=== PATIENT | female | born 1965 | race Caucasian/White ===

== ENCOUNTER 2017-10-10 05:09 | Observation (INO) | payer BC, SELFPAY ==
[2017-10-10] VITALS (7 sets, daily range): BP systolic 90–146; BP diastolic 56–89; PULSE 54–83; RESP 14–22; TEMP 36.4–36.7; O2SAT 94–100; BMI 28.8; BMI 28.9; BMI 29.0
--- NOTE | 2017-10-10 05:18 | CT_ITS ---
STUDY: CT ABDOMEN AND PELVIS WITHOUT CONTRAST REASON FOR EXAM: Female, 51 years old. Right-sided abdominal pain. RADIATION DOSAGE (If Supplied By Facility): CTDIvol = ( 9.35 ) mGy, DLP = ( 478.81 ) mGycm TECHNIQUE: Transaxial images were obtained from the dome of the diaphragm to the symphysis pubis without oral contrast, and without intravenous contrast. Sagittal and coronal images were reconstructed. Individualized dose optimization techniques were used for this CT. COMPARISON: Prior comparison studies are not available for review at this time. FINDINGS: The visualized lung bases are unremarkable. The visualized portions of the heart are within normal limits. Normal liver. Normal gallbladder and extrahepatic biliary system. Normal spleen. There is diffuse atrophy of the pancreas. Normal bilateral adrenal glands. There is a moderate right-sided hydronephrosis and hydroureter secondary to distal ureteral calculus at the ureterovesical junction measuring approximately 3 mm. Normal left kidney. Normal visualized stomach. There is no evidence for dilated bowel, ascites or pneumoperitoneum. Small bowel has a grossly normal appearance. Stool is visible throughout the colon with scattered diverticula. There are surgical clips in the region of the appendix consistent with a prior appendectomy. Normal abdominal aorta. Normal inferior vena cava. Normal retroperitoneum. Normal urinary bladder. There is absence of the uterus consistent with a prior hysterectomy. There is a small umbilical hernia containing fat. Normal osseous structures. CT/Abdomen/Pelvis without Cont IMPRESSION: Right-sided hydronephrosis and hydroureter secondary to distal ureteral calculus. Electronically Signed: Renata Sanderson MD at 5:58 EDT , Service support ,
--- NOTE | 2017-10-10 05:21 | ED.VISSUMM ---
- ER Visit Summary Date of Service: 10/10/17 Chief Complaint: Abdominal pain History of Present Illness: The patient is a 51 F who is otherwise healthy presents to the emergency department with rather sudden onset abdominal pain. Patient was in her normal state of health. She woke suddenly just before 5 AM today with a sharp stabbing pain in her right back that radiates into her right groin. She has had multiple episodes of nausea and vomiting. The pain cannot recruit be re-created with any movement or palpation. She states she has never had pain like this before. She has had prior hysterectomy, but denies any history of kidney stone. She denies any fevers or chills. She denies any recent illness. She has had no urinary symptoms. She states she has never felt like this before. Physical Examination: Vital signs reviewed General: Well-nourished, well-developed Head: Normocephalic, atraumatic Eyes: Pupils equal and reactive, extraocular muscles intact Neck, supple, no lymphadenopathy Heart: Regular rate and rhythm Respiratory: No distress, clear bilaterally Abdomen: Soft, nontender, nondistended, no peritoneal signs Back: Mild right CVA tenderness Extremities: Nontender, no edema, no cords Skin: Normal color no rash Neuro: Alert and oriented, no focal or lateralizing deficits Test Results: [] Emergency Department Course and Treatment: The patient has signs and symptoms of her consistent with urolithiasis. She was nauseated with vomiting. She is a benign abdomen. IV was established. The patient was given analgesics and antiemetics with almost complete resolution of pain. Screening labs are obtained and are unremarkable. The patient underwent CT of abdomen and pelvis. She does have a 3 mm stone is seen at the [facility]. Patient did have return of pain. Her analgesics were redosed. She is much more comfortable. Urine is able to be obtained. It is currently pending. As long as the patient's pain can be controlled, I do feel that she would be safe for outpatient therapy. She currently is getting another dose of analgesics and will be observed. Patient will be signed out to oncoming physician for reevaluation. Treatment Plan: [] Disposition: [] Impression: 1. 3 mm right [facility] stone This note was generated with [employer] dictation software. It may contain incorrect words, spelling, and punctuation that were not noted in review of the chart prior to signing <Devaughn Polanco - Last Filed: 10/10/17 06:49> - ER Visit Summary Date of Service: 10/10/17 Patient continued to have significant pain. She was given additional doses of morphine and Phenergan. She continues to be unable to tolerate the pain. Discussed with Dr. Corrigan for admission. Disposition: Admission Impression: Urolithiasis, intractable pain This note was generated with [employer] dictation software. It may contain incorrect words, spelling, and punctuation that were not noted in review of the chart prior to signing <Jenna Young - Last Filed: 10/10/17 09:25> ED Disposition <SherriDevaughn - Last Filed: 10/10/17 06:49> <Jenna Young - Last Filed: 10/10/17 09:25> - Plan for ED Patient: Chief Complaint: Abd Pain Instructions: ED Stone Renal W Colic Prescriptions: Hydrocodone Bitart/[place] 5-325 [[place] 5/325] 1 tab PO Q4H PRN PRN 3 Days #12 tab PRN Reason: Pain Ondansetron [Zofran Odt] 4 mg PO Q8H PRN PRN #10 tab PRN Reason: Nausea Referrals: Samuel Orourke MD [Primary Care Provider] -
[2017-10-10 05:26] LABS: Absolute Lymphocyte Count 2.53 X10^3/ul (0.83-4.51); Absolute Neutrophil Count 3.8 X10^3/uL (2.0-7.7); Basophil# 0.04 X10^3/uL; Basophil% 0.5 % (0-1); Eosinophil# 0.29 X10^3/uL; Eosinophils% 3.9 % (0-5); Hematocrit 43.7 % (37-47); Hemoglobin 15.1 g/dl (12.0-15.0); Lymphocyte # 2.53 X10^3/ul (4.0); Lymphocyte % 34.1 % (19-41); Mean Corp Hgb Conc 34.6 g/gl (32-36); Mean Corpuscular Hgb 30.4 pg (27.0-32.0); Mean Corpuscular Volume 88.1 fL (81-99); Mean Platelet Vol. 10.7 fl (6.2-12.0); Monocyte# 0.77 X10^3/uL; Monocyte% 10.4 % (0-10); Neutrophil # 3.78 X10^3/uL (2.7-7.7); Platelet Count 259 K/mm3 (150-450); RBC Distribution Width SD 41.8 fl (35.1-43.9); Red Blood Count 4.96 M/mm3 (4.2-5.4); White Blood Count 7.4 K/mm3 (4.4-11.0)
[2017-10-10] MEDS: 0.9% Normal Saline 1,000 ML 250 ML IV (05:26)
[2017-10-10] MEDS: Ketorolac 30 MG/ML Syringe IV (05:26)
[2017-10-10] MEDS: morphine 8 MG/ML Syringe IV (05:27)
[2017-10-10] MEDS: Ondansetron 4 MG/2 ML Vial IV (05:27)
[2017-10-10 05:31] LABS: POSITIVE COUNT NO; POSITIVE DIFFERENTIAL NO; POSITIVE MORPHOLOGY NO
[2017-10-10 05:50] LABS: Anion Gap 12 (5-15); BUN 24 mg/dL (7-18); BUN/Creat Ratio 20.9 RATIO (10-20); Calcium,Total 8.7 mg/dL (8.5-10.1); Chloride 106 mmol/L (98-107); Creatinine, Serum 1.15 mg/dL (0.55-1.02); EST Glomerular Filtration Rate 53 mL/min (>60); Est Glom Filt Rate - Afr Amer 64 mL/min (>60); Estimated Creatinine Clearance 47.88 ml/min; Glucose 116 mg/dL (74-106); Potassium 4.4 mmol/L (3.5-5.1); Sodium Level 143 mmol/L (136-145)
[2017-10-10] MEDS: HYDROmorphone 1 MG/ML Syringe IV (06:19)
[2017-10-10 06:40] LABS: Bacteria 0 SEEN /hpf (None Seen); Mucous, Urine 0 SEEN /hpf (<or=2+)
[2017-10-10 06:43] LABS: Color, Urine Yellow (Yellow); Glucose, Dipstick Normal (Normal); Ketone-Dipstick 15 mg/dl (Negative); Leukocyte Esterase-Dipstick Negative /ul (Negative); Nitrite-Dipstick Negative (Negative); Occult Blood-Urine 150 /ul (Negative); Protein-Dipstick 15 mg/dl (Negative); Urine Bilirubin Dipstick Negative (Negative); Urine Clarity Clear (Clear); Urine Urobilinogen Normal (Normal)
[2017-10-10 06:49] LABS: Red Blood Cells-Urine 5-10 SEEN /hpf (0-5); Squamous Epithelial Cells - UA 5-10 SEEN /hpf (5-10); White Blood Cells 0 SEEN /hpf (0-5)
[2017-10-10] MEDS: Morphine 4 MG/ML Syringe IV ×2 (07:16→08:30)
[2017-10-10] MEDS: proMETHazine 25 MG/ML Syringe 6.25 MG IV (08:30)
--- NOTE | 2017-10-10 09:44 | NURSING ---
318 KIDNEY STONE OBS JOANA
--- NOTE | 2017-10-10 09:46 | ED.RN ---
PRESCRIPTIONS VOIDED AND PLACED IN SHRED BIN
[2017-10-10] MEDS: Morphine 2 MG/ML Syringe IV ×6 (11:05→20:46)
[2017-10-10] MEDS: 0.9% Normal Saline 1,000 ML 150 ML IV ×2 (11:06→17:27)
[2017-10-10] MEDS: Ketorolac 15 MG/ML Vial IV ×2 (11:41→17:41)
[2017-10-10] MEDS: Tamsulosin HCl 0.4 MG Capsule PO ×2 (12:25→22:05)
[2017-10-10] MEDS: Docusate Sodium 100 MG Capsule PO ×2 (12:25→22:05)
--- NOTE | 2017-10-10 20:45 | PCM.HP.STD ---
Problem List (1) Right ureteral calculus Status: Acute (2) Hydronephrosis, right Status: Acute History of Present Illness Date of Admission: 10/10/17 Chief Complaint: Right severe flank pain The patient is a 51 year old female who presented to the emergency room with severe flank pain nausea vomiting the pain started suddenly she had a CT scan done that demonstrated a very small stone in the distal ureterovesical junction. Pain is been very difficult to control she required morphine and increase of doses of morphine was admitted to the hospital but is severe pain. In reviewing the CAT scan I think she may have a stone in the distal right ureter about 3 mm in size. Given her severe pain probably will proceed with intervention tomorrow unless the pain resolves. Past Medical History Allergies latex Allergy (Verified 02/13/17 08:35) Rash Sulfa (Sulfonamide Antibiotics) Allergy (Verified 02/13/17 08:35) Hives Home Medications: Ambulatory Orders Medication Instructions Recorded Levothyroxine [Synthroid] 100 mcg PO DAILY 02/13/17 Estradiol [Estradiol] 1 mg PO DAILY 10/10/17 Isosorbide Mononitrate [Imdur] 60 mg PO DAILY 10/10/17 Omeprazole [Prilosec] 20 mg PO BID 10/10/17 Ondansetron [Zofran Odt] 4 mg PO Q8H PRN PRN #10 tab 10/10/17 Rizatriptan Benzoate [Rizatriptan] 10 mg PO PRN 10/10/17 Sertraline HCl [Zoloft] 25 mg PO DAILY 10/10/17 Surgical History: appendectomy, hysterectomy Psychiatric History: Anxiety 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 Denies: Nausea, Vomiting Genitourinary: Denies: Dysuria Musculoskeletal: Denies: Joint Pain, Joint Tenderness Skin: Denies: Rash, Wounds Neurological: Denies: Numbness, Tingling, Focal weakness Psychiatric: Reports: Anxiety. Denies: Depression, Homicidal Ideations, Suicidal Ideations Hematologic/ Lymphatic: Denies: Easy Bruising, Easy Bleeding VTE Information - Inpt Only VTE Present on Admission: No VTE Mechan Device Prophylaxis: SCD's Patient Problems: Active and Suspected Problems Right ureteral calculus (Acute) Hydronephrosis, right (Acute) - Physical Exam General: Alert, Oriented x3, Cooperative HEENT: Atraumatic, PERRLA, EOMI, Normocephalic Neck: Supple, No JVD, Negative Carotid Bruits Lungs: Clear to auscultation, Normal air movement Cardiovascular: Regular rate, No murmurs Abdomen: Bowel Sounds Present, Soft, Non Tender Extremities: No edema, Capillary Refill Less than 3 Seconds Skin: No rashes, No breakdown Musculoskeletal: No Tenderness to Palpation of Joints or Extremities Neurological: Cranial nerves II-XII grossly intact Psych/Mental Status: Normal Affect, Appropriate Vital Signs Temp Pulse Resp BP Pulse Ox 98.0 F 73 16 103/56 L 95 10/10/17 16:27 10/10/17 16:27 10/10/17 16:27 10/10/17 16:27 10/10/17 16:27 Oxygen Delivery Method Room Air Weight: 74.4 kg Body Mass Index (BMI) 29.0 Intake and Output for Last 24 Hours 10/08/17 10/09/17 10/10/17 23:59 23:59 23:59 Output Total 100 / 100 Balance -100 / -100 Assessment/Plan Active and Suspected Problems Right ureteral calculus (Acute) Hydronephrosis, right (Acute) Admitted for pain control for a very small stone in the distal right ureter at onto the surgery for tomorrow for right ureteroscopy extraction stone retrograde and stent
[2017-10-10] MEDS: 0.9% NaCl Peripheral Flush Adult/Peds IV (20:47)
[2017-10-10] MEDS: Estradiol 1 MG Tablet PO (22:05)
[2017-10-10] MEDS: Pantoprazole Sodium 20 MG Tablet PO (22:05)
[2017-10-10] MEDS: Sertraline 50 MG Tablet 25 MG PO (22:05)
[2017-10-11] VITALS (18 sets, daily range): BP systolic 78–120; BP diastolic 40–80; PULSE 63–88; RESP 14–18; TEMP 36.3–36.8; O2SAT 89–100; BMI 29.0
[2017-10-11] MEDS: 0.9% NaCl Peripheral Flush Adult/Peds IV ×4 (00:01→23:46)
[2017-10-11] MEDS: 0.9% Normal Saline 1,000 ML 150 ML IV ×3 (00:01→18:29)
[2017-10-11] MEDS: 0.9% Normal Saline 1,000 ML 999 ML IV (05:01)
[2017-10-11] MEDS: Levothyroxine 100 MCG Tablet PO (05:03)
[2017-10-11] MEDS: Morphine 2 MG/ML Syringe IV ×5 (05:41→23:46)
--- NOTE | 2017-10-11 07:30 | PCM.PROGNOTE ---
Patient Problems: Active and Suspected Problems Right ureteral calculus (Acute) Hydronephrosis, right (Acute) Subjective: Last night had to give a fluid bolus for a slightly low blood pressure. Today plan to take her surgery to extract the stone if she does not pass it. Pain is controlled with morphine. - Physical Exam General: Alert, Oriented x3, Cooperative HEENT: Atraumatic, PERRLA, EOMI, Normocephalic Neck: Supple, No JVD, Negative Carotid Bruits Lungs: Clear to auscultation, Normal air movement Cardiovascular: Regular rate, No murmurs Abdomen: Bowel Sounds Present, Soft, Non Tender Extremities: No edema, Capillary Refill Less than 3 Seconds Skin: No rashes, No breakdown Musculoskeletal: No Tenderness to Palpation of Joints or Extremities Neurological: Cranial nerves II-XII grossly intact Psych/Mental Status: Normal Affect, Appropriate Vital Signs Temp Pulse Resp BP Pulse Ox 97.9 F 71 16 98/67 97 10/11/17 05:35 10/11/17 05:35 10/11/17 05:35 10/11/17 05:35 10/11/17 05:35 Oxygen Delivery Method Room Air Weight: 74.4 kg Body Mass Index (BMI) 29.0 Intake and Output for Last 24 Hours 10/09/17 10/10/17 10/11/17 23:59 23:59 23:59 Intake Total 4147 / 4147 Output Total 100 / 100 900 / 900 Balance -100 / -100 3247 / 3247 Medical Necessity - Tobacco Use Smoking Status: Never smoker Tobacco Use: Non-smoker Assessment/Plan Active and Suspected Problems Right ureteral calculus (Acute) Hydronephrosis, right (Acute) TO SURGERY TODAY
[2017-10-11 07:40] LABS: Thyroid Stim Hormone (TSH) 4.77 uIU/mL (0.358-3.74)
[2017-10-11] MEDS: Pantoprazole Sodium 20 MG Tablet PO (08:05)
[2017-10-11] MEDS: Tamsulosin HCl 0.4 MG Capsule PO (11:30)
[2017-10-11] MEDS: Ondansetron 4 MG/2 ML Vial IV ×3 (11:30→23:46)
--- NOTE | 2017-10-11 13:26 | NURSING ---
report called to AC. pt transported down by
--- NOTE | 2017-10-11 14:45 | DCINST_ITS ---
Discharge Diet: Light diet - advance as tolerated Discharge Activity: May not drive while taking narcotic pain medications. Call your doctor if you observe: Fever of 101 or Higher, Uncontrolled pain Suture Line Care: Avoid Pulling/Pushing, Avoid Pinching/Bending Instructions: ED Stone Renal W Colic Allergies/Adverse Reactions: Allergies latex Allergy (Verified 02/13/17 08:35) Rash Sulfa (Sulfonamide Antibiotics) Allergy (Verified 02/13/17 08:35) Hives scopolamine Adverse Reaction (Verified 10/10/17 22:03) blurred vision, nausea Medications to take at Discharge Levothyroxine [Synthroid] 100 mcg PO DAILY 02/13/17 Estradiol [Estradiol] 1 mg PO DAILY 10/10/17 Isosorbide Mononitrate [Imdur] 60 mg PO DAILY 10/10/17 Omeprazole [Prilosec] 20 mg PO BID 10/10/17 Ondansetron [Zofran Odt] 4 mg PO Q8H PRN PRN #10 tab 10/10/17 Rizatriptan Benzoate [Rizatriptan] 10 mg PO PRN 10/10/17 Sertraline HCl [Zoloft] 25 mg PO DAILY 10/10/17 Ciprofloxacin [Cipro] 500 mg PO BID #10 tab 10/11/17 Hydrocodone/Acetaminophen [[place] 5-325 Tablet] 1 ea PO Q4H PRN PRN 7 Days #14 tab 10/11/17 The following prescriptions were given: Hydrocodone/Acetaminophen [[place] 5-325 Tablet] 1 ea PO Q4H PRN PRN 7 Days #14 tab PRN Reason: Pain Ondansetron [Zofran Odt] 4 mg PO Q8H PRN PRN #10 tab PRN Reason: Nausea Ciprofloxacin [Cipro] 500 mg PO BID #10 tab Primary Care Physician: Samuel Orourke MD [Primary Care Provider] - Please Follow Up With: Rajinder Corrigan MD When: please call to make an appointment.
--- NOTE | 2017-10-11 15:21 | OP.PCM_ITS ---
Problem List (1) Right ureteral calculus Status: Acute (2) Hydronephrosis, right Status: Acute Report of Operation Date of Procedure: 10/11/17 Pre-Operative Diagnosis: right ureteral calculi causing severe pain and obstruction Post-Operative Diagnosis: same Surgery/Procedure Performed:: cystscopy, right retrograde pyelogram. right ureteroscopy, no stent Description of Surgical Findings:: 51-year-old female who presented to the hospital in severe pain from a very small stone in the distal ureter required multiple doses of morphine had to be admitted to the hospital she was kept overnight by the following morning was still having some pain and strain in the urine we never saw the stone so today we are going to take her to surgery for ureteroscopy and possible extraction of stone possible stent explained to the patient's possible she may pass a small stone hopefully we will have a put a stent in. 51-year-old female with a stone in the distal ureter she underwent general anesthesia and then went into the bladder with a 21 [employer] rigid cystourethroscope in the bladder I saw that the right ureteral orifice was fairly inflamed and irritated rest of the bladder was normal no cyst tumors or stones seen within the bladder I think cannulated the distal ureteral orifice with a wire advanced a wire of the kidney did a retrograde pyelogram could not see the stone on retrograde pyelogram I then over the wire with a SlimLine ureteroscope was able to get in the distal ureter atraumatically and there is no stone in the distal ureter the ureter to get the wire and watch the ureter ureter was effluxing urine and contrast fairly easily. Appear that past the stone probably just having residual pain. The bladder was drained no stent was placed patient's anesthetic was reversed plan to see her in the office in a week or 2 for follow-up. Type of Anesthesia:: General Drains: none - Admit VTE Documentation VTE Present on Admission: No VTE Mechan Device Prophylaxis: SCD's VTE Pharm Prophylaxis ordered?: No Reason prophylaxis not ordered:: Treatment Not Indicated
[2017-10-11] MEDS: Morphine 4 MG/ML Syringe IV (15:45)
[2017-10-11] MEDS: Ketorolac 15 MG/ML Vial IV ×3 (17:00→21:51)
[2017-10-12] MEDS: 0.9% Normal Saline 1,000 ML 150 ML IV (01:14)
[2017-10-12] MEDS: 0.9% NaCl Peripheral Flush Adult/Peds IV (03:53)
[2017-10-12] MEDS: Ketorolac 15 MG/ML Vial IV (03:53)
[2017-10-12 03:58] VITALS: BP 90/55; PULSE 64; RESP 16; TEMP 36.7; O2SAT 96
--- NOTE | 2017-10-12 07:22 | PCM.DC.SUM ---
Discharge Date and Diagnosis - Problem List Patient Problems: Active and Suspected Problems Right ureteral calculus (Acute) Hydronephrosis, right (Acute) Date of Admission: 10/10/17 Date of Discharge: 10/12/17 - Primary Discharge Diagnosis Active and Suspected Problems Right ureteral calculus (Acute) Hydronephrosis, right (Acute) Hospital Course and Treatment Operations: - - Cystoscopy ureteroscopy on the right side. Procedures: None Summary of Care Provided: The patient is a 51 year old she required multiple doses of medication and morphine female with a stone in the distal right ureter causing severe pain and was admitted from the emergency room. Took the patient to surgery yesterday and the stone had passed completed ureteroscopy. Patient has fairly low pain tolerance after the procedure was fairly painful also stayed another night but fortunately this morning she is feeling better pain is much less and she is really ready to go home. She will go home today with pain medicine and antibiotics and was instructed to give my office a call for follow-up appointment. Discharge Diet: Light diet - advance as tolerated Discharge Activity: May not drive while taking narcotic pain medications. Call your doctor if you observe: Fever of 101 or Higher, Uncontrolled pain Suture Line Care: Avoid Pulling/Pushing, Avoid Pinching/Bending Home Medications: Medications to take at Discharge Levothyroxine [Synthroid] 100 mcg PO DAILY 02/13/17 Estradiol [Estradiol] 1 mg PO DAILY 10/10/17 Isosorbide Mononitrate [Imdur] 60 mg PO DAILY 10/10/17 Omeprazole [Prilosec] 20 mg PO BID 10/10/17 Ondansetron [Zofran Odt] 4 mg PO Q8H PRN PRN #10 tab 10/10/17 Rizatriptan Benzoate [Rizatriptan] 10 mg PO PRN 10/10/17 Sertraline HCl [Zoloft] 25 mg PO DAILY 10/10/17 Ciprofloxacin [Cipro] 500 mg PO BID #10 tab 10/11/17 Hydrocodone/Acetaminophen [[place] 5-325 Tablet] 1 ea PO Q4H PRN PRN 7 Days #14 tab 10/11/17 Following Prescrptions Were Given to Patient: Hydrocodone/Acetaminophen [[place] 5-325 Tablet] 1 ea PO Q4H PRN PRN 7 Days #14 tab PRN Reason: Pain Ondansetron [Zofran Odt] 4 mg PO Q8H PRN PRN #10 tab PRN Reason: Nausea Ciprofloxacin [Cipro] 500 mg PO BID #10 tab Primary Care Physician: Samuel Orourke MD [Primary Care Provider] - Please Follow Up With: Rajinder Corrigan MD When: please call to make an appointment. Patient Instructions: ED Stone Renal W Colic Medical Necessity - Tobacco Use Smoking Status: Never smoker Tobacco Use: Non-smoker Meaningful Use Info Meaningful Use Diagnoses (Choose all that apply): None applicable
[2017-10-12 08:00] VITALS: BP 118/75; PULSE 53; RESP 18; TEMP 36.4; O2SAT 98
== END 2017-10-12 09:33 | disposition home or self-care (01) ==
LOC: ED 09:21 → MS3 09:54
PROVIDERS: Anesthesiology; Emergency Medicine; Admitting Provider Urology; Emergency Provider Emergency Medicine; Family Provider Family Medicine; PCP Family Medicine; Visit Provider Urology
PROC: 0TJ98ZZ Inspection of Ureter, Via Natural or Artificial Opening Endoscopic (ICD-10-PCS; CPT 52352; principal; 2017-10-11 07:20)
DX: N13.2 Hydronephrosis with renal and ureteral calculous obstruction (principal); Z79.899 Other long term (current) drug therapy; F41.9 Anxiety disorder, unspecified; E03.9 Hypothyroidism, unspecified
CPT/HCPCS: 00910; 52351; 74176; 76000; 80048; 81001; 84443; 85025; 96361; 96374; 96375; 96376; 97802; 99218; 99284; J7030; A4216; C1769; G0378; J2405

== ENCOUNTER 2017-10-12 15:10 | Emergency (ER) | payer BC, SELFPAY ==
[2017-10-12 15:12] VITALS: BP 123/93; PULSE 71; RESP 15; TEMP 37.1; O2SAT 95; BMI 31.3
--- NOTE | 2017-10-12 15:29 | ED.VISSUMM ---
- ER Visit Summary Date of Service: 10/12/17 Chief Complaint: Rash with itching suspect secondary allergic reaction History of Present Illness: The patient is a 51 F history of anxiety, hypothyroidism, esophageal spasms and recent kidney stone. Patient was hospitalized with [facility] had a cystoscopy done by Dr. Enoc anand of urology they did not see the stone. They did not need to place a stent. She was started on hydrocodone and Cipro and after taking a dose several hours later today he got itching to both hands and rash and hives on her right flank. She has had a similar reaction before to sulfa but she is not on that medication currently. She denies any other symptoms. No wheezing. No tongue or lip swelling. Physical Examination: Well-appearing middle-age female. Vital signs are stable afebrile. H EENT exam unremarkable. No trouble breathing or swallowing. Neck nontender. No lymphadenopathy. Lungs clear to auscultation bilaterally. Heart regular rate and rhythm no murmur. Abdomen soft nontender. Moving all 4 extremities. Her hands are minimally swollen. With a slight nondescript rash also hives along her right lateral chest wall. Consistent with allergic reaction. There is no sloughing of skin. There is no petechiae or purpura. There is no involvement of the oral mucosal surfaces. Neurologic exam unremarkable. Test Results: None Emergency Department Course and Treatment: This does appear to be hives and secondary allergic reaction. I explained to both her and her that I did not know the source it was most likely either the Cipro and hydrocodone could be some no since she was exposed to her 1 of her other medications. We will stop both his medications. Treatment Plan: Treated with 1 dose of prednisone here. Started on Toradol for pain. And Keflex for 5 days the same length of time she was supposed to be on the Cipro. Disposition: Discharge Impression: Acute high secondary to suspected allergic reaction to medication This note was generated with [employer] dictation software. It may contain incorrect words, spelling, and punctuation that were not noted in review of the chart prior to signing ED Disposition - Plan for ED Patient: Chief Complaint: Allergic Reaction Referrals: Samuel Orourke MD [Primary Care Provider] -
--- NOTE | 2017-10-12 15:32 | ED.DCSUM_ITS ---
- ER Visit Summary Date of Service: 10/12/17 Chief Complaint: Rash with itching suspect secondary allergic reaction History of Present Illness: The patient is a 51 F history of anxiety, hypothyroidism, esophageal spasms and recent kidney stone. Patient was hospitalized with [facility] had a cystoscopy done by Dr. Enoc anand of urology they did not see the stone. They did not need to place a stent. She was started on hydrocodone and Cipro and after taking a dose several hours later today he got itching to both hands and rash and hives on her right flank. She has had a similar reaction before to sulfa but she is not on that medication currently. She denies any other symptoms. No wheezing. No tongue or lip swelling. Physical Examination: Well-appearing middle-age female. Vital signs are stable afebrile. H EENT exam unremarkable. No trouble breathing or swallowing. Neck nontender. No lymphadenopathy. Lungs clear to auscultation bilaterally. Heart regular rate and rhythm no murmur. Abdomen soft nontender. Moving all 4 extremities. Her hands are minimally swollen. With a slight nondescript rash also hives along her right lateral chest wall. Consistent with allergic reaction. There is no sloughing of skin. There is no petechiae or purpura. There is no involvement of the oral mucosal surfaces. Neurologic exam unremarkable. Test Results: None Emergency Department Course and Treatment: This does appear to be hives and secondary allergic reaction. I explained to both her and her that I did not know the source it was most likely either the Cipro and hydrocodone could be some no since she was exposed to her 1 of her other medications. We will stop both his medications. Treatment Plan: Treated with 1 dose of prednisone here. Started on Toradol for pain. And Keflex for 5 days the same length of time she was supposed to be on the Cipro. Disposition: Discharge Impression: Acute high secondary to suspected allergic reaction to medication This note was generated with [employer] dictation software. It may contain incorrect words, spelling, and punctuation that were not noted in review of the chart prior to signing ED Disposition - Plan for ED Patient: Chief Complaint: Allergic Reaction Referrals: Samuel Orourke MD [Primary Care Provider] -
--- NOTE | 2017-10-12 15:32 | ED.DEP ---
ED Disposition - Plan for ED Patient: Disposition: Home or Assisted Living Chief Complaint: Allergic Reaction Instructions: ED Drug React Allergic Prescriptions: Cephalexin [Keflex] 250 mg PO Q6 #20 cap Ketorolac [Toradol] 10 mg PO Q4H #14 tab Referrals: Samuel Orourke MD [Primary Care Provider] - As Needed Rajinder Corrigan MD [STAFF PHYSICIAN] - As Needed Additional Instructions: Benadryl for rash and itching. Stop both the Cipro (antibiotic) and the hydrocodone. Start the Toradol for pain as needed. And the Keflex as an antibiotic.
[2017-10-12] MEDS: predniSONE 20 MG Tablet 60 MG PO (15:33)
[2017-10-12 15:54] VITALS: BP 107/88; PULSE 72; RESP 12; O2SAT 96
--- NOTE | 2017-10-12 15:54 | ED.RN ---
REVIEWED D/C INSTRUCTIONS, FOLLOW UP CARE, PRESCRIPTION, AND S/S THAT WOULD WARRANT A RETURN TO THE ED WITH PT. PT VERBALIZED AN UNDERSTANDING AND DENIES FURTHER QUESTIONS FOR THIS RN. PT SKIN P/W/D, RESP EVEN AND UNLABORED, PT A&O X 3, NO DISTRESS NOTED. PT AMBULATED OUT OF ED, GAIT STEADY.
== END 2017-10-12 15:55 | disposition home or self-care (01) ==
PROVIDERS: Emergency Provider Emergency Medicine; Family Provider Family Medicine; PCP Family Medicine
DX: L50.0 Allergic urticaria (principal); F41.9 Anxiety disorder, unspecified; E03.9 Hypothyroidism, unspecified; Z87.442 Personal history of urinary calculi; Z79.2 Long term (current) use of antibiotics; Z79.891 Long term (current) use of opiate analgesic; Z79.899 Other long term (current) drug therapy
CPT/HCPCS: 99283

== ENCOUNTER 2017-10-14 09:30 | Observation (INO) | payer BC, SELFPAY ==
[2017-10-14] VITALS (9 sets, daily range): BP systolic 119–137; BP diastolic 53–80; PULSE 44–69; RESP 16–20; TEMP 36.6–36.9; O2SAT 93–99; BMI 28.3; BMI 30.4; BMI 30.5
--- NOTE | 2017-10-14 09:44 | EKG12_ITS ---
Test Reason : CP Blood Pressure : / mmHG Vent. Rate : 051 BPM Atrial Rate : 051 BPM P-R Int : 124 ms QRS Dur : 080 ms QT Int : 448 ms P-R-T Axes : 066 040 061 degrees QTc Int : 412 ms Sinus bradycardia Otherwise normal ECG Confirmed by LIO VEGA, DEONNA ([id number]), fan mail editor LOBO PEPE ([id number]) on 10/17/2017 1:59:36 PM Referred By: ZACARIAS Confirmed By:DEONNA VACA MD
--- NOTE | 2017-10-14 09:45 | RAD_ITS ---
STUDY: X-RAY CHEST REASON FOR EXAM: Female, 51 years old. Chest pain. TECHNIQUE: AP upright portable view. COMPARISON: None. FINDINGS: Mild elevation of the right hemidiaphragm. Suspicious discoid atelectasis in right lung base. No suspicious confluent infiltrates. No suspicious pulmonary nodules. There is no demonstrated pleural abnormality. Normal size heart. Normal mediastinum and pamela. Normal visualized pulmonary arteries. Normal visualized aortic arch and descending thoracic aorta. Normal visualized thoracic spine. Normal visualized ribs, clavicles, and shoulders. There is no demonstrated abnormality of the visualized soft tissue structures of the upper abdomen. RAD/Chest 1 View (Portable) IMPRESSION: Suspicious discoid atelectasis in right lung base otherwise negative study. Electronically Signed: David Moffett MD at 10:20 EDT , Service support ,
--- NOTE | 2017-10-14 09:47 | ED.VISSUMM ---
- ER Visit Summary Date of Service: 10/14/17 Chief Complaint: Shortness of breath, chest pressure History of Present Illness: The patient is a 51 F presents with shortness of breath and intermittent chest pressure. She states that she was admitted to the hospital on Monday for a kidney stone. She states the stone passed on its own after surgical intervention. She was sent home on Cipro and hydrocodone. She states she returned a few hours later with hives. She was switched from hydrocodone to Toradol and cipro was stopped. She was given 1 dose of prednisone in the ED. She was not sent home with steroids or antibiotics. She states when she returned home her hives returned. She had sensation of tongue swelling. This improved with Benadryl. Today she noted shortness of breath and facial swelling. The facial swelling has since improved. Denies any tongue swelling today. Her flank pain has resolved. Physical Examination: Vitals are stable. Patient is afebrile. Alert no acute distress. HEENT exam is unremarkable. No tongue swelling. No pharyngeal edema. Neck is supple. Lungs are clear and equal bilaterally. Heart is regular rate and rhythm. Abdomen is soft nontender nondistended. Extremities are unremarkable. Skin is warm and dry. No rash. No focal neurologic deficit. Remainder of exam is unremarkable. Emergency Department Course and Treatment: Patient given aspirin, Solu-Medrol IV, zofran IV. EKG is sinus bradycardia rate of 51. Chest x-ray shows discoid atelectasis. CBC, chemistries unremarkable other than BUN 19. Troponin is negative. D-dimer is elevated. CTA chest shows no CTA evidence of pulmonary thromboemboli, thoracic aortic aneurysm or thoracic aortic dissection. Subpleural and subsegmental atelectases in the right peripheral lung base. Moderate right posterior pleural fluid and minimal left posterior pleural fluid. When patient returned from CTA she again developed hives. She was given Benadryl due to possible contrast reaction. She did have contrast during her cystscopy, right retrograde pyelogram on Monday. She continued to have worsening redness and swelling of her face. She was given Epi IM with improvement. Will discuss with hospitalist for observation for her intermittent chest pressure. Disposition: Observation Impression: Chest pain, allergic reaction This note was generated with [employer] dictation software. It may contain incorrect words, spelling, and punctuation that were not noted in review of the chart prior to signing ED Disposition - Plan for ED Patient: Disposition: Acute Care [facility] Chief Complaint: Shortness of Breath
--- NOTE | 2017-10-14 09:50 | ED.DCSUM_ITS ---
- ER Visit Summary Date of Service: 10/14/17 Chief Complaint: Shortness of breath, chest pressure History of Present Illness: The patient is a 51 F presents with shortness of breath and intermittent chest pressure. She states that she was admitted to the hospital on Monday for a kidney stone. She states the stone passed on its own after surgical intervention. She was sent home on Cipro and hydrocodone. She states she returned a few hours later with hives. She was switched from hydrocodone to Toradol and cipro was stopped. She was given 1 dose of prednisone in the ED. She was not sent home with steroids or antibiotics. She states when she returned home her hives returned. She had sensation of tongue swelling. This improved with Benadryl. Today she noted shortness of breath and facial swelling. The facial swelling has since improved. Denies any tongue swelling today. Her flank pain has resolved. Physical Examination: Vitals are stable. Patient is afebrile. Alert no acute distress. HEENT exam is unremarkable. No tongue swelling. No pharyngeal edema. Neck is supple. Lungs are clear and equal bilaterally. Heart is regular rate and rhythm. Abdomen is soft nontender nondistended. Extremities are unremarkable. Skin is warm and dry. No rash. No focal neurologic deficit. Remainder of exam is unremarkable. Emergency Department Course and Treatment: Patient given aspirin, Solu-Medrol IV , zofran IV. EKG is sinus bradycardia rate of 51. Chest x-ray shows discoid atelectasis. CBC, chemistries unremarkable other than BUN 19. Troponin is negative. D-dimer is elevated. CTA chest shows no CTA evidence of pulmonary thromboemboli, thoracic aortic aneurysm or thoracic aortic dissection. Subpleural and subsegmental atelectases in the right peripheral lung base. Moderate right posterior pleural fluid and minimal left posterior pleural fluid. When patient returned from CTA she again developed hives. She was given Benadryl due to possible contrast reaction. She did have contrast during her cystscopy, right retrograde pyelogram on Monday. She continued to have worsening redness and swelling of her face. She was given Epi IM with improvement. Will discuss with hospitalist for observation for her intermittent chest pressure. Disposition: Observation Impression: Chest pain, allergic reaction This note was generated with [employer] dictation software. It may contain incorrect words, spelling, and punctuation that were not noted in review of the chart prior to signing ED Disposition - Plan for ED Patient: Disposition: Acute Care [facility] Chief Complaint: Shortness of Breath
[2017-10-14] MEDS: 0.9% Normal Saline 1,000 ML 1000 ML IV (09:59)
[2017-10-14] MEDS: MethylPREDNISolone 125 MG/2 ML Vial IV (09:59)
[2017-10-14] MEDS: Aspirin 81 MG TAB.CHEW 324 MG PO (10:00)
[2017-10-14 10:10] LABS: Absolute Neutrophil Count 2.9 X10^3/uL (2.0-7.7); Basophil# 0.03 X10^3/uL; Basophil% 0.7 % (0-1); Eosinophil# 0.17 X10^3/uL; Eosinophils% 3.8 % (0-5); Hematocrit 37.2 % (37-47); Hemoglobin 12.6 g/dl (12.0-15.0); Lymphocyte % 22.2 % (19-41); Mean Corp Hgb Conc 33.9 g/gl (32-36); Mean Corpuscular Hgb 30.2 pg (27.0-32.0); Mean Corpuscular Volume 89.2 fL (81-99); Mean Platelet Vol. 11.3 fl (6.2-12.0); Monocyte# 0.44 X10^3/uL; Monocyte% 9.8 % (0-10); Neutrophil # 2.87 X10^3/uL (2.7-7.7); Neutrophil % 63.5 % (47-70); Platelet Count 192 K/mm3 (150-450); RBC Distribution Width SD 42.1 fl (35.1-43.9); Red Blood Count 4.17 M/mm3 (4.2-5.4); White Blood Count 4.5 K/mm3 (4.4-11.0)
[2017-10-14 10:11] LABS: POSITIVE COUNT NO; POSITIVE DIFFERENTIAL NO; POSITIVE MORPHOLOGY NO
[2017-10-14] MEDS: Ondansetron 4 MG/2 ML Vial IV (10:19)
[2017-10-14 10:21] LABS: Anion Gap 7 (5-15); BUN 19 mg/dL (7-18); BUN/Creat Ratio 19.1 RATIO (10-20); Calcium,Total 8.5 mg/dL (8.5-10.1); Chloride 112 mmol/L (98-107); EST Glomerular Filtration Rate 62 mL/min (>60); Est Glom Filt Rate - Afr Amer 75 mL/min (>60); Estimated Creatinine Clearance 55.06 ml/min; Glucose 85 mg/dL (74-106); Potassium 3.7 mmol/L (3.5-5.1); Sodium Level 145 mmol/L (136-145)
[2017-10-14 10:54] LABS: White Blood Cells 0 SEEN /hpf (0-5)
[2017-10-14 10:55] LABS: Bacteria 0 SEEN /hpf (None Seen); Mucous, Urine 0 SEEN /hpf (<or=2+)
[2017-10-14 10:57] LABS: Color, Urine Yellow (Yellow); Glucose, Dipstick Normal (Normal); Ketone-Dipstick 5 mg/dl (Negative); Leukocyte Esterase-Dipstick Negative /ul (Negative); Nitrite-Dipstick Negative (Negative); Occult Blood-Urine 150 /ul (Negative); Protein-Dipstick 15 mg/dl (Negative); Urine Bilirubin Dipstick Negative (Negative); Urine Clarity Clear (Clear); Urine Urobilinogen Normal (Normal)
[2017-10-14 11:12] LABS: Red Blood Cells-Urine 0-5 SEEN /hpf (0-5); Squamous Epithelial Cells - UA 0-5 SEEN /hpf (5-10)
[2017-10-14 11:13] LABS: D-Dimer Quantitative (DVT/PE) 5.65 FEU/ug/m (0.27-0.49)
--- NOTE | 2017-10-14 11:14 | CT_ITS ---
STUDY: CTA CHEST REASON FOR EXAM: Female, 51 years old. Elevated d-dimer. Shortness of breath x2 days. Hives and facial swelling (? Medication reaction). Recent cystoscopy and kidney stone removal. RADIATION DOSAGE (If Supplied By Facility): CTDIvol = ( 17.85 ) mGy, DLP = ( 305.23 ) mGycm TECHNIQUE: The examination was performed with the intravenous administration of 75mL ml of Isovue 370 contrast material. Post-processing of the angiographic images was performed, with multiplanar reformation and MIP reconstruction. Individualized dose optimization techniques were used for this CT. COMPARISON: None. FINDINGS: Normal enhancement of the main pulmonary artery and right and left pulmonary arteries. Normal enhancement of the bilateral peripheral pulmonary arteries. There is no demonstrated pulmonary embolism. Normal thoracic aorta and visualized great vessels. There is no demonstrated aortic dissection. Normal heart and pericardium. Normal mediastinum. Normal hilar regions. Normal visualized trachea and bronchi. The lungs are well expanded. Subpleural and subsegmental atelectasis in the right peripheral lung base. No suspicious pulmonary nodules. Moderate right posterior pleural fluid. Minimal left posterior pleural fluid. Normal chest wall structures. Normal osseous structures. Normal visualized upper abdomen. CT/CTA Chest W/WO Contrast IMPRESSION: 1. No CTA evidence of pulmonary thromboemboli, thoracic aortic aneurysm or thoracic aortic dissection. 2. Subpleural and subsegmental atelectases in the right peripheral lung base. 3. Moderate right posterior pleural fluid and minimal left posterior pleural fluid. Electronically Signed: David Moffett MD at 12:04 EDT , Service support ,
--- NOTE | 2017-10-14 11:14 | ED.RN ---
DDIMER 5.[address] CALLED FROM THE LAB. DR KENNEY AWARE
[2017-10-14] MEDS: DiphenhydrAMINE 50 MG/ML Syringe 25 MG IV (12:52)
--- NOTE | 2017-10-14 12:55 | PCM.HP.STD ---
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 right ureteroscopy, no stent was discharged home on Cipro was seen 3 hours after the procedure with shortness of breath as well as rash. It was felt patient was having an allergic reaction to the ciprofloxacin and this was discontinued discharge on Keflex. Patient apparently did receive some IV dye during the procedure return to the emergency department 3 days later with chest tightness and shortness of breath. D-dimer obtained as part of her evaluation came back positive patient underwent CTA of the chest again with contrast following which patient developed more hives as well as facial swelling and some breathing. She did receive epinephrine injection, Benadryl and Solu-Medrol and subsequently admitted to a monitored bed for further management Past Medical History Past Medical History (Chronic Problems): Chronic Problems Right ureteral calculus (Chronic) Hydronephrosis, right (Chronic) Allergies latex Allergy (Verified 02/13/17 08:35) Rash Sulfa (Sulfonamide Antibiotics) Allergy (Verified 02/13/17 08:35) Hives scopolamine Adverse Reaction (Verified 10/10/17 22:03) blurred vision, nausea Home Medications: Ambulatory Orders Medication Instructions Recorded Levothyroxine [Synthroid] 100 mcg PO DAILY 02/13/17 Estradiol [Estradiol] 1 mg PO DAILY 10/10/17 Isosorbide Mononitrate [Imdur] 60 mg PO DAILY 10/10/17 Omeprazole [Prilosec] 20 mg PO BID 10/10/17 Ondansetron [Zofran Odt] 4 mg PO Q8H PRN PRN #10 tab 10/10/17 Rizatriptan Benzoate [Rizatriptan] 10 mg PO PRN PRN 10/10/17 Sertraline HCl [Zoloft] 25 mg PO DAILY 10/10/17 Ketorolac [Toradol] 10 mg PO Q4H #14 tab 10/12/17 Surgical History: appendectomy, hysterectomy Psychiatric History: Anxiety 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 Denies: Cough Gastrointestinal: Denies: Abdominal Pain, Hematemesis, Hematochezia, Nausea, Melena, Vomiting Genitourinary: Denies: Dysuria, Frequency, Hematuria, Urgency Musculoskeletal: Denies: Joint Pain, Joint Tenderness Skin: Reports: Rash Neurological: Denies: Focal weakness, Numbness, Tingling Psychiatric: Denies: Homicidal Ideations, Suicidal Ideations Hematologic/ Lymphatic: Denies: Easy Bruising, Easy Bleeding VTE Information - Inpt Only VTE Present on Admission: No VTE Mechan Device Prophylaxis: Knee High FLORENCE Hose VTE Pharm Prophylaxis ordered?: Yes Patient Problems: Active and Suspected Problems Allergic reaction to contrast dye (Acute) Objective: GENERAL: cooperative HEENT: Edema and erythema involving almost the entire face NECK; supple, normal thyroid, CHEST: Clear to auscultation bilaterally, HEART: Regular S1 S2, no audible murmurs ABDOMEN: soft, non-tender, normoactive bowel sounds, RECTAL: deferred EXTREMITIES: No edema, no clubbing, no cyanosis. AUTOMOTIVE PROFESSIONAL: Awake, no lateralizing signs. SKIN: As described above - Physical Exam Vital Signs Temp Pulse Resp BP Pulse Ox 98.4 F 58 L 16 137/80 H 99 10/14/17 09:31 10/14/17 09:31 10/14/17 09:31 10/14/17 09:31 10/14/17 10:22 Oxygen Delivery Method Room Air Weight: 72.575 kg Body Mass Index (BMI) 28.3 Laboratory Tests Past 24 Hrs 10/14/17 10/14/17 10/14/17 09:55 09:55 09:55 WBC 4.5 RBC 4.17 L Hgb 12.6 Hct 37.2 MCV 89.2 MCH 30.2 MCHC 33.9 RDW 13.0 RDW Differential 42.1 Plt Count 192 MPV 11.3 Immature Gran % (Auto) 0.000 Neut % (Auto) 63.5 Lymph % (Auto) 22.2 [place] % (Auto) 9.8 Eos % (Auto) 3.8 Baso % (Auto) 0.7 Absolute Neuts (auto) 2.9 Absolute Lymphs (auto) 1.00 Total Counted Not Reportable D-Dimer Quant (PE/DVT) Cancelled Sodium 145 Potassium 3.7 Chloride 112 H Carbon Dioxide 26.0 Anion Gap 7 BUN 19 H Creatinine 1.00 Estim Creat Clear Calc 55.06 Est GFR (MDRD) Af Amer 75 Est GFR (MDRD) Non-Af 62 BUN/Creatinine Ratio 19.1 Glucose 85 Calcium 8.5 Troponin I < 0.02 Urine Color Urine Clarity Urine pH Ur Specific [place] Urine Protein Urine Glucose (UA) Urine Ketones Urine Occult Blood Urine Nitrite Urine Bilirubin Urine Urobilinogen Ur Leukocyte Esterase Urine RBC Urine WBC Ur Squamous Epith Cells Urine Bacteria Urine Mucus 10/14/17 10/14/17 10:20 10:50 WBC RBC Hgb Hct MCV MCH MCHC RDW RDW Differential Plt Count MPV Immature Gran % (Auto) Neut % (Auto) Lymph % (Auto) [place] % (Auto) Eos % (Auto) Baso % (Auto) Absolute Neuts (auto) Absolute Lymphs (auto) Total Counted D-Dimer Quant (PE/DVT) 5.65 H* Sodium Potassium Chloride Carbon Dioxide Anion Gap BUN Creatinine Estim Creat Clear Calc Est GFR (MDRD) Af Amer Est GFR (MDRD) Non-Af BUN/Creatinine Ratio Glucose Calcium Troponin I Urine Color Yellow Urine Clarity Clear Urine pH 7.0 Ur Specific [place] 1.010 Urine Protein 15 H Urine Glucose (UA) Normal Urine Ketones 5 H Urine Occult Blood 150 H Urine Nitrite Negative Urine Bilirubin Negative Urine Urobilinogen Normal Ur Leukocyte Esterase Negative Urine RBC 0-5 SEEN Urine WBC 0 SEEN Ur Squamous Epith Cells 0-5 SEEN Urine Bacteria 0 SEEN Urine Mucus 0 SEEN Assessment/Plan Active and Suspected Problems Allergic reaction to contrast dye (Acute) Patient is a 51-year-old lady presented with chest tightness did develop allergic reaction after receiving IV dye for CT of the chest 1. Allergic reaction to IV dye: Patient did receive epinephrine Benadryl as well as Solu-Medrol in the emergency department admitted to monitored bed for subsequent observation 2. Chest pain. Did order serial cardiac enzymes if PA is ruled out plan is for patient undergo a nuclear stress test as outpatient 3. Nephrolithiasis with recent right ureteral stone with subsequent right-sided hydronephrosis for which patient underwent cystscopy, right retrograde pyelogram. right ureteroscopy, no stent on 10/11/2017 4. Hypothyroidism-patient is on levothyroxine home dose continued 5. GERD on PPI 6. DVT prophylaxis SC Lovenox Code Visit OBSV E&M: 73960 Initial observation care L3
--- NOTE | 2017-10-14 13:00 | NURSING ---
109 OBS ALLERGIC REACTION, CP KITTOE
[2017-10-14] MEDS: 0.9% NaCl Peripheral Flush Adult/Peds IV ×2 (15:53→19:28)
[2017-10-14] MEDS: DiphenhydrAMINE 50 MG/ML Syringe IV (19:27)
[2017-10-14] MEDS: Acetaminophen 325 MG Tablet 650 MG PO (20:40)
[2017-10-15] MEDS: DiphenhydrAMINE 50 MG/ML Syringe IV (02:37)
[2017-10-15 02:57] VITALS: PULSE 46
[2017-10-15 03:00] VITALS: BP 141/76; PULSE 45; RESP 16; TEMP 36.9; O2SAT 97
[2017-10-15] MEDS: Famotidine 20 MG Tablet PO (04:12)
[2017-10-15] MEDS: Levothyroxine 100 MCG Tablet PO (05:34)
[2017-10-15 05:56] LABS: Hematocrit 34.4 % (37-47); Hemoglobin 11.7 g/dl (12.0-15.0); Mean Corpuscular Hgb 30.6 pg (27.0-32.0); Mean Corpuscular Volume 90.1 fL (81-99); Mean Platelet Vol. 12.1 fl (6.2-12.0); Platelet Count 186 K/mm3 (150-450); RBC Distribution Width CV 13.1 % (11.6-14.6); RBC Distribution Width SD 42.2 fl (35.1-43.9); Red Blood Count 3.82 M/mm3 (4.2-5.4); Scan Indicated on CBC? Y/N NO; White Blood Count 8.2 K/mm3 (4.4-11.0)
[2017-10-15 05:58] LABS: Anion Gap 9 (5-15); BUN 12 mg/dL (7-18); BUN/Creat Ratio 14.1 RATIO (10-20); Calcium,Total 8.4 mg/dL (8.5-10.1); Chloride 113 mmol/L (98-107); Creatinine, Serum 0.85 mg/dL (0.55-1.02); EST Glomerular Filtration Rate 75 mL/min (>60); Est Glom Filt Rate - Afr Amer 90 mL/min (>60); Estimated Creatinine Clearance 64.77 ml/min; Glucose 161 mg/dL (74-106); Magnesium 1.9 mg/dL (1.6-2.6); Potassium 3.6 mmol/L (3.5-5.1); Sodium Level 147 mmol/L (136-145)
[2017-10-15 07:08] VITALS: PULSE 49
--- NOTE | 2017-10-15 08:39 | PCM.PN.HOSP ---
Patient Problems: Active and Suspected Problems Allergic reaction to contrast dye (Acute) Subjective: Patient apparently broke out into hives during the evening however she thinks she is much improved this morning. Plan was for patient to have been observed for 1 additional night for EpiPen, Benadryl prednisone and Pepcid and instructed her to follow-up with PCP within 2-3 days for referral to see an oracle solutions architect. Objective: GENERAL: cooperative HEENT: Edema and erythema involving almost the entire face NECK; supple, normal thyroid, CHEST: Clear to auscultation bilaterally, HEART: Regular S1 S2, no audible murmurs ABDOMEN: soft, non-tender, normoactive bowel sounds, RECTAL: deferred EXTREMITIES: No edema, no clubbing, no cyanosis. 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 SKIN: As described above Vitals/I&O's: Vital Signs Temp Pulse Resp BP Pulse Ox 98.4 F 49 L 16 141/76 H 97 10/15/17 03:00 10/15/17 07:08 10/15/17 03:00 10/15/17 03:00 10/15/17 03:00 Oxygen Delivery Method Room Air Weight: 78 kg Body Mass Index (BMI) 30.4 Intake and Output for Last 24 Hours 10/13/17 10/14/17 10/15/17 23:59 23:59 23:59 Intake Total 240 / 240 460 / 460 Balance 240 / 240 460 / 460 Laboratory Results 10/14/17 15:10: Troponin I < 0.02 10/14/17 18:30: Troponin I < 0.02 10/15/17 00:15: Troponin I < 0.02 10/15/17 05:16: WBC 8.2, RBC 3.82 L, Hgb 11.7 L, Hct 34.4 L, MCV 90.1, MCH 30.6, MCHC 34.0, RDW 13.1, RDW Differential 42.2, Plt Count 186, MPV 12.1 H 10/15/17 05:16: Sodium 147 H, Potassium 3.6, Chloride 113 H, Carbon Dioxide 25.0, Anion Gap 9, BUN 12, Creatinine 0.85, Estim Creat Clear Calc 64.77, Est GFR (MDRD) Af Amer 90, Est GFR (MDRD) Non-Af 75, BUN/Creatinine Ratio 14.1, Glucose 161 H, Calcium 8.4 L, Magnesium 1.9 Current Medications Acetaminophen (Tylenol) 650 mg PO Q4H PRN PRN PRN Reason: PAIN/FEVER, t>100.4 F Last Admin: 10/14/17 20:40 Dose: 650 mg Al Hydroxide/Mg Hydroxide (Mylanta Ii) 30 ml PO Q6H PRN PRN PRN Reason: Gastric burning Diphenhydramine HCl (Benadryl) 50 mg IV Q6H PRN PRN PRN Reason: ALLERGIES Last Admin: 10/15/17 02:37 Dose: 50 mg Enoxaparin Sodium (Lovenox) 40 mg SC DAILY@1000 [facility] Epinephrine HCl (Epi Pen) 0.3 mg IM X1 PRN PRN Reason: Anaphylaxis Estradiol (Estrace (G)) 1 mg PO DAILY@0800 [facility] Famotidine (Pepcid) 20 mg PO DAILY [facility] Last Admin: 10/15/17 04:12 Dose: 20 mg Isosorbide Mononitrate (Imdur) 60 mg PO DAILY [facility] Levothyroxine Sodium (Synthroid) 100 mcg PO DAILY@0600 [facility] Last Admin: 10/15/17 05:34 Dose: 100 mcg Magnesium Hydroxide (Milk Of Magnesia) 30 ml PO DAILY PRN PRN Reason: Constipation Methylprednisolone (Solu-Medrol) 40 mg IV Q8 [facility] Last Admin: 10/15/17 05:34 Dose: 40 mg Nitroglycerin (Nitrostat) 0.4 mg SUBLINGUAL Q5M PRN PRN Reason: CHEST PAIN Ondansetron HCl (Zofran Odt) 4 mg PO Q8H PRN PRN PRN Reason: NAUSEA Sertraline HCl (Zoloft) 25 mg PO DAILY [facility] Sodium Chloride () 5 - 30 ml IV UD PRN PRN Reason: SALINE FLUSH Last Admin: 10/14/17 19:28 Dose: 10 ml Zolpidem Tartrate (Ambien (Generic)) 5 mg PO QHS PRN PRN PRN Reason: INSOMNIA Medical Necessity - Tobacco Use Smoking Status: Never smoker Assessment/Plan Active and Suspected Problems Allergic reaction to contrast dye (Acute) Patient is a 51-year-old lady presented with chest tightness did develop allergic reaction after receiving IV dye for CT of the chest 1. Allergic reaction to IV dye: Patient did receive epinephrine Benadryl as well as Solu-Medrol in the emergency department admitted to monitored bed for subsequent observation. Patient apparently broke out into hives during the evening however she thinks she is much improved this morning. Plan was for patient to have been observed for 1 additional night for EpiPen, Benadryl prednisone and Pepcid and instructed her to follow-up with PCP within 2-3 days for referral to see an oracle solutions architect. 2. Chest pain. Did order serial cardiac enzymes out [place] patient instructed to follow-up PCP for stress test as an outpatient to be ordered 3. Nephrolithiasis with recent right ureteral stone with subsequent right-sided hydronephrosis for which patient underwent cystscopy, right retrograde pyelogram. right ureteroscopy, no stent on 10/11/2017 4. Hypothyroidism-patient is on levothyroxine home dose continued 5. GERD on PPI 6. DVT prophylaxis SC Lovenox Code Visit Inpatient E&M: 71722 [facility] Hosp L3
--- NOTE | 2017-10-15 08:56 | PCM.WORK.EX ---
Work/School Excuse Work/School Excuse for:: Patient Please excuse this person from:: Work From: 10/14/17 through: 10/22/17
--- NOTE | 2017-10-15 08:58 | PCM.DC ---
- Discharge Diagnoses Current Active Problems: Current Active and Chronic Problems Allergic reaction to contrast dye (Acute) You will use the following diet at home:: No restrictions Discharge Activity: Return to Normal Activity Return to work on:: 10/23/17 Allergies/Adverse Reactions: Allergies Iodinated Contrast- Oral and IV Dye [CONTRASTS] Allergy (Severe, Verified 10/14/17 15:03) Angioedema w/ hives latex Allergy (Verified 02/13/17 08:35) Rash Sulfa (Sulfonamide Antibiotics) Allergy (Verified 02/13/17 08:35) Hives scopolamine Adverse Reaction (Verified 10/10/17 22:03) blurred vision, nausea Medications to take at Discharge Levothyroxine [Synthroid] 100 mcg PO DAILY 02/13/17 Estradiol 1 mg PO DAILY 10/10/17 Isosorbide Mononitrate [Imdur] 90 mg PO DAILY 10/10/17 Omeprazole [Prilosec] 20 mg PO BID 10/10/17 Rizatriptan Benzoate [Rizatriptan] 10 mg PO PRN PRN 10/10/17 Sertraline HCl [Zoloft] 50 mg PO DAILY 10/10/17 DiphenhydrAMINE [Benadryl] 25 mg PO TID PRN PRN #30 cap 10/15/17 Epinephrine [Epi Pen] 0.3 mg IM X1 PRN #3 syringe 10/15/17 Famotidine [Pepcid] 20 mg PO BID #14 tab 10/15/17 Prednisone 20 mg PO BID #10 tab 10/15/17 The following prescriptions were given: DiphenhydrAMINE [Benadryl] 25 mg PO TID PRN PRN #30 cap PRN Reason: Allergies Epinephrine [Epi Pen] 0.3 mg IM X1 PRN #3 syringe PRN Reason: Anaphylaxis Famotidine [Pepcid] 20 mg PO BID #14 tab Prednisone 20 mg PO BID #10 tab Primary Care Physician: Samuel Orourke MD [Primary Care Provider] - Please follow up with your Primary Care Physician in: in 2-3 days Proposed Discharge Date: 10/15/17
[2017-10-15] MEDS: Estradiol 1 MG Tablet PO (08:59)
--- NOTE | 2017-10-15 08:59 | PCM.DC.SUM ---
Discharge Date and Diagnosis - Problem List Patient Problems: Active and Suspected Problems Allergic reaction to contrast dye (Acute) Date of Admission: 10/14/17 Date of Discharge: 10/15/17 - Primary Discharge Diagnosis Active and Suspected Problems Allergic reaction to contrast dye (Acute) - Secondary Discharge Diagnosis Chronic Problems Right ureteral calculus (Chronic) Hydronephrosis, right (Chronic) Hospital Course and Treatment Imaging Results: Clinical Impression(s) from Imaging Studies Chest X-Ray 10/14/17 09:45 IMPRESSION: Suspicious discoid atelectasis in right lung base otherwise negative study. Electronically Signed: David Moffett MD at 10:20 EDT , Service support , Operations: - - Cystoscopy ureteroscopy on the right side. Summary of Care Provided: Patient is a 51-year-old lady presented with chest tightness did develop allergic reaction after receiving IV dye for CT of the chest 1. Allergic reaction to IV dye: Patient did receive epinephrine Benadryl as well as Solu-Medrol in the emergency department admitted to monitored bed for subsequent observation. Discharged on EpiPen, Benadryl prednisone and Pepcid and instructed her to follow-up with PCP within 2-3 days for referral to see an aircraft instrument mechanic after a day of hospital stay per her request.. 2. Chest pain. Did order serial cardiac enzymes out [place] patient instructed to follow-up PCP for stress test as an outpatient to be ordered 3. Nephrolithiasis with recent right ureteral stone with subsequent right-sided hydronephrosis for which patient underwent cystscopy, right retrograde pyelogram. right ureteroscopy, no stent on 10/11/2017 4. Hypothyroidism-patient is on levothyroxine home dose continued 5. GERD on PPI 6. DVT prophylaxis [place] Lovenox Discharge Diet: No Restrictions Discharge Activity: Return to Normal Activity Return to work on:: 10/23/17 Home Medications: Medications to take at Discharge Levothyroxine [Synthroid] 100 mcg PO DAILY 02/13/17 Estradiol 1 mg PO DAILY 10/10/17 Isosorbide Mononitrate [Imdur] 90 mg PO DAILY 10/10/17 Omeprazole [Prilosec] 20 mg PO BID 10/10/17 Rizatriptan Benzoate [Rizatriptan] 10 mg PO PRN PRN 10/10/17 Sertraline HCl [Zoloft] 50 mg PO DAILY 10/10/17 DiphenhydrAMINE [Benadryl] 25 mg PO TID PRN PRN #30 cap 10/15/17 Epinephrine [Epi Pen] 0.3 mg IM X1 PRN #3 syringe 10/15/17 Famotidine [Pepcid] 20 mg PO BID #14 tab 10/15/17 Prednisone 20 mg PO BID #10 tab 10/15/17 Following Prescrptions Were Given to Patient: DiphenhydrAMINE [Benadryl] 25 mg PO TID PRN PRN #30 cap PRN Reason: Allergies Epinephrine [Epi Pen] 0.3 mg IM X1 PRN #3 syringe PRN Reason: Anaphylaxis Famotidine [Pepcid] 20 mg PO BID #14 tab Prednisone 20 mg PO BID #10 tab Primary Care Physician: Samuel Orourke MD [Primary Care Provider] - Please follow up with your Primary Care Physician in: in 2-3 days Disposition: Home Minutes spent on discharge:: 45 Patient Condition:: Stable Medical Necessity - Tobacco Use Smoking Status: Never smoker Meaningful Use Info Meaningful Use Diagnoses (Choose all that apply): None applicable Code Visit Inpatient E&M: 99214 Disch Hosp
[2017-10-15 09:00] VITALS: BP 127/60; PULSE 57; RESP 16; TEMP 37.1; O2SAT 94
[2017-10-15] MEDS: Isosorbide Mononitrate 60 MG Tablet PO (09:15)
[2017-10-15] MEDS: Sertraline 50 MG Tablet 25 MG PO (09:16)
== END 2017-10-15 10:13 | disposition home or self-care (01) ==
LOC: ED 09:58 → PCU 13:03
PROVIDERS: Admitting Provider Internal Medicine; Emergency Provider Emergency Medicine; Family Provider Family Medicine; PCP Family Medicine; Visit Provider Internal Medicine
DX: R07.89 Other chest pain (principal); R06.02 Shortness of breath; T50.8X5A Adverse effect of diagnostic agents, initial encounter; N13.2 Hydronephrosis with renal and ureteral calculous obstruction; E03.9 Hypothyroidism, unspecified; K21.9 Gastro-esophageal reflux disease without esophagitis; Z79.899 Other long term (current) drug therapy; L50.9 Urticaria, unspecified; F41.9 Anxiety disorder, unspecified
CPT/HCPCS: 36415; 71045; 71275; 80048; 81001; 83735; 84484; 85025; 85027; 85379; 93005; 96361; 96374; 96375; 96376; 99218; 99285; J7030; Q9967; A4216; G0378; J2405

== ENCOUNTER 2018-05-18 05:50 | Day surgery (SDC) | payer BC, SELFPAY ==
[2018-05-18] VITALS (7 sets, daily range): BP systolic 96–115; BP diastolic 64–78; PULSE 61–74; RESP 16; TEMP 36.4–36.6; O2SAT 96–99; BMI 28.5
[2018-05-18] MEDS: Cefazolin 2 GM in 0.9% Normal Saline 100 ML IV (07:30)
[2018-05-18] MEDS: Bupivacaine Mpf 0.5% 30 ML VIAL (07:46)
--- NOTE | 2018-05-18 09:33 | SUR.OPER ---
Surgeon: Iam Houston DPM preop: HAV bilateral post op: HAV bilateral procedures: Ziggy bunionectomy right Ziggy bunionectomy left anesthesia: LMAC hemostasis: ankle tourniquets at 250mmMG EBL: 3 ml materials: synthes cannulated screw x2 3.0mm vicryl, monocryl injectables: 30ml 1:1 1% lidocain plain and 0.5% marcaine plain OP NOTE LMAC. both feet injected. feet prepped and draped in usual sterile fashion. left elevated. left foot elevated, tourn inflated. linear incision over 1st MPJ deepened with careful dissection. inverted L shaped capsulotomy exposed medial prominence which was resected with a saw. a lateral capsulotomy and adductor tendon release was performed. a V shaped osteotomy was made transposing the fragment laterally to close the IM angle. It was fixated with the screw. good alignment and fixation noted. the right foot was done in the same way. DSD appliled bilateral. No complication.
[2018-05-18] MEDS: HYDROcodone Bitartrate/Apap 5/325 Tablet PO (10:03)
--- OUTSIDE RECORDS SUMMARY | 2018-07-13 00:47 | XMS RPT_ITS ---
:1965 Author Organization OHIP Care Team Providers Name Role Phone Samuel Epps [facility] Unavailable Rajinder Corrigan Admitting Unavailable Rajinder Corrigan Attending Unavailable Samuel Epps Primary [facility] Unavailable Samuel Flores Attending Unavailable Samuel Epps Primary [facility] Unavailable Zackery Osman Admitting Unavailable Zackery Osman Attending Unavailable Zackery Osman Admitting Unavailable Zackery Osman Attending Unavailable Mich, Samuel Primary Care Unavailable Zackery Osman Consulting Unavailable Zackery Osman Admitting Unavailable Zackery Osman Attending Unavailable Mich, Samuel Primary Care Unavailable Zackery Osman Consulting Unavailable Iam Houston Attending Unavailable Mich, Samuel Primary Care Unavailable Iam [place] Referring Unavailable CHRISTOPHER RIOS Attending Unavailable SAMUEL EPPS A Referring Unavailable CHRISTOPHER RIOS Admitting Unavailable CHRISTOPHER RIOS Attending Unavailable CHRISTOPHER RIOS Attending Unavailable SAMUEL EPPS A Referring Unavailable CHRISTOPHER RIOS Admitting Unavailable PAPCHRISTOPHER HOPE Attending Unavailable BERTIN MOTA Attending Unavailable PHYSICIAN, NONE Primary Care Unavailable SILVINO LINDSAY (PT) Attending Unavailable MICHSKIPSAMUEL A Referring Unavailable ALINE ELY Attending Unavailable MICH, SAMUEL A Referring Unavailable MICHSKIPSAMUEL A Attending Unavailable MICHSKIP PHILIPPEREY A Referring Unavailable MICHSAMUEL A Attending Unavailable MICH, SAMUEL A Referring Unavailable MICH, SAMUEL A Attending Unavailable MICH, SAMUEL A Referring Unavailable POLI GRANDA Attending Unavailable MICH, SAMUEL A Referring Unavailable LAVINIA DAHL Attending Unavailable MICH, SAMUEL A Referring Unavailable MICH, SAMUEL A Attending Unavailable MICH, SAMUEL A Referring Unavailable MIHC, SAMUEL A Attending Unavailable MICH, SAMUEL A Attending Unavailable MICH, SAMUEL A Referring Unavailable MICH, SAMUEL A Referring Unavailable MICH, SAMUEL A Attending Unavailable MICH, SAMUEL A Referring Unavailable Lea RIOS Attending Unavailable Samuel Epps A Referring Unavailable Lea RIOS Attending Unavailable Skip Eppsrey A Referring Unavailable Skip Eppsrey A Primary Care Unavailable Lea RIOS Admitting Unavailable Lea RIOS Attending Unavailable Samuel Epps Primary Care Unavailable Lea RIOS Attending Unavailable Samuel Epps A Referring Unavailable Samuel Epps A Primary Care Unavailable Lea RIOS Admitting Unavailable Lea RIOS Attending Unavailable Samuel Epps Primary Care Unavailable PROBLEMS PROBLEMS DATE TYPE CONDITION / CODE ATTENDING STATUS SOURCE 04/06/2018 Active Encounter for STAR, Active [place] screening for [facility] Other malignant neoplasm [place] of colon / Repository Z12.11(ICD-10) 04/06/2018 Admitting Unknown / Lea RIOS Active [place] [facility] diagnosis UNK(Unknown) [facility] Repository 04/26/2018 Active Encounter for other NA Active [facility] pre[facility]cedural [facility] Main examination / [place] Z01.818(ICD-10) Repository 07/06/2016 Active Encounter for NA Active [facility] screening for [facility] Main cardiovascular [place] disorders / Repository Z13.6(ICD-10) 07/06/2016 Active Encounter for NA Active [facility] screening for Clinic Main diabetes mellitus / [place] Z13.1(ICD-10) Repository 01/27/2018 Active Toxic effect of NA Active [facility] latex, accidental Clinic Main (unintentional), [place] initial encounter / Repository T65.811A(ICD-10) 08/05/2015 Active Hypothyroidism, NA Active [facility] unspecified / Clinic Main E03.9(ICD-10) [place] Repository 11/21/2017 Active Allergy, NA Active [facility] unspecified, initial Clinic Main encounter / [place] T78.40XA(ICD-10) Repository 10/12/2017 Unknown N20.0 - Calculus of Flores, Active [place] kidney / [facility] N20.0(ICD-10) Hospital Repository 10/12/2017 Unknown Z87.442 - Personal Meenu, Rajinder Active [place] history of urinary [facility] calculi / Hospital Z87.442(ICD-10) Repository 06/08/2017 Active Dyskinesia of [place], Active [facility] esophagus / [facility] Other K22.4(ICD-10) [place] Repository 08/31/2016 Active Diaphragmatic hernia [place], Active [facility] without obstruction [facility] Other or gangrene / [place] K44.9(ICD-10) Repository 09/27/2017 Active Pollack's esophagus [place], Active [facility] without dysplasia / [facility] Other K22.70(ICD-10) [place] Repository 06/07/2017 Active Gastro-esophageal [place], Active [facility] reflux disease [facility] Other without esophagitis [place] / K21.9(ICD-10) Repository 02/02/2017 Active Unknown / SILVINO LINDSAY Active [facility] UNK(Unknown) (PT) Clinic Main [place] Repository PROCEDURES PROCEDURES No Procedure Records FoundRESULTS RESULTS PT ED Observed: 05/02/2018 Status: COMPLETED Source: [place] 2:59 PM [facility] REPOSITORY HNO ID: [id number] Author: Renaldo (Rn) CAMILA Llamas Service: Gastroenterology Author Type: Registered Nurse Type: Patient Education Filed: 05/02/2018 3:00 PM Note Text: POST OP LEARNING RESPONSE INSTRUCTION PROVIDED TO: Patient and Family member METHOD OF INSTRUCTION: Individual instruction PATIENT / FAMILY RESPONSE: Verbalizes understanding of: POST-PROCEDURE INSTRUCTIONS-Correct actions to take to reduce post procedure complications PATIENT SAFETY PRINCIPLES FOLLOW-UP PLAN: Patient instructed to call with any further issues SUPPLEMENTAL MATERIAL: None REFERRAL (RECOMMENDATION): None Electronically Signed By: Renaldo Llamas RN In Department: [facility] BRIEF OP NOT Observed: 05/02/2018 Status: COMPLETED Source: [place] 2:56 PM [facility] REPOSITORY HNO ID: [id number] Author: Christopher Rios Service: General Surgery Author Type: Physician Type: Brief Op Note Filed: 05/02/2018 2:57 PM Note Text: BRIEF OPERATIVE / PROCEDURE NOTE LOG ID: [id number] SURGERY/PROCEDURE DATE: 05/02/2018 INCISION/PROCEDURE START TIME: 2:33 PM INCISION CLOSE/PROCEDURE END TIME: 2:47 PM SURGEON(S)/PROCEDURALIST(S) AND INCLINOMETER TESTER(S): Surgeon(s) and Role: * Christopher Rios - Primary No Additional Staff PROCEDURE(S): Colonoscopy ANESTHESIA: Monitored Anesthesia Care FINDINGS: normal colon ESTIMATED BLOOD LOSS: None SPECIMENS: * No specimens in log * COMPLICATIONS: None PRE-OP/PRE-PROCEDURE DIAGNOSIS: Screening colonoscopy, family history of colon cancer POST-OP/POST-PROCEDURE DIAGNOSIS: Same SIGNATURE: Christopher Rios MD PATIENT NAME: Annelise Page DATE: May 02, 2018 TIME: 2:56 PM PAGER/CONTACT #: ANES POST Observed: 05/02/2018 Status: COMPLETED Source: [place] 2:26 PM [facility] REPOSITORY HNO ID: [id number] Author: Maik Arguello Service: Anesthesiology Author Type: Physician Type: Anesthesia PostOp Filed: 05/02/2018 3:19 PM Note Text: POST ANESTHESIA EVALUATION NOTE SERVICE DATE: 05/02/2018 SERVICE TIME: 1518 : 1965 Vitals: 05/02/18 1331 Temp: 36.4 ?C (97.6 ?F) 05/02/18 1331 05/02/18 1342 05/02/18 1457 05/02/18 1509 BP: 141/70 135/77 101/57 96/62 05/02/18 1331 05/02/18 1342 05/02/18 1457 05/02/18 1509 Pulse: 64 74 78 67 05/02/18 1331 05/02/18 1342 05/02/18 1457 05/02/18 1509 Resp: 16 18 16 16 05/02/18 1331 05/02/18 1342 05/02/18 1457 05/02/18 1509 SpO2: 100% 100% 100% 100% Validated Vital Signs: Yes POST ANES STATUS: No apparent anesthetic complications. The patient is appropriately hydrated with stable respiratory and cardiovascular status. Patient has safe and adequate airway control. The patient has appropriate pain relief and no significant post operative nausea or vomiting. The patient has achieved baseline mental status. Intra-Operative Events: No Significant Anesthesia Events Further assessment by Anesthesia Service: None Other Remarks: Pt was awake and alert; conversed fluently and appropriately SIGNATURE: Maik Arguello MD PATIENT NAME: Annelise Page DATE: May 02, 2018 TIME: 3:18 PM PAGER/CONTACT #: ANES PREOP Observed: 05/02/2018 Status: COMPLETED Source: [place] 2:21 PM [facility] OTHER CAMPUS REPOSITORY HNO ID: [id number] Author: Maik Arguello Service: Anesthesiology Author Type: Physician Type: Anesthesia PreOp Filed: 05/02/2018 2:22 PM Note Text: ANESTHESIOLOGY DAY OF SURGERY NOTE SERVICE DATE: 05/02/2018 SERVICE TIME: 1400 : 1965 Procedure(s) (LRB): COLONOSCOPY (N/A) Surgeon(s): Christopher Rios Estimated body mass index is 29.16 kg/m? as calculated from the following: Height as of this encounter: 160.7 cm (5' 3.27). Weight as of this encounter: 75.3 kg (166 lb 0.1 oz). Most recent hematocrit and potassium results: Hematocrit 42.9 04/26/2018 Potassium 4.2 04/26/2018 ANES DOS/PREOP NOTE: Vitals: 05/02/18 1331 05/02/18 1342 BP: 141/70 135/77 Pulse: 64 74 Resp: 16 18 Temp: 36.4 ?C (97.6 ?F) SpO2: 100% 100% Weight: 75.3 kg (166 lb 0.1 oz) Height: 160.7 cm (5' 3.27) ACTIVE PROBLEM LIST Hypothyroidism (Acquired) Hallux Valgus (Acquired) Migraine Without Aura and Without Status Migrainosus, Not Intractable Herpes Post Menopausal Syndrome Mitral Valve Prolapse Thyroid Goiter Encounter for Gynecological Examination Without Abnormal Finding Bilateral Fibrocystic Breast Disease (Fcbd) Allergic Rhinitis Family History of Colon Cancer Gastroesophageal Reflux Disease Without Esophagitis Encounter for Screening for Diabetes Mellitus Encounter for Screening for Cardiovascular Disorders Hiatal Hernia Well Adult Exam Acute Left-Sided Low Back Pain With Left-Sided Sciatica Jorge (Generalized Anxiety Disorder) Screening for Colon Cancer Arthritis, Lumbar Spine Abnormal Eeg Esophageal Spasm Pollack's Esophagus Without Dysplasia Dyslipidemia Encounter for Screening Colonoscopy PAST MEDICAL HISTORY Diagnosis Date - Abnormal EEG 05/06/2017 Saw neuro and not felt ot be seizures. - Pollack's esophagus determined by biopsy 08/30/2017 - Pollack's esophagus without dysplasia 10/04/[address] Steele - Hallux valgus (acquired) 04/06/2009 - Herpes 08/05/2015 GETS OUTBREAKS ON NOSE - History of kidney stones - Hypothyroidism 04/02/2009 - Migraine without aura and without status migrainosus, not intractable 08/05/2015 - migraines Headaches - Mitral valve prolapse - Pain in Soft Tissues of Limb 04/06/2009 - Post menopausal syndrome 08/05/2015 PAST SURGICAL HISTORY Procedure Laterality Date - 2D ECHO (EXEP) 03/06/2017 EF=60%, mild TR and Pulm HTN - APPENDECTOMY - CYSTO/URETERO/PYELO W/STONE REMOVAL Right 10/11/2017 and stent placement - EGD W/O BRSH SPECIMEN W/BX 08/30/2017 Pollack's esophagus without dysplasia - FECAL OCCULT BLOOD TEST 01/21/2017 negative - G-ESOPH REFLX TST W/ELECTROD 08/30/2017 - KNEE SCOPE,DIAGNOSTIC 2006 Arthroscopy, knee right - REMOVAL OF TONSILS,<12 Y/O Tonsillectomy - TOTAL ABDOM HYSTERECTOMY 2003 Hysterectomy, [place] FAMILY HISTORY Problem Relation Age of Onset - other (dementia) Mother - Stroke Father - Colon Cancer Maternal Grandfather - Alzheimer's Disease Maternal Grandfather - Stroke Paternal Grandmother Social History: Social History Substance Use Topics - Smoking status: Never Smoker - Smokeless tobacco: Never Used - Alcohol use No No current facility-administered medications on file prior to encounter. Current Outpatient Prescriptions on File Prior to Encounter: Omeprazole 40 mg capsule Take 1 capsule by mouth twice daily. sertraline (ZOLOFT) 50 mg tablet Take 3 tablets by mouth once daily. estradiol (ESTRACE) 1 mg tablet Take 1 tablet by mouth once daily. SYNTHROID 100 mcg tablet TAKE 1 TABLET ONCE DAILY isosorbide mononitrate ER (IMDUR) 60 mg 24 hr tablet Take 1.5 tablets by mouth once daily. rizatriptan (MAXALT) 10 mg tablet Take one tablet at onset of headache and may repeat every 2 hours as needed up to 3 tabs in 24 hours EPINEPHrine (EPIPEN) 0.3 mg/0.3 mL auto-injector ONE TIME PRN For Anaphylaxis acyclovir (ZOVIRAX) 400 mg tablet Take 1 tablet by mouth three times daily. acyclovir (ZOVIRAX) 5 % crea Apply 1 application to affected area five times daily. Current Facility-Administered Medications: lactated ringers infusion 5-30 mL/hr INTRAVENOUS CONTINUOUS Julee (General Neurologist) Katya Allergies: ALLERGIES Allergen Reactions - Ciprofloxacin Hives Patient developed generalized hives, hand swelling, and difficulty breathing within 15 to 30 minutes of taken first dose of hydrocodone and ciprofloxacin in September 2017. - Hydrocodone Hives Patient developed generalized hives, hand swelling, and difficulty breathing within 15 to 30 minutes of taken first dose of hydrocodone and ciprofloxacin in September 2017. - Iv Contrast [Iodine] Swelling - Latex Rash, Itching Latex band-aids - Sulfa [Sulfa (Sulfo* Hives - Topamax [Topiramate] Other: See Comments Made her extremely depressed. DOS EXAM: Adequate NPO status: Yes Anesthetic risks, benefits, alternatives, personnel and consent discussed: Yes Patient agrees to proceed: Yes Previous Anesthesia: No history of adverse event. Airway Assessment: MP 2; Neck ROM: Full ROM without neurologic symptoms; Airway Evaluation: No significant abnormalities Symptoms of Sleep Apnea: None Dentition: Teeth intact Additional Physical Exam: Lungs: Lungs clear to auscultation. Good diaphragmatic excursion. Cardiac: normal S1 and S2; no rubs, no murmurs, and no gallops Additional Pertinent Findings: N/A Blood Products: Not anticipated for this procedure. Anesthetic Plan: MAC with Sedation and Standard ASA Monitors Pain Management Plan: Parenteral or Oral ASA Class: 2 Other Medical Problems: None Chronic Beta Jf medication administered within 24 hours: N/A I have interviewed and examined the patient. I have reviewed the medical record and/or the pre-anesthesia evaluation, pertinent labs, and test results. Significant changes in the patient's condition since the History and Physical, not otherwise documented in primary service progress notes: No This contains updated information obtained within 48 hours of Surgery/Procedure. SIGNATURE: Maik Arguello MD PATIENT NAME: Annelise Page DATE: May 02, 2018 TIME: 2:21 PM CSN: [id number] PT ED Observed: 05/02/2018 Status: COMPLETED Source: [place] 1:41 PM [facility] REPOSITORY HNO ID: [id number] Author: Tina Whaley RN Service: Nursing Author Type: Registered Nurse Type: Patient Education Filed: 05/02/2018 1:41 PM Note Text: PRE OP LEARNING ASSESSMENT PROCEDURE/SURGERY: GI PROCEDURES: Colonoscopy READINESS TO LEARN COGNITIVE ABILITY: Alert and oriented MOTIVATION TO LEARN: Eager Interested FAMILY SUPPORT: High - Very involved in pt care PATIENT LEARNS BEST BY: Individual Instruction Verbal Instruction FACTORS AFFECTING LEARNING: None PHYSICAL LIMITATIONS AFFECTING LEARNING: None Electronically Signed By: Tina Whaley RN In Department: [facility] HISTORY PHYSICAL Observed: 05/02/2018 Status: COMPLETED Source: [place] 1:39 PM [facility] REPOSITORY HNO ID: [id number] Author: Julee Aldana Service: General Surgery Author Type: Nurse Practitioner Type: HANDP Filed: 05/02/2018 1:58 PM Note Text: HISTORY AND PHYSICAL EXAMINATION SERVICE DATE: 05/02/2018 SERVICE TIME: 1430 PRIMARY CARE PHYSICIAN: Samuel Epps MD REASON FOR VISIT: Annelise Page is a 52 year old female who is scheduled for Procedure(s): COLONOSCOPY (N/A) at the request of for routine HANDP. The patient has the following: ACTIVE PROBLEM LIST Hypothyroidism (Acquired) Hallux Valgus (Acquired) Migraine Without Aura and Without Status Migrainosus, Not Intractable Herpes Post Menopausal Syndrome Mitral Valve Prolapse Thyroid Goiter Encounter for Gynecological Examination Without Abnormal Finding Bilateral Fibrocystic Breast Disease (Fcbd) Allergic Rhinitis Family History of Colon Cancer Gastroesophageal Reflux Disease Without Esophagitis Encounter for Screening for Diabetes Mellitus Encounter for Screening for Cardiovascular Disorders Hiatal Hernia Well Adult Exam Acute Left-Sided Low Back Pain With Left-Sided Sciatica Jorge (Generalized Anxiety Disorder) Screening for Colon Cancer Arthritis, Lumbar Spine Abnormal Eeg Esophageal Spasm Pollack's Esophagus Without Dysplasia Dyslipidemia Encounter for Screening Colonoscopy Subjective CHIEF COMPLAINT: Encounter for screening colonoscopy HPI: Ms. Page is a 52 year old female present in endoscopy. She is here for a screening colonoscopy. She denies abdomen pain, nausea, vomiting and diarrhea. She denies blood in the stool. She is scheduled for a colonoscopy on 05/02/[address] Rios. PAST MEDICAL HISTORY Diagnosis Date - Abnormal EEG 05/06/2017 Saw neuro and not felt ot be seizures. - Pollack's esophagus determined by biopsy 08/30/2017 - Pollack's esophagus without dysplasia 10/04/[address] Steele - Hallux valgus (acquired) 04/06/2009 - Herpes 08/05/2015 GETS OUTBREAKS ON NOSE - History of kidney stones - Hypothyroidism 04/02/2009 - Migraine without aura and without status migrainosus, not intractable 08/05/2015 - migraines Headaches - Mitral valve prolapse - Pain in Soft Tissues of Limb 04/06/2009 - Post menopausal syndrome 08/05/2015 PAST SURGICAL HISTORY Procedure Laterality Date - 2D ECHO (EXEP) 03/06/2017 EF=60%, mild TR and Pulm HTN - APPENDECTOMY - CYSTO/URETERO/PYELO W/STONE REMOVAL Right 10/11/2017 and stent placement - EGD W/O BRSH SPECIMEN W/BX 08/30/2017 Pollack's esophagus without dysplasia - FECAL OCCULT BLOOD TEST 01/21/2017 negative - G-ESOPH REFLX TST W/ELECTROD 08/30/2017 - KNEE SCOPE,DIAGNOSTIC 2006 Arthroscopy, knee right - REMOVAL OF TONSILS,<12 Y/O Tonsillectomy - TOTAL ABDOM HYSTERECTOMY 2004 Hysterectomy, [place] FAMILY HISTORY Problem Relation Age of Onset - other (dementia) Mother - Stroke Father - Colon Cancer Maternal Grandfather - Alzheimer's Disease Maternal Grandfather - Stroke Paternal Grandmother SOCIAL HISTORY: Social History Marital status: Spouse name: Christopher Years of education: Number of children: 2 Social History Main Topics Smoking status: Never Smoker Smokeless tobacco: Never Used Alcohol use: No Drug use: No Sexual activity: Yes Partners with: Male control/protection: Surgical Prior to Admission medications as of 05/02/18 1336 Medication Sig Last Dose Taking propranolol (INDERAL) 20 mg tablet Take 1 tablet by mouth once daily. 05/01/2018 at Unknown time Yes Omeprazole 40 mg capsule Take 1 capsule by mouth twice daily. 05/01/2018 at Unknown time Yes sertraline (ZOLOFT) 50 mg tablet Take 3 tablets by mouth once daily. 05/01/2018 at Unknown time Yes estradiol (ESTRACE) 1 mg tablet Take 1 tablet by mouth once daily. 05/01/2018 at Unknown time Yes SYNTHROID 100 mcg tablet TAKE 1 TABLET ONCE DAILY 05/01/2018 at Unknown time Yes isosorbide mononitrate ER (IMDUR) 60 mg 24 hr tablet Take 1.5 tablets by mouth once daily. 05/01/2018 at Unknown time Yes LORazepam (ATIVAN) 0.5 mg tab Take one tab 30-45 [address] prior to plane flight Unknown at Unknown time busPIRone (BUSPAR) 15 mg tablet Take 1/2 a tab by mouth twice a day for 2 weeks than one twice a day. Unknown at Unknown time cefADROxil (DURICEF) 500 mg capsule Take 1 capsule by mouth twice daily. Unknown at Unknown time fluconazole (DIFLUCAN) 150 mg tablet 1 tab by mouth every other day for 3 doses Unknown at Unknown time predniSONE (DELTASONE) 5 mg tablet Take ten tabs by mouth on day one and reduce by one a day till done. Unknown at Unknown time rizatriptan (MAXALT) 10 mg tablet Take one tablet at onset of headache and may repeat every 2 hours as needed up to 3 tabs in 24 hours Unknown at Unknown time EPINEPHrine (EPIPEN) 0.3 mg/0.3 mL auto-injector ONE TIME PRN For Anaphylaxis Unknown at Unknown time acyclovir (ZOVIRAX) 400 mg tablet Take 1 tablet by mouth three times daily. Unknown at Unknown time acyclovir (ZOVIRAX) 5 % crea Apply 1 application to affected area five times daily. No medication comments found. ALLERGIES Allergen Reactions - Ciprofloxacin Hives Patient developed generalized hives, hand swelling, and difficulty breathing within 15 to 30 minutes of taken first dose of hydrocodone and ciprofloxacin in September 2017. - Hydrocodone Hives Patient developed generalized hives, hand swelling, and difficulty breathing within 15 to 30 minutes of taken first dose of hydrocodone and ciprofloxacin in September 2017. - Iv Contrast [Iodine] Swelling - Latex Rash, Itching Latex band-aids - Sulfa [Sulfa (Sulfo* Hives - Topamax [Topiramate] Other: See Comments Made her extremely depressed. REVIEW OF SYSTEMS: PAIN ASSESSMENT: Pain Pain Score: 0/10 Pain Assessment (RN/CURRICULUM SUPERVISOR): Assessment Tool: Verbal (Numeric Rating or Visual Analog Scale) General: Denies fever, chills, and unexpected weight change. Neuro: Denies dizziness. + migraine headaches. Respiratory: Denies SOB. Cardiovascular: Denies CP and palpitations. + mvp. GI: Denies abd pain and N/V/C. + GERD. + Pollack's. + HH : Denies dysuria. Endocrine: No history of diabetes. + thyroid conditions. Hematology: Denies history of bleeding or clotting disorder. No known autoimmune disorders. Psych: + anxiety. Denies depression. Musculoskeletal: Denies joint pain and swelling. Skin: Denies open sores and rashes. Objective PHYSICAL EXAM: VITALS: BP 141/70 Pulse 64 Temp 97.6 Resp 16 Ht 5' 3.268 (1.61m) Wt 166 lb 0.1 oz (75.3kg) SpO2 100% BMI 29.16 kg/(m2). General: NAD. Cooperative. Skin: Skin is warm, no rashes, and no open sores. HEENT: Normocephalic. Cardiovascular: Normal S1 AND S2. No murmur. Lungs: CTA Bilaterally. No respiratory distress. Abdomen: Soft. Pos BS x4quad Extremities: No edema. Neurological: Alert and oriented to person, place, and time. Pulses: radial pulses +2 Diagnostic tests reviewed for today's visit: Lab Value Units Date High Low HB 13.9 g/dL 04/26/2018 15.5 11.5 HCT 42.9 % 04/26/2018 46.0 36.0 WBC 6.89 k/uL 04/26/2018 11.00 3.70 PLT 253 k/uL 04/26/2018 400 150 NA 140 mmol/L 04/26/2018 144 136 K 4.2 mmol/L 04/26/2018 5.1 3.7 GLUC 80 mg/dL 04/26/2018 99 74 BUN 16 mg/dL 04/26/2018 21 7 CREAT 0.92 mg/dL 04/26/2018 0.96 0.58 PTSEC 10.1 sec 04/26/2018 13.0 9.7 INR 1.0 no uni* 04/26/2018 1.3 0.9 APTT 25.1 sec 04/26/2018 32.4 23.0 TSH 0.628 uU/mL 01/27/2018 5.500 0.400 Hemoglobin A1C (%) Date Value 01/27/2018 5.0 PENDING Assessment/Plan Encounter for screening colonoscopy There is no known pertinent medical condition which may affect hira-operative course PLAN Planned Procedure: Procedure(s): COLONOSCOPY (N/A) The Following Tests/Procedures Have Been Initiated: Orders Placed This Encounter lactated ringers infusion INSERT IV ([place]) ANESTHESIA FINDINGS: Significant Anesthesia Considerations: Postop nausea/vomiting Planned Anesthetic: MAC Instructions Given to Patient: Patient given verbal preop instructions and voices comprehension and compliance. SIGNATURE: Julee Aldana APRN.CNP PATIENT NAME: Annelise Page DATE: May 02, 2018 TIME: 1:40 PM PAGER/CONTACT #: OPERATIVE NO Observed: 05/02/2018 Status: COMPLETED Source: [place] 12:00 AM CLINIC OTHER CAMPUS REPOSITORY HNO ID: [id number] Author: Christopher Rios Service: General Surgery Author Type: Physician Type: Operative Report Filed: 05/03/2018 8:21 AM Note Text: [facility] - Operative Report ANNELISE PAGE : 1965 AGE: 52. SEX: F PATIENT TYPE: A HOSP [facility] [place]: [facility] LOCATION: [facility] ATTENDING PHYSICIAN: CHRISTOPHER RIOS CSN NUMBER: [id number] DATE OF SURGERY/PROCEDURE: 05/02/2018 INCISION/PROCEDURE START TIME: 2:33 PM INCISION CLOSE/PROCEDURE END TIME: 2:47 PM PREOPERATIVE DIAGNOSIS: Screening colonoscopy. Family history of colon cancer. POSTOPERATIVE DIAGNOSIS: Screening colonoscopy. Family history of colon cancer. SURGEON: Christopher Rios MD INCLINOMETER TESTER: No Additional Staff SURGERY/PROCEDURE: Colonoscopy. ANESTHESIA: MAC. HISTORY: The patient is a 52-year-old female, who needs a screening colonoscopy. She does have a family history of colon cancer, and with this, we recommended proceeding with a colonoscopy. Procedure was discussed with her in detail including all risks, benefits, and complications, which include, but not limited to, bleeding, infection, missing lesion, and perforation requiring emergency surgery. She understood and was agreeable to proceed. DESCRIPTION OF PROCEDURE: The patient was brought to the endoscopy suite. Routine monitoring was performed. She was placed in left lateral decubitus position after adequate MAC anesthesia was obtained. The scope was inserted. The perianal inspection was normal and digital rectal exam was normal. Scope was inserted and passed up to the cecum. Cecum was identified by the appendiceal opening and the ileocecal valve. Got into the terminal ileum, no abnormalities were noted. The scope was then withdrawn. Mucosa was carefully evaluated. No mucosal abnormalities were noted throughout the colon. Retroflex view was also normal. Scope was withdrawn. The patient tolerated the procedure well and was transferred to the recovery room in stable condition. She will need a repeat colonoscopy in 5 years due to her family history. Christopher Rios MD WCP:[id number] /[id number] PROGRESS Observed: 05/01/2018 Status: COMPLETED Source: [place] 11:59 AM [facility] REPOSITORY HNO ID: [id number] Author: Samuel Epps Service: (none) Author Type: Physician Type: Progress Notes Filed: 05/01/2018 8:14 PM Note Text: Chief Complaint Patient presents with: Pre-Op Exam: Bilateral feet- bunion HPI Annelise Page is a 52 year old female who presents here today for Above Complaints. and right ear pain. - Patient is scheduled to have bunion surgery on 05/18/[address] Houston. Patient was seen in the office a few weeks ago with felling like she was going to fall. Dx with labyrinthitis of the right ear and treated with prednisone. The falling symptoms have resolved but now having pain and feeling of fullness like ear is blocked. Does use Q-tips in her ears. Accidentally took a dose of ativan instead of her prednisone and noticed how relaxed she felt. Past medical history, appointments, medications, allergies reviewed. Previous Medical History PAST MEDICAL HISTORY Diagnosis Date - Abnormal EEG 05/06/2017 Saw neuro and not felt ot be seizures. - Pollack's esophagus determined by biopsy 08/30/2017 - Pollack's esophagus without dysplasia 10/04/[address] Steele - Hallux valgus (acquired) 04/06/2009 - Herpes 08/05/2015 GETS OUTBREAKS ON NOSE - History of kidney stones - Hypothyroidism 04/02/2009 - Migraine without aura and without status migrainosus, not intractable 08/05/2015 - migraines Headaches - Mitral valve prolapse - Pain in Soft Tissues of Limb 04/06/2009 - Post menopausal syndrome 08/05/2015 Previous Surgical History PAST SURGICAL HISTORY Procedure Laterality Date - 2D ECHO (EXEP) 03/06/2017 EF=60%, mild TR and Pulm HTN - APPENDECTOMY - CYSTO/URETERO/PYELO W/STONE REMOVAL Right 10/11/2017 and stent placement - EGD W/O BRSH SPECIMEN W/BX 08/30/2017 Pollack's esophagus without dysplasia - FECAL OCCULT BLOOD TEST 01/21/2017 negative - G-ESOPH REFLX TST W/ELECTROD 08/30/2017 - KNEE SCOPE,DIAGNOSTIC 2005 Arthroscopy, knee right - REMOVAL OF TONSILS,<12 Y/O Tonsillectomy - TOTAL ABDOM HYSTERECTOMY 2003 Hysterectomy, [place] Family History FAMILY HISTORY Problem Relation Age of Onset - other (dementia) Mother - Stroke Father - Colon Cancer Maternal Grandfather - Alzheimer's Disease Maternal Grandfather - Stroke Paternal Grandmother Patient Allergies ALLERGIES Allergen Reactions - Ciprofloxacin Hives Patient developed generalized hives, hand swelling, and difficulty breathing within 15 to 30 minutes of taken first dose of hydrocodone and ciprofloxacin in September 2017. - Hydrocodone Hives Patient developed generalized hives, hand swelling, and difficulty breathing within 15 to 30 minutes of taken first dose of hydrocodone and ciprofloxacin in September 2017. - Iv Contrast [Iodine] Swelling - Latex Rash, Itching Latex band-aids - Sulfa [Sulfa (Sulfo* Hives - Topamax [Topiramate] Other: See Comments Made her extremely depressed. Current Medications Current Outpatient Prescriptions on File Prior to Visit: propranolol (INDERAL) 20 mg tablet Take 1 tablet by mouth once daily. predniSONE (DELTASONE) 5 mg tablet Take ten tabs by mouth on day one and reduce by one a day till done. LORazepam (ATIVAN) 0.5 mg tab Take one tab 30-45 min prior to plane flight Omeprazole 40 mg capsule Take 1 capsule by mouth twice daily. rizatriptan (MAXALT) 10 mg tablet Take one tablet at onset of headache and may repeat every 2 hours as needed up to 3 tabs in 24 hours sertraline (ZOLOFT) 50 mg tablet Take 3 tablets by mouth once daily. estradiol (ESTRACE) 1 mg tablet Take 1 tablet by mouth once daily. SYNTHROID 100 mcg tablet TAKE 1 TABLET ONCE DAILY EPINEPHrine (EPIPEN) 0.3 mg/0.3 mL auto-injector ONE TIME PRN For Anaphylaxis isosorbide mononitrate ER (IMDUR) 60 mg 24 hr tablet Take 1.5 tablets by mouth once daily. acyclovir (ZOVIRAX) 400 mg tablet Take 1 tablet by mouth three times daily. acyclovir (ZOVIRAX) 5 % crea Apply 1 application to affected area five times daily. No current facility-administered medications on file prior to visit. Social History Social History Marital status: Spouse name: Christopher Years of education: Number of children: 2 Social History Main Topics Smoking status: Never Smoker Smokeless tobacco: Never Used Alcohol use: No Drug use: No Sexual activity: Yes Partners with: Male control/protection: Surgical Review of Symptoms REVIEW OF SYSTEMS GENERAL: No weight loss, malaise or fevers HEENT: Negative for frequent or significant headaches, No changes in hearing or vision, no nose bleeds or other nasal problems, SEE HPI NECK: Negative for lumps, goiter, pain and significant neck swelling RESPIRATORY: Negative for cough, hemoptysis, wheezing, COPD, dyspnea or shortness of breath CARDIOVASCULAR: Negative for chest pain, leg swelling, hypertension, CHF or palpitations GI: No nausea, vomiting, or diarrhea and No changes in her typical heartburn or reflux symptoms : No history of dysuria, frequency or incontinence MUSCULOSKELETAL: Negative for joint pain or swelling, back pain or muscle pain SKIN: Negative for lesions, rash, and itching HEMATOLOGY/LYMPHOLOGY: Negative for prolonged bleeding, bruising easily or swollen nodes ENDOCRINE: Negative for cold or heat intolerance, polyuria, polydipsia and goiter NEURO: No history of syncope, paralysis, seizures or tremors. Headaches have been better. EXAM: BP 114/70 Pulse 74 Resp 14 Wt 75.3 kg (166 lb) BMI 29.17 kg/m? General Appearance: Well appearing, alert, in no acute distress, well-hydrated, well nourished.. Skin: Skin color, texture, turgor normal, no suspicious rashes or lesions. Head: Normocephalic, no masses, lesions, tenderness or abnormalities. Eyes: Anicteric sclera. Pupils are equally round and reactive to light. Extraocular movements are intact. . Ears: External ears normal. Both canals with mild wax in them. Not able to see the right TM well. Nose/Sinuses: Nares normal, septum midline, mucosa normal, no drainage or sinus tenderness. Oropharynx: Lips, mucosa, and tongue normal, teeth and gums normal, oropharynx normal. Neck: Supple, no adenopathy; thyroid symmetric, normal size, no bruits. Lungs: lungs clear to auscultation. No wheezing, rhonchi, rales. Heart: RRR without murmur, gallop, or rubs. No ectopy. Abdomen: Normal abdominal exam, Abdomen soft, non-tender. Bowel sounds normal. No masses, organomegaly. Extremities: No deformities, edema, skin discoloration,. Musculoskeletal: Spine range of motion normal. Muscular strength intact, No joint swelling, deformity, or tenderness. Peripheral Pulses: Normal. Neurologic: Gait normal. Reflexes normal and symmetric. Sensation to light touch and crainal nerves 2-12 intact.. Health Maintenance List FECAL OCCULT BLOOD due on 01/20/2018 MAMMOGRAM due on 05/29/2018 ANNUAL PCP TEAM CHRONIC DISEASE VISIT due on 04/10/2019 DIABETES SCREEN due on 04/26/2021 LIPID SCREEN due on 01/27/2023 DTAP,TDAP,TD(2 - Td) due on 01/17/2027 Data reviewed In office EKG: Sinus cosme with no acute ST or T wave changes. Component Latest Ref Rng AND Units 04/26/2018 WBC 3.70 - 11.00 k/uL 6.89 RBC 3.90 - 5.20 m/uL 4.65 Hemoglobin 11.5 - 15.5 g/dL 13.9 Hematocrit 36.0 - 46.0 % 42.9 MCV 80.0 - 100.0 fL 92.3 MCH 26.0 - 34.0 pG 29.9 MCHC 30.5 - 36.0 g/dL 32.4 RDW-CV 11.5 - 15.0 % 12.9 Platelet Count 150 - 400 k/uL 253 MPV 9.0 - 12.7 fL 10.9 Neut% % 48.1 Abs Neut (ANC) 1.45 - 7.50 k/uL 3.31 Lymph% % 37.6 Abs Lymph 1.00 - 4.00 k/uL 2.59 [place]% % 11.0 Abs [place] <0.87 k/uL 0.76 Eosin% % 2.6 Abs Eosin <0.46 k/uL 0.18 Baso% % 0.7 Abs Baso <0.11 k/uL 0.05 Nucleated Reds 0 /100 WBC 0.0 Absolute nRBC <0.01 k/uL <0.01 Diff Type Auto Diff Glucose 74 - 99 mg/dL 80 BUN 7 - 21 mg/dL 16 Creatinine 0.58 - 0.96 mg/dL 0.92 Sodium 136 - 144 mmol/L 140 Potassium 3.7 - 5.1 mmol/L 4.2 Chloride 97 - 105 mmol/L 101 CO2 22 - 30 mmol/L 25 Anion Gap 9 - 18 mmol/L 14 Calcium 8.5 - 10.2 mg/dL 9.5 eGFR- >60 eGFR-All Other Races . >60 PT Sec 9.7 - 13.0 sec 10.1 PT INR 0.9 - 1.3 1.0 APTT 23.0 - 32.4 sec 25.1 A/P ASSESSMENT/PLAN: 1. Pre-op examination - ICD9: V72.84, ICD10: Z01.818 (primary diagnosis) - Per the pre-op Clearance Algorithm her cardiac risk is low, her functional capacity is excellent and with normal EKG no other formal cardiac testing needed. 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 - ECG COMPLETE W INTERPRETATION 2. Bunion - ICD9: 727.1, ICD10: M21.619 - scheduled for surgery 05/18/[address] Houston 3. JORGE (generalized anxiety disorder) - ICD9: 300.02, ICD10: F41.1 - Will add Buspar - LORAZEPAM 0.5 MG TABLET 4. Right ear pain - ICD9: 388.70, ICD10: H92.01 - on re-evaluation the right TM has slightly light reflex, does not insufflate as well as the left and also has some purulence behind it. With the insufflation there is discomfort but none with pulling on the ear. Will treat OM with duricef 500 mg twice a day for 10 days 5. Excessive ear wax, bilateral - ICD9: 380.4, ICD10: H61.23 - After verbal consent both ears were irrigated with warm water for the removable of wax. Patient tolerated well. 6. Acute otitis media, unspecified otitis media type - ICD9: 382.9, ICD10: H66.90 - see #4 above Signed Prescriptions Disp Refills LORazepam (ATIVAN) 0.5 mg tab 4 tablet 0 Sig: Take one tab 30-45 min prior to plane flight [place] Class: C-IV RADHA: No busPIRone (BUSPAR) 15 mg tablet 60 tablet 3 Sig: Take 1/2 a tab by mouth twice a day for 2 weeks than one twice a day. cefADROxil (DURICEF) 500 mg capsule 20 capsule 0 Sig: Take 1 capsule by mouth twice daily. fluconazole (DIFLUCAN) 150 mg tablet 3 tablet 1 Si tab by mouth every other day for 3 doses F/u as needed and routine Samuel Epps MD ECG COMPLETE W Observed: 05/01/2018 Status: F Source: [facility] 11:46 AM [facility] REPOSITORY NAME : ANNELISE PAGE PID : [id number] : 1965 Gender : Female Race : ORD : [id number] Procedure Date : May 01 2018 11:46:21 Edit Date : May 14 2018 09:08:21 Diagnosis:SINUS BRADYCARDIA POSSIBLE LEFT ATRIAL ENLARGEMENT LOW VOLTAGE QRS, CONSIDER PULMONARY DISEASE, PERICARDIAL EFFUSION, OR NORMAL VARIANT BORDERLINE ECG Confirmed by ERIBERTO HIDALGO D.O. ([id number]) on 05/14/2018 9:08:11 AM Ventricular Rate : 55 BPM Atrial Rate : 55 BPM P-R Interval : 126 ms QRS Duration : 70 ms Q-T Interval : 446 ms QTC Calculation(Bezet) : 426 ms P [place] : 48 degrees R [place] : 9 degrees T [place] : 62 degrees Test Reason : Location : 185 : [facility] Overread By : ERIBERTO HIDALGO D.O. Edited By : ERIBERTO HIDALGO D.O. Referred By : SAMUEL EPPS Acquired by : SILVIA TAMEZ Observed: 05/01/2018 Status: COMPLETED Source: [place] 10:40 AM [facility] REPOSITORY Office Visit (FAMPWS) ANNELISE PAGE ([id number]) 1965 F Date Time Provider Department 05/01/18 10:40 AM SAMUEL EPPS FAMPWS During your visit today, we recorded the following information about you: Pulse Respiration Blood pressure Weight 74/minute 14/minute 114/70 75.3 kg Samuel Epps MD 05/01/2018 8:14 PM Signed Chief Complaint Patient presents with: Pre-Op Exam: Bilateral feet- bunion HPI Annelise Page is a 52 year old female who presents here today for Above Complaints. and right ear pain. - Patient is scheduled to have bunion surgery on 05/18/[address] Houston. Patient was seen in the office a few weeks ago with felling like she was going to fall. Dx with labyrinthitis of the right ear and treated with prednisone. The falling symptoms have resolved but now having pain and feeling of fullness like ear is blocked. Does use Q-tips in her ears. Accidentally took a dose of ativan instead of her prednisone and noticed how relaxed she felt. Past medical history, appointments, medications, allergies reviewed. Previous Medical History PAST MEDICAL HISTORY Diagnosis Date - Abnormal EEG 05/06/2017 Saw neuro and not felt ot be seizures. - Pollack's esophagus determined by biopsy 08/30/2017 - Pollack's esophagus without dysplasia 10/04/[address] Steele - Hallux valgus (acquired) 04/06/2009 - Herpes 08/05/2015 GETS OUTBREAKS ON NOSE - History of kidney stones - Hypothyroidism 04/02/2009 - Migraine without aura and without status migrainosus, not intractable 08/05/2015 - migraines Headaches - Mitral valve prolapse - Pain in Soft Tissues of Limb 04/06/2009 - Post menopausal syndrome 08/05/2015 Previous Surgical History PAST SURGICAL HISTORY Procedure Laterality Date - 2D ECHO (EXEP) 03/06/2017 EF=60%, mild TR and Pulm HTN - APPENDECTOMY - CYSTO/URETERO/PYELO W/STONE REMOVAL Right 10/11/2017 and stent placement - EGD W/O BRSH SPECIMEN W/BX 08/30/2017 Pollack's esophagus without dysplasia - FECAL OCCULT BLOOD TEST 01/21/2017 negative - G-ESOPH REFLX TST W/ELECTROD 08/30/2017 - KNEE SCOPE,DIAGNOSTIC 2005 Arthroscopy, knee right - REMOVAL OF TONSILS,<12 Y/O Tonsillectomy - TOTAL ABDOM HYSTERECTOMY 2003 Hysterectomy, [place] Family History FAMILY HISTORY Problem Relation Age of Onset - other (dementia) Mother - Stroke Father - Colon Cancer Maternal Grandfather - Alzheimer's Disease Maternal Grandfather - Stroke Paternal Grandmother Patient Allergies ALLERGIES Allergen Reactions - Ciprofloxacin Hives Patient developed generalized hives, hand swelling, and difficulty breathing within 15 to 30 minutes of taken first dose of hydrocodone and ciprofloxacin in September 2017. - Hydrocodone Hives Patient developed generalized hives, hand swelling, and difficulty breathing within 15 to 30 minutes of taken first dose of hydrocodone and ciprofloxacin in September 2017. - Iv Contrast [Iodine] Swelling - Latex Rash, Itching Latex band-aids - Sulfa [Sulfa (Sulfo* Hives - Topamax [Topiramate] Other: See Comments Made her extremely depressed. Current Medications Current Outpatient Prescriptions on File Prior to Visit: propranolol (INDERAL) 20 mg tablet Take 1 tablet by mouth once daily. predniSONE (DELTASONE) 5 mg tablet Take ten tabs by mouth on day one and reduce by one a day till done. LORazepam (ATIVAN) 0.5 mg tab Take one tab 30-45 min prior to plane flight Omeprazole 40 mg capsule Take 1 capsule by mouth twice daily. rizatriptan (MAXALT) 10 mg tablet Take one tablet at onset of headache and may repeat every 2 hours as needed up to 3 tabs in 24 hours sertraline (ZOLOFT) 50 mg tablet Take 3 tablets by mouth once daily. estradiol (ESTRACE) 1 mg tablet Take 1 tablet by mouth once daily. SYNTHROID 100 mcg tablet TAKE 1 TABLET ONCE DAILY EPINEPHrine (EPIPEN) 0.3 mg/0.3 mL auto-injector ONE TIME PRN For Anaphylaxis isosorbide mononitrate ER (IMDUR) 60 mg 24 hr tablet Take 1.5 tablets by mouth once daily. acyclovir (ZOVIRAX) 400 mg tablet Take 1 tablet by mouth three times daily. acyclovir (ZOVIRAX) 5 % crea Apply 1 application to affected area five times daily. No current facility-administered medications on file prior to visit. Social History Social History Marital status: Spouse name: Christopher Years of education: Number of children: 2 Social History Main Topics Smoking status: Never Smoker Smokeless tobacco: Never Used Alcohol use: No Drug use: No Sexual activity: Yes Partners with: Male control/protection: Surgical Review of Symptoms REVIEW OF SYSTEMS GENERAL: No weight loss, malaise or fevers HEENT: Negative for frequent or significant headaches, No changes in hearing or vision, no nose bleeds or other nasal problems, SEE HPI NECK: Negative for lumps, goiter, pain and significant neck swelling RESPIRATORY: Negative for cough, hemoptysis, wheezing, COPD, dyspnea or shortness of breath CARDIOVASCULAR: Negative for chest pain, leg swelling, hypertension, CHF or palpitations GI: No nausea, vomiting, or diarrhea and No changes in her typical heartburn or reflux symptoms : No history of dysuria, frequency or incontinence MUSCULOSKELETAL: Negative for joint pain or swelling, back pain or muscle pain SKIN: Negative for lesions, rash, and itching HEMATOLOGY/LYMPHOLOGY: Negative for prolonged bleeding, bruising easily or swollen nodes ENDOCRINE: Negative for cold or heat intolerance, polyuria, polydipsia and goiter NEURO: No history of syncope, paralysis, seizures or tremors. Headaches have been better. EXAM: BP 114/70 Pulse 74 Resp 14 Wt 75.3 kg (166 lb) BMI 29.17 kg/m? General Appearance: Well appearing, alert, in no acute distress, well-hydrated, well nourished.. Skin: Skin color, texture, turgor normal, no suspicious rashes or lesions. Head: Normocephalic, no masses, lesions, tenderness or abnormalities. Eyes: Anicteric sclera. Pupils are equally round and reactive to light. Extraocular movements are intact. . Ears: External ears normal. Both canals with mild wax in them. Not able to see the right TM well. Nose/Sinuses: Nares normal, septum midline, mucosa normal, no drainage or sinus tenderness. Oropharynx: Lips, mucosa, and tongue normal, teeth and gums normal, oropharynx normal. Neck: Supple, no adenopathy; thyroid symmetric, normal size, no bruits. Lungs: lungs clear to auscultation. No wheezing, rhonchi, rales. Heart: RRR without murmur, gallop, or rubs. No ectopy. Abdomen: Normal abdominal exam, Abdomen soft, non-tender. Bowel sounds normal. No masses, organomegaly. Extremities: No deformities, edema, skin discoloration,. Musculoskeletal: Spine range of motion normal. Muscular strength intact, No joint swelling, deformity, or tenderness. Peripheral Pulses: Normal. Neurologic: Gait normal. Reflexes normal and symmetric. Sensation to light touch and crainal nerves 2-12 intact.. Health Maintenance List FECAL OCCULT BLOOD due on 01/20/2018 MAMMOGRAM due on 05/29/2018 ANNUAL PCP TEAM CHRONIC DISEASE VISIT due on 04/10/2019 DIABETES SCREEN due on 04/26/2021 LIPID SCREEN due on 01/27/2023 DTAP,TDAP,TD(2 - Td) due on 01/17/2027 Data reviewed In office EKG: Sinus cosme with no acute ST or T wave changes. Component Latest Ref Rng AND Units 04/26/2018 WBC 3.70 - 11.00 k/uL 6.89 RBC 3.90 - 5.20 m/uL 4.65 Hemoglobin 11.5 - 15.5 g/dL 13.9 Hematocrit 36.0 - 46.0 % 42.9 MCV 80.0 - 100.0 fL 92.3 MCH 26.0 - 34.0 pG 29.9 MCHC 30.5 - 36.0 g/dL 32.4 RDW-CV 11.5 - 15.0 % 12.9 Platelet Count 150 - 400 k/uL 253 MPV 9.0 - 12.7 fL 10.9 Neut% % 48.1 Abs Neut (ANC) 1.45 - 7.50 k/uL 3.31 Lymph% % 37.6 Abs Lymph 1.00 - 4.00 k/uL 2.59 [place]% % 11.0 Abs [place] <0.87 k/uL 0.76 Eosin% % 2.6 Abs Eosin <0.46 k/uL 0.18 Baso% % 0.7 Abs Baso <0.11 k/uL 0.05 Nucleated Reds 0 /100 WBC 0.0 Absolute nRBC <0.01 k/uL <0.01 Diff Type Auto Diff Glucose 74 - 99 mg/dL 80 BUN 7 - 21 mg/dL 16 Creatinine 0.58 - 0.96 mg/dL 0.92 Sodium 136 - 144 mmol/L 140 Potassium 3.7 - 5.1 mmol/L 4.2 Chloride 97 - 105 mmol/L 101 CO2 22 - 30 mmol/L 25 Anion Gap 9 - 18 mmol/L 14 Calcium 8.5 - 10.2 mg/dL 9.5 eGFR- >60 eGFR-All Other Races . >60 PT Sec 9.7 - 13.0 sec 10.1 PT INR 0.9 - 1.3 1.0 APTT 23.0 - 32.4 sec 25.1 A/P ASSESSMENT/PLAN: 1. Pre-op examination - ICD9: V72.84, ICD10: Z01.818 (primary diagnosis) - Per the pre-op Clearance Algorithm her cardiac risk is low, her functional capacity is excellent and with normal EKG no other formal cardiac testing needed. 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 - ECG COMPLETE W INTERPRETATION 2. Bunion - ICD9: 727.1, ICD10: M21.619 - scheduled for surgery 05/18/[address] Houston 3. JORGE (generalized anxiety disorder) - ICD9: 300.02, ICD10: F41.1 - Will add Buspar - LORAZEPAM 0.5 MG TABLET 4. Right ear pain - ICD9: 388.70, ICD10: H92.01 - on re-evaluation the right TM has slightly light reflex, does not insufflate as well as the left and also has some purulence behind it. With the insufflation there is discomfort but none with pulling on the ear. Will treat OM with duricef 500 mg twice a day for 10 days 5. Excessive ear wax, bilateral - ICD9: 380.4, ICD10: H61.23 - After verbal consent both ears were irrigated with warm water for the removable of wax. Patient tolerated well. 6. Acute otitis media, unspecified otitis media type - ICD9: 382.9, ICD10: H66.90 - see #4 above Signed Prescriptions Disp Refills LORazepam (ATIVAN) 0.5 mg tab 4 tablet 0 Sig: Take one tab 30-45 min prior to plane flight [place] Class: C-IV RADHA: No busPIRone (BUSPAR) 15 mg tablet 60 tablet 3 Sig: Take 1/2 a tab by mouth twice a day for 2 weeks than one twice a day. cefADROxil (DURICEF) 500 mg capsule 20 capsule 0 Sig: Take 1 capsule by mouth twice daily. fluconazole (DIFLUCAN) 150 mg tablet 3 tablet 1 Si tab by mouth every other day for 3 doses F/u as needed and routine Samuel Epps MD Referring Provider: SAMUEL EPPS [[id number]] Allergies As of Date: 05/01/2018 Noted Allergy Reaction CIPROFLOXACIN 11/30/2017 4 - Hives Comments: Patient developed generalized hives, hand swelling, and difficulty breathing within 15 to 30 minutes of taken first dose of hydrocodone and ciprofloxacin in September 2017. HYDROCODONE 11/30/2017 4 - Hives Comments: Patient developed generalized hives, hand swelling, and difficulty breathing within 15 to 30 minutes of taken first dose of hydrocodone and ciprofloxacin in September 2017. IV CONTRAST (IODINE) 10/31/2017 7 - Swelling LATEX 01/26/2012 2 - Rash 9 - Itching Comments: Latex band-aids SULFA (SULFA (SULFONAMIDE ANTIBIO*01/07/2009 4 - Hives TOPAMAX (TOPIRAMATE) 06/01/2017 14 - Other: See Comments Comments: Made her extremely depressed. Date Reviewed: 05/01/2018 Reviewed by: Samuel Epps - Fully Assessed Reason for Visit: Pre-Op Exam [87] Cmt: Bilateral feet- bunion Primary Visit Diagnosis:Pre-op examination [Z01.818] Other Visit Diagnoses:Bunion [M21.619] JORGE (generalized anxiety disorder) [F41.1] Right ear pain [H92.01] Excessive ear wax, bilateral [H61.23] Acute otitis media, unspecified otitis media type [H66.90] Order(s):ECG COMPLETE W INTERPRETATION [ECG01] Order #: [id number] FUTURE LORazepam (ATIVAN) 0.5 mg tabTake one tab 30-45 min prior to plane flightDisp: 4 tabletRfl: 0 busPIRone (BUSPAR) 15 mg tabletTake 1/2 a tab by mouth twice a day for 2 weeks than one twice a day.Disp: 60 tabletRfl: 3 cefADROxil (DURICEF) 500 mg capsuleTake 1 capsule by mouth twice daily.Disp: 20 capsuleRfl: 0 fluconazole (DIFLUCAN) 150 mg tablet1 tab by mouth every other day for 3 dosesDisp: 3 tabletRfl: 1 Prescriptions as of 05/01/2018 Sig: LORAZEPAM 0.5 MG TABLET Take one tab 30-45 min prior * PROPRANOLOL 20 MG TABLET Take 1 tablet by mouth once d* PREDNISONE 5 MG TABLET Take ten tabs by mouth on day* OMEPRAZOLE 40 MG CAPSULE,URBAN* Take 1 capsule by mouth twice* RIZATRIPTAN 10 MG TABLET Take one tablet at onset of h* SERTRALINE 50 MG TABLET Take 3 tablets by mouth once * ESTRADIOL 1 MG TABLET Take 1 tablet by mouth once d* SYNTHROID 100 MCG TABLET TAKE 1 TABLET ONCE DAILY EPINEPHRINE 0.3 MG/0.3 ML INJ* ONE TIME PRN For Anaphylaxis ISOSORBIDE MONONITRATE ER 60 * Take 1.5 tablets by mouth onc* ACYCLOVIR 400 MG TABLET Take 1 tablet by mouth three * ACYCLOVIR 5 % TOPICAL CREAM Apply 1 application to affect* BUSPIRONE 15 MG TABLET Take 1/2 a tab by mouth twice* CEFADROXIL 500 MG CAPSULE Take 1 capsule by mouth twice* FLUCONAZOLE 150 MG TABLET 1 tab by mouth every other da* Problem List As Of Date 05/01/2018 Noted Resolved Hypothyroidism (acquired) [E03.9] INVALID FOR* Priority: A Hallux valgus (acquired) [M20.10] INVALID FOR* Priority: D Migraine without aura and without status migrai*INVALID FOR* Priority: A Herpes [B00.9] INVALID FOR* Priority: D More... Post menopausal syndrome [N95.1] INVALID FOR* Priority: B Mitral valve prolapse [I34.1] Priority: B Thyroid goiter [E04.9] INVALID FOR* Priority: B More... Encounter for gynecological examination without*INVALID FOR* Priority: E More... Bilateral fibrocystic breast disease (FCBD) [N6*INVALID FOR* Priority: C Allergic rhinitis [J30.9] INVALID FOR* Priority: B More... Family history of colon cancer [Z80.0] INVALID FOR* Priority: F Gastroesophageal reflux disease without esophag*INVALID FOR* Priority: A Encounter for screening for diabetes mellitus [*INVALID FOR* Encounter for screening for cardiovascular diso*INVALID FOR* More... Hiatal hernia [K44.9] INVALID FOR* Priority: B More... Well adult exam [Z00.00] INVALID FOR* Priority: E More... 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 Visual disturbance [H53.9] INVALID FOR*10/04/2017 Abnormal EEG [R94.01] INVALID FOR* Priority: B More... Esophageal spasm [K22.4] INVALID FOR* Priority: A More... Pollack's esophagus without dysplasia [K22.70] INVALID FOR* Priority: A More... Dyslipidemia [E78.5] INVALID FOR* Encounter for screening colonoscopy [Z12.11] INVALID FOR* More... Prescriptions ordered this encounter Disp Refills Start End LORAZEPAM 0.5 MG TABLET 4 ta* 0 05/01/2018 06/01/2018 Class: Print RX Sig: Take one tab 30-45 min prior to plane flight BUSPIRONE 15 MG TABLET 60 t* 3 05/01/2018 Sig: Take 1/2 a tab by mouth twice a day for 2 weeks than one twice a day. CEFADROXIL 500 MG CAPSULE 20 c* 0 05/01/2018 Route: ORAL Sig: Take 1 capsule by mouth twice daily. FLUCONAZOLE 150 MG TABLET 3 ta* 1 05/01/2018 Class: Print RX Si tab by mouth every other day for 3 doses Medications Discontinued During This Encounter LORazepam (ATIVAN) 0.5 mg tab 4 ta* 0 04/10/2018 05/01/2018 Class: Print RX Sig: Take one tab 30-45 min prior to plane flight Disc: Reason for discontinue is not on file. Disposition: Return if symptoms worsen or fail to improve. Follow-up and Disposition History Recorded Encounter Status:Closed by SAMUEL EPPS on 05/01/18 PROTIME Collected: 04/26/2018 Status: F Source: [place] 4:34 PM [facility] REPOSITORY TYPE CODE TESTS RESULT OUT OF RANGE REFERENCE UNITS LAB PSEC 9.7-13.0 sec PT Sec 10.1 LAB INR 0.9-1.3 PT INR 1.0 Result Comment: Vitamin K Antagonist (VKA) Therapeutic Range: INR 2 to 3 (Target INR of 2.5) Note: For patients treated with VKA drugs, such as warfarin, the [place] [employer] 2012 Guideline recommends a therapeutic INR range of 2 to 3 (target INR of 2.5). This recommendation includes high-risk patients with antiphospholipid syndrome with previous arterial or venous thromboembolism, current-generation mechanical or bioprosthetic aortic heart valve replacement. Note: Patients with mechanical aortic valve replacement and additional risk factors for thromboembolic events (atrial fibrillation, previous thromboembolism, LV dysfunction, hypercoagulable conditions) or an older generation mechanical AVR (i.e., ball in-Cage) or any mechanical MVR should have a INR therapeutic range of 2.5 to 3.5 (target INR of 3). Sarabjit GH, et al. Chest 2012, 141:7S-47S Kristin RA, et al. [facility] 2017, 70: 252-289 Performed By: #### PT, PTT, CBCDIF, BMP #### [facility] [address], [place] [address] APTT Collected: 04/26/2018 Status: F Source: [place] 4:34 [facility] REPOSITORY TYPE CODE TESTS RESULT OUT OF RANGE REFERENCE UNITS LAB APTT 23.0-32.4 sec APTT 25.1 Result Comment: Unfractionated Heparin Therapeutic Ranges: Standard Heparin Nomogram: 53 to 78 seconds (anti-Xa level of 0.3 to 0.7 U/ml) Low Dose/ACS Nomogram: 49 to 67 seconds (anti-Xa level of 0.2 to 0.5 U/ml) Stroke Treatment Nomogram: 49 to 67 seconds (anti-Xa level of 0.2 to 0.5 U/ml) Note: The APTT therapeutic range has been determined for the current lot of laboratory APTT reagent in use throughout the [facility]. Performed By: #### PT, PTT, CBCDIF, BMP #### [facility] [address], [place] [address] CBC AND DIFFERENTIAL Collected: 04/26/2018 Status: F Source: [place] 4:34 PM [facility] REPOSITORY TYPE CODE TESTS RESULT OUT OF REFERENCE UNITS RANGE LAB WBC 3.70-11.00 k/uL WBC 6.89 LAB RBC 3.90-5.20 m/uL RBC 4.65 LAB HGB 11.5-15.5 g/dL Hemoglobin 13.9 LAB HCT 36.0-46.0 % Hematocrit 42.9 LAB MCV 80.0-100.0 fL MCV 92.3 LAB MCH 26.0-34.0 pG MCH 29.9 LAB MCHC 30.5-36.0 g/dL MCHC 32.4 LAB RDWCV 11.5-15.0 % RDW-CV 12.9 LAB PLTCT 150-400 k/uL Platelet Count 253 LAB MPV 9.0-12.7 fL MPV 10.9 LAB ANEUT % Neut% 48.1 LAB AANEUT 1.45-7.50 k/uL Abs Neut 3.31 LAB ALYMP % Lymph% 37.6 LAB AALYMP 1.00-4.00 k/uL Abs Lymph 2.59 LAB AMONO % [place]% 11.0 LAB AAMONO <0.87 k/uL Abs [place] 0.76 LAB AEOS % Eosin% 2.6 LAB AAEOS <0.46 k/uL Abs Eosin 0.18 LAB ABASO % Baso% 0.7 LAB AABASO <0.11 k/uL Abs Baso 0.05 LAB AUNRBC 0 /100 WBC NRBCs 0.0 LAB ABNRBC <0.01 k/uL Absolute nRBC <0.01 LAB DTYP DTYPE Auto Diff Performed By: #### PT, PTT, CBCDIF, BMP #### [facility] [address] [place] [id number] BASIC METABOLIC PANL Collected: 04/26/2018 Status: F Source: [place] 4:34 PM [facility] REPOSITORY TYPE CODE TESTS RESULT OUT OF REFERENCE UNITS RANGE LAB GLU 74-99 mg/dL Glucose 80 Result Comment: The [place] [employer] (ADA) provides guidance for cutoff values for fasting glucose and random glucose. The ADA defines fasting as no caloric intake for at least 8 hours. Fas ting plasma glucose results between 100 to 125 mg/dL indicate increased risk for diabetes (prediabetes). Fasting plasma glucose results greater than or equal to 126 mg/dL meet the criteria for diagnosis of diabetes. In the absence of unequivocal hyperglycemia, results should be confirmed by repeat testing. In a patient with classic symptoms of hyperglycemia or hyperglycemic crisis, random plasma glucose results greater than or equal to 200 mg/dL meet the criteria for diagnosis of diabetes. Reference: Standards of Medical Care in Diabetes 2016, [place] [employer] Association. Diabetes Care. 2016.39(Suppl 1). LAB BUN 7-21 mg/dL BUN 16 LAB CRET 0.58-0.96 mg/dL Creatinine 0.92 LAB NA 136-144 mmol/L Sodium 140 LAB K 3.7-5.1 mmol/L Potassium 4.2 LAB CL 97-105 mmol/L Chloride 101 LAB CO2 22-30 mmol/L CO2 25 LAB AGAP 9-18 mmol/L Anion Gap 14 LAB CA 8.5-10.2 mg/dL Calcium, Total 9.5 LAB GFRAA eGFR- Amer. >60 LAB GFRNAA . eGFR-All Other Races >60 Result Comment: eGFR (Estimated GFR) Units of measure: mL/min/1.73 meters squared eGFR is derived from the reexpressed MDRD Study equation using the following parameters: serum creatinine, age, gender and race. The creatinine assay has been calibrated to be traceable to IDMS. An eGFR <60 mL/min/1.73m2 for >3 months is consistent with chronic kidney disease. Refer to KDOQI guidelines for clinical interpretation. In patients with unstable renal function, e.g. those with acute kidney injury, the eGFR may not accurately reflect actual GFR. Performed By: #### PT, PTT, CBCDIF, BMP #### [facility] [address] [place], [place] [address] PROGRESS Observed: 04/10/2018 Status: COMPLETED Source: [place] 11:32 AM [facility] REPOSITORY O ID: [id number] Author: Samuel Epps Service: (none) Author Type: Physician Type: Progress Notes Filed: 04/10/2018 8:45 PM Note Text: Chief Complaint Patient presents with: Recheck: Migraines/stress HPI Annelise Page is a 52 year old female who presents here today for Above Complaints.. Since last visit has been doing better. Had not had a migraine till today and took an imitrex. Also has done better with handling stress with the bump in the zoloft. For most nights will sleep ok but does have nights where she just can't get her mind to shut off. Only issue is in the past week with position changes or turning her head she gets a feeling like she's going to fall. Has ringing in her right ear that has been chronic but seems louder. Some nausea. No vomiting. Ears do not feel full. Has not noticed a sudden change in hearing. No congestion, Sore throat or productive cough. Has had some rhinorrhea. Past medical history, appointments, medications, allergies reviewed. Previous Medical History PAST MEDICAL HISTORY Diagnosis Date - Abnormal EEG 05/06/2017 Saw neuro and not felt ot be seizures. - Pollack's esophagus determined by biopsy 08/30/2017 - Pollack's esophagus without dysplasia 10/04/[address] Steele - Hallux valgus (acquired) 04/06/2009 - Herpes 08/05/2015 GETS OUTBREAKS ON NOSE - History of kidney stones - Hypothyroidism 04/02/2009 - Migraine without aura and without status migrainosus, not intractable 08/05/2015 - migraines Headaches - Mitral valve prolapse - Pain in Soft Tissues of Limb 04/06/2009 - Post menopausal syndrome 08/05/2015 Previous Surgical History PAST SURGICAL HISTORY Procedure Laterality Date - 2D ECHO (EXEP) 03/06/2017 EF=60%, mild TR and Pulm HTN - APPENDECTOMY - CYSTO/URETERO/PYELO W/STONE REMOVAL Right 10/11/2017 and stent placement - EGD W/O [facility] SPECIMEN W/BX 08/30/2017 Pollack's esophagus without dysplasia - FECAL OCCULT BLOOD TEST 01/21/2017 negative - G-ESOPH REFLX TST W/ELECTROD 08/30/2017 - KNEE SCOPE,DIAGNOSTIC 2005 Arthroscopy, knee right - REMOVAL OF TONSILS,<12 Y/O Tonsillectomy - TOTAL ABDOM HYSTERECTOMY 2004 Hysterectomy, MIL[place]RO Family History FAMILY HISTORY Problem Relation Age of Onset - other (dementia) Mother - Stroke Father - Colon Cancer Maternal Grandfather - Alzheimer's Disease Maternal Grandfather - Stroke Paternal Grandmother Patient Allergies ALLERGIES Allergen Reactions - Ciprofloxacin Hives Patient developed generalized hives, hand swelling, and difficulty breathing within 15 to 30 minutes of taken first dose of hydrocodone and ciprofloxacin in September 2017. - Hydrocodone Hives Patient developed generalized hives, hand swelling, and difficulty breathing within 15 to 30 minutes of taken first dose of hydrocodone and ciprofloxacin in September 2017. - Iv Contrast [Iodine] Swelling - Latex Rash, Itching Latex band-aids - Sulfa [Sulfa (Sulfo* Hives - Topamax [Topiramate] Other: See Comments Made her extremely depressed. Current Medications Current Outpatient Prescriptions on File Prior to Visit: propranolol (INDERAL) 20 mg tablet Take 0.5 tablets by mouth once daily. Omeprazole 40 mg capsule Take 1 capsule by mouth twice daily. rizatriptan (MAXALT) 10 mg tablet Take one tablet at onset of headache and may repeat every 2 hours as needed up to 3 tabs in 24 hours sertraline (ZOLOFT) 50 mg tablet Take 3 tablets by mouth once daily. estradiol (ESTRACE) 1 mg tablet Take 1 tablet by mouth once daily. SYNTHROID 100 mcg tablet TAKE 1 TABLET ONCE DAILY EPINEPHrine (EPIPEN) 0.3 mg/0.3 mL auto-injector ONE TIME PRN For Anaphylaxis isosorbide mononitrate ER (IMDUR) 60 mg 24 hr tablet Take 1.5 tablets by mouth once daily. acyclovir (ZOVIRAX) 400 mg tablet Take 1 tablet by mouth three times daily. acyclovir (ZOVIRAX) 5 % crea Apply 1 application to affected area five times daily. No current facility-administered medications on file prior to visit. Social History Social History Marital status: Spouse name: Christopher Years of education: Number of children: 2 Social History Main Topics Smoking status: Never Smoker Smokeless tobacco: Never Used Alcohol use: No Drug use: No Sexual activity: Yes Partners with: Male control/protection: Surgical Review of Symptoms REVIEW OF SYSTEMS See HPI EXAM: BP 116/76 Pulse 78 Resp 16 Wt 74.8 kg (165 lb) BMI 29.00 kg/m? General Appearance: Well appearing, alert, in no acute distress, well-hydrated, well nourished.. Ears: Negative findings: external ears normal to inspection and palpation, canals clear, Left tympanic membrane normal. Mobility is good, Right tympanic membrane normal. Mobility is good, normal light reflex, Nose/Sinuses: Nares normal, septum midline, mucosa normal, no drainage or sinus tenderness. Oropharynx: Lips, mucosa, and tongue normal, teeth and gums normal, oropharynx normal. Neck: Supple, no adenopathy; thyroid symmetric, normal size, no bruits. Lungs: Lungs clear to auscultation. No wheezing, rhonchi, rales. Heart: RRR without murmur, gallop, or rubs. No ectopy. Abdomen: Normal abdominal exam, Abdomen soft, non-tender. Bowel sounds normal. No masses, organomegaly. Hallpike test produced the symptoms on the right only. No nystagmus. Health Maintenance List PAP EVERY 5 YEARS due on 12/02/1995 FECAL OCCULT BLOOD due on 01/20/2018 MAMMOGRAM due on 05/29/2018 ANNUAL PCP TEAM CHRONIC DISEASE VISIT due on 03/02/2019 DIABETES SCREEN due on 01/27/2021 LIPID SCREEN due on 01/27/2023 DTAP,TDAP,TD(2 - Td) due on 01/17/2027 Data reviewed A/P ASSESSMENT/PLAN: 1. Migraine without aura and without status migrainosus, not intractable - ICD9: 346.10, ICD10: G43.009 (primary diagnosis) - Patient did not go up to the 20 mg of propanol after last visit due to a script error. Will have her go up to the intended 20 mg a day. - PROPRANOLOL 20 MG TABLET 2. JORGE (generalized anxiety disorder) - ICD9: 300.02, ICD10: F41.1 - Doing well with zoloft at 50 mg a day. No further changes at this time. 3. Labyrinthitis of right ear - ICD9: 386.30, ICD10: H83.01 - With symptoms and PE findings suspect this as the diagnosis. - if not better at f/u in a few weeks will send to PHYSICAL THERAPY for BPV tx. - PREDNISONE 5 MG TABLET Signed Prescriptions Disp Refills propranolol (INDERAL) 20 mg tablet 90 tablet 1 Sig: Take 1 tablet by mouth once daily. RADHA: No predniSONE (DELTASONE) 5 mg tablet 55 tablet 0 Sig: Take ten tabs by mouth on day one and reduce by one a day till done. LORazepam (ATIVAN) 0.5 mg tab 4 tablet 0 Sig: Take one tab 30-45 min prior to plane flight [place] Class: C-IV RADHA: No Keep appt in 2-3 weeks for bunion pre-op clearance. Time entering room was 11:31 AM and time leaving room was 12:02 PM (total face to face time was 31 min.) Samuel Epps MD CNOV Observed: 04/10/2018 Status: COMPLETED Source: [place] 11:20 AM [facility] REPOSITORY Office Visit (FAMPWS) ANNELISE PAGE ([id number]) 1965 F Date Time Provider Department 04/10/18 11:20 AM SAMUEL EPPS FAMPWS During your visit today, we recorded the following information about you: Pulse Respiration Blood pressure Weight 78/minute 16/minute 116/76 74.8 kg Samuel Epps MD 04/10/2018 8:45 PM Signed Chief Complaint Patient presents with: Recheck: Migraines/stress HPI Annelisemichelle Page is a 52 year old female who presents here today for Above Complaints.. Since last visit has been doing better. Had not had a migraine till today and took an imitrex. Also has done better with handling stress with the bump in the zoloft. For most nights will sleep ok but does have nights where she just can't get her mind to shut off. Only issue is in the past week with position changes or turning her head she gets a feeling like she's going to fall. Has ringing in her right ear that has been chronic but seems louder. Some nausea. No vomiting. Ears do not feel full. Has not noticed a sudden change in hearing. No congestion, Sore throat or productive cough. Has had some rhinorrhea. Past medical history, appointments, medications, allergies reviewed. Previous Medical History PAST MEDICAL HISTORY Diagnosis Date - Abnormal EEG 05/06/2017 Saw neuro and not felt ot be seizures. - Pollack's esophagus determined by biopsy 08/30/2017 - Pollack's esophagus without dysplasia 10/04/[address] Steele - Hallux valgus (acquired) 04/06/2009 - Herpes 08/05/2015 GETS OUTBREAKS ON NOSE - History of kidney stones - Hypothyroidism 04/02/2009 - Migraine without aura and without status migrainosus, not intractable 08/05/2015 - migraines Headaches - Mitral valve prolapse - Pain in Soft Tissues of Limb 04/06/2009 - Post menopausal syndrome 08/05/2015 Previous Surgical History PAST SURGICAL HISTORY Procedure Laterality Date - 2D ECHO (EXEP) 03/06/2017 EF=60%, mild TR and Pulm HTN - APPENDECTOMY - CYSTO/URETERO/PYELO W/STONE REMOVAL Right 10/11/2017 and stent placement - EGD W/O [facility] SPECIMEN W/BX 08/30/2017 Pollack's esophagus without dysplasia - FECAL OCCULT BLOOD TEST 01/21/2017 negative - G-ESOPH REFLX TST W/ELECTROD 08/30/2017 - KNEE SCOPE,DIAGNOSTIC 2005 Arthroscopy, knee right - REMOVAL OF TONSILS,<12 Y/O Tonsillectomy - TOTAL ABDOM HYSTERECTOMY 2003 Hysterectomy, [place] Family History FAMILY HISTORY Problem Relation Age of Onset - other (dementia) Mother - Stroke Father - Colon Cancer Maternal Grandfather - Alzheimer's Disease Maternal Grandfather - Stroke Paternal Grandmother Patient Allergies ALLERGIES Allergen Reactions - Ciprofloxacin Hives Patient developed generalized hives, hand swelling, and difficulty breathing within 15 to 30 minutes of taken first dose of hydrocodone and ciprofloxacin in September 2017. - Hydrocodone Hives Patient developed generalized hives, hand swelling, and difficulty breathing within 15 to 30 minutes of taken first dose of hydrocodone and ciprofloxacin in September 2017. - Iv Contrast [Iodine] Swelling - Latex Rash, Itching Latex band-aids - Sulfa [Sulfa (Sulfo* Hives - Topamax [Topiramate] Other: See Comments Made her extremely depressed. Current Medications Current Outpatient Prescriptions on File Prior to Visit: propranolol (INDERAL) 20 mg tablet Take 0.5 tablets by mouth once daily. Omeprazole 40 mg capsule Take 1 capsule by mouth twice daily. rizatriptan (MAXALT) 10 mg tablet Take one tablet at onset of headache and may repeat every 2 hours as needed up to 3 tabs in 24 hours sertraline (ZOLOFT) 50 mg tablet Take 3 tablets by mouth once daily. estradiol (ESTRACE) 1 mg tablet Take 1 tablet by mouth once daily. SYNTHROID 100 mcg tablet TAKE 1 TABLET ONCE DAILY EPINEPHrine (EPIPEN) 0.3 mg/0.3 mL auto-injector ONE TIME PRN For Anaphylaxis isosorbide mononitrate ER (IMDUR) 60 mg 24 hr tablet Take 1.5 tablets by mouth once daily. acyclovir (ZOVIRAX) 400 mg tablet Take 1 tablet by mouth three times daily. acyclovir (ZOVIRAX) 5 % crea Apply 1 application to affected area five times daily. No current facility-administered medications on file prior to visit. Social History Social History Marital status: Spouse name: Christopher Years of education: Number of children: 2 Social History Main Topics Smoking status: Never Smoker Smokeless tobacco: Never Used Alcohol use: No Drug use: No Sexual activity: Yes Partners with: Male control/protection: Surgical Review of Symptoms REVIEW OF SYSTEMS See HPI EXAM: BP 116/76 Pulse 78 Resp 16 Wt 74.8 kg (165 lb) BMI 29.00 kg/m? General Appearance: Well appearing, alert, in no acute distress, well-hydrated, well nourished.. Ears: Negative findings: external ears normal to inspection and palpation, canals clear, Left tympanic membrane normal. Mobility is good, Right tympanic membrane normal. Mobility is good, normal light reflex, Nose/Sinuses: Nares normal, septum midline, mucosa normal, no drainage or sinus tenderness. Oropharynx: Lips, mucosa, and tongue normal, teeth and gums normal, oropharynx normal. Neck: Supple, no adenopathy; thyroid symmetric, normal size, no bruits. Lungs: Lungs clear to auscultation. No wheezing, rhonchi, rales. Heart: RRR without murmur, gallop, or rubs. No ectopy. Abdomen: Normal abdominal exam, Abdomen soft, non-tender. Bowel sounds normal. No masses, organomegaly. Hallpike test produced the symptoms on the right only. No nystagmus. Health Maintenance List PAP EVERY 5 YEARS due on 12/02/1995 FECAL OCCULT BLOOD due on 01/20/2018 MAMMOGRAM due on 05/29/2018 ANNUAL PCP TEAM CHRONIC DISEASE VISIT due on 03/02/2019 DIABETES SCREEN due on 01/27/2021 LIPID SCREEN due on 01/27/2023 DTAP,TDAP,TD(2 - Td) due on 01/17/2027 Data reviewed A/P ASSESSMENT/PLAN: 1. Migraine without aura and without status migrainosus, not intractable - ICD9: 346.10, ICD10: G43.009 (primary diagnosis) - Patient did not go up to the 20 mg of propanol after last visit due to a script error. Will have her go up to the intended 20 mg a day. - PROPRANOLOL 20 MG TABLET 2. JORGE (generalized anxiety disorder) - ICD9: 300.02, ICD10: F41.1 - Doing well with zoloft at 50 mg a day. No further changes at this time. 3. Labyrinthitis of right ear - ICD9: 386.30, ICD10: H83.01 - With symptoms and PE findings suspect this as the diagnosis. - if not better at f/u in a few weeks will send to PHYSICAL THERAPY for BPV tx. - PREDNISONE 5 MG TABLET Signed Prescriptions Disp Refills propranolol (INDERAL) 20 mg tablet 90 tablet 1 Sig: Take 1 tablet by mouth once daily. RADHA: No predniSONE (DELTASONE) 5 mg tablet 55 tablet 0 Sig: Take ten tabs by mouth on day one and reduce by one a day till done. LORazepam (ATIVAN) 0.5 mg tab 4 tablet 0 Sig: Take one tab 30-45 min prior to plane flight [place] Class: C-IV RADHA: No Keep appt in 2-3 weeks for bunion pre-op clearance. Time entering room was 11:31 AM and time leaving room was 12:02 PM (total face to face time was 31 min.) Samuel Epps MD Referring Provider: SAMUEL EPPS [[id number]] Allergies As of Date: 04/10/2018 Noted Allergy Reaction CIPROFLOXACIN 11/30/2017 4 - Hives Comments: Patient developed generalized hives, hand swelling, and difficulty breathing within 15 to 30 minutes of taken first dose of hydrocodone and ciprofloxacin in September 2017. HYDROCODONE 11/30/2017 4 - Hives Comments: Patient developed generalized hives, hand swelling, and difficulty breathing within 15 to 30 minutes of taken first dose of hydrocodone and ciprofloxacin in September 2017. IV CONTRAST (IODINE) 10/31/2017 7 - Swelling LATEX 01/26/2012 2 - Rash 9 - Itching Comments: Latex band-aids SULFA (SULFA (SULFONAMIDE ANTIBIO*01/07/2009 4 - Hives TOPAMAX (TOPIRAMATE) 06/01/2017 14 - Other: See Comments Comments: Made her extremely depressed. Date Reviewed: 04/10/2018 Reviewed by: Samuel Epps - Fully Assessed Reason for Visit: Recheck [92] Cmt: Migraines/stress Primary Visit Diagnosis:Migraine without aura and without status migrainosus, not intractable [G43.009] Other Visit Diagnoses:JORGE (generalized anxiety disorder) [F41.1] Labyrinthitis of right ear [H83.01] Order(s):propranolol (INDERAL) 20 mg tabletTake 1 tablet by mouth once daily.Disp: 90 tabletRfl: 1 predniSONE (DELTASONE) 5 mg tabletTake ten tabs by mouth on day one and reduce by one a day till done.Disp: 55 tabletRfl: 0 LORazepam (ATIVAN) 0.5 mg tabTake one tab 30-45 min prior to plane flightDisp: 4 tabletRfl: 0 Prescriptions as of 04/10/2018 Sig: PROPRANOLOL 20 MG TABLET Take 1 tablet by mouth once d* OMEPRAZOLE 40 MG CAPSULE,URBAN* Take 1 capsule by mouth twice* RIZATRIPTAN 10 MG TABLET Take one tablet at onset of h* SERTRALINE 50 MG TABLET Take 3 tablets by mouth once * ESTRADIOL 1 MG TABLET Take 1 tablet by mouth once d* SYNTHROID 100 MCG TABLET TAKE 1 TABLET ONCE DAILY EPINEPHRINE 0.3 MG/0.3 ML INJ* ONE TIME PRN For Anaphylaxis ISOSORBIDE MONONITRATE ER 60 * Take 1.5 tablets by mouth onc* ACYCLOVIR 400 MG TABLET Take 1 tablet by mouth three * ACYCLOVIR 5 % TOPICAL CREAM Apply 1 application to affect* PREDNISONE 5 MG TABLET Take ten tabs by mouth on day* LORAZEPAM 0.5 MG TABLET Take one tab 30-45 min prior * Problem List As Of Date 04/10/2018 Noted Resolved Hypothyroidism (acquired) [E03.9] INVALID FOR* Priority: A Hallux valgus (acquired) [M20.10] INVALID FOR* Priority: D Migraine without aura and without status migrai*INVALID FOR* Priority: A Herpes [B00.9] INVALID FOR* Priority: D More... Post menopausal syndrome [N95.1] INVALID FOR* Priority: B Mitral valve prolapse [I34.1] Priority: B Thyroid goiter [E04.9] INVALID FOR* Priority: B More... Encounter for gynecological examination without*INVALID FOR* Priority: E More... Bilateral fibrocystic breast disease (FCBD) [N6*INVALID FOR* Priority: C Allergic rhinitis [J30.9] INVALID FOR* Priority: B More... Family history of colon cancer [Z80.0] INVALID FOR* Priority: F Gastroesophageal reflux disease without esophag*INVALID FOR* Priority: A Encounter for screening for diabetes mellitus [*INVALID FOR* Encounter for screening for cardiovascular diso*INVALID FOR* More... Hiatal hernia [K44.9] INVALID FOR* Priority: B More... Well adult exam [Z00.00] INVALID FOR* Priority: E More... 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 Visual disturbance [H53.9] INVALID FOR*10/04/2017 Abnormal EEG [R94.01] INVALID FOR* Priority: B More... Esophageal spasm [K22.4] INVALID FOR* Priority: A More... Pollack's esophagus without dysplasia [K22.70] INVALID FOR* Priority: A More... Dyslipidemia [E78.5] INVALID FOR* Encounter for screening colonoscopy [Z12.11] INVALID FOR* More... Prescriptions ordered this encounter Disp Refills Start End PROPRANOLOL 20 MG TABLET 90 t* 1 04/10/2018 Route: ORAL Sig: Take 1 tablet by mouth once daily. PREDNISONE 5 MG TABLET 55 t* 0 04/10/2018 Sig: Take ten tabs by mouth on day one and reduce by one a day till done. LORAZEPAM 0.5 MG TABLET 4 ta* 0 04/10/2018 05/11/2018 Class: Print RX Sig: Take one tab 30-45 min prior to plane flight Medications Discontinued During This Encounter propranolol (INDERAL) 20 mg tablet 30 t* 5 03/02/2018 04/10/2018 Route: ORAL Sig: Take 0.5 tablets by mouth once daily. Disc: Reason for discontinue is not on file. Encounter Status:Closed by SAMUEL EPPS on 04/10/18 HOSP Observed: 04/06/2018 Status: COMPLETED Source: [place] 12:00 AM CLINIC OTHER CAMPUS REPOSITORY Patient:Annelise Page MRN: <[id number]> Height:5' 3.268(1.607 m) Weight:166 lb (75.297 kg) Outpatient Medications as of 05/02/18: LORazepam (ATIVAN) 0.5 mg tab busPIRone (BUSPAR) 15 mg tablet cefADROxil (DURICEF) 500 mg capsule fluconazole (DIFLUCAN) 150 mg tablet propranolol (INDERAL) 20 mg tablet predniSONE (DELTASONE) 5 mg tablet Omeprazole 40 mg capsule rizatriptan (MAXALT) 10 mg tablet sertraline (ZOLOFT) 50 mg tablet estradiol (ESTRACE) 1 mg tablet SYNTHROID 100 mcg tablet EPINEPHrine (EPIPEN) 0.3 mg/0.3 mL auto-injector isosorbide mononitrate ER (IMDUR) 60 mg 24 hr tablet acyclovir (ZOVIRAX) 400 mg tablet acyclovir (ZOVIRAX) 5 % crea Admission/Clinic Administered Medications as of 05/02/18: lactated ringers infusion lactated ringers infusion ondansetron (PF) 4 mg injection (ZOFRAN) metoclopramide HCl 10 mg injection (REGLAN) Problem List: Hypothyroidism (acquired) [E03.9] Hallux valgus (acquired) [M20.10] Migraine without aura and without status migrainosus, not intractable [G43.009] Herpes [B00.9] Post menopausal syndrome [N95.1] Mitral valve prolapse [I34.1] Thyroid goiter [E04.9] Encounter for gynecological examination without abnormal finding [Z01.419] Bilateral fibrocystic breast disease (FCBD) [N60.12, N60.11] Allergic rhinitis [J30.9] Family history of colon cancer [Z80.0] Gastroesophageal reflux disease without esophagitis [K21.9] Encounter for screening for diabetes mellitus [Z13.1] Encounter for screening for cardiovascular disorders [Z13.6] Hiatal hernia [K44.9] Well adult exam [Z00.00] Acute left-sided low back pain with left-sided sciatica [M54.42] JORGE (generalized anxiety disorder) [F41.1] Screening for colon cancer [Z12.11] Arthritis, lumbar spine [M47.816] Abnormal EEG [R94.01] Esophageal spasm [K22.4] Pollack's esophagus without dysplasia [K22.70] Dyslipidemia [E78.5] Encounter for screening colonoscopy [Z12.11] Allergies: Ciprofloxacin Hydrocodone IV Contrast [Iodine] Latex Sulfa [Sulfa (Sulfonamide Antibiotics)] Topamax [Topiramate] Date Verified: 05/02/18 Lab Values Lab Value Units Date High Low POTA* 4.2 mmol/L 04/26/2018 5.1 3.7 FRANCES* 42.9 % 04/26/2018 46.0 36.0 Progress Notes ([facility]): Samuel Epps MD 05/01/2018 8:14 PM Signed Chief Complaint Patient presents with: Pre-Op Exam: Bilateral feet- bunion HPI Annelise Page is a 52 year old female who presents here today for Above Complaints. and right ear pain. - Patient is scheduled to have bunion surgery on 05/18/[address] Houston. Patient was seen in the office a few weeks ago with felling like she was going to fall. Dx with labyrinthitis of the right ear and treated with prednisone. The falling symptoms have resolved but now having pain and feeling of fullness like ear is blocked. Does use Q-tips in her ears. Accidentally took a dose of ativan instead of her prednisone and noticed how relaxed she felt. Past medical history, appointments, medications, allergies reviewed. Previous Medical History PAST MEDICAL HISTORY Diagnosis Date - Abnormal EEG 05/06/2017 Saw neuro and not felt ot be seizures. - Pollack's esophagus determined by biopsy 08/30/2017 - Pollack's esophagus without dysplasia 10/04/[address] Steele - Hallux valgus (acquired) 04/06/2009 - Herpes 08/05/2015 GETS OUTBREAKS ON NOSE - History of kidney stones - Hypothyroidism 04/02/2009 - Migraine without aura and without status migrainosus, not intractable 08/05/2015 - migraines Headaches - Mitral valve prolapse - Pain in Soft Tissues of Limb 04/06/2009 - Post menopausal syndrome 08/05/2015 Previous Surgical History PAST SURGICAL HISTORY Procedure Laterality Date - 2D ECHO (EXEP) 03/06/2017 EF=60%, mild TR and Pulm HTN - APPENDECTOMY - CYSTO/URETERO/PYELO W/STONE REMOVAL Right 10/11/2017 and stent placement - EGD W/O BRSH SPECIMEN W/BX 08/30/2017 Pollack's esophagus without dysplasia - FECAL OCCULT BLOOD TEST 01/21/2017 negative - G-ESOPH REFLX TST W/ELECTROD 08/30/2017 - KNEE SCOPE,DIAGNOSTIC 2005 Arthroscopy, knee right - REMOVAL OF TONSILS,<12 Y/O Tonsillectomy - TOTAL ABDOM HYSTERECTOMY 2003 Hysterectomy, [place]RO Family History FAMILY HISTORY Problem Relation Age of Onset - other (dementia) Mother - Stroke Father - Colon Cancer Maternal Grandfather - Alzheimer's Disease Maternal Grandfather - Stroke Paternal Grandmother Patient Allergies ALLERGIES Allergen Reactions - Ciprofloxacin Hives Patient developed generalized hives, hand swelling, and difficulty breathing within 15 to 30 minutes of taken first dose of hydrocodone and ciprofloxacin in September 2017. - Hydrocodone Hives Patient developed generalized hives, hand swelling, and difficulty breathing within 15 to 30 minutes of taken first dose of hydrocodone and ciprofloxacin in September 2017. - Iv Contrast [Iodine] Swelling - Latex Rash, Itching Latex band-aids - Sulfa [Sulfa (Sulfo* Hives - Topamax [Topiramate] Other: See Comments Made her extremely depressed. Current Medications Current Outpatient Prescriptions on File Prior to Visit: propranolol (INDERAL) 20 mg tablet Take 1 tablet by mouth once daily. predniSONE (DELTASONE) 5 mg tablet Take ten tabs by mouth on day one and reduce by one a day till done. LORazepam (ATIVAN) 0.5 mg tab Take one tab 30-45 min prior to plane flight Omeprazole 40 mg capsule Take 1 capsule by mouth twice daily. rizatriptan (MAXALT) 10 mg tablet Take one tablet at onset of headache and may repeat every 2 hours as needed up to 3 tabs in 24 hours sertraline (ZOLOFT) 50 mg tablet Take 3 tablets by mouth once daily. estradiol (ESTRACE) 1 mg tablet Take 1 tablet by mouth once daily. SYNTHROID 100 mcg tablet TAKE 1 TABLET ONCE DAILY EPINEPHrine (EPIPEN) 0.3 mg/0.3 mL auto-injector ONE TIME PRN For Anaphylaxis isosorbide mononitrate ER (IMDUR) 60 mg 24 hr tablet Take 1.5 tablets by mouth once daily. acyclovir (ZOVIRAX) 400 mg tablet Take 1 tablet by mouth three times daily. acyclovir (ZOVIRAX) 5 % crea Apply 1 application to affected area five times daily. No current facility-administered medications on file prior to visit. Social History Social History Marital status: Spouse name: Christopher Years of education: Number of children: 2 Social History Main Topics Smoking status: Never Smoker Smokeless tobacco: Never Used Alcohol use: No Drug use: No Sexual activity: Yes Partners with: Male control/protection: Surgical Review of Symptoms REVIEW OF SYSTEMS GENERAL: No weight loss, malaise or fevers HEENT: Negative for frequent or significant headaches, No changes in hearing or vision, no nose bleeds or other nasal problems, SEE HPI NECK: Negative for lumps, goiter, pain and significant neck swelling RESPIRATORY: Negative for cough, hemoptysis, wheezing, COPD, dyspnea or shortness of breath CARDIOVASCULAR: Negative for chest pain, leg swelling, hypertension, CHF or palpitations GI: No nausea, vomiting, or diarrhea and No changes in her typical heartburn or reflux symptoms : No history of dysuria, frequency or incontinence MUSCULOSKELETAL: Negative for joint pain or swelling, back pain or muscle pain SKIN: Negative for lesions, rash, and itching HEMATOLOGY/LYMPHOLOGY: Negative for prolonged bleeding, bruising easily or swollen nodes ENDOCRINE: Negative for cold or heat intolerance, polyuria, polydipsia and goiter NEURO: No history of syncope, paralysis, seizures or tremors. Headaches have been better. EXAM: BP 114/70 Pulse 74 Resp 14 Wt 75.3 kg (166 lb) BMI 29.17 kg/m? General Appearance: Well appearing, alert, in no acute distress, well-hydrated, well nourished.. Skin: Skin color, texture, turgor normal, no suspicious rashes or lesions. Head: Normocephalic, no masses, lesions, tenderness or abnormalities. Eyes: Anicteric sclera. Pupils are equally round and reactive to light. Extraocular movements are intact. . Ears: External ears normal. Both canals with mild wax in them. Not able to see the right TM well. Nose/Sinuses: Nares normal, septum midline, mucosa normal, no drainage or sinus tenderness. Oropharynx: Lips, mucosa, and tongue normal, teeth and gums normal, oropharynx normal. Neck: Supple, no adenopathy; thyroid symmetric, normal size, no bruits. Lungs: lungs clear to auscultation. No wheezing, rhonchi, rales. Heart: RRR without murmur, gallop, or rubs. No ectopy. Abdomen: Normal abdominal exam, Abdomen soft, non-tender. Bowel sounds normal. No masses, organomegaly. Extremities: No deformities, edema, skin discoloration,. Musculoskeletal: Spine range of motion normal. Muscular strength intact, No joint swelling, deformity, or tenderness. Peripheral Pulses: Normal. Neurologic: Gait normal. Reflexes normal and symmetric. Sensation to light touch and crainal nerves 2-12 intact.. Health Maintenance List FECAL OCCULT BLOOD due on 01/20/2018 MAMMOGRAM due on 05/29/2018 ANNUAL PCP TEAM CHRONIC DISEASE VISIT due on 04/10/2019 DIABETES SCREEN due on 04/26/2021 LIPID SCREEN due on 01/27/2023 DTAP,TDAP,TD(2 - Td) due on 01/17/2027 Data reviewed In office EKG: Sinus cosme with no acute ST or T wave changes. Component Latest Ref Rng AND Units 04/26/2018 WBC 3.70 - 11.00 k/uL 6.89 RBC 3.90 - 5.20 m/uL 4.65 Hemoglobin 11.5 - 15.5 g/dL 13.9 Hematocrit 36.0 - 46.0 % 42.9 MCV 80.0 - 100.0 fL 92.3 MCH 26.0 - 34.0 pG 29.9 MCHC 30.5 - 36.0 g/dL 32.4 RDW-CV 11.5 - 15.0 % 12.9 Platelet Count 150 - 400 k/uL 253 MPV 9.0 - 12.7 fL 10.9 Neut% % 48.1 Abs Neut (ANC) 1.45 - 7.50 k/uL 3.31 Lymph% % 37.6 Abs Lymph 1.00 - 4.00 k/uL 2.59 [place]% % 11.0 Abs [place] <0.87 k/uL 0.76 Eosin% % 2.6 Abs Eosin <0.46 k/uL 0.18 Baso% % 0.7 Abs Baso <0.11 k/uL 0.05 Nucleated Reds 0 /100 WBC 0.0 Absolute nRBC <0.01 k/uL <0.01 Diff Type Auto Diff Glucose 74 - 99 mg/dL 80 BUN 7 - 21 mg/dL 16 Creatinine 0.58 - 0.96 mg/dL 0.92 Sodium 136 - 144 mmol/L 140 Potassium 3.7 - 5.1 mmol/L 4.2 Chloride 97 - 105 mmol/L 101 CO2 22 - 30 mmol/L 25 Anion Gap 9 - 18 mmol/L 14 Calcium 8.5 - 10.2 mg/dL 9.5 eGFR- >60 eGFR-All Other Races . >60 PT Sec 9.7 - 13.0 sec 10.1 PT INR 0.9 - 1.3 1.0 APTT 23.0 - 32.4 sec 25.1 A/P ASSESSMENT/PLAN: 1. Pre-op examination - ICD9: V72.84, ICD10: Z01.818 (primary diagnosis) - Per the pre-op Clearance Algorithm her cardiac risk is low, her functional capacity is excellent and with normal EKG no other formal cardiac testing needed. 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 - ECG COMPLETE W INTERPRETATION 2. Bunion - ICD9: 727.1, ICD10: M21.619 - scheduled for surgery 05/18/[address] Houston 3. JORGE (generalized anxiety disorder) - ICD9: 300.02, ICD10: F41.1 - Will add Buspar - LORAZEPAM 0.5 MG TABLET 4. Right ear pain - ICD9: 388.70, ICD10: H92.01 - on re-evaluation the right TM has slightly light reflex, does not insufflate as well as the left and also has some purulence behind it. With the insufflation there is discomfort but none with pulling on the ear. Will treat OM with duricef 500 mg twice a day for 10 days 5. Excessive ear wax, bilateral - ICD9: 380.4, ICD10: H61.23 - After verbal consent both ears were irrigated with warm water for the removable of wax. Patient tolerated well. 6. Acute otitis media, unspecified otitis media type - ICD9: 382.9, ICD10: H66.90 - see #4 above Signed Prescriptions Disp Refills LORazepam (ATIVAN) 0.5 mg tab 4 tablet 0 Sig: Take one tab 30-45 min prior to plane flight [place] Class: C-IV RADHA: No busPIRone (BUSPAR) 15 mg tablet 60 tablet 3 Sig: Take 1/2 a tab by mouth twice a day for 2 weeks than one twice a day. cefADROxil (DURICEF) 500 mg capsule 20 capsule 0 Sig: Take 1 capsule by mouth twice daily. fluconazole (DIFLUCAN) 150 mg tablet 3 tablet 1 Si tab by mouth every other day for 3 doses F/u as needed and routine Samuel Epps MD Progress Notes ([facility]): Samuel Epps MD 04/23/2018 5:14 PM Signed Labs placed to do before pre-op exam 05/01/2018 PROGRESS Observed: 03/09/2018 Status: COMPLETED Source: [place] 1:26 PM [facility] REPOSITORY O ID: [id number] Author: Christopher Rios Service: (none) Author Type: Physician Type: Progress Notes Filed: 03/09/2018 1:29 PM Note Text: Annelise Page is a 52 year old female who is here for evaluation for a colonoscopy. She's never had one. She does report intermittent constipation and diarrhea. She denies any blood in her stool. She does have a family history of maternal grandfather having colorectal carcinoma. ALLERGIES Allergen Reactions - Ciprofloxacin Hives Patient developed generalized hives, hand swelling, and difficulty breathing within 15 to 30 minutes of taken first dose of hydrocodone and ciprofloxacin in September 2017. - Hydrocodone Hives Patient developed generalized hives, hand swelling, and difficulty breathing within 15 to 30 minutes of taken first dose of hydrocodone and ciprofloxacin in September 2017. - Iv Contrast [Iodine] Swelling - Latex Rash, Itching Latex band-aids - Sulfa [Sulfa (Sulfo* Hives - Topamax [Topiramate] Other: See Comments Made her extremely depressed. Current Outpatient Prescriptions: propranolol (INDERAL) 20 mg tablet Take 0.5 tablets by mouth once daily. Omeprazole 40 mg capsule Take 1 capsule by mouth twice daily. rizatriptan (MAXALT) 10 mg tablet Take one tablet at onset of headache and may repeat every 2 hours as needed up to 3 tabs in 24 hours sertraline (ZOLOFT) 50 mg tablet Take 3 tablets by mouth once daily. estradiol (ESTRACE) 1 mg tablet Take 1 tablet by mouth once daily. SYNTHROID 100 mcg tablet TAKE 1 TABLET ONCE DAILY EPINEPHrine (EPIPEN) 0.3 mg/0.3 mL auto-injector ONE TIME PRN For Anaphylaxis isosorbide mononitrate ER (IMDUR) 60 mg 24 hr tablet Take 1.5 tablets by mouth once daily. acyclovir (ZOVIRAX) 400 mg tablet Take 1 tablet by mouth three times daily. acyclovir (ZOVIRAX) 5 % crea Apply 1 application to affected area five times daily. No current facility-administered medications for this visit. PHYSICAL EXAM: BP 111/73 Pulse 59 Resp 18 Wt 159 lb (72.1kg) General Appearance: Well appearing, alert, in no acute distress, well-hydrated, well nourished.. Eyes: Anicteric sclera. Pupils are equally round and reactive to light. Extraocular movements are intact. Skin: Skin texture and turgor normal, no suspicious rashes or lesions, Negative for jaundice or pallor. Neck: Supple, trachea midline Abdomen: Normal abdominal exam, Positive findings: tenderness moderate epigastric and LUQ. Assessment: Gastroesophageal reflux disease without esophagitis (primary encounter diagnosis) Esophageal dysmotility Encounter for screening colonoscopy Family history of colon cancer Plan: I did recommend proceeding with a colonoscopy. The risks, and complications of the procedure were reviewed with her in detail including bleeding, missing the lesion and perforation requiring emergency surgery and anesthetic risks. She is agreeable to proceed. Christopher Rios M.D., F.A.C.S. CNOV Observed: 03/09/2018 Status: COMPLETED Source: [place] 1:00 PM [facility] REPOSITORY Office Visit (YAIR) ANNELISE PAGE ([id number]) 1965 F Date Time Provider Department 03/09/18 1:00 PM CHRISTOPHER RIOS During your visit today, we recorded the following information about you: Pulse Respiration Blood pressure Weight 59/minute 18/minute 111/73 72.1 kg Nicolás Hart RN 03/09/2018 1:15 PM Signed Patient here for consult for screening colonoscopy. Nicolás Rios MD 03/09/2018 1:29 PM Signed Annelise Page is a 52 year old female who is here for evaluation for a colonoscopy. She's never had one. She does report intermittent constipation and diarrhea. She denies any blood in her stool. She does have a family history of maternal grandfather having colorectal carcinoma. ALLERGIES Allergen Reactions - Ciprofloxacin Hives Patient developed generalized hives, hand swelling, and difficulty breathing within 15 to 30 minutes of taken first dose of hydrocodone and ciprofloxacin in September 2017. - Hydrocodone Hives Patient developed generalized hives, hand swelling, and difficulty breathing within 15 to 30 minutes of taken first dose of hydrocodone and ciprofloxacin in September 2017. - Iv Contrast [Iodine] Swelling - Latex Rash, Itching Latex band-aids - Sulfa [Sulfa (Sulfo* Hives - Topamax [Topiramate] Other: See Comments Made her extremely depressed. Current Outpatient Prescriptions: propranolol (INDERAL) 20 mg tablet Take 0.5 tablets by mouth once daily. Omeprazole 40 mg capsule Take 1 capsule by mouth twice daily. rizatriptan (MAXALT) 10 mg tablet Take one tablet at onset of headache and may repeat every 2 hours as needed up to 3 tabs in 24 hours sertraline (ZOLOFT) 50 mg tablet Take 3 tablets by mouth once daily. estradiol (ESTRACE) 1 mg tablet Take 1 tablet by mouth once daily. SYNTHROID 100 mcg tablet TAKE 1 TABLET ONCE DAILY EPINEPHrine (EPIPEN) 0.3 mg/0.3 mL auto-injector ONE TIME PRN For Anaphylaxis isosorbide mononitrate ER (IMDUR) 60 mg 24 hr tablet Take 1.5 tablets by mouth once daily. acyclovir (ZOVIRAX) 400 mg tablet Take 1 tablet by mouth three times daily. acyclovir (ZOVIRAX) 5 % crea Apply 1 application to affected area five times daily. No current facility-administered medications for this visit. PHYSICAL EXAM: BP 111/73 Pulse 59 Resp 18 Wt 159 lb (72.1kg) General Appearance: Well appearing, alert, in no acute distress, well-hydrated, well nourished.. Eyes: Anicteric sclera. Pupils are equally round and reactive to light. Extraocular movements are intact. Skin: Skin texture and turgor normal, no suspicious rashes or lesions, Negative for jaundice or pallor. Neck: Supple, trachea midline Abdomen: Normal abdominal exam, Positive findings: tenderness moderate epigastric and LUQ. Assessment: Gastroesophageal reflux disease without esophagitis (primary encounter diagnosis) Esophageal dysmotility Encounter for screening colonoscopy Family history of colon cancer Plan: I did recommend proceeding with a colonoscopy. The risks, and complications of the procedure were reviewed with her in detail including bleeding, missing the lesion and perforation requiring emergency surgery and anesthetic risks. She is agreeable to proceed. Christopher Rios M.D., F.A.C.S. Referring Provider: SAMUEL EPPS [[id number]] Allergies As of Date: 03/09/2018 Noted Allergy Reaction CIPROFLOXACIN 11/30/2017 4 - Hives Comments: Patient developed generalized hives, hand swelling, and difficulty breathing within 15 to 30 minutes of taken first dose of hydrocodone and ciprofloxacin in September 2017. HYDROCODONE 11/30/2017 4 - Hives Comments: Patient developed generalized hives, hand swelling, and difficulty breathing within 15 to 30 minutes of taken first dose of hydrocodone and ciprofloxacin in September 2017. IV CONTRAST (IODINE) 10/31/2017 7 - Swelling LATEX 01/26/2012 2 - Rash 9 - Itching Comments: Latex band-aids SULFA (SULFA (SULFONAMIDE ANTIBIO*01/07/2009 4 - Hives TOPAMAX (TOPIRAMATE) 06/01/2017 14 - Other: See Comments Comments: Made her extremely depressed. Date Reviewed: 03/09/2018 Reviewed by: Christopher Rios - Fully Assessed Reason for Visit: Consult [173] Primary Visit Diagnosis:Gastroesophageal reflux disease without esophagitis [K21.9] Other Visit Diagnoses:Esophageal dysmotility [K22.4] Encounter for screening colonoscopy [Z12.11] Family history of colon cancer [Z80.0] Prescriptions as of 03/09/2018 Sig: PROPRANOLOL 20 MG TABLET Take 0.5 tablets by mouth onc* OMEPRAZOLE 40 MG CAPSULE,URBAN* Take 1 capsule by mouth twice* RIZATRIPTAN 10 MG TABLET Take one tablet at onset of h* SERTRALINE 50 MG TABLET Take 3 tablets by mouth once * ESTRADIOL 1 MG TABLET Take 1 tablet by mouth once d* SYNTHROID 100 MCG TABLET TAKE 1 TABLET ONCE DAILY EPINEPHRINE 0.3 MG/0.3 ML INJ* ONE TIME PRN For Anaphylaxis ISOSORBIDE MONONITRATE ER 60 * Take 1.5 tablets by mouth onc* ACYCLOVIR 400 MG TABLET Take 1 tablet by mouth three * ACYCLOVIR 5 % TOPICAL CREAM Apply 1 application to affect* Problem List As Of Date 03/09/2018 Noted Resolved Hypothyroidism (acquired) [E03.9] INVALID FOR* Priority: A Hallux valgus (acquired) [M20.10] INVALID FOR* Priority: D Migraine without aura and without status migrai*INVALID FOR* Priority: A Herpes [B00.9] INVALID FOR* Priority: D More... Post menopausal syndrome [N95.1] INVALID FOR* Priority: B Mitral valve prolapse [I34.1] Priority: B Thyroid goiter [E04.9] INVALID FOR* Priority: B More... Encounter for gynecological examination without*INVALID FOR* Priority: E More... Bilateral fibrocystic breast disease (FCBD) [N6*INVALID FOR* Priority: C Allergic rhinitis [J30.9] INVALID FOR* Priority: B More... Family history of colon cancer [Z80.0] INVALID FOR* Priority: F Gastroesophageal reflux disease without esophag*INVALID FOR* Priority: A Encounter for screening for diabetes mellitus [*INVALID FOR* Encounter for screening for cardiovascular diso*INVALID FOR* More... Hiatal hernia [K44.9] INVALID FOR* Priority: B More... Well adult exam [Z00.00] INVALID FOR* Priority: E More... 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 Visual disturbance [H53.9] INVALID FOR*10/04/2017 Abnormal EEG [R94.01] INVALID FOR* Priority: B More... Esophageal spasm [K22.4] INVALID FOR* Priority: A More... Pollack's esophagus without dysplasia [K22.70] INVALID FOR* Priority: A More... Dyslipidemia [E78.5] INVALID FOR* Visit Notes: >> Nicolás Hart RN MonMar 09, 2018 1:07 PM Status: Signed Patient here for consult for screening colonoscopy. Nicolás Hart RN Disposition: Return for After colonoscopy. Follow-up and Disposition History Recorded Questionnaire: AG GERD HEALTH RELATED QUALITY OF LIFE Surgery/Baclofen dose -> On PPI'S 1. How bad is the heartburn? -> 2 Notice/bothersome not daily 2. Heartburn when lying down? -> 1 Noticeable/not bothersome 3. Heartburn when standing up? -> 2 Notice/bothersome not daily 4. Heartburn after meals? -> 2 Notice/bothersome not daily 5. Does heartburn change your diet? -> 0 No Symptoms 6. Does heartburn wake you from sleep? -> 0 No Symptoms 7. Do you have difficulty swallowing -> 0 No Symptoms 8. Do you have pain with swallowing? -> 0 No Symptoms 9. If you take medication, does this affect your daily life? -> 0 No Symptoms 10. How bad is the regurgitation? -> 1 Noticeable/not bothersome 11. Regurgitation when lying down? -> 0 No Symptoms 12. Regurgitation when standing up? -> 1 Noticeable/not bothersome 13. Regurgitation after meals? -> 1 Noticeable/not bothersome 14. Does regurgitation change your diet? -> 0 No Symptoms 15. Does regurgitation wake you from sleep? -> 0 No Symptoms TOTAL - HEARTBURN 1-9 -> 7 TOTAL - REGURG 10-15 -> 3 Total -> 10 16. How satisfied are you with your present condition -> Neutral Letter Text Encounter Status:Closed by CHRISTOPHER RIOS MD on 03/09/18 PROGRESS Observed: 03/02/2018 Status: COMPLETED Source: [place] 4:03 PM [facility] REPOSITORY HNO ID: [id number] Author: Samuel Epps Service: (none) Author Type: Physician Type: Progress Notes Filed: 03/02/2018 5:09 PM Note Text: Chief Complaint Patient presents with: Headache: x 1 month intermidate HPI Annelise Page is a 52 year old female who presents here today for Above Complaints.. Patient has continued to have a headache since she was last in the office. The addition of the propranolol has not changed anything. Past medical history, appointments, medications, allergies reviewed. Previous Medical History PAST MEDICAL HISTORY Diagnosis Date - Abnormal EEG 05/06/2017 Saw neuro and not felt ot be seizures. - Pollack's esophagus determined by biopsy 08/30/2017 - Pollack's esophagus without dysplasia 10/04/[address] Steele - Hallux valgus (acquired) 04/06/2009 - Herpes 08/05/2015 GETS OUTBREAKS ON NOSE - Hypothyroidism 04/02/2009 - Migraine without aura and without status migrainosus, not intractable 08/05/2015 - migraines Headaches - Mitral valve prolapse - Pain in Soft Tissues of Limb 04/06/2009 - Post menopausal syndrome 08/05/2015 Previous Surgical History PAST SURGICAL HISTORY Procedure Laterality Date - 2D ECHO (EXEP) 03/06/2017 EF=60%, mild TR and Pulm HTN - APPENDECTOMY - EGD W/O BRSH SPECIMEN W/BX 08/30/2017 Pollack's esophagus without dysplasia - FECAL OCCULT BLOOD TEST 01/21/2017 negative - G-ESOPH REFLX TST W/ELECTROD 08/30/2017 - KIDNEY STONE SURGERY HX 09/2017 - KNEE SCOPE,DIAGNOSTIC 2006 Arthroscopy, knee right - REMOVAL OF KIDNEY STONE 10/2017 - REMOVAL OF TONSILS,<12 Y/O Tonsillectomy - TOTAL ABDOM HYSTERECTOMY 2004 Hysterectomy, [place] Family History FAMILY HISTORY Problem Relation Age of Onset - other (dementia) Mother - Stroke Father - Colon Cancer Maternal Grandfather - Alzheimer's Disease Maternal Grandfather - Stroke Paternal Grandmother Patient Allergies ALLERGIES Allergen Reactions - Ciprofloxacin Hives Patient developed generalized hives, hand swelling, and difficulty breathing within 15 to 30 minutes of taken first dose of hydrocodone and ciprofloxacin in September 2017. - Hydrocodone Hives Patient developed generalized hives, hand swelling, and difficulty breathing within 15 to 30 minutes of taken first dose of hydrocodone and ciprofloxacin in September 2017. - Iv Contrast [Iodine] Swelling - Latex Rash, Itching Latex band-aids - Sulfa [Sulfa (Sulfo* Hives - Topamax [Topiramate] Other: See Comments Made her extremely depressed. Current Medications Current Outpatient Prescriptions on File Prior to Visit: Omeprazole 40 mg capsule Take 1 capsule by mouth twice daily. propranolol (INDERAL) 10 mg tablet Take 1 tablet by mouth once daily. rizatriptan (MAXALT) 10 mg tablet Take one tablet at onset of headache and may repeat every 2 hours as needed up to 3 tabs in 24 hours sertraline (ZOLOFT) 50 mg tablet Take 3 tablets by mouth once daily. estradiol (ESTRACE) 1 mg tablet Take 1 tablet by mouth once daily. SYNTHROID 100 mcg tablet TAKE 1 TABLET ONCE DAILY EPINEPHrine (EPIPEN) 0.3 mg/0.3 mL auto-injector ONE TIME PRN For Anaphylaxis isosorbide mononitrate ER (IMDUR) 60 mg 24 hr tablet Take 1.5 tablets by mouth once daily. acyclovir (ZOVIRAX) 400 mg tablet Take 1 tablet by mouth three times daily. acyclovir (ZOVIRAX) 5 % crea Apply 1 application to affected area five times daily. No current facility-administered medications on file prior to visit. Social History Social History Marital status: Spouse name: Christopher Years of education: Number of children: 2 Social History Main Topics Smoking status: Never Smoker Smokeless tobacco: Never Used Alcohol use: No Drug use: No Sexual activity: Yes Partners with: Male control/protection: Surgical Review of Symptoms REVIEW OF SYSTEMS See HPI EXAM: BP 112/76 Pulse 76 Resp 16 Wt 73 kg (161 lb) BMI 28.29 kg/m? General Appearance: Well appearing, alert, in no acute distress but in discomfort from the migraine, well-hydrated, well nourished.. Lungs: Lungs clear to auscultation. No wheezing, rhonchi, rales. Heart: RRR without murmur, gallop, or rubs. No ectopy. Health Maintenance List FECAL OCCULT BLOOD due on 01/20/2018 MAMMOGRAM due on 05/29/2018 ANNUAL PCP TEAM CHRONIC DISEASE VISIT due on 02/07/2019 DIABETES SCREEN due on 01/27/2021 LIPID SCREEN due on 01/27/2023 DTAP,TDAP,TD(2 - Td) due on 01/17/2027 Data reviewed A/P ASSESSMENT/PLAN: 1. Migraine without aura and without status migrainosus, not intractable - ICD9: 346.10, ICD10: G43.009 - Patient will be given IM toradol 30 mg and IM Zofran 4 mg - Patient to go home and go to sleep. Will increas the propranolol to 20 mg a day. Signed Prescriptions Disp Refills ketorolac 30 mg injection (TORADOL) ondansetron (PF) 4 mg injection (ZOFRAN) propranolol (INDERAL) 20 mg tablet 30 tablet 5 Sig: Take 0.5 tablets by mouth once daily. RADHA: No F/u prn Samuel Epps MD CNOV Observed: 03/02/2018 Status: COMPLETED Source: [place] 3:40 PM [facility] REPOSITORY Office Visit (FAMPWS) ANNELISE PAGE ([id number]) 1965 F Date Time Provider Department 03/02/18 3:40 PM [facility] During your visit today, we recorded the following information about you: Pulse Respiration Blood pressure Weight 76/minute 16/minute 112/76 73 kg Samuel Epps MD 03/02/2018 5:09 PM Signed Chief Complaint Patient presents with: Headache: x 1 month intermidate HPI Annelisemichelle Page is a 52 year old female who presents here today for Above Complaints.. Patient has continued to have a headache since she was last in the office. The addition of the propranolol has not changed anything. Past medical history, appointments, medications, allergies reviewed. Previous Medical History PAST MEDICAL HISTORY Diagnosis Date - Abnormal EEG 05/06/2017 Saw neuro and not felt ot be seizures. - Pollack's esophagus determined by biopsy 08/30/2017 - Pollack's esophagus without dysplasia 10/04/[address] Steele - Hallux valgus (acquired) 04/06/2009 - Herpes 08/05/2015 GETS OUTBREAKS ON NOSE - Hypothyroidism 04/02/2009 - Migraine without aura and without status migrainosus, not intractable 08/05/2015 - migraines Headaches - Mitral valve prolapse - Pain in Soft Tissues of Limb 04/06/2009 - Post menopausal syndrome 08/05/2015 Previous Surgical History PAST SURGICAL HISTORY Procedure Laterality Date - 2D ECHO (EXEP) 03/06/2017 EF=60%, mild TR and Pulm HTN - APPENDECTOMY - EGD W/O BRSH SPECIMEN W/BX 08/30/2017 Pollack's esophagus without dysplasia - FECAL OCCULT BLOOD TEST 01/21/2017 negative - G-ESOPH REFLX TST W/ELECTROD 08/30/2017 - KIDNEY STONE SURGERY HX 09/2017 - KNEE SCOPE,DIAGNOSTIC 2005 Arthroscopy, knee right - REMOVAL OF KIDNEY STONE 10/2017 - REMOVAL OF TONSILS,<12 Y/O Tonsillectomy - TOTAL ABDOM HYSTERECTOMY 2004 Hysterectomy, [place] Family History FAMILY HISTORY Problem Relation Age of Onset - other (dementia) Mother - Stroke Father - Colon Cancer Maternal Grandfather - Alzheimer's Disease Maternal Grandfather - Stroke Paternal Grandmother Patient Allergies ALLERGIES Allergen Reactions - Ciprofloxacin Hives Patient developed generalized hives, hand swelling, and difficulty breathing within 15 to 30 minutes of taken first dose of hydrocodone and ciprofloxacin in September 2017. - Hydrocodone Hives Patient developed generalized hives, hand swelling, and difficulty breathing within 15 to 30 minutes of taken first dose of hydrocodone and ciprofloxacin in September 2017. - Iv Contrast [Iodine] Swelling - Latex Rash, Itching Latex band-aids - Sulfa [Sulfa (Sulfo* Hives - Topamax [Topiramate] Other: See Comments Made her extremely depressed. Current Medications Current Outpatient Prescriptions on File Prior to Visit: Omeprazole 40 mg capsule Take 1 capsule by mouth twice daily. propranolol (INDERAL) 10 mg tablet Take 1 tablet by mouth once daily. rizatriptan (MAXALT) 10 mg tablet Take one tablet at onset of headache and may repeat every 2 hours as needed up to 3 tabs in 24 hours sertraline (ZOLOFT) 50 mg tablet Take 3 tablets by mouth once daily. estradiol (ESTRACE) 1 mg tablet Take 1 tablet by mouth once daily. SYNTHROID 100 mcg tablet TAKE 1 TABLET ONCE DAILY EPINEPHrine (EPIPEN) 0.3 mg/0.3 mL auto-injector ONE TIME PRN For Anaphylaxis isosorbide mononitrate ER (IMDUR) 60 mg 24 hr tablet Take 1.5 tablets by mouth once daily. acyclovir (ZOVIRAX) 400 mg tablet Take 1 tablet by mouth three times daily. acyclovir (ZOVIRAX) 5 % crea Apply 1 application to affected area five times daily. No current facility-administered medications on file prior to visit. Social History Social History Marital status: Spouse name: Christopher Years of education: Number of children: 2 Social History Main Topics Smoking status: Never Smoker Smokeless tobacco: Never Used Alcohol use: No Drug use: No Sexual activity: Yes Partners with: Male control/protection: Surgical Review of Symptoms REVIEW OF SYSTEMS See HPI EXAM: BP 112/76 Pulse 76 Resp 16 Wt 73 kg (161 lb) BMI 28.29 kg/m? General Appearance: Well appearing, alert, in no acute distress but in discomfort from the migraine, well-hydrated, well nourished.. Lungs: Lungs clear to auscultation. No wheezing, rhonchi, rales. Heart: RRR without murmur, gallop, or rubs. No ectopy. Health Maintenance List FECAL OCCULT BLOOD due on 01/20/2018 MAMMOGRAM due on 05/29/2018 ANNUAL PCP TEAM CHRONIC DISEASE VISIT due on 02/07/2019 DIABETES SCREEN due on 01/27/2021 LIPID SCREEN due on 01/27/2023 DTAP,TDAP,TD(2 - Td) due on 01/17/2027 Data reviewed A/P ASSESSMENT/PLAN: 1. Migraine without aura and without status migrainosus, not intractable - ICD9: 346.10, ICD10: G43.009 - Patient will be given IM toradol 30 mg and IM Zofran 4 mg - Patient to go home and go to sleep. Will increas the propranolol to 20 mg a day. Signed Prescriptions Disp Refills ketorolac 30 mg injection (TORADOL) ondansetron (PF) 4 mg injection (ZOFRAN) propranolol (INDERAL) 20 mg tablet 30 tablet 5 Sig: Take 0.5 tablets by mouth once daily. RADHA: No F/u prn Samuel Epps MD Referring Provider: SELF [[id number]] Allergies As of Date: 03/02/2018 Noted Allergy Reaction CIPROFLOXACIN 11/30/2017 4 - Hives Comments: Patient developed generalized hives, hand swelling, and difficulty breathing within 15 to 30 minutes of taken first dose of hydrocodone and ciprofloxacin in September 2017. HYDROCODONE 11/30/2017 4 - Hives Comments: Patient developed generalized hives, hand swelling, and difficulty breathing within 15 to 30 minutes of taken first dose of hydrocodone and ciprofloxacin in September 2017. IV CONTRAST (IODINE) 10/31/2017 7 - Swelling LATEX 01/26/2012 2 - Rash 9 - Itching Comments: Latex band-aids SULFA (SULFA (SULFONAMIDE ANTIBIO*01/07/2009 4 - Hives TOPAMAX (TOPIRAMATE) 06/01/2017 14 - Other: See Comments Comments: Made her extremely depressed. Date Reviewed: 03/02/2018 Reviewed by: Samuel Epps - Fully Assessed Reason for Visit: Headache [52] Cmt: x 1 month intermidate Primary Visit Diagnosis:Migraine without aura and without status migrainosus, not intractable [G43.009] Order(s):[] ketorolac 30 mg injection (TORADOL)Disp: Rfl: [] ondansetron (PF) 4 mg injection (ZOFRAN)Disp: Rfl: propranolol (INDERAL) 20 mg tabletTake 0.5 tablets by mouth once daily.Disp: 30 tabletRfl: 5 Prescriptions as of 03/02/2018 Sig: PROPRANOLOL 20 MG TABLET Take 0.5 tablets by mouth onc* OMEPRAZOLE 40 MG CAPSULE,URBAN* Take 1 capsule by mouth twice* RIZATRIPTAN 10 MG TABLET Take one tablet at onset of h* SERTRALINE 50 MG TABLET Take 3 tablets by mouth once * ESTRADIOL 1 MG TABLET Take 1 tablet by mouth once d* SYNTHROID 100 MCG TABLET TAKE 1 TABLET ONCE DAILY EPINEPHRINE 0.3 MG/0.3 ML INJ* ONE TIME PRN For Anaphylaxis ISOSORBIDE MONONITRATE ER 60 * Take 1.5 tablets by mouth onc* ACYCLOVIR 400 MG TABLET Take 1 tablet by mouth three * ACYCLOVIR 5 % TOPICAL CREAM Apply 1 application to affect* Problem List As Of Date 03/02/2018 Noted Resolved Hypothyroidism (acquired) [E03.9] INVALID FOR* Priority: A Hallux valgus (acquired) [M20.10] INVALID FOR* Priority: D Migraine without aura and without status migrai*INVALID FOR* Priority: A Herpes [B00.9] INVALID FOR* Priority: D More... Post menopausal syndrome [N95.1] INVALID FOR* Priority: B Mitral valve prolapse [I34.1] Priority: B Thyroid goiter [E04.9] INVALID FOR* Priority: B More... Encounter for gynecological examination without*INVALID FOR* Priority: E More... Bilateral fibrocystic breast disease (FCBD) [N6*INVALID FOR* Priority: C Allergic rhinitis [J30.9] INVALID FOR* Priority: B More... Family history of colon cancer [Z80.0] INVALID FOR* Priority: F Gastroesophageal reflux disease without esophag*INVALID FOR* Priority: A Encounter for screening for diabetes mellitus [*INVALID FOR* Encounter for screening for cardiovascular diso*INVALID FOR* More... Hiatal hernia [K44.9] INVALID FOR* Priority: B More... Well adult exam [Z00.00] INVALID FOR* Priority: E More... 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 Visual disturbance [H53.9] INVALID FOR*10/04/2017 Abnormal EEG [R94.01] INVALID FOR* Priority: B More... Esophageal spasm [K22.4] INVALID FOR* Priority: A More... Pollack's esophagus without dysplasia [K22.70] INVALID FOR* Priority: A More... Dyslipidemia [E78.5] INVALID FOR* Prescriptions ordered this encounter Disp Refills Start End KETOROLAC 30 MG/ML (1 ML) INJECTION * 03/02/2018 03/02/2018 Route: INTRAVENOUS ONDANSETRON HCL (PF) 4 MG/2 ML INJEC* 03/02/2018 03/02/2018 Route: INTRAMUSCULA PROPRANOLOL 20 MG TABLET 30 t* 5 03/02/2018 Route: ORAL Sig: Take 0.5 tablets by mouth once daily. Medications Discontinued During This Encounter propranolol (INDERAL) 10 mg tablet 30 t* 3 02/07/2018 03/02/2018 Route: ORAL Sig: Take 1 tablet by mouth once daily. Disc: Reason for discontinue is not on file. Disposition: Return if symptoms worsen or fail to improve. Follow-up and Disposition History Recorded Encounter Status:Closed by SAMUEL EPPS on 03/02/18 PROGRESS Observed: 02/07/2018 Status: COMPLETED Source: [place] [id number] AM [facility] REPOSITORY HNO ID: [id number] Author: Samuel Epps Service: (none) Author Type: Physician Type: Progress Notes Filed: 02/07/2018 1:47 PM Note Text: Chief Complaint Patient presents with: Physical: 4 months HPI Annelise Page is a 52 year old female who presents here today for WAE and routine. Patient with Hx of hypothyroidism, GERD, anxiety, Migraines as well as those listed below and reviewed. Patient's only issue is her migraines have not been well controlled since about November. Is having one about 2-3 times a week and the maxalt is not helping. Also since November she had to go back on her omeprazole twice a day and the zantac once a day at lunch. The biggest change in her life in regards to increased stress is with her and dealing with heisrecent low back surgery (he is a difficult patient and not always a good listener). Past medical history, appointments, medications, allergies reviewed. Previous Medical History PAST MEDICAL HISTORY Diagnosis Date - Abnormal EEG 05/06/2017 Saw neuro and not felt ot be seizures. - Pollack's esophagus determined by biopsy 08/30/2017 - Pollack's esophagus without dysplasia 10/04/[address] Steele - Hallux valgus (acquired) 04/06/2009 - Herpes 08/05/2015 GETS OUTBREAKS ON NOSE - Hypothyroidism 04/02/2009 - Migraine without aura and without status migrainosus, not intractable 08/05/2015 - migraines Headaches - Mitral valve prolapse - Pain in Soft Tissues of Limb 04/06/2009 - Post menopausal syndrome 08/05/2015 Previous Surgical History PAST SURGICAL HISTORY Procedure Laterality Date - 2D ECHO (EXEP) 03/06/2017 EF=60%, mild TR and Pulm HTN - APPENDECTOMY - EGD W/O BRSH SPECIMEN W/BX 08/30/2017 Pollack's esophagus without dysplasia - FECAL OCCULT BLOOD TEST 01/21/2017 negative - G-ESOPH REFLX TST W/ELECTROD 08/30/2017 - KIDNEY STONE SURGERY HX 09/2017 - KNEE SCOPE,DIAGNOSTIC 2006 Arthroscopy, knee right - REMOVAL OF KIDNEY STONE 10/2017 - REMOVAL OF TONSILS,<12 Y/O Tonsillectomy - TOTAL ABDOM HYSTERECTOMY 2003 Hysterectomy, [place] Family History FAMILY HISTORY Problem Relation Age of Onset - other (dementia) Mother - Stroke Father - Colon Cancer Maternal Grandfather - Alzheimer's Disease Maternal Grandfather - Stroke Paternal Grandmother Patient Allergies ALLERGIES Allergen Reactions - Ciprofloxacin Hives Patient developed generalized hives, hand swelling, and difficulty breathing within 15 to 30 minutes of taken first dose of hydrocodone and ciprofloxacin in September 2017. - Hydrocodone Hives Patient developed generalized hives, hand swelling, and difficulty breathing within 15 to 30 minutes of taken first dose of hydrocodone and ciprofloxacin in September 2017. - Iv Contrast [Iodine] Swelling - Latex Rash, Itching Latex band-aids - Sulfa [Sulfa (Sulfo* Hives - Topamax [Topiramate] Other: See Comments Made her extremely depressed. Current Medications Current Outpatient Prescriptions on File Prior to Visit: rizatriptan (MAXALT) 10 mg tablet Take one tablet at onset of headache and may repeat every 2 hours as needed up to 3 tabs in 24 hours estradiol (ESTRACE) 1 mg tablet Take 1 tablet by mouth once daily. SYNTHROID 100 mcg tablet TAKE 1 TABLET ONCE DAILY EPINEPHrine (EPIPEN) 0.3 mg/0.3 mL auto-injector ONE TIME PRN For Anaphylaxis sertraline (ZOLOFT) 50 mg tablet Take 1 tablet by mouth once daily. isosorbide mononitrate ER (IMDUR) 60 mg 24 hr tablet Take 1.5 tablets by mouth once daily. Omeprazole 40 mg capsule TAKE 1 CAPSULE TWICE DAILY acyclovir (ZOVIRAX) 400 mg tablet Take 1 tablet by mouth three times daily. acyclovir (ZOVIRAX) 5 % crea Apply 1 application to affected area five times daily. No current facility-administered medications on file prior to visit. Social History Social History Marital status: Spouse name: Christopher Years of education: Number of children: 2 Social History Main Topics Smoking status: Never Smoker Smokeless tobacco: Never Used Alcohol use: No Drug use: No Sexual activity: Yes Partners with: Male control/protection: Surgical Review of Symptoms REVIEW OF SYSTEMS GENERAL: No weight loss, malaise or fevers HEENT: Negative for frequent or significant headaches, significant change in vision, significant vision problems, significant ear problems or hearing loss, nasal discharge, or nose bleeds, sore throat, difficulty swallowing, mouth lesions, hoarseness NECK: Negative for lumps, goiter, pain and significant neck swelling RESPIRATORY: Negative for cough, hemoptysis, wheezing, COPD, dyspnea or shortness of breath CARDIOVASCULAR: Negative for chest pain, leg swelling, hypertension, CHF or palpitations. Still get the occasional esophageal spasm but very rare and not as painful with the use of her medication. GI: No nausea, vomiting, or diarrhea, See HPI and no blood : No history of dysuria, frequency or blood MUSCULOSKELETAL: Negative for joint pain or swelling, back pain or muscle pain SKIN: Negative for lesions, rash, and itching PSYCH: anxiety not as well controlled. HEMATOLOGY/LYMPHOLOGY: Negative for prolonged bleeding, bruising easily or swollen nodes ENDOCRINE: Negative for cold or heat intolerance, polyuria, polydipsia and goiter NEURO: No history of syncope, paralysis, seizures or tremors. See HPI EXAM: BP 122/86 Pulse 78 Resp 14 Ht 160.7 cm (5' 3.25) Wt 73.5 kg (162 lb) BMI 28.47 kg/m? General Appearance: Well appearing, alert, in no acute distress, well-hydrated, well nourished.. Skin: Skin color, texture, turgor normal, no suspicious rashes or lesions. Head: Normocephalic, no masses, lesions, tenderness or abnormalities. Eyes: Anicteric sclera. Pupils are equally round and reactive to light. Extraocular movements are intact. . Ears: External ears normal, canals clear. Nose/Sinuses: Nares normal, septum midline, mucosa normal, no drainage or sinus tenderness. Oropharynx: Lips, mucosa, and tongue normal, teeth and gums normal, oropharynx normal. Neck: Supple, no adenopathy; thyroid symmetric, normal size, no bruits. Lungs: Lungs clear to auscultation. No wheezing, rhonchi, rales. Heart: RRR without murmur, gallop, or rubs. No ectopy. Abdomen: Normal abdominal exam, Abdomen soft, non-tender. Bowel sounds normal. No masses, organomegaly. Extremities: No deformities, edema, skin discoloration. Musculoskeletal: Spine range of motion normal. Muscular strength intact, No joint swelling, deformity, or tenderness. Neurologic: Gait normal. Reflexes normal and symmetric. Sensation to light touch and crainal nerves 2-12intact.. Health Maintenance List FECAL OCCULT BLOOD due on 01/20/2018 MAMMOGRAM due on 05/29/2018 DIABETES SCREEN due on 01/27/2021 LIPID SCREEN due on 01/27/2023 DTAP,TDAP,TD(2 - Td) due on 01/17/2027 Data reviewed Component Latest Ref Rng AND Units 01/05/2017 01/27/2018 Triglyceride <150 mg/dL 82 83 Cholesterol, Total <200 mg/dL 236 (H) 235 (H) HDL Cholesterol >39 mg/dL 68 65 VLDL Cholesterol <30 mg/dL 16 17 LDL Cholesterol <100 mg/dL 152 (H) 153 (H) Fasting Time hrs 13 12 TC:HDL Ratio <5.10 3.47 3.62 LDL:HDL Ratio <2.54 2.24 2.35 Non HDL Cholesterol <130 mg/dL 168 (H) 170 (H) Hemoglobin A1C 4.3 - 5.6 % 5.0 Estimated Average Glucose mg/dL 97 TSH 0.400 - 5.500 uU/mL 2.320 0.628 Glucose, Fasting 74 - 99 mg/dL 85 A/P ASSESSMENT/PLAN: 1. Well adult exam - ICD9: V70.0, ICD10: Z00.00 (primary diagnosis) - Encouraged monthly Breast Self Exam - Follow up for annual exam in one year. 2. Migraine without aura and without status migrainosus, not intractable - ICD9: 346.10, ICD10: G43.009 - Patient to cont use of prn maxalt. But if headache frequency improves with the propranolol and the maxalt benefit does not will change to imitrex. - Patient to continue the fish oil, B2, Mg and liter of water daily. - will add on propranolol 10 mg a dy. - Suspect increased social stressors are contributing to increased frequency 3. Hypothyroidism (acquired) - ICD9: 244.9, ICD10: E03.9 - Instructed patient on importance of taking on an empty stomach either first thing in the morning or at bedtime. - continue current dose of Synthroid 0.100 mg 4. Gastroesophageal reflux disease without esophagitis - ICD9: 530.81, ICD10: K21.9 - Continue treatment with PPI twice a day and zantac once a day - Again feel the recent increase in symptom frequency is related to the stress. 5. Esophageal spasm - ICD9: 530.5, ICD10: K22.4 - cont imdur daily. 6. JORGE (generalized anxiety disorder) - ICD9: 300.02, ICD10: F41.1 - Will increase SERTRALINE 50 MG TABLET to 1.5 tabs a day 7. Pollack's esophagus without dysplasia - ICD9: 530.85, ICD10: K22.70 - As above and cont f/u with Dr. Rios. 8. Screening for colon cancer - ICD9: V76.51, ICD10: Z12.11 - CONSULT TO GENERAL SURGERY: Dr. Rios. Signed Prescriptions Disp Refills Omeprazole 40 mg capsule 180 capsule 1 Sig: Take 1 capsule by mouth twice daily. RADHA: No propranolol (INDERAL) 10 mg tablet 30 tablet 3 Sig: Take 1 tablet by mouth once daily. rizatriptan (MAXALT) 10 mg tablet 6 tablet 5 Sig: Take one tablet at onset of headache and may repeat every 2 hours as needed up to 3 tabs in 24 hours RADHA: No sertraline (ZOLOFT) 50 mg tablet 135 tablet 1 Sig: Take 3 tablets by mouth once daily. RADHA: No F/u in 2 months migraines and stress F/u 6 months routine check FLP and TSH prior Samuel Epps MD CNOV Observed: 02/07/2018 Status: COMPLETED Source: [place] 10:40 AM [facility] REPOSITORY Office Visit (FAMPWS) ANNELISE PAGE ([id number]) 1965 F Date Time Provider Department 02/07/18 10:40 AM SAMUEL EPPS [facility]AMP[facility] During your visit today, we recorded the following information about you: Pulse Respiration Blood pressure Weight 78/minute 14/minute 122/86 73.5 kg Height 1.607 m Samuel Epps MD 02/07/2018 1:47 PM Signed Chief Complaint Patient presents with: Physical: 4 months HPI Annelise Griffin Camilo is a 52 year old female who presents here today for WAE and routine. Patient with Hx of hypothyroidism, GERD, anxiety, Migraines as well as those listed below and reviewed. Patient's only issue is her migraines have not been well controlled since about November. Is having one about 2-3 times a week and the maxalt is not helping. Also since November she had to go back on her omeprazole twice a day and the zantac once a day at lunch. The biggest change in her life in regards to increased stress is with her and dealing with heisrecent low back surgery (he is a difficult patient and not always a good listener). Past medical history, appointments, medications, allergies reviewed. Previous Medical History PAST MEDICAL HISTORY Diagnosis Date - Abnormal EEG 05/06/2017 Saw neuro and not felt ot be seizures. - Pollack's esophagus determined by biopsy 08/30/2017 - Pollack's esophagus without dysplasia 10/04/[address] Steele - Hallux valgus (acquired) 04/06/2009 - Herpes 08/05/2015 GETS OUTBREAKS ON NOSE - Hypothyroidism 04/02/2009 - Migraine without aura and without status migrainosus, not intractable 08/05/2015 - migraines Headaches - Mitral valve prolapse - Pain in Soft Tissues of Limb 04/06/2009 - Post menopausal syndrome 08/05/2015 Previous Surgical History PAST SURGICAL HISTORY Procedure Laterality Date - 2D ECHO (EXEP) 03/06/2017 EF=60%, mild TR and Pulm HTN - APPENDECTOMY - EGD W/O BRSH SPECIMEN W/BX 08/30/2017 Pollack's esophagus without dysplasia - FECAL OCCULT BLOOD TEST 01/21/2017 negative - G-ESOPH REFLX TST W/ELECTROD 08/30/2017 - KIDNEY STONE SURGERY HX 09/2017 - KNEE SCOPE,DIAGNOSTIC 2005 Arthroscopy, knee right - REMOVAL OF KIDNEY STONE 10/2017 - REMOVAL OF TONSILS,<12 Y/O Tonsillectomy - TOTAL ABDOM HYSTERECTOMY 2003 Hysterectomy, MILAGRO Family History FAMILY HISTORY Problem Relation Age of Onset - other (dementia) Mother - Stroke Father - Colon Cancer Maternal Grandfather - Alzheimer's Disease Maternal Grandfather - Stroke Paternal Grandmother Patient Allergies ALLERGIES Allergen Reactions - Ciprofloxacin Hives Patient developed generalized hives, hand swelling, and difficulty breathing within 15 to 30 minutes of taken first dose of hydrocodone and ciprofloxacin in September 2017. - Hydrocodone Hives Patient developed generalized hives, hand swelling, and difficulty breathing within 15 to 30 minutes of taken first dose of hydrocodone and ciprofloxacin in September 2017. - Iv Contrast [Iodine] Swelling - Latex Rash, Itching Latex band-aids - Sulfa [Sulfa (Sulfo* Hives - Topamax [Topiramate] Other: See Comments Made her extremely depressed. Current Medications Current Outpatient Prescriptions on File Prior to Visit: rizatriptan (MAXALT) 10 mg tablet Take one tablet at onset of headache and may repeat every 2 hours as needed up to 3 tabs in 24 hours estradiol (ESTRACE) 1 mg tablet Take 1 tablet by mouth once daily. SYNTHROID 100 mcg tablet TAKE 1 TABLET ONCE DAILY EPINEPHrine (EPIPEN) 0.3 mg/0.3 mL auto-injector ONE TIME PRN For Anaphylaxis sertraline (ZOLOFT) 50 mg tablet Take 1 tablet by mouth once daily. isosorbide mononitrate ER (IMDUR) 60 mg 24 hr tablet Take 1.5 tablets by mouth once daily. Omeprazole 40 mg capsule TAKE 1 CAPSULE TWICE DAILY acyclovir (ZOVIRAX) 400 mg tablet Take 1 tablet by mouth three times daily. acyclovir (ZOVIRAX) 5 % crea Apply 1 application to affected area five times daily. No current facility-administered medications on file prior to visit. Social History Social History Marital status: Spouse name: Christopher Years of education: Number of children: 2 Social History Main Topics Smoking status: Never Smoker Smokeless tobacco: Never Used Alcohol use: No Drug use: No Sexual activity: Yes Partners with: Male control/protection: Surgical Review of Symptoms REVIEW OF SYSTEMS GENERAL: No weight loss, malaise or fevers HEENT: Negative for frequent or significant headaches, significant change in vision, significant vision problems, significant ear problems or hearing loss, nasal discharge, or nose bleeds, sore throat, difficulty swallowing, mouth lesions, hoarseness NECK: Negative for lumps, goiter, pain and significant neck swelling RESPIRATORY: Negative for cough, hemoptysis, wheezing, COPD, dyspnea or shortness of breath CARDIOVASCULAR: Negative for chest pain, leg swelling, hypertension, CHF or palpitations. Still get the occasional esophageal spasm but very rare and not as painful with the use of her medication. GI: No nausea, vomiting, or diarrhea, See HPI and no blood : No history of dysuria, frequency or blood MUSCULOSKELETAL: Negative for joint pain or swelling, back pain or muscle pain SKIN: Negative for lesions, rash, and itching PSYCH: anxiety not as well controlled. HEMATOLOGY/LYMPHOLOGY: Negative for prolonged bleeding, bruising easily or swollen nodes ENDOCRINE: Negative for cold or heat intolerance, polyuria, polydipsia and goiter NEURO: No history of syncope, paralysis, seizures or tremors. See HPI EXAM: BP 122/86 Pulse 78 Resp 14 Ht 160.7 cm (5' 3.25) Wt 73.5 kg (162 lb) BMI 28.47 kg/m? General Appearance: Well appearing, alert, in no acute distress, well-hydrated, well nourished.. Skin: Skin color, texture, turgor normal, no suspicious rashes or lesions. Head: Normocephalic, no masses, lesions, tenderness or abnormalities. Eyes: Anicteric sclera. Pupils are equally round and reactive to light. Extraocular movements are intact. . Ears: External ears normal, canals clear. Nose/Sinuses: Nares normal, septum midline, mucosa normal, no drainage or sinus tenderness. Oropharynx: Lips, mucosa, and tongue normal, teeth and gums normal, oropharynx normal. Neck: Supple, no adenopathy; thyroid symmetric, normal size, no bruits. Lungs: Lungs clear to auscultation. No wheezing, rhonchi, rales. Heart: RRR without murmur, gallop, or rubs. No ectopy. Abdomen: Normal abdominal exam, Abdomen soft, non-tender. Bowel sounds normal. No masses, organomegaly. Extremities: No deformities, edema, skin discoloration. Musculoskeletal: Spine range of motion normal. Muscular strength intact, No joint swelling, deformity, or tenderness. Neurologic: Gait normal. Reflexes normal and symmetric. Sensation to light touch and crainal nerves 2-12intact.. Health Maintenance List FECAL OCCULT BLOOD due on 01/20/2018 MAMMOGRAM due on 05/29/2018 DIABETES SCREEN due on 01/27/2021 LIPID SCREEN due on 01/27/2023 DTAP,TDAP,TD(2 - Td) due on 01/17/2027 Data reviewed Component Latest Ref Rng AND Units 01/05/2017 01/27/2018 Triglyceride <150 mg/dL 82 83 Cholesterol, Total <200 mg/dL 236 (H) 235 (H) HDL Cholesterol >39 mg/dL 68 65 VLDL Cholesterol <30 mg/dL 16 17 LDL Cholesterol <100 mg/dL 152 (H) 153 (H) Fasting Time hrs 13 12 TC:HDL Ratio <5.10 3.47 3.62 LDL:HDL Ratio <2.54 2.24 2.35 Non HDL Cholesterol <130 mg/dL 168 (H) 170 (H) Hemoglobin A1C 4.3 - 5.6 % 5.0 Estimated Average Glucose mg/dL 97 TSH 0.400 - 5.500 uU/mL 2.320 0.628 Glucose, Fasting 74 - 99 mg/dL 85 A/P ASSESSMENT/PLAN: 1. Well adult exam - ICD9: V70.0, ICD10: Z00.00 (primary diagnosis) - Encouraged monthly Breast Self Exam - Follow up for annual exam in one year. 2. Migraine without aura and without status migrainosus, not intractable - ICD9: 346.10, ICD10: G43.009 - Patient to cont use of prn maxalt. But if headache frequency improves with the propranolol and the maxalt benefit does not will change to imitrex. - Patient to continue the fish oil, B2, Mg and liter of water daily. - will add on propranolol 10 mg a dy. - Suspect increased social stressors are contributing to increased frequency 3. Hypothyroidism (acquired) - ICD9: 244.9, ICD10: E03.9 - Instructed patient on importance of taking on an empty stomach either first thing in the morning or at bedtime. - continue current dose of Synthroid 0.100 mg 4. Gastroesophageal reflux disease without esophagitis - ICD9: 530.81, ICD10: K21.9 - Continue treatment with PPI twice a day and zantac once a day - Again feel the recent increase in symptom frequency is related to the stress. 5. Esophageal spasm - ICD9: 530.5, ICD10: K22.4 - cont imdur daily. 6. JORGE (generalized anxiety disorder) - ICD9: 300.02, ICD10: F41.1 - Will increase SERTRALINE 50 MG TABLET to 1.5 tabs a day 7. Pollack's esophagus without dysplasia - ICD9: 530.85, ICD10: K22.70 - As above and cont f/u with Dr. Rios. 8. Screening for colon cancer - ICD9: V76.51, ICD10: Z12.11 - CONSULT TO GENERAL SURGERY: Dr. Rios. Signed Prescriptions Disp Refills Omeprazole 40 mg capsule 180 capsule 1 Sig: Take 1 capsule by mouth twice daily. RADHA: No propranolol (INDERAL) 10 mg tablet 30 tablet 3 Sig: Take 1 tablet by mouth once daily. rizatriptan (MAXALT) 10 mg tablet 6 tablet 5 Sig: Take one tablet at onset of headache and may repeat every 2 hours as needed up to 3 tabs in 24 hours RADHA: No sertraline (ZOLOFT) 50 mg tablet 135 tablet 1 Sig: Take 3 tablets by mouth once daily. RADHA: No F/u in 2 months migraines and stress F/u 6 months routine check FLP and TSH prior MD Samuel John MD 02/07/2018 11:25 AM Addendum We increased your zoloft today to 1.5 tabs a day. Added on propranolol 10 mg once a day for headache's. If better but maxalt still not helping when needed let me know. Consider red rice yeast over the counter for decreasing bad cholesterol. Please get fasting labs on or after 07/27/2018 prior to next visit. Referring Provider: SAMUEL EPSP [[id number]] Allergies As of Date: 02/07/2018 Noted Allergy Reaction CIPROFLOXACIN 11/30/2017 4 - Hives Comments: Patient developed generalized hives, hand swelling, and difficulty breathing within 15 to 30 minutes of taken first dose of hydrocodone and ciprofloxacin in September 2017. HYDROCODONE 11/30/2017 4 - Hives Comments: Patient developed generalized hives, hand swelling, and difficulty breathing within 15 to 30 minutes of taken first dose of hydrocodone and ciprofloxacin in September 2017. IV CONTRAST (IODINE) 10/31/2017 7 - Swelling LATEX 01/26/2012 2 - Rash 9 - Itching Comments: Latex band-aids SULFA (SULFA (SULFONAMIDE ANTIBIO*01/07/2009 4 - Hives TOPAMAX (TOPIRAMATE) 06/01/2017 14 - Other: See Comments Comments: Made her extremely depressed. Date Reviewed: 02/07/2018 Reviewed by: Samuel Epps - Fully Assessed Reason for Visit: Physical [83] Cmt: 4 months Primary Visit Diagnosis:Well adult exam [Z00.00] Other Visit Diagnoses:Migraine without aura and without status migrainosus, not intractable [G43.009] Hypothyroidism (acquired) [E03.9] Gastroesophageal reflux disease without esophagitis [K21.9] Esophageal spasm [K22.4] JORGE (generalized anxiety disorder) [F41.1] Pollack's esophagus without dysplasia [K22.70] Screening for colon cancer [Z12.11] Dyslipidemia [E78.5] Order(s):Omeprazole 40 mg capsuleTake 1 capsule by mouth twice daily.Disp: 180 capsuleRfl: 1 CONSULT TO GENERAL SURGERY [9011] Order #: [id number]: 1 propranolol (INDERAL) 10 mg tabletTake 1 tablet by mouth once daily.Disp: 30 tabletRfl: 3 rizatriptan (MAXALT) 10 mg tabletTake one tablet at onset of headache and may repeat every 2 hours as needed up to 3 tabs in 24 hoursDisp: 6 tabletRfl: 5 sertraline (ZOLOFT) 50 mg tabletTake 3 tablets by mouth once daily.Disp: 135 tabletRfl: 1 LIPID PANEL BASIC [SQLIPB] Order #: [id number] FUTURE TSH BLD [SQTSH] Order #: [id number] FUTURE Prescriptions as of 02/07/2018 Sig: OMEPRAZOLE 40 MG CAPSULE,URBAN* Take 1 capsule by mouth twice* RIZATRIPTAN 10 MG TABLET Take one tablet at onset of h* SERTRALINE 50 MG TABLET Take 3 tablets by mouth once * ESTRADIOL 1 MG TABLET Take 1 tablet by mouth once d* SYNTHROID 100 MCG TABLET TAKE 1 TABLET ONCE DAILY EPINEPHRINE 0.3 MG/0.3 ML INJ* ONE TIME PRN For Anaphylaxis ISOSORBIDE MONONITRATE ER 60 * Take 1.5 tablets by mouth onc* ACYCLOVIR 400 MG TABLET Take 1 tablet by mouth three * ACYCLOVIR 5 % TOPICAL CREAM Apply 1 application to affect* PROPRANOLOL 10 MG TABLET Take 1 tablet by mouth once d* Problem List As Of Date 02/07/2018 Noted Resolved Hypothyroidism (acquired) [E03.9] INVALID FOR* Priority: A Hallux valgus (acquired) [M20.10] INVALID FOR* Priority: D Migraine without aura and without status migrai*INVALID FOR* Priority: A Herpes [B00.9] INVALID FOR* Priority: D More... Post menopausal syndrome [N95.1] INVALID FOR* Priority: B Mitral valve prolapse [I34.1] Priority: B Thyroid goiter [E04.9] INVALID FOR* Priority: B More... Encounter for gynecological examination without*INVALID FOR* Priority: E More... Bilateral fibrocystic breast disease (FCBD) [N6*INVALID FOR* Priority: C Allergic rhinitis [J30.9] INVALID FOR* Priority: B More... Family history of colon cancer [Z80.0] INVALID FOR* Priority: F Gastroesophageal reflux disease without esophag*INVALID FOR* Priority: A Encounter for screening for diabetes mellitus [*INVALID FOR* Encounter for screening for cardiovascular diso*INVALID FOR* More... Hiatal hernia [K44.9] INVALID FOR* Priority: B More... Well adult exam [Z00.00] INVALID FOR* Priority: E More... 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 Visual disturbance [H53.9] INVALID FOR*10/04/2017 Abnormal EEG [R94.01] INVALID FOR* Priority: B More... Esophageal spasm [K22.4] INVALID FOR* Priority: A More... Pollack's esophagus without dysplasia [K22.70] INVALID FOR* Priority: A More... Dyslipidemia [E78.5] INVALID FOR* Other instructions from your clinician: We increased your zoloft today to 1.5 tabs a day. Added on propranolol 10 mg once a day for headache's. If better but maxalt still not helping when needed let me know. Consider red rice yeast over the counter for decreasing bad cholesterol. Please get fasting labs on or after 07/27/2018 prior to next visit. Prescriptions ordered this encounter Disp Refills Start End SERTRALINE 50 MG TABLET 90 t* 1 02/07/2018 02/07/2018 Class: [facility] Route: ORAL Sig: Take 1 tablet by mouth once daily. OMEPRAZOLE 40 MG CAPSULE,DELAYED REL* 180 * 1 02/07/2018 Class: [facility] Route: ORAL Sig: Take 1 capsule by mouth twice daily. PROPRANOLOL 10 MG TABLET 30 t* 3 02/07/2018 Route: ORAL Sig: Take 1 tablet by mouth once daily. RIZATRIPTAN 10 MG TABLET 6 ta* 5 02/07/2018 Sig: Take one tablet at onset of headache and may repeat every 2 hours as needed up to 3 tabs in 24 hours SERTRALINE 50 MG TABLET 135 * 1 02/07/2018 Route: ORAL Sig: Take 3 tablets by mouth once daily. Medications Discontinued During This Encounter sertraline (ZOLOFT) 50 mg tablet 14 t* 0 10/09/2017 02/07/2018 Cmt: Patient waiting on [facility] script to come Si tablet by mouth once a day Disc: Duplicate Entry isosorbide mononitrate ER (IMDUR) 60* 21 t* 0 10/09/2017 02/07/2018 Cmt: Patient waiting on [facility] script to come Route: ORAL Sig: Take 1.5 tablets by mouth once daily. Disc: Duplicate Entry sertraline (ZOLOFT) 50 mg tablet 90 t* 1 10/04/2017 02/07/2018 Route: ORAL Sig: Take 1 tablet by mouth once daily. Disc: Reason for discontinue is not on file. Omeprazole 40 mg capsule 180 * 1 07/24/2017 02/07/2018 Sig: TAKE 1 CAPSULE TWICE DAILY Disc: Reason for discontinue is not on file. rizatriptan (MAXALT) 10 mg tablet 6 ta* 5 01/09/2018 02/07/2018 Sig: Take one tablet at onset of headache and may repeat every 2 hours as needed up to 3 tabs in 24 hours Disc: Reason for discontinue is not on file. sertraline (ZOLOFT) 50 mg tablet 90 t* 1 02/07/2018 02/07/2018 Class: [facility] Route: ORAL Sig: Take 1 tablet by mouth once daily. Disc: Reason for discontinue is not on file. Disposition: Return in about 2 months (around 04/09/2018) for f/u migraines and stress. Follow-up and Disposition History Recorded Encounter Status:Closed by SAMUEL EPPS on 02/07/18 HEMOGLOBIN A1C Collected: 01/27/2018 Status: F Source: [place] 9:35 AM [facility] REPOSITORY TYPE CODE TESTS RESULT OUT OF REFERENCE UNITS RANGE LAB HGBA1C 4.3-5.6 % Hemoglobin A1c 5.0 LAB HBA0 mg/dL Est. Average Glucose 97 Result Comment: eAG: (Estimated average glucose) is a calculated value from HgbA1c and is associate sales representative of the average blood glucose level in the last 2-3 month period. Performed By: #### HBA1C, LIPB, TSH #### [facility] [address] [place], [place] [address] LIPID PANEL, BASIC Collected: 01/27/2018 Status: F Source: [place] 9:35 AM [facility] REPOSITORY TYPE CODE TESTS RESULT OUT OF REFERENCE UNITS RANGE LAB CHOL <200 mg/dL Cholesterol High 235 Result Comment: <200 mg/dL, Desirable 200-239 mg/dL, Borderline high >239 mg/dL, High LAB TRIGLY <150 mg/dL Triglyceride 83 Result Comment: <150 mg/dL, Normal 150-199 mg/dL, Borderline high 200-499 mg/dL, High >499 mg/dL, Very high LAB HDL >39 mg/dL HDL-Cholesterol 65 Result Comment: 40-59 mg/dL, Acceptable >59 mg/dL, High: Negative risk factor for coronary heart disease <40 mg/dL, Low: Positive risk factor for coronary heart disease LAB LDL <100 mg/dL LDL-Cholesterol High 153 Result Comment: <100 mg/dL, Optimal 100-129 mg/dL, Near optimal/above optimal 130-159 mg/dL, Borderline high 160-189 mg/dL, High >189 mg/dL, Very high Secondary prevention optimal LDL Cholesterol levels are recommended to be < 70 mg/dL LAB NONHDL <130 mg/dL Non HDL High Cholesterol 170 Result Comment: <130 mg/dL, Optimal 130-159 mg/dL, Near optimal/above optimal 160-189 mg/dL, Borderline high 190-219 mg/dL, High >219 mg/dL, Very high Secondary prevention optimal non HDL Cholesterol levels are recommended to be < 100 mg/dL LAB FT hrs Fasting Time 12 LAB VLDL <30 mg/dL VLDL Cholesterol 17 LAB TCHDL <5.10 TC:HDL Ratio 3.62 LAB LDLHDL <2.54 LDL:HDL Ratio 2.35 Result Comment: Reference: 1. National Cholesterol Education Program ATP III Guideline At-A-Glance Quick Desk Reference: National Heart, Lung, and Blood [place]. National Institutes of Health. 2001: NIH Publication No. 01-3305. 2. An International Atherosclerosis Society position paper: global recommendations for the management of dyslipidemia: executive summary, Atherosclerosis. 2014: 232(2):410-413. Performed By: #### HBA1C, LIPB, TSH #### [facility] [address] [place], [place] [address] TSH Collected: 01/27/2018 Status: F Source: [place] 9:35 AM [facility] REPOSITORY TYPE CODE TESTS RESULT OUT OF RANGE REFERENCE UNITS LAB TSH 0.400-5.500 uU/mL TSH 0.628 Performed By: #### HBA1C, LIPB, TSH #### [facility] [address] [place], [place] [address] GLUCOSE, FASTING Collected: 01/27/2018 Status: F Source: [place] 9:35 AM [facility] REPOSITORY TYPE CODE TESTS RESULT OUT OF REFERENCE UNITS RANGE LAB GLF 74-99 mg/dL Glucose, 85 Fasting Result Comment: [place] Diabetes Association guidelines state that a diabetes mellitus diagnosis is preliminarily made when the fasting plasma glucose meets or exceeds 126 mg/dL. In the absence of unequivocal hyperglycemia, results should be confirmed with repeat testing. Patients are at increased risk for diabetes mellitus (prediabetes) when the fasting glucose is 100 to 125 mg/dL. Performed By: #### GLF #### [facility] [address] [place], [place] [address] ALGN LATEX IGE Collected: 01/27/2018 Status: F Source: [place] 9:35 AM [facility] REPOSITORY TYPE CODE TESTS RESULT OUT OF REFERENCE UNITS RANGE LAB LATX <0.35 KU/L Latex IgE <0.35 LAB LATXCL 0 Latex 0 Class Performed By: #### LATEXA #### [facility] [address] [place], [place] [address] PROGRESS Observed: 01/09/2018 Status: COMPLETED Source: [place] 10:01 AM [facility] REPOSITORY HNO ID: [id number] Author: Lavinia Booker Service: (none) Author Type: Physician Type: Progress Notes Filed: 01/09/2018 10:16 AM Note Text: Annelise Page is a 52 year old who presents for her annual gynecologic exam without complaints. Doing well with HRT. Working at [email or web address]. Has grandchildren in [place]. Postmenopausal: Yes - MILAGRO/BSO HRT use: Yes, estradiol History of abnormal pap: No Last mammogram: 2016 normal History of abnormal mammogram: No Sexually active: Yes History of STDS: None Patient concerns for STD exposure: No. Pain with intercourse: No Postcoital bleeding: No Hot flashes: No Night sweats: No Vaginal dryness: No Exercise: yoga Diet: balanced Obstetric History T2 L2 SAB0 TAB0 Ectopic0 Multiple0 Live Births0 PAST MEDICAL HISTORY Diagnosis Date - Abnormal EEG 05/06/2017 Saw neuro and not felt ot be seizures. - Pollack's esophagus determined by biopsy 08/30/2017 - Pollack's esophagus without dysplasia 10/04/[address] Steele - Hallux valgus (acquired) 04/06/2009 - Herpes 08/05/2015 GETS OUTBREAKS ON NOSE - Hypothyroidism 04/02/2009 - Migraine without aura and without status migrainosus, not intractable 08/05/2015 - migraines Headaches - Mitral valve prolapse - Pain in Soft Tissues of Limb 04/06/2009 - Post menopausal syndrome 08/05/2015 PAST SURGICAL HISTORY Procedure Laterality Date - 2D ECHO (EXEP) 03/06/2017 EF=60%, mild TR and Pulm HTN - APPENDECTOMY - EGD W/O BRSH SPECIMEN W/BX 08/30/2017 Pollack's esophagus without dysplasia - FECAL OCCULT BLOOD TEST 01/21/2017 negative - G-ESOPH REFLX TST W/ELECTROD 08/30/2017 - KIDNEY STONE SURGERY HX 09/2017 - KNEE SCOPE,DIAGNOSTIC 2005 Arthroscopy, knee right - REMOVAL OF KIDNEY STONE 10/2017 - REMOVAL OF TONSILS,<12 Y/O Tonsillectomy - TOTAL ABDOM HYSTERECTOMY 2004 Hysterectomy, MILAGRO FAMILY HISTORY Problem Relation Age of Onset - dementia [OTHER] Mother - Stroke Father - Colon Cancer Maternal Grandfather - Alzheimer's Disease Maternal Grandfather - Stroke Paternal Grandmother SOCIAL HISTORY Social History Substance Use Topics - Smoking status: Never Smoker - Smokeless tobacco: Never Used - Alcohol use No REVIEW OF SYSTEMS Abdomen: No abdominal pain, nausea, vomiting, diarrhea, or constipation. No bloating, early satiety, indigestion, or increased flatulence. Bladder: No dysuria, gross hematuria, urinary frequency, urinary urgency, or incontinence Breast: No breast lumps, nipple d/c, overlying skin changes, redness or skin retraction Allergies and current medication updated:Yes EXAM: BP 100/62 Ht 5' 4 (1.63m) Wt 163 lb (73.9kg) BMI 27.97 kg/(m2). GENERAL: pleasant, female in no apparent distress HEENT: Normocephalic, atraumatic, mucus membranes moist and no lesions NECK: Supple, full range of motion, no adenopathy and thyroid normal DERMATOLOGY: Normal, without lesions, non-icteric and non-hirsute BREAST: soft, non-tender, symmetric, no dominant mass, normal nipple-areolar complex, no lymphadenopathy and no nipple discharge ABDOMEN: soft, non-tender and no masses PELVIC: external genitalia normal, normal Bartholin's glands, urethra, [place]'s glands, no vulvar lesions, good vaginal support, physiologic discharge present, normal appearing perineal body and perianal region, cervix surgically absent BIMANUAL: no adnexal masses, non-tender and uterus surgically absent RECTOVAGINAL: deferred. NEURO: alert and oriented x3,exam grossly non-focal EXTREMITIES: normal ASSESSMENT/PLAN: 1) Health maintenance: Pap/HPV screening no longer needed Mammogram ordered Mammogram up to date Nutrition, exercise and routine health maintenance exams reviewed. Calcium/Vitamin D supplementation information provided. Colon cancer screening: up to date with screening- getting set up for colonoscopy in [place] 2) Follow up one year or sooner as needed Lavinia Justice MD PROGRESS Observed: 01/09/2018 Status: COMPLETED Source: [place] 9:52 AM [facility] REPOSITORY HNO ID: [id number] Author: Gwen Robert Ma Service: (none) Author Type: (none) Type: Progress Notes Filed: 01/09/2018 10:16 AM Note Text: Rfid Technician offered: Patient declines. CNOV Observed: 01/09/2018 Status: COMPLETED Source: [place] 9:50 AM [facility] REPOSITORY Office Visit (WOOB) ANNELISE PAGE ([id number]) 1965 F Date Time Provider Department 01/09/18 9:50 AM LAVINIA DAHL During your visit today, we recorded the following information about you: Blood pressure Weight Height 100/62 73.9 kg 1.626 m Gwen Robert Ma 01/09/2018 10:16 AM Signed Rfid Technician offered: Patient declines. Lavinia Justice MD 01/09/2018 10:16 AM Signed Annelise Page is a 52 year old who presents for her annual gynecologic exam without complaints. Doing well with HRT. Working at [email or web address]. Has grandchildren in [place]. Postmenopausal: Yes - MILAGRO/BSO HRT use: Yes, estradiol History of abnormal pap: No Last mammogram: 2016 normal History of abnormal mammogram: No Sexually active: Yes History of STDS: None Patient concerns for STD exposure: No. Pain with intercourse: No Postcoital bleeding: No Hot flashes: No Night sweats: No Vaginal dryness: No Exercise: yoga Diet: balanced Obstetric History T2 L2 SAB0 TAB0 Ectopic0 Multiple0 Live Births0 PAST MEDICAL HISTORY Diagnosis Date - Abnormal EEG 05/06/2017 Saw neuro and not felt ot be seizures. - Pollack's esophagus determined by biopsy 08/30/2017 - Pollack's esophagus without dysplasia 10/04/[address] Steele - Hallux valgus (acquired) 04/06/2009 - Herpes 08/05/2015 GETS OUTBREAKS ON NOSE - Hypothyroidism 04/02/2009 - Migraine without aura and without status migrainosus, not intractable 08/05/2015 - migraines Headaches - Mitral valve prolapse - Pain in Soft Tissues of Limb 04/06/2009 - Post menopausal syndrome 08/05/2015 PAST SURGICAL HISTORY Procedure Laterality Date - 2D ECHO (EXEP) 03/06/2017 EF=60%, mild TR and Pulm HTN - APPENDECTOMY - EGD W/O BRSH SPECIMEN W/BX 08/30/2017 Pollack's esophagus without dysplasia - FECAL OCCULT BLOOD TEST 01/21/2017 negative - G-ESOPH REFLX TST W/ELECTROD 08/30/2017 - KIDNEY STONE SURGERY HX 09/2017 - KNEE SCOPE,DIAGNOSTIC 2006 Arthroscopy, knee right - REMOVAL OF KIDNEY STONE 10/2017 - REMOVAL OF TONSILS,<12 Y/O Tonsillectomy - TOTAL ABDOM HYSTERECTOMY 2004 Hysterectomy, MILAGRO FAMILY HISTORY Problem Relation Age of Onset - dementia [OTHER] Mother - Stroke Father - Colon Cancer Maternal Grandfather - Alzheimer's Disease Maternal Grandfather - Stroke Paternal Grandmother SOCIAL HISTORY Social History Substance Use Topics - Smoking status: Never Smoker - Smokeless tobacco: Never Used - Alcohol use No REVIEW OF SYSTEMS Abdomen: No abdominal pain, nausea, vomiting, diarrhea, or constipation. No bloating, early satiety, indigestion, or increased flatulence. Bladder: No dysuria, gross hematuria, urinary frequency, urinary urgency, or incontinence Breast: No breast lumps, nipple d/c, overlying skin changes, redness or skin retraction Allergies and current medication updated:Yes EXAM: BP 100/62 Ht 5' 4 (1.63m) Wt 163 lb (73.9kg) BMI 27.97 kg/(m2). GENERAL: pleasant, female in no apparent distress HEENT: Normocephalic, atraumatic, mucus membranes moist and no lesions NECK: Supple, full range of motion, no adenopathy and thyroid normal DERMATOLOGY: Normal, without lesions, non-icteric and non-hirsute BREAST: soft, non-tender, symmetric, no dominant mass, normal nipple-areolar complex, no lymphadenopathy and no nipple discharge ABDOMEN: soft, non-tender and no masses PELVIC: external genitalia normal, normal Bartholin's glands, urethra, [place]'s glands, no vulvar lesions, good vaginal support, physiologic discharge present, normal appearing perineal body and perianal region, cervix surgically absent BIMANUAL: no adnexal masses, non-tender and uterus surgically absent RECTOVAGINAL: deferred. NEURO: alert and oriented x3,exam grossly non-focal EXTREMITIES: normal ASSESSMENT/PLAN: 1) Health maintenance: Pap/HPV screening no longer needed Mammogram ordered Mammogram up to date Nutrition, exercise and routine health maintenance exams reviewed. Calcium/Vitamin D supplementation information provided. Colon cancer screening: up to date with screening- getting set up for colonoscopy in [place] 2) Follow up one year or sooner as needed LaviniaMD Lavinia Lantigua MD 01/09/2018 10:01 AM Signed Calcium and Vitamin D Supplementation (from the National Institutes of Health Office of Dietary Supplements 2010) Calcium is required by the body for blood vessel, muscle, hormone and nerve functioning. Most of the body's calcium is stored in the bones and teeth where it supports structure and function. Bone is continuously broken down and reformed. When bone breakdown exceeds formation, especially in postmenopausal women, bone loss can increase the risk of osteoporosis and fractures. In addition to low calcium intake, women who smoke, have a family history of osteoporosis, are thin, or , or who take certain medications such as cancer chemotherapy, seizure mediations and steroids are at increased risk of osteoporosis. The calcium requirements in women change with age. The National Institutes of Health (NIH) recommends: 1000mg elemental calcium for premenopausal women age 19-50 1200mg elemental calcium for postmenopausal women and all women over 50 Milk, yogurt, and cheese are rich natural sources of calcium and are the major food contributors in the [place]. For example, 8oz of milk (whole, lowfat or skim) contains about 300mg calcium, 8oz of yogurt contains 415mg. Nondairy sources include salmon and sardines and vegetables, such as [place] cabbage, kale, and broccoli. Foods fortified with calcium include many fruit juices, tofu and cereals. For more food calcium content information, visit http://ods.od.nih.gov/factsheets/calcium. Calcium supplements come in several different forms. Remember that the recommendations are for millgrams (mg) of elemental calcium which may be less than the total weight of the supplement. The amount of elemental calcium is required to be printed on the label. Calcium carbonate is the least expensive form. It must be taken on a full stomach to be properly absorbed. Some patients may experience gas or constipation. Calcium phosphate and calcium citrate may be taken either with or without food and tend to have less side effects but are generally more expensive. Because of its ability to neutralize stomach acid, calcium carbonate is found in some [id number] antacid products, such as Tums? and Rolaids?. Depending on its strength, each chewable pill or softchew provides 200 to 400 mg of elemental calcium. The percentage of calcium absorbed depends on the total amount of elemental calcium consumed at one time. Absorption is highest in doses <500mg. So a woman who takes 1,000mg/day of calcium from supplements should split the dose and take 500mg at two separate times during the day. Too much calcium can cause kidney stones, constipation, difficulty absorbing other nutrients and calcium buildup in blood vessels. Women under 50 should not exceed 2500mg/day (2000mg/day for women over 50) of calcium from food and supplements. Excessive alcohol and caffeine intake can inhibit absorption of calcium. Calcium can reduce the absorption of some medications if taken at the same time of day (bisphosphonates, thyroid medication, Phenytoin and other seizure medications, some antibiotics and iron supplements). Vitamin D promotes calcium absorption in the gut and maintains adequate blood levels of calcium and phosphate for normal bone growth and bone remodeling. Vitamin D also helps regulate cell growth as well as nerve, muscle and immune system function. Vitamin D is produced in the skin as a result of ultraviolet sunlight rays and must be altered in the liver and kidney to become its active form. Recommended intake according to the National Institutes of Health is 600 International Units (IU) for girls and women ages 1-70 and 800 IU for women over 70. Very few foods in nature contain vitamin D. The flesh of fatty fish (such as salmon, tuna, and mackerel) and fish liver oils are among the best sources. Small amounts of vitamin D are found in beef liver, cheese, mushrooms and egg yolks. Most people meet at least some of their vitamin D needs through exposure to sunlight. Season, time of day, length of day, cloud cover, smog, skin melanin content, and sunscreen are among the factors that affect UV radiation exposure and vitamin D synthesis. Despite the importance of the sun for vitamin D synthesis, it is prudent to limit exposure of skin to sunlight and avoid tanning beds. UV radiation is a carcinogen responsible for most of the estimated 1.5 million skin cancers that occur annually in the [place]. Lifetime cumulative UV damage to skin is also responsible for some age-associated dryness and other cosmetic changes. In supplements and fortified foods, vitamin D is available in two forms, D2 (ergocalciferol) and D3 (cholecalciferol). The two are equivalent at normal supplement doses. For women who require high supplement doses because of vitamin D deficiency, D3 may work better to raise blood levels. Some medications can prevent proper absorption of Vitamin D. These include laxatives, corticosteroids like prednisone, the seizure drugs phenobarbital and phenytoin, the weight-loss drug orlistat ( Xenical? and AlliTM) and the cholesterol-lowering drug cholestyramine (Questran?, LoCholest?, and Prevalite?). Talk to your doctor about adjusting your recommended daily vitamin D dosage if you take these medications. You should not exceed 4000 mg of vitamin D supplementation daily unless specifically prescribed by your doctor. ACOG Screening Guidelines (2015) The following health screening schedule is recommended by the [place] [employer] (ACOG). Some of these tests may be ordered or performed by your primary care doctor. Pap test screening The pap test looks at cells on the cervix (the opening from the vagina to the uterus) to look for cancer or pre-cancerous changes. These changes are caused by the human papillomavirus (HPV). Studies estimate that half of all women will test positive for this virus within 3 years of starting sexual activity. For young women with a normal immune system, 90% of HPV infections will resolve within 2 years. There is a vaccine available against some forms of HPV. This is recommended for girls and women age 9-26 and is a series of 3 injections over 6 months. Because this vaccine does not protect against all HPV types which can cause cervical cancer, women who received the vaccine still need pap tests. Pap smear screening should be started at age 21. The pap test should be done every 3 years from age 21-29. From age 30-65, pap smears can be done every 5 years if HPV test is negative or every 3 years if HPV testing is not done. For women over the age of 65, ACOG recommends against screening women who have had adequate prior screening and are not otherwise at high risk for cervical cancer. Women who have had a hysterectomy also do not need routine pap smear screening unless the pap smear was done for a cervical cancer or moderate to severe dysplasia. Breast cancer screening Mammogram should be performed every 1-2 years starting at age 40 and every year starting at age 50. Screening may be started earlier depending on family history. Cholesterol screening Lipid panel (cholesterol test) should be checked every 5 years starting at age 45. Diabetes screening Fasting glucose (blood sugar) test should be performed every 3 years starting at age 45. Colorectal cancer screening Starting at age 50, women should have a screening colonoscopy at least every 10 years. Screening may be started earlier depending on family history. Thyroid screening Thyroid function test (TSH) should be checked every 5 years starting at age 50. Bone mineral density screening All postmenopausal women age 65 and over and postmenopausal women with risk factors for osteoporosis should have a bone mineral density test performed. Risk factors include race, family history of osteoporosis, personal history of fractures, poor nutrition, smoking, heavy alcohol use, early menopause, low calcium intake and low body weight. Certain medical conditions and long-term use of some medications may also increase risk. Referring Provider: SELF [[id number]] Allergies As of Date: 01/09/2018 Noted Allergy Reaction CIPROFLOXACIN 11/30/2017 4 - Hives Comments: Patient developed generalized hives, hand swelling, and difficulty breathing within 15 to 30 minutes of taken first dose of hydrocodone and ciprofloxacin in September 2017. HYDROCODONE 11/30/2017 4 - Hives Comments: Patient developed generalized hives, hand swelling, and difficulty breathing within 15 to 30 minutes of taken first dose of hydrocodone and ciprofloxacin in September 2017. IV CONTRAST (IODINE) 10/31/2017 7 - Swelling LATEX 01/26/2012 2 - Rash 9 - Itching Comments: Latex band-aids SULFA (SULFA (SULFONAMIDE ANTIBIO*01/07/2009 4 - Hives TOPAMAX (TOPIRAMATE) 06/01/2017 14 - Other: See Comments Comments: Made her extremely depressed. Date Reviewed: 01/09/2018 Reviewed by: Lavinia Booker - Fully Assessed Reason for Visit: Yearly Exam [187] Primary Visit Diagnosis:Encounter for gynecological examination without abnormal finding [Z01.419] Other Visit Diagnosis:Hormone replacement therapy (HRT) [Z79.890] Order(s):estradiol (ESTRACE) 1 mg tabletTake 1 tablet by mouth once daily.Disp: 90 tabletRfl: 3 Prescriptions as of 01/09/2018 Sig: ESTRADIOL 1 MG TABLET Take 1 tablet by mouth once d* SYNTHROID 100 MCG TABLET TAKE 1 TABLET ONCE DAILY EPINEPHRINE 0.3 MG/0.3 ML INJ* ONE TIME PRN For Anaphylaxis SERTRALINE 50 MG TABLET 1 tablet by mouth once a day ISOSORBIDE MONONITRATE ER 60 * Take 1.5 tablets by mouth onc* SERTRALINE 50 MG TABLET Take 1 tablet by mouth once d* ISOSORBIDE MONONITRATE ER 60 * Take 1.5 tablets by mouth onc* OMEPRAZOLE 40 MG CAPSULE,URBAN* TAKE 1 CAPSULE TWICE DAILY ACYCLOVIR 400 MG TABLET Take 1 tablet by mouth three * RIZATRIPTAN 10 MG TABLET Take one tablet at onset of h* ACYCLOVIR 5 % TOPICAL CREAM Apply 1 application to affect* Problem List As Of Date 01/09/2018 Noted Resolved Hypothyroidism (acquired) [E03.9] INVALID FOR* Priority: A Hallux valgus (acquired) [M20.10] INVALID FOR* Priority: D Migraine without aura and without status migrai*INVALID FOR* Priority: A Herpes [B00.9] INVALID FOR* Priority: E More... Post menopausal syndrome [N95.1] INVALID FOR* Priority: B Mitral valve prolapse [I34.1] Priority: B Thyroid goiter [E04.9] INVALID FOR* Priority: B More... Encounter for gynecological examination without*INVALID FOR* Priority: E More... Bilateral fibrocystic breast disease (FCBD) [N6*INVALID FOR* Priority: C Allergic rhinitis [J30.9] INVALID FOR* Priority: B More... Family history of colon cancer [Z80.0] INVALID FOR* Priority: F Gastroesophageal reflux disease without esophag*INVALID FOR* Priority: A Encounter for screening for diabetes mellitus [*INVALID FOR* Encounter for screening for cardiovascular diso*INVALID FOR* More... Hiatal hernia [K44.9] INVALID FOR* Priority: B More... Well adult exam [Z00.00] INVALID FOR* Priority: E More... 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 Visual disturbance [H53.9] INVALID FOR*10/04/2017 Abnormal EEG [R94.01] INVALID FOR* Priority: B More... Esophageal spasm [K22.4] INVALID FOR* Priority: A More... Pollack's esophagus without dysplasia [K22.70] INVALID FOR* Priority: A More... Other instructions from your clinician: Calcium and Vitamin D Supplementation (from the National Institutes of Health Office of Dietary Supplements 2010) Calcium is required by the body for blood vessel, muscle, hormone and nerve functioning. Most of the body's calcium is stored in the bones and teeth where it supports structure and function. Bone is continuously broken down and reformed. When bone breakdown exceeds formation, especially in postmenopausal women, bone loss can increase the risk of osteoporosis and fractures. In addition to low calcium intake, women who smoke, have a family history of osteoporosis, are thin, or , or who take certain medications such as cancer chemotherapy, seizure mediations and steroids are at increased risk of osteoporosis. The calcium requirements in women change with age. The National Institutes of Health (NIH) recommends: 1000mg elemental calcium for premenopausal women age 19-50 1200mg elemental calcium for postmenopausal women and all women over 50 Milk, yogurt, and cheese are rich natural sources of calcium and are the major food contributors in the [place]. For example, 8oz of milk (whole, lowfat or skim) contains about 300mg calcium, 8oz of yogurt contains 415mg. Nondairy sources include salmon and sardines and vegetables, such as [place] cabbage, kale, and broccoli. Foods fortified with calcium include many fruit juices, tofu and cereals. For more food calcium content information, visit http://ods.od.nih.gov/factsheets/calcium. Calcium supplements come in several different forms. Remember that the recommendations are for millgrams (mg) of elemental calcium which may be less than the total weight of the supplement. The amount of elemental calcium is required to be printed on the label. Calcium carbonate is the least expensive form. It must be taken on a full stomach to be properly absorbed. Some patients may experience gas or constipation. Calcium phosphate and calcium citrate may be taken either with or without food and tend to have less side effects but are generally more expensive. Because of its ability to neutralize stomach acid, calcium carbonate is found in some xrky-ufh-awexgip antacid products, such as Tums? and Rolaids?. Depending on its strength, each chewable pill or softchew provides 200 to 400 mg of elemental calcium. The percentage of calcium absorbed depends on the total amount of elemental calcium consumed at one time. Absorption is highest in doses <500mg. So a woman who takes 1,000mg/day of calcium from supplements should split the dose and take 500mg at two separate times during the day. Too much calcium can cause kidney stones, constipation, difficulty absorbing other nutrients and calcium buildup in blood vessels. Women under 50 should not exceed 2500mg/day (2000mg/day for women over 50) of calcium from food and supplements. Excessive alcohol and caffeine intake can inhibit absorption of calcium. Calcium can reduce the absorption of some medications if taken at the same time of day (bisphosphonates, thyroid medication, Phenytoin and other seizure medications, some antibiotics and iron supplements). Vitamin D promotes calcium absorption in the gut and maintains adequate blood levels of calcium and phosphate for normal bone growth and bone remodeling. Vitamin D also helps regulate cell growth as well as nerve, muscle and immune system function. Vitamin D is produced in the skin as a result of ultraviolet sunlight rays and must be altered in the liver and kidney to become its active form. Recommended intake according to the National Institutes of Health is 600 International Units (IU) for girls and women ages 1-70 and 800 IU for women over 70. Very few foods in nature contain vitamin D. The flesh of fatty fish (such as salmon, tuna, and mackerel) and fish liver oils are among the best sources. Small amounts of vitamin D are found in beef liver, cheese, mushrooms and egg yolks. Most people meet at least some of their vitamin D needs through exposure to sunlight. Season, time of day, length of day, cloud cover, smog, skin melanin content, and sunscreen are among the factors that affect UV radiation exposure and vitamin D synthesis. Despite the importance of the sun for vitamin D synthesis, it is prudent to limit exposure of skin to sunlight and avoid tanning beds. UV radiation is a carcinogen responsible for most of the estimated 1.5 million skin cancers that occur annually in the [place]. Lifetime cumulative UV damage to skin is also responsible for some age-associated dryness and other cosmetic changes. In supplements and fortified foods, vitamin D is available in two forms, D2 (ergocalciferol) and D3 (cholecalciferol). The two are equivalent at normal supplement doses. For women who require high supplement doses because of vitamin D deficiency, D3 may work better to raise blood levels. Some medications can prevent proper absorption of Vitamin D. These include laxatives, corticosteroids like prednisone, the seizure drugs phenobarbital and phenytoin, the weight-loss drug orlistat ( Xenical? and AlliTM) and the cholesterol-lowering drug cholestyramine (Questran?, LoCholest?, and Prevalite?). Talk to your doctor about adjusting your recommended daily vitamin D dosage if you take these medications. You should not exceed 4000 mg of vitamin D supplementation daily unless specifically prescribed by your doctor. ACOG Screening Guidelines (2015) The following health screening schedule is recommended by the [place] [employer] (ACOG). Some of these tests may be ordered or performed by your primary care doctor. Pap test screening The pap test looks at cells on the cervix (the opening from the vagina to the uterus) to look for cancer or pre-cancerous changes. These changes are caused by the human papillomavirus (HPV). Studies estimate that half of all women will test positive for this virus within 3 years of starting sexual activity. For young women with a normal immune system, 90% of HPV infections will resolve within 2 years. There is a vaccine available against some forms of HPV. This is recommended for girls and women age 9-26 and is a series of 3 injections over 6 months. Because this vaccine does not protect against all HPV types which can cause cervical cancer, women who received the vaccine still need pap tests. Pap smear screening should be started at age 21. The pap test should be done every 3 years from age 21-29. From age 30-65, pap smears can be done every 5 years if HPV test is negative or every 3 years if HPV testing is not done. For women over the age of 65, ACOG recommends against screening women who have had adequate prior screening and are not otherwise at high risk for cervical cancer. Women who have had a hysterectomy also do not need routine pap smear screening unless the pap smear was done for a cervical cancer or moderate to severe dysplasia. Breast cancer screening Mammogram should be performed every 1-2 years starting at age 40 and every year starting at age 50. Screening may be started earlier depending on family history. Cholesterol screening Lipid panel (cholesterol test) should be checked every 5 years starting at age 45. Diabetes screening Fasting glucose (blood sugar) test should be performed every 3 years starting at age 45. Colorectal cancer screening Starting at age 50, women should have a screening colonoscopy at least every 10 years. Screening may be started earlier depending on family history. Thyroid screening Thyroid function test (TSH) should be checked every 5 years starting at age 50. Bone mineral density screening All postmenopausal women age 65 and over and postmenopausal women with risk factors for osteoporosis should have a bone mineral density test performed. Risk factors include race, family history of osteoporosis, personal history of fractures, poor nutrition, smoking, heavy alcohol use, early menopause, low calcium intake and low body weight. Certain medical conditions and long-term use of some medications may also increase risk. Prescriptions ordered this encounter Disp Refills Start End ESTRADIOL 1 MG TABLET 90 t* 3 01/09/2018 Route: ORAL Sig: Take 1 tablet by mouth once daily. Medications Discontinued During This Encounter estradiol (ESTRACE) 1 mg tablet 90 t* 0 01/02/2018 01/09/2018 Route: ORAL Sig: Take 1 tablet by mouth once daily. Disc: Reason for discontinue is not on file. Disposition: Return in 1 year (on 01/09/2019) for Annual Exam. Follow-up and Disposition History Recorded Encounter Status:Closed by LAVINIA BOOKER MD on 01/09/18 PROGRESS Observed: 11/30/2017 Status: COMPLETED Source: [place] 3:22 PM [facility] REPOSITORY O ID: [id number] Author: Melanie Sibley RN Service: (none) Author Type: (none) Type: Progress Notes Filed: 2017 4:23 PM Note Text: This is a consultation requested by for an allergy and immunology evaluation. My final recommendations will be communicated back to the requesting physician by way of shared medical record or letter to requesting physician via [place] mail. Annelise Page is a 51 year old female who was hospitalized for nephrolithiasis at [facility] in September,. She was treated with morphine and Toradol as an inpatient. She then underwent a surgical procedure. She was discharged to home 2 days following admission and 1 day following the procedure. . She was discharged with prescriptions for ciprofloxacin and hydrocodone. Within 15- 30 minutes of taking the first doses ciprofloxacin and hydrocodone concurrently while at home, she developed a generalized urticarial rash, swelling of the hands and shortness of breath. She presented to the emergency room for treatment. She was treated with Benadryl and one dose of oral prednisone. Ciprofloxacin and hydrocodone were discontinued at that time. She was discharged to home. 4 hours later, she developed a recurrence of tongue and eyelid swelling for which she took Benadryl with relief. She took Toradol the following evening. Upon awakening the next morning, she has significant eyelid angioedema and also complained of shortness of breath. She presented to the emergency room where CT chest was completed with contrast to rule out pulmonary embolus. Per patient fluid in the lungs was noted on the CT scan. Approximately 15 minutes after having the CT scan completed, she developed tongue and throat swelling. She developed generalized urticaria. She says her skin felt like it was on fire. She was treated with Benadryl and epinephrine with improvement. She was admitted to the hospital. 12 hours later, immediately after drinking cranberry juice, she had a recurrence of generalized urticaria and sensation of throat closure. She was treated with steroids and Benadryl with resolution of symptoms over a couple hours. Denies subsequent ingestion of cranberries. Denies subsequent use of aspirin/NSAIDs. Denies subsequent use of narcotic medications. Denies subsequent use of quinolone antibiotics. She has a history of possible latex allergy. She complains of skin irritation at the sites of adhesive contacting her skin. Denies symptoms with ingestion of avocado, banana, chestnut and kiwi. REVIEW OF SYSTEMS: Denies significant nasal and ocular symptoms. SINUSITIS: The patient does not suffer from frequent sinopulmonary infections. ASTHMA: The patient has no history of asthma. ECZEMA: The patient has no history of eczema. URTICARIA:See NENANA GERD: The patient does not have a history of GERD. INSECT STING: The patient does not have a history of systemic reaction to insect sting. FOOD ALLERGY:The patient denies history of food allergy. LATEX: The patient does not have a history of adverse reaction to latex. All other review of systems negative except for those listed above. PAST MEDICAL HISTORY Diagnosis Date - Abnormal EEG 05/06/2017 Saw neuro and not felt ot be seizures. - Pollack's esophagus determined by biopsy 08/30/2017 - Pollack's esophagus without dysplasia 10/04/[address] Steele - Hallux valgus (acquired) 04/06/2009 - Herpes 08/05/2015 GETS OUTBREAKS ON NOSE - Hypothyroidism 04/02/2009 - Migraine without aura and without status migrainosus, not intractable 08/05/2015 - migraines Headaches - Mitral valve prolapse - Pain in Soft Tissues of Limb 04/06/2009 - Post menopausal syndrome 08/05/2015 MEDICATIONS: EPINEPHrine (EPIPEN) 0.3 mg/0.3 mL auto-injector ONE TIME PRN For Anaphylaxis sertraline (ZOLOFT) 50 mg tablet Take 1 tablet by mouth once daily. isosorbide mononitrate ER (IMDUR) 60 mg 24 hr tablet Take 1.5 tablets by mouth once daily. estradiol (ESTRACE) 1 mg tablet Take 1 tablet by mouth once daily. Omeprazole 40 mg capsule TAKE 1 CAPSULE TWICE DAILY acyclovir (ZOVIRAX) 400 mg tablet Take 1 tablet by mouth three times daily. rizatriptan (MAXALT) 10 mg tablet Take one tablet at onset of headache and may repeat every 2 hours as needed up to 3 tabs in 24 hours acyclovir (ZOVIRAX) 5 % crea Apply 1 application to affected area five times daily. levothyroxine (SYNTHROID) 100 mcg tablet Take 1 tablet by mouth once daily. sertraline (ZOLOFT) 50 mg tablet 1 tablet by mouth once a day isosorbide mononitrate ER (IMDUR) 60 mg 24 hr tablet Take 1.5 tablets by mouth once daily. ALLERGIES: Allergies As of Date: 11/30/2017 Allergen Noted Reaction IV CONTRAST [IODINE] 10/31/2017 Swelling LATEX 01/26/2012 Rash and Itching SULFA [SULFA (SULFONAMIDE ANTIBIO*01/07/2009 Hives TOPAMAX [TOPIRAMATE] 06/01/2017 Other: See Comments Fully Assessed 11/30/2017 PAST SURGICAL HISTORY Procedure Laterality Date - 2D ECHO (EXEP) 03/06/2017 EF=60%, mild TR and Pulm HTN - APPENDECTOMY - EGD W/O BRSH SPECIMEN W/BX 08/30/2017 Pollack's esophagus without dysplasia - FECAL OCCULT BLOOD TEST 01/21/2017 negative - G-ESOPH REFLX TST W/ELECTROD 08/30/2017 - KIDNEY STONE SURGERY HX 09/2017 - KNEE SCOPE,DIAGNOSTIC 2006 Arthroscopy, knee right - REMOVAL OF TONSILS,<12 Y/O Tonsillectomy - TOTAL ABDOM HYSTERECTOMY 2004 Hysterectomy, [place] FAMILY HISTORY: Allergic rhinitis:no. Asthma: yes: mom, son and PGM. Eczema: no. Cystic fibrosis: no. Immunodeficiency: no. 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 Pets in the home: 1 cats, 1 dogs Outdoor animals: There are no outdoor animals Tobacco smoke: No exposure in the home. Physical Exam: GENERAL APPEARANCE:Well appearing, alert, in no acute distress, well-hydrated, well nourished. HEENT: NCAT. EYES: conjunctiva and sclera normal. EARS: External ears normal. Canals clear. TM's normal. NOSE/SINUS: Nares normal. Septum midline. Mucosa normal. No drainage or sinus tenderness. THROAT: no erythema NECK:neck supple, no adenopathy HEART:RRR with normal S1 and S2 ,no murmurs, no gallops, no rubs LUNGS: clear to auscultation bilaterally, no wheezes, rales or rhonchi ABDOMEN:soft, nontender, nondistended, without organomegaly or palpable masses EXTREMITIES:Extremities normal, No deformities, No skin discoloration and No edema SKIN: Skin color, texture, turgor normal. No rashes or lesions. ALLERGY SKIN TESTS: Negative to latex. Negative to cranberry. ASSESSMENT/PLAN: 1.) Urticaria and angioedema with possible anaphylaxis, most likely caused by ciprofloxacin or hydrocodone. Possible exacerbation of symptoms several hours after taking Toradol. A significant exacerbation of symptoms with use of IV contrast. Recommend that patient strictly avoid use of quinolone antibiotics. Narcotic medications may cause nonspecific activation of mast cells resulting in itching and urticaria. Recommend that she avoid use of hydrocodone specifically. If treatment with a another opioid is indicated and an equally efficacious alternative medication is not available, consider an initial test dose of 10% of the full dose, prior to proceeding with the full dose of medication. If patient requires IV contrast with future procedures, she should undergo a premedication regimen with corticosteroids and antihistamines. Low osmolar contrast should be used. 2.) Toxic effect latex: Latex skin tests were negative. Latex specific IgE level will be obtained to evaluate further for possible severe, immediate, IgE?mediated latex hypersensitivity. 3.) Discussed medication dosage, usage, side effects, and goals of treatment in detail. 4.) Follow-up in PRN - patient will return sooner should new symptoms or problems arise. Poli Granda MD LATEX PERCUTANEOUS TESTING/ Mean Wheal AND Flare Diameter Patient has been identified by name and date of : Yes . Skin test applied by : Melanie Sibley RN Interpreted By: Poli Granda M.D. * Clinical significant reactions are regarded as a wheal diameter greater than or equal to 3 mm with a flare diameter greater or equal to 6mm. Time applied: Time read: ALLERGENS 1. Negative Control - 50%Glycerin/50% Cocas P: W = 0 mm F = 0 mm 2. High Ammoniated Latex P: W = 0 mm F = 0 mm 3. Low Ammoniatex Latex P: W = 0 mm F = 0 mm 4. Solid Latex - glove P: W = 0 mm F = 0 mm 5. HISTAMINE( Histamine base 6 mg/ml) P: W = 5 mm F = 25 mm Cranberry P: w = 0 mm f = 0 mm Patient was instructed on allergy (prick ) testing. Topical Pramasone cream applied to testing site per Dr. Granda's instruction. CNOV Observed: 11/30/2017 Status: COMPLETED Source: [place] 3:00 PM [facility] REPOSITORY Office Visit (ALLMED) ANNELISE PAGE ([id number]) 1965 F Date Time Provider Department 11/30/17 3:00 PM POLI GRANDA During your visit today, we recorded the following information about you: Pulse Blood pressure Weight 66/minute 111/79 72.1 kg Melanie Sibley RN 11/30/2017 3:25 PM Signed Patient here for allergic reaction that happened in September. Broke out in rash, difficulty breathing after dose of pain medication and cipro. Symptoms increased with IV contrast dye. Symptoms only resolved after steroids, epi dose. Has not happened since. Melanie Sibley RN 11/30/2017 4:46 PM Signed This is a consultation requested by for an allergy and immunology evaluation. My final recommendations will be communicated back to the requesting physician by way of shared medical record or letter to requesting physician via [place] mail. Annelise Page is a 51 year old female who was hospitalized for nephrolithiasis at [facility] in September,. She was treated with morphine and Toradol as an inpatient. She then underwent a surgical procedure. She was discharged to home 2 days following admission and 1 day following the procedure. . She was discharged with prescriptions for ciprofloxacin and hydrocodone. Within 15-30 minutes of taking the first doses ciprofloxacin and hydrocodone concurrently while at home, she developed a generalized urticarial rash, swelling of the hands and shortness of breath. She presented to the emergency room for treatment. She was treated with Benadryl and one dose of oral prednisone. Ciprofloxacin and hydrocodone were discontinued at that time. She was discharged to home. 4 hours later, she developed a recurrence of tongue and eyelid swelling for which she took Benadryl with relief. She took Toradol the following evening. Upon awakening the next morning, she has significant eyelid angioedema and also complained of shortness of breath. She presented to the emergency room where CT chest was completed with contrast to rule out pulmonary embolus. Per patient fluid in the lungs was noted on the CT scan. Approximately 15 minutes after having the CT scan completed, she developed tongue and throat swelling. She developed generalized urticaria. She says her skin felt like it was on fire. She was treated with Benadryl and epinephrine with improvement. She was admitted to the hospital. 12 hours later, immediately after drinking cranberry juice, she had a recurrence of generalized urticaria and sensation of throat closure. She was treated with steroids and Benadryl with resolution of symptoms over a couple hours. Denies subsequent ingestion of cranberries. Denies subsequent use of aspirin/NSAIDs. Denies subsequent use of narcotic medications. Denies subsequent use of quinolone antibiotics. She has a history of possible latex allergy. She complains of skin irritation at the sites of adhesive contacting her skin. Denies symptoms with ingestion of avocado, banana, chestnut and kiwi. REVIEW OF SYSTEMS: Denies significant nasal and ocular symptoms. SINUSITIS: The patient does not suffer from frequent sinopulmonary infections. ASTHMA: The patient has no history of asthma. ECZEMA: The patient has no history of eczema. URTICARIA:See NENANA GERD: The patient does not have a history of GERD. INSECT STING: The patient does not have a history of systemic reaction to insect sting. FOOD ALLERGY:The patient denies history of food allergy. LATEX: The patient does not have a history of adverse reaction to latex. All other review of systems negative except for those listed above. PAST MEDICAL HISTORY Diagnosis Date - Abnormal EEG 05/06/2017 Saw neuro and not felt ot be seizures. - Pollack's esophagus determined by biopsy 08/30/2017 - Pollack's esophagus without dysplasia 10/04/[address] Steele - Hallux valgus (acquired) 04/06/2009 - Herpes 08/05/2015 GETS OUTBREAKS ON NOSE - Hypothyroidism 04/02/2009 - Migraine without aura and without status migrainosus, not intractable 08/05/2015 - migraines Headaches - Mitral valve prolapse - Pain in Soft Tissues of Limb 04/06/2009 - Post menopausal syndrome 08/05/2015 MEDICATIONS: EPINEPHrine (EPIPEN) 0.3 mg/0.3 mL auto-injector ONE TIME PRN For Anaphylaxis sertraline (ZOLOFT) 50 mg tablet Take 1 tablet by mouth once daily. isosorbide mononitrate ER (IMDUR) 60 mg 24 hr tablet Take 1.5 tablets by mouth once daily. estradiol (ESTRACE) 1 mg tablet Take 1 tablet by mouth once daily. Omeprazole 40 mg capsule TAKE 1 CAPSULE TWICE DAILY acyclovir (ZOVIRAX) 400 mg tablet Take 1 tablet by mouth three times daily. rizatriptan (MAXALT) 10 mg tablet Take one tablet at onset of headache and may repeat every 2 hours as needed up to 3 tabs in 24 hours acyclovir (ZOVIRAX) 5 % crea Apply 1 application to affected area five times daily. levothyroxine (SYNTHROID) 100 mcg tablet Take 1 tablet by mouth once daily. sertraline (ZOLOFT) 50 mg tablet 1 tablet by mouth once a day isosorbide mononitrate ER (IMDUR) 60 mg 24 hr tablet Take 1.5 tablets by mouth once daily. ALLERGIES: Allergies As of Date: 11/30/2017 Allergen Noted Reaction IV CONTRAST [IODINE] 10/31/2017 Swelling LATEX 01/26/2012 Rash and Itching SULFA [SULFA (SULFONAMIDE ANTIBIO*01/07/2009 Hives TOPAMAX [TOPIRAMATE] 06/01/2017 Other: See Comments Fully Assessed 11/30/2017 PAST SURGICAL HISTORY Procedure Laterality Date - 2D ECHO (EXEP) 03/06/2017 EF=60%, mild TR and Pulm HTN - APPENDECTOMY - EGD W/O BRSH SPECIMEN W/BX 08/30/2017 Pollack's esophagus without dysplasia - FECAL OCCULT BLOOD TEST 01/21/2017 negative - G-ESOPH REFLX TST W/ELECTROD 08/30/2017 - KIDNEY STONE SURGERY HX 09/2017 - KNEE SCOPE,DIAGNOSTIC 2006 Arthroscopy, knee right - REMOVAL OF TONSILS,<12 Y/O Tonsillectomy - TOTAL ABDOM HYSTERECTOMY 2004 Hysterectomy, [place] FAMILY HISTORY: Allergic rhinitis:no. Asthma: yes: mom, son and PGM. Eczema: no. Cystic fibrosis: no. Immunodeficiency: no. 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 Pets in the home: 1 cats, 1 dogs Outdoor animals: There are no outdoor animals Tobacco smoke: No exposure in the home. Physical Exam: GENERAL APPEARANCE:Well appearing, alert, in no acute distress, well-hydrated, well nourished. HEENT: NCAT. EYES: conjunctiva and sclera normal. EARS: External ears normal. Canals clear. TM's normal. NOSE/SINUS: Nares normal. Septum midline. Mucosa normal. No drainage or sinus tenderness. THROAT: no erythema NECK:neck supple, no adenopathy HEART:RRR with normal S1 and S2 ,no murmurs, no gallops, no rubs LUNGS: clear to auscultation bilaterally, no wheezes, rales or rhonchi ABDOMEN:soft, nontender, nondistended, without organomegaly or palpable masses EXTREMITIES:Extremities normal, No deformities, No skin discoloration and No edema SKIN: Skin color, texture, turgor normal. No rashes or lesions. ALLERGY SKIN TESTS: Negative to latex. Negative to cranberry. ASSESSMENT/PLAN: 1.) Urticaria and angioedema with possible anaphylaxis, most likely caused by ciprofloxacin or hydrocodone. Possible exacerbation of symptoms several hours after taking Toradol. A significant exacerbation of symptoms with use of IV contrast. Recommend that patient strictly avoid use of quinolone antibiotics. Narcotic medications may cause nonspecific activation of mast cells resulting in itching and urticaria. Recommend that she avoid use of hydrocodone specifically. If treatment with a another opioid is indicated and an equally efficacious alternative medication is not available, consider an initial test dose of 10% of the full dose, prior to proceeding with the full dose of medication. If patient requires IV contrast with future procedures, she should undergo a premedication regimen with corticosteroids and antihistamines. Low osmolar contrast should be used. 2.) Toxic effect latex: Latex skin tests were negative. Latex specific IgE level will be obtained to evaluate further for possible severe, immediate, IgE?mediated latex hypersensitivity. 3.) Discussed medication dosage, usage, side effects, and goals of treatment in detail. 4.) Follow-up in PRN - patient will return sooner should new symptoms or problems arise. Poli Granda MD LATEX PERCUTANEOUS TESTING/ Mean Wheal AND Flare Diameter Patient has been identified by name and date of : Yes . Skin test applied by : Melanie Sibley RN Interpreted By: Poli Granda M.D. * Clinical significant reactions are regarded as a wheal diameter greater than or equal to 3 mm with a flare diameter greater or equal to 6mm. Time applied: Time read: ALLERGENS 1. Negative Control - 50%Glycerin/50% Cocas P: W = 0 mm F = 0 mm 2. High Ammoniated Latex P: W = 0 mm F = 0 mm 3. Low Ammoniatex Latex P: W = 0 mm F = 0 mm 4. Solid Latex - glove P: W = 0 mm F = 0 mm 5. HISTAMINE( Histamine base 6 mg/ml) P: W = 5 mm F = 25 mm Cranberry P: w = 0 mm f = 0 mm Patient was instructed on allergy (prick ) testing. Topical Pramasone cream applied to testing site per Dr. Granda's instruction. Referring Provider: SAMUEL EPPS [[id number]] Allergies As of Date: 11/30/2017 Noted Allergy Reaction CIPROFLOXACIN 11/30/2017 4 - Hives Comments: Patient developed generalized hives, hand swelling, and difficulty breathing within 15 to 30 minutes of taken first dose of hydrocodone and ciprofloxacin in September 2017. HYDROCODONE 11/30/2017 4 - Hives Comments: Patient developed generalized hives, hand swelling, and difficulty breathing within 15 to 30 minutes of taken first dose of hydrocodone and ciprofloxacin in September 2017. IV CONTRAST (IODINE) 10/31/2017 7 - Swelling LATEX 01/26/2012 2 - Rash 9 - Itching Comments: Latex band-aids SULFA (SULFA (SULFONAMIDE ANTIBIO*01/07/2009 4 - Hives TOPAMAX (TOPIRAMATE) 06/01/2017 14 - Other: See Comments Comments: Made her extremely depressed. Date Reviewed: 11/30/2017 Reviewed by: Poli Granda - Fully Assessed Reason for Visit: New Patient [172] Cmt: allergic reaction Primary Visit Diagnosis:Urticaria [L50.9] Other Visit Diagnoses:Toxic effect of latex, unintentional, initial encounter [T65.811A] Adverse food reaction, initial encounter [T78.1XXA] Order(s):ALGN LATEX IGE [SQLATEXA] Order #: [id number] FUTURE ALLERGEN SKIN TEST-FOOD [2150778] Order #: [id number] ALLERGEN SKIN TEST-LATEX [9792530] Order #: [id number] Prescriptions as of 11/30/2017 Sig: EPINEPHRINE 0.3 MG/0.3 ML INJ* ONE TIME PRN For Anaphylaxis SERTRALINE 50 MG TABLET Take 1 tablet by mouth once d* ISOSORBIDE MONONITRATE ER 60 * Take 1.5 tablets by mouth onc* ESTRADIOL 1 MG TABLET Take 1 tablet by mouth once d* OMEPRAZOLE 40 MG CAPSULE,URBAN* TAKE 1 CAPSULE TWICE DAILY ACYCLOVIR 400 MG TABLET Take 1 tablet by mouth three * RIZATRIPTAN 10 MG TABLET Take one tablet at onset of h* ACYCLOVIR 5 % TOPICAL CREAM Apply 1 application to affect* LEVOTHYROXINE 100 MCG TABLET Take 1 tablet by mouth once d* SERTRALINE 50 MG TABLET 1 tablet by mouth once a day ISOSORBIDE MONONITRATE ER 60 * Take 1.5 tablets by mouth onc* Medication notes this encounter OMEPRAZOLE 40 MG CAPSULE,DELAYED RELEASE >> Melanie Sibley RN 11/30/2017 3:18 PM >> MELANIE SIBLEY RN [facility] Nov 30, 2017 3:18 PM Problem List As Of Date 11/30/2017 Noted Resolved Hypothyroidism (acquired) [E03.9] INVALID FOR* Priority: A Hallux valgus (acquired) [M20.10] INVALID FOR* Priority: D Migraine without aura and without status migrai*INVALID FOR* Priority: A Herpes [B00.9] INVALID FOR* Priority: E More... Post menopausal syndrome [N95.1] INVALID FOR* Priority: B Mitral valve prolapse [I34.1] Priority: B Thyroid goiter [E04.9] INVALID FOR* Priority: B More... Encounter for gynecological examination without*INVALID FOR* Priority: E More... Bilateral fibrocystic breast disease (FCBD) [N6*INVALID FOR* Priority: C Allergic rhinitis [J30.9] INVALID FOR* Priority: B More... Family history of colon cancer [Z80.0] INVALID FOR* Priority: F Gastroesophageal reflux disease without esophag*INVALID FOR* Priority: A Encounter for screening for diabetes mellitus [*INVALID FOR* Encounter for screening for cardiovascular diso*INVALID FOR* More... Hiatal hernia [K44.9] INVALID FOR* Priority: B More... Well adult exam [Z00.00] INVALID FOR* Priority: E More... 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 Visual disturbance [H53.9] INVALID FOR*10/04/2017 Abnormal EEG [R94.01] INVALID FOR* Priority: B More... Esophageal spasm [K22.4] INVALID FOR* Priority: A More... Pollack's esophagus without dysplasia [K22.70] INVALID FOR* Priority: A More... Visit Notes: >> Melanie Sibley RN [facility] Nov 30, 2017 3:20 PM Status: Signed Patient here for allergic reaction that happened in September. Broke out in rash, difficulty breathing after dose of pain medication and cipro. Symptoms increased with IV contrast dye. Symptoms only resolved after steroids, epi dose. Has not happened since. Follow-up and Disposition History Recorded Encounter Status:Closed by POLI GRANDA MD on 12/01/17 FREE T4 Collected: 11/21/2017 Status: F Source: [place] 11:04 AM [facility] REPOSITORY TYPE CODE TESTS RESULT OUT OF RANGE REFERENCE UNITS LAB FT4 0.9-1.7 ng/dL Free T4 1.2 Performed By: #### FT4, TSH #### [facility] [address] [place], [place] [address] TSH Collected: 11/21/2017 Status: F Source: [place] 11:04 AM [facility] REPOSITORY TYPE CODE TESTS RESULT OUT OF RANGE REFERENCE UNITS LAB TSH 0.400-5.500 uU/mL TSH 3.530 Performed By: #### FT4, TSH #### [facility] [address] [place], [place] [address] PROGRESS Observed: 10/31/2017 Status: COMPLETED Source: [place] 12:05 PM [facility] REPOSITORY HNO ID: [id number] Author: Samuel Epps Service: (none) Author Type: Physician Type: Progress Notes Filed: 10/31/2017 1:00 PM Note Text: Chief Complaint Patient presents with: Hospital Follow Up: kidney stone HPI Annelise Page is a 51 year old female who presents here today for Hospital Discharge Follow up.. Patient developed sever right sided flank pain on 10/10/2017 and went to ER. Was admitted secondary to uncontrolled pain and vomiting with a right renal stone and hydronephrosis. Patient was scoped by Dr. Elizalde on Mon10/11/2017 and stone had passed. Patient was discharged on 10/12/2017 on hydrocdone and Cipro. Later at home took the cipro and shortly after her hands started to itch and swell and a rash that spread up the arms and onto the torso. Throat did not feel scratchy or swollen. Eyes were puff around the outside. Went to ER and was given three steroid pills and was released in stable condition and told to take benadryl at home. 4 hrs later the itching and rash developed again and her tongue started to swell and tried benadryl but on 10/13/2017 her face was more swollen and even more short of breath so went back to ER. D- dimer was elevated and patient sent for CT of chest to r/u PE and within minuets of getting contrast she broke out with bigger red splotches that were itchy and burning and breathing was affected. She was given benadryl and had previously received IV steroids with no improvement ultimately a dose of Epinephrine was given and this stopped the episode. Was kept over night to R/O PA. Patient never had chest pain. Patient requested to be sent home the next day and was therefore released on 10/15/2017. 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 She was treated with benadryl and steroids. They wanted her to stay another day but she wanted to go home. Was given further steroids and benadryl and an epi pen if needed and advised to see an rn social services which she has an appt on . Since being home she was swollen for several days but since that has resolved she feels back to her normal self. She completed the benadryl and steroids on 10/28/2017 and has had no recurrence since. Patient was tolf during one of the hospital stays her thyroid testing was abnormal. Past medical history, appointments, medications, allergies reviewed. Previous Medical History PAST MEDICAL HISTORY Diagnosis Date - Abnormal EEG 05/06/2017 Saw neuro and not felt ot be seizures. - Pollack's esophagus determined by biopsy 08/30/2017 - Pollack's esophagus without dysplasia 10/04/[address] Steele - Hallux valgus (acquired) 04/06/2009 - Herpes 08/05/2015 GETS OUTBREAKS ON NOSE - Hypothyroidism 04/02/2009 - Migraine without aura and without status migrainosus, not intractable 08/05/2015 - migraines Headaches - Mitral valve prolapse - Pain in Soft Tissues of Limb 04/06/2009 - Post menopausal syndrome 08/05/2015 Previous Surgical History PAST SURGICAL HISTORY Procedure Laterality Date - 2D ECHO (EXEP) 03/06/2017 EF=60%, mild TR and Pulm HTN - APPENDECTOMY - EGD W/O BRSH SPECIMEN W/BX 08/30/2017 Pollack's esophagus without dysplasia - FECAL OCCULT BLOOD TEST 01/21/2017 negative - G-ESOPH REFLX TST W/ELECTROD 08/30/2017 - KNEE SCOPE,DIAGNOSTIC 2005 Arthroscopy, knee right - REMOVAL OF TONSILS,<12 Y/O Tonsillectomy - TOTAL ABDOM HYSTERECTOMY 2004 Hysterectomy, MILAGRO Family History FAMILY HISTORY Problem Relation Age of Onset - dementia [OTHER] Mother - Stroke Father - Colon Cancer Maternal Grandfather - Alzheimer's Disease Maternal Grandfather - Stroke Paternal Grandmother Patient Allergies ALLERGIES Allergen Reactions - Iv Contrast [Iodine] Swelling - Latex Rash, Itching Latex band-aids - Sulfa [Sulfa (Sulfo* Hives - Topamax [Topiramate] Other: See Comments Made her extremely depressed. Current Medications Current Outpatient Prescriptions on File Prior to Visit: sertraline (ZOLOFT) 50 mg tablet 1 tablet by mouth once a day isosorbide mononitrate ER (IMDUR) 60 mg 24 hr tablet Take 1.5 tablets by mouth once daily. sertraline (ZOLOFT) 50 mg tablet Take 1 tablet by mouth once daily. isosorbide mononitrate ER (IMDUR) 60 mg 24 hr tablet Take 1.5 tablets by mouth once daily. estradiol (ESTRACE) 1 mg tablet Take 1 tablet by mouth once daily. Omeprazole 40 mg capsule TAKE 1 CAPSULE TWICE DAILY acyclovir (ZOVIRAX) 400 mg tablet Take 1 tablet by mouth three times daily. rizatriptan (MAXALT) 10 mg tablet Take one tablet at onset of headache and may repeat every 2 hours as needed up to 3 tabs in 24 hours acyclovir (ZOVIRAX) 5 % crea Apply 1 application to affected area five times daily. levothyroxine (SYNTHROID) 100 mcg tablet Take 1 tablet by mouth once daily. No current facility-administered medications on file prior to visit. Social History Social History Marital status: Spouse name: Christopher Years of education: Number of children: 2 Social History Main Topics Smoking status: Never Smoker Smokeless tobacco: Never Used Alcohol use: No Drug use: No Sexual activity: Yes Partners with: Male control/protection: Surgical Review of Symptoms REVIEW OF SYSTEMS See HPI EXAM: BP 110/80 Pulse 60 Temp 36.9 ?C (98.5 ?F) (Left Tympanic) Resp 10 Wt 72.7 kg (160 lb 3.2 oz) BMI 28.38 kg/m? General Appearance: Well appearing, alert, in no acute distress, well-hydrated, well nourished.. Neck: Supple, no adenopathy; thyroid symmetric, normal size, no bruits. Lungs: Lungs clear to auscultation. No wheezing, rhonchi, rales. Heart: RRR without murmur, gallop, or rubs. No ectopy. Abdomen: Normal abdominal exam, Abdomen soft, non-tender. Bowel sounds normal. No masses, organomegaly. Extremities: No deformities, edema, skin discoloration,. Health Maintenance List FECAL OCCULT BLOOD due on 01/20/2018 MAMMOGRAM due on 05/29/2018 DIABETES SCREEN due on 01/06/2020 LIPID SCREEN due on 01/05/2022 DTAP,TDAP,TD(2 - Td) due on 01/17/2027 INFLUENZA Completed Data reviewed A/P ASSESSMENT/PLAN: 1. Acute allergic reaction, initial encounter - ICD9: 995.3, ICD10: T78.40XA To keep appointment with rn social services in November. 2. Hypothyroidism (acquired) - ICD9: 244.9, ICD10: E03.9 - Instructed patient on importance of taking on an empty stomach either first thing in the morning or at bedtime. - continue current dose of Synthroid 0.100 mg - TSH BLD - T4 FREE/FREE THYROX Time with patient face to face was 25 min Samuel Epps MD CNOV Observed: 10/31/2017 Status: COMPLETED Source: [place] 11:40 AM [facility] REPOSITORY Office Visit (FAMPWS) ANNELISE PAGE ([id number]) 1965 F Date Time Provider Department 10/31/17 11:40 AM SAMUEL EPPSPWS During your visit today, we recorded the following information about you: Temperature Pulse Respiration Blood pressure 98.5 degrees 60/minute 10/minute 110/80 Weight 72.7 kg Samuel Epps MD 10/31/2017 1:00 PM Signed Chief Complaint Patient presents with: Hospital Follow Up: kidney stone HPI Annelisemichelle Page is a 51 year old female who presents here today for Hospital Discharge Follow up.. Patient developed sever right sided flank pain on 10/10/2017 and went to ER. Was admitted secondary to uncontrolled pain and vomiting with a right renal stone and hydronephrosis. Patient was scoped by Dr. Eilzalde on Mon10/11/2017 and stone had passed. Patient was discharged on 10/12/2017 on hydrocdone and Cipro. Later at home took the cipro and shortly after her hands started to itch and swell and a rash that spread up the arms and onto the torso. Throat did not feel scratchy or swollen. Eyes were puff around the outside. Went to ER and was given three steroid pills and was released in stable condition and told to take benadryl at home. 4 hrs later the itching and rash developed again and her tongue started to swell and tried benadryl but on 10/13/2017 her face was more swollen and even more short of breath so went back to ER. D- dimer was elevated and patient sent for CT of chest to r/u PE and within minuets of getting contrast she broke out with bigger red splotches that were itchy and burning and breathing was affected. She was given benadryl and had previously received IV steroids with no improvement ultimately a dose of Epinephrine was given and this stopped the episode. Was kept over night to R/O PA. Patient never had chest pain. Patient requested to be sent home the next day and was therefore released on 10/15/2017. 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 She was treated with benadryl and steroids. They wanted her to stay another day but she wanted to go home. Was given further steroids and benadryl and an epi pen if needed and advised to see an rn social services which she has an appt on . Since being home she was swollen for several days but since that has resolved she feels back to her normal self. She completed the benadryl and steroids on 10/28/2017 and has had no recurrence since. Patient was tolf during one of the hospital stays her thyroid testing was abnormal. Past medical history, appointments, medications, allergies reviewed. Previous Medical History PAST MEDICAL HISTORY Diagnosis Date - Abnormal EEG 05/06/2017 Saw neuro and not felt ot be seizures. - Pollack's esophagus determined by biopsy 08/30/2017 - Pollack's esophagus without dysplasia 10/04/[address] Steele - Hallux valgus (acquired) 04/06/2009 - Herpes 08/05/2015 GETS OUTBREAKS ON NOSE - Hypothyroidism 04/02/2009 - Migraine without aura and without status migrainosus, not intractable 08/05/2015 - migraines Headaches - Mitral valve prolapse - Pain in Soft Tissues of Limb 04/06/2009 - Post menopausal syndrome 08/05/2015 Previous Surgical History PAST SURGICAL HISTORY Procedure Laterality Date - 2D ECHO (EXEP) 03/06/2017 EF=60%, mild TR and Pulm HTN - APPENDECTOMY - EGD W/O BRSH SPECIMEN W/BX 08/30/2017 Pollack's esophagus without dysplasia - FECAL OCCULT BLOOD TEST 01/21/2017 negative - G-ESOPH REFLX TST W/ELECTROD 08/30/2017 - KNEE SCOPE,DIAGNOSTIC 2005 Arthroscopy, knee right - REMOVAL OF TONSILS,<12 Y/O Tonsillectomy - TOTAL ABDOM HYSTERECTOMY 2003 Hysterectomy, IMLAGRO Family History FAMILY HISTORY Problem Relation Age of Onset - dementia [OTHER] Mother - Stroke Father - Colon Cancer Maternal Grandfather - Alzheimer's Disease Maternal Grandfather - Stroke Paternal Grandmother Patient Allergies ALLERGIES Allergen Reactions - Iv Contrast [Iodine] Swelling - Latex Rash, Itching Latex band-aids - Sulfa [Sulfa (Sulfo* Hives - Topamax [Topiramate] Other: See Comments Made her extremely depressed. Current Medications Current Outpatient Prescriptions on File Prior to Visit: sertraline (ZOLOFT) 50 mg tablet 1 tablet by mouth once a day isosorbide mononitrate ER (IMDUR) 60 mg 24 hr tablet Take 1.5 tablets by mouth once daily. sertraline (ZOLOFT) 50 mg tablet Take 1 tablet by mouth once daily. isosorbide mononitrate ER (IMDUR) 60 mg 24 hr tablet Take 1.5 tablets by mouth once daily. estradiol (ESTRACE) 1 mg tablet Take 1 tablet by mouth once daily. Omeprazole 40 mg capsule TAKE 1 CAPSULE TWICE DAILY acyclovir (ZOVIRAX) 400 mg tablet Take 1 tablet by mouth three times daily. rizatriptan (MAXALT) 10 mg tablet Take one tablet at onset of headache and may repeat every 2 hours as needed up to 3 tabs in 24 hours acyclovir (ZOVIRAX) 5 % crea Apply 1 application to affected area five times daily. levothyroxine (SYNTHROID) 100 mcg tablet Take 1 tablet by mouth once daily. No current facility-administered medications on file prior to visit. Social History Social History Marital status: Spouse name: Christopher Years of education: Number of children: 2 Social History Main Topics Smoking status: Never Smoker Smokeless tobacco: Never Used Alcohol use: No Drug use: No Sexual activity: Yes Partners with: Male control/protection: Surgical Review of Symptoms REVIEW OF SYSTEMS See HPI EXAM: BP 110/80 Pulse 60 Temp 36.9 ?C (98.5 ?F) (Left Tympanic) Resp 10 Wt 72.7 kg (160 lb 3.2 oz) BMI 28.38 kg/m? General Appearance: Well appearing, alert, in no acute distress, well-hydrated, well nourished.. Neck: Supple, no adenopathy; thyroid symmetric, normal size, no bruits. Lungs: Lungs clear to auscultation. No wheezing, rhonchi, rales. Heart: RRR without murmur, gallop, or rubs. No ectopy. Abdomen: Normal abdominal exam, Abdomen soft, non-tender. Bowel sounds normal. No masses, organomegaly. Extremities: No deformities, edema, skin discoloration,. Health Maintenance List FECAL OCCULT BLOOD due on 01/20/2018 MAMMOGRAM due on 05/29/2018 DIABETES SCREEN due on 01/06/2020 LIPID SCREEN due on 01/05/2022 DTAP,TDAP,TD(2 - Td) due on 01/17/2027 INFLUENZA Completed Data reviewed A/P ASSESSMENT/PLAN: 1. Acute allergic reaction, initial encounter - ICD9: 995.3, ICD10: T78.40XA To keep appointment with rn social services in November. 2. Hypothyroidism (acquired) - ICD9: 244.9, ICD10: E03.9 - Instructed patient on importance of taking on an empty stomach either first thing in the morning or at bedtime. - continue current dose of Synthroid 0.100 mg - TSH BLD - T4 FREE/FREE THYROX Time with patient face to face was 25 min Samuel Epps MD Referring Provider: SELF [[id number]] Allergies As of Date: 10/31/2017 Noted Allergy Reaction IV CONTRAST (IODINE) 10/31/2017 7 - Swelling LATEX 01/26/2012 2 - Rash 9 - Itching Comments: Latex band-aids SULFA (SULFA (SULFONAMIDE ANTIBIO*01/07/2009 4 - Hives TOPAMAX (TOPIRAMATE) 06/01/2017 14 - Other: See Comments Comments: Made her extremely depressed. Date Reviewed: 10/31/2017 Reviewed by: Samuel Epps - Fully Assessed Reason for Visit: Hospital Follow Up [177] Cmt: kidney stone Primary Visit Diagnosis:Acute allergic reaction, initial encounter [T78.40XA] Other Visit Diagnosis:Hypothyroidism (acquired) [E03.9] Order(s):TSH BLD [SQTSH] Order #: [id number] FUTURE T4 FREE/FREE THYROX [SQFT4] Order #: [id number] FUTURE Prescriptions as of 10/31/2017 Sig: SERTRALINE 50 MG TABLET 1 tablet by mouth once a day ISOSORBIDE MONONITRATE ER 60 * Take 1.5 tablets by mouth onc* SERTRALINE 50 MG TABLET Take 1 tablet by mouth once d* ISOSORBIDE MONONITRATE ER 60 * Take 1.5 tablets by mouth onc* ESTRADIOL 1 MG TABLET Take 1 tablet by mouth once d* OMEPRAZOLE 40 MG CAPSULE,URBAN* TAKE 1 CAPSULE TWICE DAILY ACYCLOVIR 400 MG TABLET Take 1 tablet by mouth three * RIZATRIPTAN 10 MG TABLET Take one tablet at onset of h* ACYCLOVIR 5 % TOPICAL CREAM Apply 1 application to affect* LEVOTHYROXINE 100 MCG TABLET Take 1 tablet by mouth once d* Problem List As Of Date 10/31/2017 Noted Resolved Hypothyroidism (acquired) [E03.9] INVALID FOR* Priority: A Hallux valgus (acquired) [M20.10] INVALID FOR* Priority: D Migraine without aura and without status migrai*INVALID FOR* Priority: A Herpes [B00.9] INVALID FOR* Priority: E More... Post menopausal syndrome [N95.1] INVALID FOR* Priority: B Mitral valve prolapse [I34.1] Priority: B Thyroid goiter [E04.9] INVALID FOR* Priority: B More... Encounter for gynecological examination without*INVALID FOR* Priority: E More... Bilateral fibrocystic breast disease (FCBD) [N6*INVALID FOR* Priority: C Allergic rhinitis [J30.9] INVALID FOR* Priority: B More... Family history of colon cancer [Z80.0] INVALID FOR* Priority: F Gastroesophageal reflux disease without esophag*INVALID FOR* Priority: A Encounter for screening for diabetes mellitus [*INVALID FOR* Encounter for screening for cardiovascular diso*INVALID FOR* More... Hiatal hernia [K44.9] INVALID FOR* Priority: B More... Well adult exam [Z00.00] INVALID FOR* Priority: E More... 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 Visual disturbance [H53.9] INVALID FOR*10/04/2017 Abnormal EEG [R94.01] INVALID FOR* Priority: B More... Esophageal spasm [K22.4] INVALID FOR* Priority: A More... Pollack's esophagus without dysplasia [K22.70] INVALID FOR* Priority: A More... Disposition: Return if symptoms worsen or fail to improve. Follow-up and Disposition History Recorded Encounter Status:Closed by SAMUEL EPPS on 10/31/17 12 LEAD ELECTROCARDIOGRAM Observed: 10/18/2017 Status: F Source: [place] 6:07 PM [facility] REPOSITORY [facility] Cardiovascular Services [address] [place] [id number] 12 Lead EKG 10/14/17 0948 MR#: [id number] Acct: [id number] Name: ANNELISE PAGE Rep #: [id number] : 1965 51 From: Brigido Angel MD Attending Dr: Zackery Osman MD Status: DIS ERIC Ordering Dr: Jenna Young MD Date: 10/14/17 Location: [facility] Sex: F C Admitted: 10/14/17 Test Reason : CP Blood Pressure : / mmHG Vent. Rate : 051 BPM Atrial Rate : 051 BPM P-R Int : 124 ms QRS Dur : 080 ms QT Int : 448 ms P-R-T Axes : 066 040 061 degrees QTc Int : 412 ms Sinus bradycardia Otherwise normal ECG Confirmed by BRIGIDO ANGEL MD ([id number]), acquisition editor LOBO PEPE ([id number]) on 10/17/2017 1:59:36 PM Referred By: ZACARIAS Confirmed By:BRIGIDO ANGEL MD 10/17/17 1359 Date Brigido Angel MD CC: Jenna Young MD; Zackery Osman MD; Samuel Epps MD Signed EMERGENCY DEPARTMENT Observed: 10/17/2017 Status: F Source: [place] SUMMARY 2:06 AM [facility] REPOSITORY [facility] Medical Records Department [address] [place] [address] Emergency Department Summary 10/10/17 0521 MR#: [id number] Acct: [id number] Name: ANNELISE PAGE Rep #: [id number] : 1965 51 From: Eriberto Polanco MD PCP: Samuel Epps MD Status: DIS ERIC - ER Visit Summary Date of Service: 10/10/17 Chief Complaint: Abdominal pain History of Present Illness: The patient is a 51 F who is otherwise healthy presents to the emergency department with rather sudden onset abdominal pain. Patient was in her normal state of health. She woke suddenly just before 5 AM today with a sharp stabbing pain in her right back that radiates into her right groin. She has had multiple episodes of nausea and vomiting. The pain cannot recruit be re-created with any movement or palpation. She states she has never had pain like this before. She has had prior hysterectomy, but denies any history of kidney stone. She denies any fevers or chills. She denies any recent illness. She has had no urinary symptoms. She states she has never felt like this before. Physical Examination: Vital signs reviewed General: Well-nourished, well-developed Head: Normocephalic, atraumatic Eyes: Pupils equal and reactive, extraocular muscles intact Neck, supple, no lymphadenopathy Heart: Regular rate and rhythm Respiratory: No distress, clear bilaterally Abdomen: Soft, nontender, nondistended, no peritoneal signs Back: Mild right CVA tenderness Extremities: Nontender, no edema, no cords Skin: Normal color no rash Neuro: Alert and oriented, no focal or lateralizing deficits Test Results: [] Emergency Department Course and Treatment: The patient has signs and symptoms of her consistent with urolithiasis. She was nauseated with vomiting. She is a benign abdomen. IV was established. The patient was given analgesics and antiemetics with almost complete resolution of pain. Screening labs are obtained and are unremarkable. The patient underwent CT of abdomen and pelvis. She does have a 3 mm stone is seen at the [facility]. Patient did have return of pain. Her analgesics were redosed. She is much more comfortable. Urine is able to be obtained. It is currently pending. As long as the patient's pain can be controlled, I do feel that she would be safe for outpatient therapy. She currently is getting another dose of analgesics and will be observed. Patient will be signed out to oncoming physician for reevaluation. Treatment Plan: [] Disposition: [] Impression: 1. 3 mm right [facility] stone This note was generated with [employer] software. It may contain incorrect words, spelling, and punctuation that were not noted in review of the chart prior to signing <Eriberto Polanco - Last Filed: 10/10/17 06:49> - ER Visit Summary Date of Service: 10/10/17 Patient continued to have significant pain. She was given additional doses of morphine and Phenergan. She continues to be unable to tolerate the pain. Discussed with Dr. Corrigan for admission. Disposition: Admission Impression: Urolithiasis, intractable pain This note was generated with [employer] software. It may contain incorrect words, spelling, and punctuation that were not noted in review of the chart prior to signing <Jenna Young - Last Filed: 10/10/17 09:25> ED Disposition <Eriberto Polanco - Last Filed: 10/10/17 06:49> <Jenna Young - Last Filed: 10/10/17 09:25> - Plan for ED Patient: Chief Complaint: Abd Pain Instructions: ED Stone Renal W Colic Prescriptions: Hydrocodone Bitart/Apap 5-325 [Webster 5/325] 1 tab PO Q4H PRN PRN 3 Days #12 tab PRN Reason: Pain Ondansetron [Zofran Odt] 4 mg PO Q8H PRN PRN #10 tab PRN Reason: Nausea Referrals: Samuel Epps MD [Primary Care Provider] - What to do if you have Problems For any increased pain, shortness of breath, bleeding, nausea or vomiting, chest pain, or any unexpected problems, contact your Primary Care Provider. Call [facility] ([phone]) or report to the closest Emergency Room. Call 911 if necessary. 10/17/17 0043 <Electronically signed by Eriberto Polanco MD> Date Eriberto Polanco MD 10/17/17 0206<Electronically signed by Jenna Young MD> Cosigner Signature (If Indicated): Date Jenna Young MD CC: Samuel Epps MD DISCHARGE SUMMARY Observed: 10/15/2017 Status: F Source: [place] 9:01 [facility] Medical Records Department [address] [place] [address] Discharge Summary 10/15/17 0859 MR#: [id number] Acct: [id number] Name: ANNELISE PAGE Rep #: [id number] : 1965 51 From: Zackery Osman MD PCP: Samuel Epps MD Status: ADM ERIC Y Location: [place] [address] Discharge Date and Diagnosis - Problem List Patient Problems: Active and Suspected Problems Allergic reaction to contrast dye (Acute) Date of Admission: 10/14/17 Date of Discharge: 10/15/17 - Primary Discharge Diagnosis Active and Suspected Problems Allergic reaction to contrast dye (Acute) - Secondary Discharge Diagnosis Chronic Problems Right ureteral calculus (Chronic) Hydronephrosis, right (Chronic) Hospital Course and Treatment Imaging Results: Clinical Impression(s) from Imaging Studies Chest X-Ray 10/14/17 09:45 IMPRESSION: Suspicious discoid atelectasis in right lung base otherwise negative study. Electronically Signed: David Moffett MD at 10:20 EDT , Service support , Operations: - - Cystoscopy ureteroscopy on the right side. Summary of Care Provided: Patient is a 51-year-old lady presented with chest tightness did develop allergic reaction after receiving IV dye for CT of the chest 1. Allergic reaction to IV dye: Patient did receive epinephrine Benadryl as well as Solu-Medrol in the emergency department admitted to monitored bed for subsequent observation. Discharged on EpiPen, Benadryl prednisone and Pepcid and instructed her to follow-up with PCP within 2-3 days for referral to see an rn social services after a day of hospital stay per her request.. 2. Chest pain. Did order serial cardiac enzymes out PA patient instructed to follow-up PCP for stress test as an outpatient to be ordered 3. Nephrolithiasis with recent right ureteral stone with subsequent right-sided hydronephrosis for which patient underwent cystscopy, right retrograde pyelogram. right ureteroscopy, no stent on 10/11/2017 4. Hypothyroidism-patient is on levothyroxine home dose continued 5. GERD on PPI 6. DVT prophylaxis SC Lovenox Discharge Diet: No Restrictions Discharge Activity: Return to Normal Activity Return to work on:: 10/23/17 Home Medications: Medications to take at Discharge Levothyroxine [Synthroid] 100 mcg PO DAILY 02/13/17 Estradiol 1 mg PO DAILY 10/10/17 Isosorbide Mononitrate [Imdur] 90 mg PO DAILY 10/10/17 Omeprazole [Prilosec] 20 mg PO BID 10/10/17 Rizatriptan Benzoate [Rizatriptan] 10 mg PO PRN PRN 10/10/17 Sertraline HCl [Zoloft] 50 mg PO DAILY 10/10/17 DiphenhydrAMINE [Benadryl] 25 mg PO TID PRN PRN #30 cap 10/15/17 Epinephrine [Epi Pen] 0.3 mg IM X1 PRN #3 syringe 10/15/17 Famotidine [Pepcid] 20 mg PO BID #14 tab 10/15/17 Prednisone 20 mg PO BID #10 tab 10/15/17 Following Prescrptions Were Given to Patient: DiphenhydrAMINE [Benadryl] 25 mg PO TID PRN PRN #30 cap PRN Reason: Allergies Epinephrine [Epi Pen] 0.3 mg IM X1 PRN #3 syringe PRN Reason: Anaphylaxis Famotidine [Pepcid] 20 mg PO BID #14 tab Prednisone 20 mg PO BID #10 tab Primary Care Physician: Samuel Epps MD [Primary Care Provider] - Please follow up with your Primary Care Physician in: in 2- 3 days Disposition: Home Minutes spent on discharge:: 45 Patient Condition:: Stable Medical Necessity - Tobacco Use Smoking Status: Never smoker Meaningful Use Info Meaningful Use Diagnoses (Choose all that apply): None applicable Code Visit Inpatient E AND M: 31469 Disch Hosp 10/15/17 0901 <Electronically signed by Zackery Osman MD> Date Zackery Osman MD Cosigner Signature (if applicable): Date CC: Zackery Osman MD; Samuel Epps MD Signed DISCHARGE INSTRUCTION Observed: 10/15/2017 Status: F Source: [place] 8:59 AM [facility] REPOSITORY [facility] Medical Records Department [address] [place] [address] Instructions for Home/Discharge Instructions 10/15/17 0858 MR#: [id number] Acct: [id number] Name: ANNELISE PAGE Rep #: [id number] : 1965 51 From: Zackery Osman MD PCP: Samuel Epps MD Status: ADM ERIC - Discharge Diagnoses Current Active Problems: Current Active and Chronic Problems Allergic reaction to contrast dye (Acute) You will use the following diet at home:: No restrictions Discharge Activity: Return to Normal Activity Return to work on:: 10/23/17 Allergies/Adverse Reactions: Allergies Iodinated Contrast- Oral and IV Dye [CONTRASTS] Allergy (Severe, Verified 10/14/17 15:03) Angioedema w/ hives latex Allergy (Verified 02/13/17 08:35) Rash Sulfa (Sulfonamide Antibiotics) Allergy (Verified 02/13/17 08:35) Hives scopolamine Adverse Reaction (Verified 10/10/17 22:03) blurred vision, nausea Medications to take at Discharge Levothyroxine [Synthroid] 100 mcg PO DAILY 02/13/17 Estradiol 1 mg PO DAILY 10/10/17 Isosorbide Mononitrate [Imdur] 90 mg PO DAILY 10/10/17 Omeprazole [Prilosec] 20 mg PO BID 10/10/17 Rizatriptan Benzoate [Rizatriptan] 10 mg PO PRN PRN 10/10/17 Sertraline HCl [Zoloft] 50 mg PO DAILY 10/10/17 DiphenhydrAMINE [Benadryl] 25 mg PO TID PRN PRN #30 cap 10/15/17 Epinephrine [Epi Pen] 0.3 mg IM X1 PRN #3 syringe 10/15/17 Famotidine [Pepcid] 20 mg PO BID #14 tab 10/15/17 Prednisone 20 mg PO BID #10 tab 10/15/17 The following prescriptions were given: DiphenhydrAMINE [Benadryl] 25 mg PO TID PRN PRN #30 cap PRN Reason: Allergies Epinephrine [Epi Pen] 0.3 mg IM X1 PRN #3 syringe PRN Reason: Anaphylaxis Famotidine [Pepcid] 20 mg PO BID #14 tab Prednisone 20 mg PO BID #10 tab Primary Care Physician: Samuel Epps MD [Primary Care Provider] - Please follow up with your Primary Care Physician in: in 2- 3 days Proposed Discharge Date: 10/15/17 10/15/17 0859 <Electronically signed by Zackery Osman MD> Date Zackery Osman MD CC: Samuel Epps MD CBC-COMPLETE BLOOD CNT Collected: 10/15/2017 Status: F Source: JAMES NO DIFF 5:16 AM [facility] REPOSITORY TYPE CODE TESTS RESULT OUT OF RANGE REFERENCE UNITS LAB L100.1000 4.4-11.0 K/mm3 Normal WBC 8.2 LAB L100.1200 4.2-5.4 M/mm3 Low RBC 3.82 LAB L100.1300 12.0-15.0 g/dl Low HGB 11.7 LAB L100.1400 37-47 % Low HCT 34.4 LAB L100.1500 81-99 fL Normal MCV 90.1 LAB L100.1600 27.0-32.0 pg Normal MCH 30.6 LAB L100.1700 32-36 g/gl Normal MCHC 34.0 LAB L100.1810 11.6-14.6 % Normal RDW CV 13.1 LAB L100.1820 35.1-43.9 fl Normal RDW SD 42.2 LAB L100.1900 150-450 K/mm3 Normal PLT 186 LAB L100.2000 6.2-12.0 fl High MPV 12.1 Performed By: #### L100.0500 #### [facility] [address] [place], [address] BASIC METABOLIC Collected: 10/15/2017 Status: F Source: [place] PROFILE (BMP) 5:16 AM [facility] REPOSITORY TYPE CODE TESTS RESULT OUT OF RANGE REFERENCE UNITS LAB L501.0100 74-106 mg/dL High GLU 161 Result Comment: Fasting Glucose result greater than or equal to 126 mg/dL suggests DIABETES MELLITUS per A.D.A. criteria. Please note revised GLUCOSE reference range effective 2017. LAB L501.1000 7-18 mg/dL Normal BUN 12 LAB L501.1100 0.55-1.02 mg/dL Normal CREAT,SERUM 0.85 Result Comment: The validity of the calculated GFR AND GFRAA in patients over 70 years has not been determined. Clinical correlation is essential. LAB L501.1110 >60 mL/min Normal EST GFR 75 Result Comment: Non- GFR Calc LAB L501.1115 >60 mL/min Normal EST GFR - AA 90 Result Comment: GFR Calc LAB L501.1255 ml/min Normal Estimated CRCL 64.77 LAB L501.1300 10-20 RATIO Normal BUN/CRE 14.1 LAB L501.2200 8.5-10 mg/dL Low .1 CA 8.4 LAB L501.5300 136-14 mmol/L High 5 NA 147 LAB L501.5600 3.5-5. mmol/L Normal 1 K 3.6 LAB L501.5900 98-107 mmol/L High CL 113 LAB L501.6100 21.0-3 mmol/L Normal 2.0 CO2 25.0 LAB L501.6200 5-15 Normal GAP 9 Performed By: #### L500.2500, L501.5200 #### [facility] [address] [facility] [address] MAGNESIUM Collected: 10/15/2017 Status: F Source: [place] 5:16 AM [facility] REPOSITORY TYPE CODE TESTS RESULT OUT OF RANGE REFERENCE UNITS LAB L501.5200 1.6-2.6 mg/dL Normal MG 1.9 Performed By: #### L500.2500, L501.5200 #### [facility] [address] [facility] [address] TROPONIN-I Collected: 10/15/2017 Status: F Source: [place] 12:15 AM [facility] REPOSITORY Order Comment: 'TROP' Serial specimen #1, #2, #3, or #4: 4 TYPE CODE TESTS RESULT OUT OF RANGE REFERENCE UNITS LAB L501.4010 <0.06 ng/mL Normal < 0.02 TROPONIN-I Result Comment: TROPONIN-I EXPECTED VALUES <0.05 NEGATIVE 0.06 - 0.59 AT RISK OF PA > OR = 0.60 SUGGEST PA Performed By: #### L501.4010 #### [facility] [address] [facility] [address] TROPONIN-I Collected: 10/14/2017 Status: F Source: [place] 3:10 PM [facility] REPOSITORY Order Comment: 'TROP' Serial specimen #1, #2, #3, or #4: 2 TYPE CODE TESTS RESULT OUT OF RANGE REFERENCE UNITS LAB L501.4010 <0.06 ng/mL Normal < 0.02 TROPONIN-I Result Comment: TROPONIN-I EXPECTED VALUES <0.05 NEGATIVE 0.06 - 0.59 AT RISK OF PA > OR = 0.60 SUGGEST PA Performed By: #### L501.4010 #### [facility] [address] [facility] [address] EMERGENCY DEPARTMENT Observed: 10/14/2017 Status: F Source: [place] SUMMARY 3:03 PM [facility] REPOSITORY [facility] Medical Records Department [address] [place] [address] Emergency Department Summary 10/14/17 0947 MR#: [id number] Acct: [id number] Name: ANNELISE PAGE Rep #: [id number] : 1965 51 From: Jenna Young MD PCP: Samuel Epps MD Status: ADM ERIC - ER Visit Summary Date of Service: 10/14/17 Chief Complaint: Shortness of breath, chest pressure History of Present Illness: The patient is a 51 F presents with shortness of breath and intermittent chest pressure. She states that she was admitted to the hospital on Monday for a kidney stone. She states the stone passed on its own after surgical intervention. She was sent home on Cipro and hydrocodone. She states she returned a few hours later with hives. She was switched from hydrocodone to Toradol and cipro was stopped. She was given 1 dose of prednisone in the ED. She was not sent home with steroids or antibiotics. She states when she returned home her hives returned. She had sensation of tongue swelling. This improved with Benadryl. Today she noted shortness of breath and facial swelling. The facial swelling has since improved. Denies any tongue swelling today. Her flank pain has resolved. Physical Examination: Vitals are stable. Patient is afebrile. Alert no acute distress. HEENT exam is unremarkable. No tongue swelling. No pharyngeal edema. Neck is supple. Lungs are clear and equal bilaterally. Heart is regular rate and rhythm. Abdomen is soft nontender nondistended. Extremities are unremarkable. Skin is warm and dry. No rash. No focal neurologic deficit. Remainder of exam is unremarkable. Emergency Department Course and Treatment: Patient given aspirin, Solu-Medrol IV, zofran IV. EKG is sinus bradycardia rate of 51. Chest x-ray shows discoid atelectasis. CBC, chemistries unremarkable other than BUN 19. Troponin is negative. D- dimer is elevated. CTA chest shows no CTA evidence of pulmonary thromboemboli, thoracic aortic aneurysm or thoracic aortic dissection. Subpleural and subsegmental atelectases in the right peripheral lung base. Moderate right posterior pleural fluid and minimal left posterior pleural fluid. When patient returned from CTA she again developed hives. She was given Benadryl due to possible contrast reaction. She did have contrast during her cystscopy, right retrograde pyelogram on Monday. She continued to have worsening redness and swelling of her face. She was given Epi IM with improvement. Will discuss with hospitalist for observation for her intermittent chest pressure. Disposition: Observation Impression: Chest pain, allergic reaction This note was generated with [employer] dictation software. It may contain incorrect words, spelling, and punctuation that were not noted in review of the chart prior to signing ED Disposition - Plan for ED Patient: Disposition: Acute Care Hospital [facility] Chief Complaint: Shortness of Breath What to do if you have Problems For any increased pain, shortness of breath, bleeding, nausea or vomiting, chest pain, or any unexpected problems, contact your Primary Care Provider. Call [facility] ([phone]) or report to the closest Emergency Room. Call 911 if necessary. 10/14/17 1503 <Electronically signed by Jenna Young MD> Date Jenna Young MD Cosigner Signature (If Indicated): Date CC: Samuel Epps MD HISTORY AND PHYSICAL Observed: 10/14/2017 Status: F Source: [place] EXAM 2:12 PM [facility] REPOSITORY [facility] Medical Records Department [address] [place] [address] History and Physical 10/14/17 1255 MR#: [id number] Acct: [id number] Name: ANNELISE PAGE Rep #: [id number] : 1965 51 From: Zackery Osman MD PCP: Samuel Epps MD Status: ADM ERIC Y Location: [place] [address] Problem List (1) Allergic reaction to contrast dye Status: Acute (2) Hydronephrosis, right Status: Chronic (3) Right ureteral calculus Status: Chronic History of Present Illness Date of Admission: 10/14/17 Chief Complaint: Chest tightness The patient is a 51 year old F who was recently on admission for 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 right ureteroscopy, no stent was discharged home on Cipro was seen 3 hours after the procedure with shortness of breath as well as rash. It was felt patient was having an allergic reaction to the ciprofloxacin and this was discontinued discharge on Keflex. Patient apparently did receive some IV dye during the procedure return to the emergency department 3 days later with chest tightness and shortness of breath. D-dimer obtained as part of her evaluation came back positive patient underwent CTA of the chest again with contrast following which patient developed more hives as well as facial swelling and some breathing. She did receive epinephrine injection, Benadryl and Solu-Medrol and subsequently admitted to a monitored bed for further management Past Medical History Past Medical History (Chronic Problems): Chronic Problems Right ureteral calculus (Chronic) Hydronephrosis, right (Chronic) Allergies latex Allergy (Verified 02/13/17 08:35) Rash Sulfa (Sulfonamide Antibiotics) Allergy (Verified 02/13/17 08:35) Hives scopolamine Adverse Reaction (Verified 10/10/17 22:03) blurred vision, nausea Home Medications: Ambulatory Orders Medication Instructions Recorded Levothyroxine [Synthroid] 100 mcg PO DAILY 02/13/17 Surgical History: appendectomy, hysterectomy Psychiatric History: Anxiety FLIGHT INSPECTOR History: No pertinent FLIGHT INSPECTOR history Smoking Status: Never smoker - *Family History Maternal History Items: No pertinent history Review of Systems Constitutional: Denies: Anorexia, Chills, Fever, Night Sweats, Weight Change HEENT: Denies: Head Aches, Sinus Congestion, Sinus Drainage Cardiovascular: Denies: Orthopnea, Palpitations Respiratory: Reports: Shortness of Breath. Denies: Cough Gastrointestinal: Denies: Abdominal Pain, Hematemesis, Hematochezia, Nausea, Melena, Vomiting Genitourinary: Denies: Dysuria, Frequency, Hematuria, Urgency Musculoskeletal: Denies: Joint Pain, Joint Tenderness Skin: Reports: Rash Neurological: Denies: Focal weakness, Numbness, Tingling Psychiatric: Denies: Homicidal Ideations, Suicidal Ideations Hematologic/ Lymphatic: Denies: Easy Bruising, Easy Bleeding VTE Information - Inpt Only VTE Present on Admission: No VTE Mechan Device Prophylaxis: Knee High FLORENCE Hose VTE Pharm Prophylaxis ordered?: Yes Patient Problems: Active and Suspected Problems Allergic reaction to contrast dye (Acute) Objective: GENERAL: cooperative HEENT: Edema and erythema involving almost the entire face NECK; supple, normal thyroid, CHEST: Clear to auscultation bilaterally, HEART: Regular S1 S2, no audible murmurs ABDOMEN: soft, non-tender, normoactive bowel sounds, RECTAL: deferred EXTREMITIES: No edema, no clubbing, no cyanosis. GLOBAL PROGRAM DIRECTOR: Awake, no lateralizing signs. SKIN: As described above - Physical Exam Vital Signs Temp Pulse Resp BP Pulse Ox 98.4 F 58 L 16 137/80 H 99 10/14/17 09:31 10/14/17 09:31 10/14/17 09:31 10/14/17 09:31 10/14/17 10:22 Oxygen Delivery Method Room Air Weight: 72.575 kg Body Mass Index (BMI) 28.3 Laboratory Tests Past 24 Hrs WBC 4.5 RBC 4.17 L Hgb 12.6 Hct 37.2 MCV 89.2 MCH 30.2 MCHC 33.9 RDW 13.0 RDW Differential 42.1 WBC RBC Hgb Assessment/Plan Active and Suspected Problems Allergic reaction to contrast dye (Acute) Patient is a 51-year-old lady presented with chest tightness did develop allergic reaction after receiving IV dye for CT of the chest 1. Allergic reaction to IV dye: Patient did receive epinephrine Benadryl as well as Solu-Medrol in the emergency department admitted to monitored bed for subsequent observation 2. Chest pain. Did order serial cardiac enzymes if PA is ruled out plan is for patient undergo a nuclear stress test as outpatient 3. Nephrolithiasis with recent right ureteral stone with subsequent right-sided hydronephrosis for which patient underwent cystscopy, right retrograde pyelogram. right ureteroscopy, no stent on 10/11/2017 4. Hypothyroidism-patient is on levothyroxine home dose continued 5. GERD on PPI 6. DVT prophylaxis SC Lovenox Code Visit OBSV E AND M: [id number] Initial observation care L3 10/14/17 1412 <Electronically signed by Zackery Osman MD> Date [facility]ack[facility] Signature: Date (if applicable) CC: Zackery Osman MD; Samuel Epps MD Signed CTA CHEST W/WO Observed: 10/14/2017 Status: F Source: JAMES CONTRAST 11:14 AM [facility] REPOSITORY [facility] Imaging Services [address] [place] [address] CTA Chest W/WO Contrast MR#: [id number] Acct: [id number] Name: ANNELISE PAGE Rep #: [id number] : 1965 F 51 From: David Moffett MD PCP: Samuel Epps MD Status: REG ER Study: CTA Chest W/WO Contrast Date of Exam: 10/14/17 Exam# [id number] Ordering Dr: Jenna Young MD STUDY: CTA CHEST REASON FOR EXAM: Female, 51 years old. Elevated d-dimer. Shortness of breath x2 days. Hives and facial swelling (? Medication reaction). Recent cystoscopy and kidney stone removal. RADIATION DOSAGE (If Supplied By Facility): CTDIvol = ( 17.85 ) mGy, DLP = ( 305.23 ) mGycm TECHNIQUE: The examination was performed with the intravenous administration of 75mL ml of Isovue 370 contrast material. Post-processing of the angiographic images was performed, with multiplanar reformation and MIP reconstruction. Individualized dose optimization techniques were used for this CT. COMPARISON: None. FINDINGS: Normal enhancement of the main pulmonary artery and right and left pulmonary arteries. Normal enhancement of the bilateral peripheral pulmonary arteries. There is no demonstrated pulmonary embolism. Normal thoracic aorta and visualized great vessels. There is no demonstrated aortic dissection. Normal heart and pericardium. Normal mediastinum. Normal hilar regions. Normal visualized trachea and bronchi. The lungs are well expanded. Subpleural and subsegmental atelectasis in the right peripheral lung base. No suspicious pulmonary nodules. Moderate right posterior pleural fluid. Minimal left posterior pleural fluid. Normal chest wall structures. Normal osseous structures. Normal visualized upper abdomen. CT/CTA Chest W/WO Contrast IMPRESSION: 1. No CTA evidence of pulmonary thromboemboli, thoracic aortic aneurysm or thoracic aortic dissection. 2. Subpleural and subsegmental atelectases in the right peripheral lung base. 3. Moderate right posterior pleural fluid and minimal left posterior pleural fluid. Electronically Signed: David Moffett MD at 12:04 EDT , Service support , CC: Jenna Young MD; Samuel Epps MD Glass Worker: Signed URINALYSIS, COMPLETE Collected: 10/14/2017 Status: F Source: JAMES 10:50 AM [facility] REPOSITORY Order Comment: Has pt arrived? Y How was Urine Obtained? STORAGE WORKER TO SPECIFY TYPE CODE TESTS RESULT OUT OF RANGE REFERENCE UNITS LAB L400.3000 Yellow COLOR Normal Yellow LAB L400.3050 Clear Normal CLARITY Clear LAB L400.3200 Normal mg/dl Normal GLUCOSE, UR Normal LAB L400.3300 Negative mg/dL Normal BILIRUBIN URINE Negative LAB L400.3400 Negative mg/dl High 5 KETONE UR LAB L400.3465 1.002-1.030 Normal SP.GR. DIPSTX 1.010 LAB L400.3550 5.0 - 8.0 pH UR Normal 7.0 LAB L400.3600 Negative mg/dl High PROT 15 DIPSTX LAB L400.3700 Normal mg/dl Normal UROBILI Normal LAB L400.3750 Negative Normal NITRITE UR Negative LAB L400.3780 Negative /ul High OCCULT BLOOD-UR 150 LAB L400.3800 Negative /ul LEUK Normal ESTERASE Negative LAB L400.4050 0-5 /hpf WBC 0 Normal SEEN LAB L400.4100 0-5 /hpf Normal RBC-UA 0-5 SEEN LAB L400.4150 5-10 /hpf SQUAM Normal EPI 0-5 SEEN LAB L400.4300 None Seen /hpf 0 Normal BACTERIA SEEN LAB L400.4350 <or=2+ /hpf 0 Normal MUCUS, URINE SEEN Performed By: #### L400.0001 #### [facility] [address] [place], [address] D-DIMER QUANTITATIVE Collected: 10/14/2017 Status: F Source: JAMES (DVT/PE) 10:20 AM [facility] REPOSITORY Order Comment: REDRAW. PREVIOUS SPECIMEN REJECTED DUE TO HEMOLYSIS. 10/14/17 1009 Mary Victoria. TYPE CODE TESTS RESULT OUT OF RANGE REFERENCE UNITS LAB L300.8000 0.27-0.49 FEU/ug/m High alert D-DIMER 5.65 QUANT Result Comment: D-Dimer ELEVATED (>0.49): Additional studies and clinical assessments are indicated to conclude diagnosis of: Deep Vein Thrombosis (DVT) or Pulmonary Embolism (PE) CRITICAL VALUE VERIFIED. CALLED TO CAMILA BLAKE 10/14/17 1113 Mary Victoria. RESULTS READ BACK BY SAME . Performed By: #### L300.8000 #### [facility] [address] [place], [address] CBC W/DIFF, AUTOMATED Collected: 10/14/2017 Status: F Source: JAMES 9:55 AM [facility] REPOSITORY TYPE CODE TESTS RESULT OUT OF RANGE REFERENCE UNITS LAB L100.1000 4.4-11.0 K/mm3 Normal WBC 4.5 LAB L100.1200 4.2-5.4 M/mm3 Low RBC 4.17 LAB L100.1300 12.0-15.0 g/dl Normal HGB 12.6 LAB L100.1400 37-47 % Normal HCT 37.2 LAB L100.1500 81-99 fL Normal MCV 89.2 LAB L100.1600 27.0-32.0 pg Normal MCH 30.2 LAB L100.1700 32-36 g/gl Normal MCHC 33.9 LAB L100.1810 11.6-14.6 % Normal RDW CV 13.0 LAB L100.1820 35.1-43.9 fl Normal RDW SD 42.1 LAB L100.1900 150-450 K/mm3 Normal PLT 192 LAB L100.2000 6.2-12.0 fl Normal MPV 11.3 LAB L100.2100 47-70 % Normal NEUT% 63.5 LAB L100.2200 19-41 % Normal LY% 22.2 LAB L100.2300 0-10 % Normal MONO% 9.8 LAB L100.2400 0-5 % Normal EO% 3.8 LAB L100.2500 0-1 % Normal BASO% 0.7 LAB L100.2550 0.0-0.9 % Normal IM GRAN % 0.000 Result Comment: IG% - Immature Granulocytes (promyelocytes, myelocytes and metamyelocytes) > 1% indicates that a LEFT SHIFT is Present. LAB L100.2620 2.0-7.7 X10 3/uL Normal Absolute Neut 2.9 LAB L100.2720 0.83-4.51 X10 3/ul Normal Absolute Lymph 1.00 Performed By: #### L100.0100 #### [facility] [address] [place], [address] BASIC METABOLIC Collected: 10/14/2017 Status: F Source: [place] PROFILE (BMP) 9:55 AM [facility] REPOSITORY Order Comment: 'TROP' Serial specimen #1, #2, #3, or #4: 1 TYPE CODE TESTS RESULT OUT OF RANGE REFERENCE UNITS LAB L501.0100 74-106 mg/dL Normal GLU 85 Result Comment: Please note revised GLUCOSE reference range effective 2017. LAB L501.1000 7-18 mg/dL High BUN 19 LAB L501.1100 0.55-1.02 mg/dL Normal CREAT,SERUM 1.00 Result Comment: The validity of the calculated GFR AND GFRAA in patients over 70 years has not been determined. Clinical correlation is essential. LAB L501.1110 >60 mL/min Normal EST GFR 62 Result Comment: Non- GFR Calc LAB L501.1115 >60 mL/min Normal EST GFR - AA 75 Result Comment: GFR Calc LAB L501.1255 ml/min Normal Estimated CRCL 55.06 LAB L501.1300 10-20 RATIO Normal BUN/CRE 19.1 LAB L501.2200 8.5-10 mg/dL Normal .1 CA 8.5 LAB L501.5300 136-14 mmol/L Normal 5 NA 145 LAB L501.5600 3.5-5. mmol/L Normal 1 K 3.7 LAB L501.5900 98-107 mmol/L High CL 112 LAB L501.6100 21.0-3 mmol/L Normal 2.0 CO2 26.0 LAB L501.6200 5-15 Normal GAP 7 Performed By: #### L500.2500, L501.4010 #### [facility] [address] [facility] [place], [address] TROPONIN-I Collected: 10/14/2017 Status: F Source: [place] SALLE 9:55 AM [facility] REPOSITORY Order Comment: 'TROP' Serial specimen #1, #2, #3, or #4: 1 TYPE CODE TESTS RESULT OUT OF RANGE REFERENCE UNITS LAB L501.4010 <0.06 ng/mL Normal < 0.02 TROPONIN-I Result Comment: TROPONIN-I EXPECTED VALUES <0.05 NEGATIVE 0.06 - 0.59 AT RISK OF PA > OR = 0.60 SUGGEST PA Performed By: #### L500.2500, L501.4010 #### [facility] [address] [facility] [place], [address] CHEST 1 VIEW Observed: 10/14/2017 Status: F Source: [place] SALLE (PORTABLE) 9:46 AM [facility] REPOSITORY [facility] Imaging Services [address] [place] [address] Chest 1 View (Portable) MR#: [id number] Acct: [id number] Name: ANNELISE PAGE Gaby Rep #: [id number] : 1965 F 51 From: David Moffett MD PCP: Samuel Epps MD Status: REG ER Study: Chest 1 View (Portable) Date of Exam: 10/14/17 Exam# [id number] Ordering Dr: Jenna Young MD STUDY: X-RAY CHEST REASON FOR EXAM: Female, 51 years old. Chest pain. TECHNIQUE: AP upright portable view. COMPARISON: None. FINDINGS: Mild elevation of the right hemidiaphragm. Suspicious discoid atelectasis in right lung base. No suspicious confluent infiltrates. No suspicious pulmonary nodules. There is no demonstrated pleural abnormality. Normal size heart. Normal mediastinum and pamela. Normal visualized pulmonary arteries. Normal visualized aortic arch and descending thoracic aorta. Normal visualized thoracic spine. Normal visualized ribs, clavicles, and shoulders. There is no demonstrated abnormality of the visualized soft tissue structures of the upper abdomen. RAD/Chest 1 View (Portable) IMPRESSION: Suspicious discoid atelectasis in right lung base otherwise negative study. Electronically Signed: David Moffett MD at 10:20 EDT , Service support , CC: Jenna Young MD; Samuel Epps MD Glass Worker: Signed EMERGENCY DEPARTMENT Observed: 10/13/2017 Status: F Source: LA SALLE SUMMARY 12:34 AM [facility] REPOSITORY [facility] Medical Records Department [address] [place] [address] Emergency Department Summary 10/12/17 1529 MR#: [id number] Acct: [id number] Name: ANNELISE PAGE Rep #: [id number] : 1965 51 From: Samuel Flores MD PCP: Samuel Epps MD Status: DEP ER - ER Visit Summary Date of Service: 10/12/17 Chief Complaint: Rash with itching suspect secondary allergic reaction History of Present Illness: The patient is a 51 F history of anxiety, hypothyroidism, esophageal spasms and recent kidney stone. Patient was hospitalized with [facility] had a cystoscopy done by Dr. Enoc anand of urology they did not see the stone. They did not need to place a stent. She was started on hydrocodone and Cipro and after taking a dose several hours later today he got itching to both hands and rash and hives on her right flank. She has had a similar reaction before to sulfa but she is not on that medication currently. She denies any other symptoms. No wheezing. No tongue or lip swelling. Physical Examination: Well-appearing middle-age female. Vital signs are stable afebrile. H EENT exam unremarkable. No trouble breathing or swallowing. Neck nontender. No lymphadenopathy. Lungs clear to auscultation bilaterally. Heart regular rate and rhythm no murmur. Abdomen soft nontender. Moving all 4 extremities. Her hands are minimally swollen. With a slight nondescript rash also hives along her right lateral chest wall. Consistent with allergic reaction. There is no sloughing of skin. There is no petechiae or purpura. There is no involvement of the oral mucosal surfaces. Neurologic exam unremarkable. Test Results: None Emergency Department Course and Treatment: This does appear to be hives and secondary allergic reaction. I explained to both her and her that I did not know the source it was most likely either the Cipro and hydrocodone could be some no since she was exposed to her 1 of her other medications. We will stop both his medications. Treatment Plan: Treated with 1 dose of prednisone here. Started on Toradol for pain. And Keflex for 5 days the same length of time she was supposed to be on the Cipro. Disposition: Discharge Impression: Acute high secondary to suspected allergic reaction to medication This note was generated with [employer] dictation software. It may contain incorrect words, spelling, and punctuation that were not noted in review of the chart prior to signing ED Disposition - Plan for ED Patient: Chief Complaint: Allergic Reaction Referrals: Samuel Epps MD [Primary Care Provider] - What to do if you have Problems For any increased pain, shortness of breath, bleeding, nausea or vomiting, chest pain, or any unexpected problems, contact your Primary Care Provider. Call [facility] ([phone]) or report to the closest Emergency Room. Call 911 if necessary. 10/13/17 0034 <Electronically signed by Samuel Flores MD> Date Samuel Flores MD Cosigner Signature (If Indicated): Date CC: Samuel Epps MD DISCHARGE INSTRUCTION Observed: 10/13/2017 Status: F Source: [place] 12:34 AM [facility] REPOSITORY [facility] Medical Records Department [address] [place] [address] Discharge Instruction 10/12/17 1532 MR#: [id number] Acct: [id number] Name: SHANTHI PAGEMichelle Griffin Rep #: [id number] : 1965 51 From: Samuel Flores MD PCP: Samuel Epps MD Status: DEP ER ED Disposition - Plan for ED Patient: Disposition: Home or Assisted Living Chief Complaint: Allergic Reaction Instructions: ED Drug React Allergic Prescriptions: Cephalexin [Keflex] 250 mg PO Q6 #20 cap Ketorolac [Toradol] 10 mg PO Q4H #14 tab Referrals: Samuel Epps MD [Primary Care Provider] - As Needed Rajinder Corrigan MD [STAFF PHYSICIAN] - As Needed Additional Instructions: Benadryl for rash and itching. Stop both the Cipro (antibiotic) and the hydrocodone. Start the Toradol for pain as needed. And the Keflex as an antibiotic. What to do if you have Problems For any increased pain, shortness of breath, bleeding, nausea or vomiting, chest pain, or any unexpected problems, contact your Primary Care Provider. Call [facility] ([phone]) or report to the closest Emergency Room. Call 911 if necessary. 10/13/17 0034 <Electronically signed by Samuel Flores MD> Date Samuel Flores MD Cosigner Signature (If Indicated): Date CC: Samuel Epps MD DISCHARGE SUMMARY Observed: 10/12/2017 Status: F Source: [place] 7:23 AM [facility] REPOSITORY [facility] Medical Records Department [address] [place] [address] Discharge Summary 10/12/17 0722 MR#: [id number] Acct: [id number] Name: ANNELISE PAGE Rep #: [id number] : 1965 51 From: Rajinder Corrigan MD PCP: Samuel Epps MD Status: ADM ERIC Y Location: VT3 [id number] Discharge Date and Diagnosis - Problem List Patient Problems: Active and Suspected Problems Right ureteral calculus (Acute) Hydronephrosis, right (Acute) Date of Admission: 10/10/17 Date of Discharge: 10/12/17 - Primary Discharge Diagnosis Active and Suspected Problems Right ureteral calculus (Acute) Hydronephrosis, right (Acute) Hospital Course and Treatment Operations: - - Cystoscopy ureteroscopy on the right side. Procedures: None Summary of Care Provided: The patient is a 51 year old she required multiple doses of medication and morphine female with a stone in the distal right ureter causing severe pain and was admitted from the emergency room. Took the patient to surgery yesterday and the stone had passed completed ureteroscopy. Patient has fairly low pain tolerance after the procedure was fairly painful also stayed another night but fortunately this morning she is feeling better pain is much less and she is really ready to go home. She will go home today with pain medicine and antibiotics and was instructed to give my office a call for follow-up appointment. Discharge Diet: Light diet - advance as tolerated Discharge Activity: May not drive while taking narcotic pain medications. Call your doctor if you observe: Fever of 101 or Higher, Uncontrolled pain Suture Line Care: Avoid Pulling/Pushing, Avoid Pinching/Bending Home Medications: Medications to take at Discharge Levothyroxine [Synthroid] 100 mcg PO DAILY 02/13/17 Estradiol [Estradiol] 1 mg PO DAILY 10/10/17 Isosorbide Mononitrate [Imdur] 60 mg PO DAILY 10/10/17 Omeprazole [Prilosec] 20 mg PO BID 10/10/17 Ondansetron [Zofran Odt] 4 mg PO Q8H PRN PRN #10 tab 10/10/17 Rizatriptan Benzoate [Rizatriptan] 10 mg PO PRN 10/10/17 Sertraline HCl [Zoloft] 25 mg PO DAILY 10/10/17 Ciprofloxacin [Cipro] 500 mg PO BID #10 tab 10/11/17 Hydrocodone/Acetaminophen [Webster 5-325 Tablet] 1 ea PO Q4H PRN PRN 7 Days #14 tab 10/11/17 Following Prescrptions Were Given to Patient: Hydrocodone/Acetaminophen [Webster 5-325 Tablet] 1 ea PO Q4H PRN PRN 7 Days #14 tab PRN Reason: Pain Ondansetron [Zofran Odt] 4 mg PO Q8H PRN PRN #10 tab PRN Reason: Nausea Ciprofloxacin [Cipro] 500 mg PO BID #10 tab Primary Care Physician: Samuel Epps MD [Primary Care Provider] - Please Follow Up With: Rajinder Corrigan MD When: please call to make an appointment. Patient Instructions: ED Stone Renal W Colic Medical Necessity - Tobacco Use Smoking Status: Never smoker Tobacco Use: Non-smoker Meaningful Use Info Meaningful Use Diagnoses (Choose all that apply): None applicable 10/12/17722 <Electronically signed by Rajindre Corrigan MD> Date Rajinder Corrigan MD Cosigner Signature (if applicable): Date CC: Samuel Epps MD; Rajinder Corrigan MD Signed OPERATIVE REPORT Observed: 10/11/2017 Status: F Source: [place] 3:21 PM [facility] REPOSITORY [facility] Medical Records Department [address] [place] [address] Operative Report 10/11/17 1517 MR#: [id number] Acct: [id number] Name: ANNELISE PAGE Rep #: [id number] : 1965 51 From: Rajinder Corrigan MD PCP: Samuel Epps MD Status: ADM ERIC Y [id number] Problem List (1) Right ureteral calculus Status: Acute (2) Hydronephrosis, right Status: Acute Report of Operation Date of Procedure: 10/11/17 Pre-Operative Diagnosis: right ureteral calculi causing severe pain and obstruction Post-Operative Diagnosis: same Surgery/Procedure Performed:: cystscopy, right retrograde pyelogram. right ureteroscopy, no stent Description of Surgical Findings:: 51-year-old female who presented to the hospital in severe pain from a very small stone in the distal ureter required multiple doses of morphine had to be admitted to the hospital she was kept overnight by the following morning was still having some pain and strain in the urine we never saw the stone so today we are going to take her to surgery for ureteroscopy and possible extraction of stone possible stent explained to the patient's possible she may pass a small stone hopefully we will have a put a stent in. 51-year-old female with a stone in the distal ureter she underwent general anesthesia and then went into the bladder with a 21 Turkmen rigid cystourethroscope in the bladder I saw that the right ureteral orifice was fairly inflamed and irritated rest of the bladder was normal no cyst tumors or stones seen within the bladder I think cannulated the distal ureteral orifice with a wire advanced a wire of the kidney did a retrograde pyelogram could not see the stone on retrograde pyelogram I then over the wire with a SlimLine ureteroscope was able to get in the distal ureter atraumatically and there is no stone in the distal ureter the ureter to get the wire and watch the ureter ureter was effluxing urine and contrast fairly easily. Appear that past the stone probably just having residual pain. The bladder was drained no stent was placed patient's anesthetic was reversed plan to see her in the office in a week or 2 for follow-up. Type of Anesthesia:: General Drains: none - Admit VTE Documentation VTE Present on Admission: No VTE Mechan Device Prophylaxis: SCD's VTE Pharm Prophylaxis ordered?: No Reason prophylaxis not ordered:: Treatment Not Indicated 10/11/17 1521 <Electronically signed by Rajinder Corrigan MD> Date Rajinder Corrigan MD CC: Samuel Epps MD; Rajinder Corrigan MD Signed DISCHARGE INSTRUCTION Observed: 10/11/2017 Status: F Source: [place] 2:45 PM [facility] REPOSITORY [facility] Medical Records Department [address] [place] [address] Instructions for Home/Discharge Instructions 10/11/17 1444 MR#: [id number] Acct: [id number] Name: ANNELISE PAGE Rep #: [id number] : 1965 51 From: Rajinder Corrigan MD PCP: Samuel Epps MD Status: ADM ERIC Discharge Diet: Light diet - advance as tolerated Discharge Activity: May not drive while taking narcotic pain medications. Call your doctor if you observe: Fever of 101 or Higher, Uncontrolled pain Suture Line Care: Avoid Pulling/Pushing, Avoid Pinching/Bending Instructions: ED Stone Renal W Colic Allergies/Adverse Reactions: Allergies latex Allergy (Verified 02/13/17 08:35) Rash Sulfa (Sulfonamide Antibiotics) Allergy (Verified 02/13/17 08:35) Hives scopolamine Adverse Reaction (Verified 10/10/17 22:03) blurred vision, nausea Medications to take at Discharge Levothyroxine [Synthroid] 100 mcg PO DAILY 02/13/17 Estradiol [Estradiol] 1 mg PO DAILY 10/10/17 Isosorbide Mononitrate [Imdur] 60 mg PO DAILY 10/10/17 Omeprazole [Prilosec] 20 mg PO BID 10/10/17 Ondansetron [Zofran Odt] 4 mg PO Q8H PRN PRN #10 tab 10/10/17 Rizatriptan Benzoate [Rizatriptan] 10 mg PO PRN 10/10/17 Sertraline HCl [Zoloft] 25 mg PO DAILY 10/10/17 Ciprofloxacin [Cipro] 500 mg PO BID #10 tab 10/11/17 Hydrocodone/Acetaminophen [Webster 5-325 Tablet] 1 ea PO Q4H PRN PRN 7 Days #14 tab 10/11/17 The following prescriptions were given: Hydrocodone/Acetaminophen [Webster 5-325 Tablet] 1 ea PO Q4H PRN PRN 7 Days #14 tab PRN Reason: Pain Ondansetron [Zofran Odt] 4 mg PO Q8H PRN PRN #10 tab PRN Reason: Nausea Ciprofloxacin [Cipro] 500 mg PO BID #10 tab Primary Care Physician: Samuel Epps MD [Primary Care Provider] - Please Follow Up With: Raijnder Corrigan MD When: please call to make an appointment. 10/11/17 1445 <Electronically signed by Rajinder Corrigan MD> Date Rajinder Corrigan MD CC: Samuel Epps MD HISTORY AND PHYSICAL Observed: 10/10/2017 Status: F Source: [place] EXAM 8:48 PM [facility] REPOSITORY [facility] Medical Records Department [address] [place] [address] History and Physical 10/10/172044 MR#: [id number] Acct: [id number] Name: ANNELISE PAGE Rep #: [id number] : 1965 51 From: Rajinder Corrigan MD PCP: Samuel Epps MD Status: ADM ERIC Y Location: [place] [address] Problem List (1) Right ureteral calculus Status: Acute (2) Hydronephrosis, right Status: Acute History of Present Illness Date of Admission: 10/10/17 Chief Complaint: Right severe flank pain The patient is a 51 year old female who presented to the emergency room with severe flank pain nausea vomiting the pain started suddenly she had a CT scan done that demonstrated a very small stone in the distal ureterovesical junction. Pain is been very difficult to control she required morphine and increase of doses of morphine was admitted to the hospital but is severe pain. In reviewing the CAT scan I think she may have a stone in the distal right ureter about 3 mm in size. Given her severe pain probably will proceed with intervention tomorrow unless the pain resolves. 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 Denies: Nausea, Vomiting Genitourinary: Denies: Dysuria Musculoskeletal: Denies: Joint Pain, Joint Tenderness Skin: Denies: Rash, Wounds Neurological: Denies: Numbness, Tingling, Focal weakness Psychiatric: Reports: Anxiety. Denies: Depression, Homicidal Ideations, Suicidal Ideations Hematologic/ Lymphatic: Denies: Easy Bruising, Easy Bleeding VTE Information - Inpt Only VTE Present on Admission: No VTE Mechan Device Prophylaxis: SCD's Patient Problems: Active and Suspected Problems Right ureteral calculus (Acute) Hydronephrosis, right (Acute) - Physical Exam General: Alert, Oriented x3, Cooperative HEENT: Atraumatic, PERRLA, EOMI, Normocephalic Neck: Supple, No JVD, Negative Carotid Bruits Lungs: Clear to auscultation, Normal air movement Cardiovascular: Regular rate, No murmurs Abdomen: Bowel Sounds Present, Soft, Non Tender Extremities: No edema, Capillary Refill Less than 3 Seconds Skin: No rashes, No breakdown Musculoskeletal: No Tenderness to Palpation of Joints or Extremities Neurological: Cranial nerves II-XII grossly intact Psych/Mental Status: Normal Affect, Appropriate Vital Signs Temp Pulse Resp BP Pulse Ox 98.0 F 73 16 103/56 L 95 10/10/17 16:27 10/10/17 16:27 10/10/17 16:27 10/10/17 16:27 10/10/17 16:27 Oxygen Delivery Method Room Air Weight: 74.4 kg Body Mass Index (BMI) 29.0 Intake and Output for Last 24 Hours Output Total 100 / 100 Balance -100 / -100 Assessment/Plan Active and Suspected Problems Right ureteral calculus (Acute) Hydronephrosis, right (Acute) Admitted for pain control for a very small stone in the distal right ureter at onto the surgery for tomorrow for right ureteroscopy extraction stone retrograde and stent 10/10/172047 <Electronically signed by Rajinder Corrigan MD> Date Rajinder Corrigan MD Cosigner Signature: Date (if applicable) CC: Samuel Epps MD; Rajinder Corrigan MD Signed URINALYSIS, COMPLETE Collected: 10/10/2017 Status: F Source: [place] 6:33 AM [facility] REPOSITORY Order Comment: Order Date: 10/10/17 How was Urine Obtained? CLEAN CATCH TYPE CODE TESTS RESULT OUT OF RANGE REFERENCE UNITS LAB L400.4050 0-5 /hpf WBC 0 Normal SEEN LAB L400.4100 0-5 /hpf Normal RBC-UA 5-10 SEEN LAB L400.4150 5-10 /hpf SQUAM Normal EPI 5-10 SEEN LAB L400.4300 None Seen /hpf 0 Normal BACTERIA SEEN LAB L400.4350 <or=2+ /hpf 0 Normal MUCUS, URINE SEEN LAB L400.3000 Yellow COLOR Normal Yellow LAB L400.3050 Clear Normal CLARITY Clear LAB L400.3200 Normal mg/dl Normal GLUCOSE, UR Normal LAB L400.3300 Negative mg/dL Normal BILIRUBIN URINE Negative LAB L400.3400 Negative mg/dl High 15 KETONE UR LAB L400.3465 1.002-1.030 Normal SP.GR. DIPSTX 1.020 LAB L400.3550 5.0 - 8.0 pH UR Normal 6.0 LAB L400.3600 Negative mg/dl High PROT 15 DIPSTX LAB L400.3700 Normal mg/dl Normal UROBILI Normal LAB L400.3750 Negative Normal NITRITE UR Negative LAB L400.3780 Negative /ul High OCCULT BLOOD-UR 150 LAB L400.3800 Negative /ul LEUK Normal ESTERASE Negative Performed By: #### L400.0001 #### [facility] [address] [facility] [place], [place], [address] ABDOMEN/PELVIS WITHOUT Observed: 10/10/2017 Status: F Source: [place] CONT 5:19 AM [facility] REPOSITORY [facility] Imaging Services [address] [place] [address] Abdomen/Pelvis without Cont MR#: [id number] Acct: [id number] Name: ANNELISE PAGE Rep #: [id number] : 1965 F 51 From: Renata Pepe MD PCP: Samuel Epps MD Status: REG Study: Abdomen/Pelvis without Cont Date of Exam: 10/10/17 Exam# [id number] Ordering Dr: Eriberto Polanco MD STUDY: CT ABDOMEN AND PELVIS WITHOUT CONTRAST REASON FOR EXAM: Female, 51 years old. Right-sided abdominal pain. RADIATION DOSAGE (If Supplied By Facility): CTDIvol = ( 9.35 ) mGy, DLP = ( 478.81 ) mGycm TECHNIQUE: Transaxial images were obtained from the dome of the diaphragm to the symphysis pubis without oral contrast, and without intravenous contrast. Sagittal and coronal images were reconstructed. Individualized dose optimization techniques were used for this CT. COMPARISON: Prior comparison studies are not available for review at this time. FINDINGS: The visualized lung bases are unremarkable. The visualized portions of the heart are within normal limits. Normal liver. Normal gallbladder and extrahepatic biliary system. Normal spleen. There is diffuse atrophy of the pancreas. Normal bilateral adrenal glands. There is a moderate right-sided hydronephrosis and hydroureter secondary to distal ureteral calculus at the ureterovesical junction measuring approximately 3 mm. Normal left kidney. Normal visualized stomach. There is no evidence for dilated bowel, ascites or pneumoperitoneum. Small bowel has a grossly normal appearance. Stool is visible throughout the colon with scattered diverticula. There are surgical clips in the region of the appendix consistent with a prior appendectomy. Normal abdominal aorta. Normal inferior vena cava. Normal retroperitoneum. Normal urinary bladder. There is absence of the uterus consistent with a prior hysterectomy. There is a small umbilical hernia containing fat. Normal osseous structures. CT/Abdomen/Pelvis without Cont IMPRESSION: Right-sided hydronephrosis and hydroureter secondary to distal ureteral calculus. Electronically Signed: Renata Pepe MD at 5:58 EDT , Service support , CC: Samuel Epps MD; Eriberto Polanco MD Glass Worker: Signed CBC W/DIFF, AUTOMATED Collected: 10/10/2017 Status: F Source: [place] 5:15 AM [facility] REPOSITORY TYPE CODE TESTS RESULT OUT OF RANGE REFERENCE UNITS LAB L100.1000 4.4-11.0 K/mm3 Normal WBC 7.4 LAB L100.1200 4.2-5.4 M/mm3 Normal RBC 4.96 LAB L100.1300 12.0-15.0 g/dl High HGB 15.1 LAB L100.1400 37-47 % Normal HCT 43.7 LAB L100.1500 81-99 fL Normal MCV 88.1 LAB L100.1600 27.0-32.0 pg Normal MCH 30.4 LAB L100.1700 32-36 g/gl Normal MCHC 34.6 LAB L100.1810 11.6-14.6 % Normal RDW CV 13.0 LAB L100.1820 35.1-43.9 fl Normal RDW SD 41.8 LAB L100.1900 150-450 K/mm3 Normal PLT 259 LAB L100.2000 6.2-12.0 fl Normal MPV 10.7 LAB L100.2100 47-70 % Normal NEUT% 51.0 LAB L100.2200 19-41 % Normal LY% 34.1 LAB L100.2300 0-10 % High MONO% 10.4 LAB L100.2400 0-5 % Normal EO% 3.9 LAB L100.2500 0-1 % Normal BASO% 0.5 LAB L100.2550 0.0-0.9 % Normal IM GRAN % 0.100 Result Comment: IG% - Immature Granulocytes (promyelocytes, myelocytes and metamyelocytes) > 1% indicates that a LEFT SHIFT is Present. LAB L100.2620 2.0-7.7 X10 3/uL Normal Absolute Neut 3.8 LAB L100.2720 0.83-4.51 X10 3/ul Normal Absolute Lymph 2.53 Performed By: #### L100.0100 #### [facility] [place], [address] BASIC METABOLIC Collected: 10/10/2017 Status: F Source: [place] PROFILE (BMP) 5:15 AM [facility] REPOSITORY TYPE CODE TESTS RESULT OUT OF RANGE REFERENCE UNITS LAB L501.0100 74-106 mg/dL High GLU 116 Result Comment: Fasting Glucose result from 100 to 125 mg/dL suggests IMPAIRED HOMEOSTASIS per A.D.A. criteria. Please note revised GLUCOSE reference range effective 2017. LAB L501.1000 7-18 mg/dL High BUN 24 LAB L501.1100 0.55-1.02 mg/dL High CREAT,SERUM 1.15 Result Comment: The validity of the calculated GFR AND GFRAA in patients over 70 years has not been determined. Clinical correlation is essential. LAB L501.1110 >60 mL/min Low EST GFR 53 Result Comment: Non- GFR Calc LAB L501.1115 >60 mL/min Normal EST GFR - AA 64 Result Comment: GFR Calc LAB L501.1255 ml/min Normal Estimated CRCL 47.88 LAB L501.1300 10-20 RATIO High BUN/CRE 20.9 LAB L501.2200 8.5-10 mg/dL Normal .1 CA 8.7 LAB L501.5300 136-14 mmol/L Normal 5 NA 143 LAB L501.5600 3.5-5. mmol/L Normal 1 K 4.4 Result Comment: Moderate Hemolysis, Result may be falsely increased. LAB L501.5900 98-107 mmol/L Normal CL 106 LAB L501.6100 21.0-32.0 mmol/L Normal CO2 25.0 LAB L501.6200 5-15 Normal GAP 12 Performed By: #### L500.2500 #### [facility] [address] [place], [place], [address] THYROID STIM HORMONE Collected: 10/10/2017 Status: F Source: [place] (TSH) 5:15 AM [facility] REPOSITORY TYPE CODE TESTS RESULT OUT OF RANGE REFERENCE UNITS LAB L501.9520 0.358-3.74 uIU/mL High TSH 4.77 Performed By: #### L501.9520 #### [facility] [address] [place], [place], [address] PROGRESS Observed: 10/04/2017 Status: COMPLETED Source: [place] 6:42 PM [facility] REPOSITORY HNO ID: [id number] Author: Samuel Epps Service: (none) Author Type: Physician Type: Progress Notes Filed: 10/04/2017 10:25 PM Note Text: Chief Complaint Patient presents with: Recheck: 2 months HPI Annelise Page is a 51 year old female who presents here today for Above Complaints.. Patient has had improvement with the Imdur and instead of having the chest pain every day it's 2-3 days a week. Did have scope by Dr. Steele and has a small hiatal hernia and biopsy pos Pollack's without dysplasia. Was told to stay on the omeprazole. Did see Neuro and feels she has migraines causing the headache and vision blurring but not seizures. Has been doing the Mg, fish oil, B2 and water and she has had minimal migrnes and if she does they do not last as long. With husbands low back pain has caused her stress to be increased and not sleeping as well and having some mild like panic symptoms. Otherwise has been doing ok and happy her chest pain is improved. Past medical history, appointments, medications, allergies reviewed. Previous Medical History PAST MEDICAL HISTORY Diagnosis Date - Abnormal EEG 05/06/2017 Saw neuro and not felt ot be seizures. - Pollack's esophagus determined by biopsy 08/30/2017 - Pollack's esophagus without dysplasia 10/04/[address] Steele - Hallux valgus (acquired) 04/06/2009 - Herpes 08/05/2015 GETS OUTBREAKS ON NOSE - Hypothyroidism 04/02/2009 - Migraine without aura and without status migrainosus, not intractable 08/05/2015 - migraines Headaches - Mitral valve prolapse - Pain in Soft Tissues of Limb 04/06/2009 - Post menopausal syndrome 08/05/2015 Previous Surgical History PAST SURGICAL HISTORY Procedure Laterality Date - 2D ECHO (EXEP) 03/06/2017 EF=60%, mild TR and Pulm HTN - APPENDECTOMY - EGD W/O BRSH SPECIMEN W/BX 08/30/2017 Pollack's esophagus without dysplasia - FECAL OCCULT BLOOD TEST 01/21/2017 negative - G-ESOPH REFLX TST W/ELECTROD 08/30/2017 - KNEE SCOPE,DIAGNOSTIC 2005 Arthroscopy, knee right - REMOVAL OF TONSILS,<12 Y/O Tonsillectomy - TOTAL ABDOM HYSTERECTOMY 2004 Hysterectomy, [place] Family History FAMILY HISTORY Problem Relation Age of Onset - dementia [OTHER] Mother - Stroke Father - Colon Cancer Maternal Grandfather - Alzheimer's Disease Maternal Grandfather - Stroke Paternal Grandmother Patient Allergies ALLERGIES Allergen Reactions - Latex Rash, Itching Latex band-aids - Sulfa [Sulfa (Sulfo* Hives - Topamax [Topiramate] Other: See Comments Made her extremely depressed. Current Medications Current Outpatient Prescriptions on File Prior to Visit: estradiol (ESTRACE) 1 mg tablet Take 1 tablet by mouth once daily. isosorbide mononitrate ER (IMDUR) 60 mg 24 hr tablet Take 1 tablet by mouth once daily. Omeprazole 40 mg capsule TAKE 1 CAPSULE TWICE DAILY acyclovir (ZOVIRAX) 400 mg tablet Take 1 tablet by mouth three times daily. sertraline (ZOLOFT) 25 mg tablet Take 1/2 a tab by mouth for 14 days then go to one a day. rizatriptan (MAXALT) 10 mg tablet Take one tablet at onset of headache and may repeat every 2 hours as needed up to 3 tabs in 24 hours levothyroxine (SYNTHROID) 100 mcg tablet Take 1 tablet by mouth once daily. acyclovir (ZOVIRAX) 5 % crea Apply 1 application to affected area five times daily. No current facility-administered medications on file prior to visit. Social History Social History Marital status: Spouse name: Christopher Years of education: Number of children: 2 Social History Main Topics Smoking status: Never Smoker Smokeless status: Never Used Alcohol use: No Drug use: No Sexual activity: Yes Partners with: Male control/protection: Surgical Review of Symptoms REVIEW OF SYSTEMS See HPI EXAM: BP 122/84 (BP Site: Right Arm, BP Position: Sitting, BP Cuff Size: Large Adult) Pulse 60 Resp 22 Ht 160 cm (5' 3) Wt 73.5 kg (162 lb) BMI 28.7 kg/m2 Last 8 Encounter BP Readings: Date: BP: 10/04/2017 122/84 09/27/2017 134/78 08/02/2017 122/80 07/06/2017 103/70 06/27/2017 124/72 06/07/2017 147/68 06/01/2017 112/82 04/26/2017 124/78 General Appearance: Well appearing, alert, in no acute distress, well-hydrated, well nourished.. Neck: Supple, no adenopathy; thyroid symmetric, normal size, no bruits. Lungs: Lungs clear to auscultation. No wheezing, rhonchi, rales. Heart: RRR without murmur, gallop, or rubs. No ectopy. Abdomen: Normal abdominal exam, Abdomen soft, non-tender. Bowel sounds normal. No masses, organomegaly. Health Maintenance List FECAL OCCULT BLOOD due on 01/20/2018 MAMMOGRAM due on 05/29/2018 DIABETES SCREEN due on 01/06/2020 LIPID SCREEN due on 01/05/2022 TETANUS due on 01/17/2027 INFLUENZA Completed Data reviewed A/P ASSESSMENT/PLAN: 1. Esophageal spasm - ICD9: 530.5, ICD10: K22.4 (primary diagnosis) - Will adjust ISOSORBIDE MONONITRATE ER 60 MG TABLET,EXTENDED RELEASE 24 HR to 1.5 tabs a day 2. Pollack's esophagus without dysplasia - ICD9: 530.85, ICD10: K22.70 - Patient to continue the omeprazole 40 mg once a day and cont f/u with Dr. Steele. 3. JORGE (generalized anxiety disorder) - ICD9: 300.02, ICD10: F41.1 - Increase SERTRALINE to 50 MG TABLET a day 4. Gastroesophageal reflux disease without esophagitis - ICD9: 530.81, ICD10: K21.9 - Continue treatment with Prilosec 40 mg QD 5. Migraine without aura and without status migrainosus, not intractable - ICD9: 346.10, ICD10: G43.009 - cont the fish oil, B2, Mg and water. 6. Screening for colon cancer - ICD9: V76.51, ICD10: Z12.11 - CONSULT TO GENERAL SURGERY: Dr. Steele 7. Family history of colon cancer - ICD9: V16.0, ICD10: Z80.0 - CONSULT TO GENERAL SURGERY F/u in 4 months WAE check TSH, FLP, FBS and A1c prior. Time with patient face to face was 30 min Samuel Epps MD CNOV Observed: 10/04/2017 Status: COMPLETED Source: [place] 4:40 PM [facility] REPOSITORY Office Visit ([facility]) ANNELISE PAGE ([id number]) 1965 F Date Time Provider Department 10/04/17 4:40 PM SAMUEL EPPS During your visit today, we recorded the following information about you: Pulse Respiration Blood pressure Weight 60/minute 22/minute 122/84 73.5 kg Height 1.6 m Samuel Epps MD 10/04/2017 10:25 PM Signed Chief Complaint Patient presents with: Recheck: 2 months HPI Annelise Page is a 51 year old female who presents here today for Above Complaints.. Patient has had improvement with the Imdur and instead of having the chest pain every day it's 2-3 days a week. Did have scope by Dr. Steele and has a small hiatal hernia and biopsy pos Pollack's without dysplasia. Was told to stay on the omeprazole. Did see Neuro and feels she has migraines causing the headache and vision blurring but not seizures. Has been doing the Mg, fish oil, B2 and water and she has had minimal migrnes and if she does they do not last as long. With husbands low back pain has caused her stress to be increased and not sleeping as well and having some mild like panic symptoms. Otherwise has been doing ok and happy her chest pain is improved. Past medical history, appointments, medications, allergies reviewed. Previous Medical History PAST MEDICAL HISTORY Diagnosis Date - Abnormal EEG 05/06/2017 Saw neuro and not felt ot be seizures. - Pollack's esophagus determined by biopsy 08/30/2017 - Pollack's esophagus without dysplasia 10/04/[address] Steele - Hallux valgus (acquired) 04/06/2009 - Herpes 08/05/2015 GETS OUTBREAKS ON NOSE - Hypothyroidism 04/02/2009 - Migraine without aura and without status migrainosus, not intractable 08/05/2015 - migraines Headaches - Mitral valve prolapse - Pain in Soft Tissues of Limb 04/06/2009 - Post menopausal syndrome 08/05/2015 Previous Surgical History PAST SURGICAL HISTORY Procedure Laterality Date - 2D ECHO (EXEP) 03/06/2017 EF=60%, mild TR and Pulm HTN - APPENDECTOMY - EGD W/O BRSH SPECIMEN W/BX 08/30/2017 Pollack's esophagus without dysplasia - FECAL OCCULT BLOOD TEST 01/21/2017 negative - G-ESOPH REFLX TST W/ELECTROD 08/30/2017 - KNEE SCOPE,DIAGNOSTIC 2006 Arthroscopy, knee right - REMOVAL OF TONSILS,ANDlt;12 Y/O Tonsillectomy - TOTAL ABDOM HYSTERECTOMY 2004 Hysterectomy, MILAGRO Family History FAMILY HISTORY Problem Relation Age of Onset - dementia [OTHER] Mother - Stroke Father - Colon Cancer Maternal Grandfather - Alzheimer's Disease Maternal Grandfather - Stroke Paternal Grandmother Patient Allergies ALLERGIES Allergen Reactions - Latex Rash, Itching Latex band-aids - Sulfa [Sulfa (Sulfo* Hives - Topamax [Topiramate] Other: See Comments Made her extremely depressed. Current Medications Current Outpatient Prescriptions on File Prior to Visit: estradiol (ESTRACE) 1 mg tablet Take 1 tablet by mouth once daily. isosorbide mononitrate ER (IMDUR) 60 mg 24 hr tablet Take 1 tablet by mouth once daily. Omeprazole 40 mg capsule TAKE 1 CAPSULE TWICE DAILY acyclovir (ZOVIRAX) 400 mg tablet Take 1 tablet by mouth three times daily. sertraline (ZOLOFT) 25 mg tablet Take 1/2 a tab by mouth for 14 days then go to one a day. rizatriptan (MAXALT) 10 mg tablet Take one tablet at onset of headache and may repeat every 2 hours as needed up to 3 tabs in 24 hours levothyroxine (SYNTHROID) 100 mcg tablet Take 1 tablet by mouth once daily. acyclovir (ZOVIRAX) 5 % crea Apply 1 application to affected area five times daily. No current facility-administered medications on file prior to visit. Social History Social History Marital status: Spouse name: Christopher Years of education: Number of children: 2 Social History Main Topics Smoking status: Never Smoker Smokeless status: Never Used Alcohol use: No Drug use: No Sexual activity: Yes Partners with: Male control/protection: Surgical Review of Symptoms REVIEW OF SYSTEMS See HPI EXAM: BP 122/84 (BP Site: Right Arm, BP Position: Sitting, BP Cuff Size: Large Adult) Pulse 60 Resp 22 Ht 160 cm (5' 3ANDquot;) Wt 73.5 kg (162 lb) BMI 28.7 kg/m2 Last 8 Encounter BP Readings: Date: BP: 10/04/2017 122/84 09/27/2017 134/78 08/02/2017 122/80 07/06/2017 103/70 06/27/2017 124/72 06/07/2017 147/68 06/01/2017 112/82 04/26/2017 124/78 General Appearance: Well appearing, alert, in no acute distress, well-hydrated, well nourished.. Neck: Supple, no adenopathy; thyroid symmetric, normal size, no bruits. Lungs: Lungs clear to auscultation. No wheezing, rhonchi, rales. Heart: RRR without murmur, gallop, or rubs. No ectopy. Abdomen: Normal abdominal exam, Abdomen soft, non-tender. Bowel sounds normal. No masses, organomegaly. Health Maintenance List FECAL OCCULT BLOOD due on 01/20/2018 MAMMOGRAM due on 05/29/2018 DIABETES SCREEN due on 01/06/2020 LIPID SCREEN due on 01/05/2022 TETANUS due on 01/17/2027 INFLUENZA Completed Data reviewed A/P ASSESSMENT/PLAN: 1. Esophageal spasm - ICD9: 530.5, ICD10: K22.4 (primary diagnosis) - Will adjust ISOSORBIDE MONONITRATE ER 60 MG TABLET,EXTENDED RELEASE 24 HR to 1.5 tabs a day 2. Pollack's esophagus without dysplasia - ICD9: 530.85, ICD10: K22.70 - Patient to continue the omeprazole 40 mg once a day and cont f/u with Dr. Steele. 3. JORGE (generalized anxiety disorder) - ICD9: 300.02, ICD10: F41.1 - Increase SERTRALINE to 50 MG TABLET a day 4. Gastroesophageal reflux disease without esophagitis - ICD9: 530.81, ICD10: K21.9 - Continue treatment with Prilosec 40 mg QD 5. Migraine without aura and without status migrainosus, not intractable - ICD9: 346.10, ICD10: G43.009 - cont the fish oil, B2, Mg and water. 6. Screening for colon cancer - ICD9: V76.51, ICD10: Z12.11 - CONSULT TO GENERAL SURGERY: Dr. Steele 7. Family history of colon cancer - ICD9: V16.0, ICD10: Z80.0 - CONSULT TO GENERAL SURGERY F/u in 4 months WAE check TSH, FLP, FBS and A1c prior. Time with patient face to face was 30 min MD Samuel John MD 10/04/2017 7:03 PM Signed Please get fasting labs on or after 01/26/2018 prior to next visit. Referring Provider: SAMUEL EPPS [[id number]] Allergies As of Date: 10/04/2017 Noted Allergy Reaction LATEX 01/26/2012 2 - Rash 9 - Itching Comments: Latex band-aids SULFA (SULFA (SULFONAMIDE ANTIBIO*01/07/2009 4 - Hives TOPAMAX (TOPIRAMATE) 06/01/2017 14 - Other: See Comments Comments: Made her extremely depressed. Date Reviewed: 10/04/2017 Reviewed by: Samuel Epps - Fully Assessed Reason for Visit: Recheck [92] Cmt: 2 months Primary Visit Diagnosis:Esophageal spasm [K22.4] Other Visit Diagnoses:Pollack's esophagus without dysplasia [K22.70] JORGE (generalized anxiety disorder) [F41.1] Gastroesophageal reflux disease without esophagitis [K21.9] Migraine without aura and without status migrainosus, not intractable [G43.009] Screening for colon cancer [Z12.11] Family history of colon cancer [Z80.0] Encounter for screening for diabetes mellitus [Z13.1] Encounter for screening for cardiovascular disorders [Z13.6] Hypothyroidism (acquired) [E03.9] Order(s):sertraline (ZOLOFT) 50 mg tabletTake 1 tablet by mouth once daily.Disp: 90 tabletRfl: 1 CONSULT TO GENERAL SURGERY [9011] Order #: [id number]: 1 isosorbide mononitrate ER (IMDUR) 60 mg 24 hr tabletTake 1.5 tablets by mouth once daily.Disp: 135 tabletRfl: 5 LIPID PANEL BASIC [SQLIPB] Order #: [id number] FUTURE HGB A1C [TOICA9A] Order #: [id number] FUTURE GLUCOSE FASTING BLD [SQGLF] Order #: [id number] FUTURE TSH BLD [SQTSH] Order #: [id number] FUTURE Prescriptions as of 10/04/2017 Sig: SERTRALINE 50 MG TABLET Take 1 tablet by mouth once d* ISOSORBIDE MONONITRATE ER 60 * Take 1.5 tablets by mouth onc* ESTRADIOL 1 MG TABLET Take 1 tablet by mouth once d* OMEPRAZOLE 40 MG CAPSULE,URBAN* TAKE 1 CAPSULE TWICE DAILY ACYCLOVIR 400 MG TABLET Take 1 tablet by mouth three * RIZATRIPTAN 10 MG TABLET Take one tablet at onset of h* LEVOTHYROXINE 100 MCG TABLET Take 1 tablet by mouth once d* ACYCLOVIR 5 % TOPICAL CREAM Apply 1 application to affect* Problem List As Of Date 10/04/2017 Noted Resolved Hypothyroidism (acquired) [E03.9] INVALID FOR* Priority: A Hallux valgus (acquired) [M20.10] INVALID FOR* Priority: D Migraine without aura and without status migrai*INVALID FOR* Priority: A Herpes [B00.9] INVALID FOR* Priority: E More... Post menopausal syndrome [N95.1] INVALID FOR* Priority: B Mitral valve prolapse [I34.1] Priority: B Thyroid goiter [E04.9] INVALID FOR* Priority: B More... Encounter for gynecological examination without*INVALID FOR* Priority: E More... Bilateral fibrocystic breast disease (FCBD) [N6*INVALID FOR* Priority: C Allergic rhinitis [J30.9] INVALID FOR* Priority: B More... Family history of colon cancer [Z80.0] INVALID FOR* Priority: F Gastroesophageal reflux disease without esophag*INVALID FOR* Priority: A Encounter for screening for diabetes mellitus [*INVALID FOR* Encounter for screening for cardiovascular diso*INVALID FOR* More... Hiatal hernia [K44.9] INVALID FOR* Priority: B More... Well adult exam [Z00.00] INVALID FOR* Priority: E More... 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 Visual disturbance [H53.9] INVALID FOR*10/04/2017 Abnormal EEG [R94.01] INVALID FOR* Priority: B More... Esophageal spasm [K22.4] INVALID FOR* Priority: A More... Pollack's esophagus without dysplasia [K22.70] INVALID FOR* Priority: A More... Other instructions from your clinician: Please get fasting labs on or after 01/26/2018 prior to next visit. Prescriptions ordered this encounter Disp Refills Start End SERTRALINE 50 MG TABLET 90 t* 1 10/04/2017 Route: ORAL Sig: Take 1 tablet by mouth once daily. ISOSORBIDE MONONITRATE ER 60 MG TABL* 135 * 5 10/04/2017 Route: ORAL Sig: Take 1.5 tablets by mouth once daily. Medications Discontinued During This Encounter Ranitidine HCl (ZANTAC) 300 mg tablet 90 t* 1 09/01/2016 10/04/2017 Route: ORAL Sig: Take 1 tablet by mouth daily before lunch. Disc: Clinical Decision sertraline (ZOLOFT) 25 mg tablet 90 t* 1 06/23/2017 10/04/2017 Sig: Take 1/2 a tab by mouth for 14 days then go to one a day. Disc: Reason for discontinue is not on file. isosorbide mononitrate ER (IMDUR) 60* 30 t* 5 08/02/2017 10/04/2017 Route: ORAL Sig: Take 1 tablet by mouth once daily. Disc: Reason for discontinue is not on file. Disposition: Return in about 4 months (around 02/03/2018) for complete PE. Follow-up and Disposition History Recorded Encounter Status:Closed by SAMUEL EPPS on 10/04/17 PROGRESS Observed: 09/27/2017 Status: COMPLETED Source: [place] 4:48 PM [facility] REPOSITORY HNO ID: [id number] Author: Christopher Rios Service: (none) Author Type: Physician Type: Progress Notes Filed: 09/27/2017 4:51 PM Note Text: Mrs. Page presents today for follow-up from recent studies. She is doing better. She was placed on Imdur to help with her esophageal dysmotility improved her symptoms. Her dickson pH probe was normal. EGD did show small hiatal hernia. Biopsies were consistent with Pollack's esophagus. The meaning of Pollack's esophagus was discussed with her in detail. Assessment: GERD. Pollack's esophagus without dysplasia. Esophageal dysmotility. Plan: Continue Imdur. Continue PPI. Follow-up in one year for repeat EGD to follow her Pollack's esophagus. Call sooner with any problems or issues. She was agreeable. CNOV Observed: 09/27/2017 Status: COMPLETED Source: [place] 2:30 PM [facility] REPOSITORY Office Visit ([facility]) ANNELISE PAGE ([id number]) 1965 F Date Time Provider Department 09/27/17 2:30 PM CHRISTOPHER RIOS [facility] During your visit today, we recorded the following information about you: Pulse Blood pressure Weight Height 55/minute 134/78 73 kg 1.6 m Nicolás Hart RN 09/27/2017 3:18 PM Signed Patient is currently not taking any proton pump inhibitors or H2 blockers, Imdur has helped her esophageal spasms. Nicolás Rios MD 09/27/2017 4:51 PM Signed Mrs. Page presents today for follow-up from recent studies. She is doing better. She was placed on Imdur to help with her esophageal dysmotility improved her symptoms. Her dickson pH probe was normal. EGD did show small hiatal hernia. Biopsies were consistent with Pollack's esophagus. The meaning of Pollack's esophagus was discussed with her in detail. Assessment: GERD. Pollack's esophagus without dysplasia. Esophageal dysmotility. Plan: Continue Imdur. Continue PPI. Follow-up in one year for repeat EGD to follow her Pollack's esophagus. Call sooner with any problems or issues. She was agreeable. Referring Provider: SAMUEL EPPS [[id number]] Allergies As of Date: 09/27/2017 Noted Allergy Reaction LATEX 01/26/2012 2 - Rash 9 - Itching Comments: Latex band-aids SULFA (SULFA (SULFONAMIDE ANTIBIO*01/07/2009 4 - Hives TOPAMAX (TOPIRAMATE) 06/01/2017 14 - Other: See Comments Comments: Made her extremely depressed. Date Reviewed: 09/27/2017 Reviewed by: Christopher Rios - Fully Assessed Reason for Visit: Follow Up [171] Cmt: EGD, DICKSON Reason For Visit History Recorded Primary Visit Diagnosis:Pollack's esophagus without dysplasia [K22.70] Other Visit Diagnoses:Hiatal hernia [K44.9] Esophageal spasm [K22.4] Prescriptions as of 09/27/2017 Sig: ESTRADIOL 1 MG TABLET Take 1 tablet by mouth once d* ISOSORBIDE MONONITRATE ER 60 * Take 1 tablet by mouth once d* ACYCLOVIR 400 MG TABLET Take 1 tablet by mouth three * SERTRALINE 25 MG TABLET Take 1/2 a tab by mouth for 1* RIZATRIPTAN 10 MG TABLET Take one tablet at onset of h* ACYCLOVIR 5 % TOPICAL CREAM Apply 1 application to affect* LEVOTHYROXINE 100 MCG TABLET Take 1 tablet by mouth once d* OMEPRAZOLE 40 MG CAPSULE,URBAN* TAKE 1 CAPSULE TWICE DAILY RANITIDINE 300 MG TABLET Take 1 tablet by mouth daily * Medication notes this encounter OMEPRAZOLE 40 MG CAPSULE,DELAYED RELEASE >> Nicolás Hart RN 09/27/2017 2:20 PM >> NICOLÁS HART MonSep 27, 2017 2:20 PM Not taking RANITIDINE 300 MG TABLET >> Nicolás Hart RN 09/27/2017 2:20 PM >> NICOLÁS HART MonSep 27, 2017 2:20 PM Not taking Problem List As Of Date 09/27/2017 Noted Resolved Hypothyroidism (acquired) [E03.9] INVALID FOR* Priority: A Hallux valgus (acquired) [M20.10] INVALID FOR* Priority: D Migraine without aura and without status migrai*INVALID FOR* Priority: A Herpes [B00.9] INVALID FOR* Priority: E More... Post menopausal syndrome [N95.1] INVALID FOR* Priority: B Mitral valve prolapse [I34.1] Priority: B Thyroid goiter [E04.9] INVALID FOR* Priority: B More... Encounter for gynecological examination without*INVALID FOR* Priority: E More... Bilateral fibrocystic breast disease (FCBD) [N6*INVALID FOR* Priority: C Allergic rhinitis [J30.9] INVALID FOR* Priority: B More... Family history of colon cancer [Z80.0] INVALID FOR* Priority: F Gastroesophageal reflux disease without esophag*INVALID FOR* Priority: A Epigastric pain [R10.13] INVALID FOR* Encounter for screening for diabetes mellitus [*INVALID FOR* Encounter for screening for cardiovascular diso*INVALID FOR* Esophageal dysmotility [K22.4] INVALID FOR* Priority: B More... Hiatal hernia [K44.9] INVALID FOR* Priority: B More... Well adult exam [Z00.00] INVALID FOR* Priority: E More... 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 Near syncope [R55] INVALID FOR* Temporal headache [R51] INVALID FOR* Shaking [R25.1] INVALID FOR* Dizziness [R42] INVALID FOR* Visual disturbance [H53.9] INVALID FOR* Abnormal EEG [R94.01] INVALID FOR* Esophageal spasm [K22.4] INVALID FOR* Gastroesophageal reflux disease [K21.9] INVALID FOR* More... Visit Notes: >> Nicolás Hart RN MonSep 27, 2017 2:24 PM Status: Signed Patient is currently not taking any proton pump inhibitors or H2 blockers, Imdur has helped her esophageal spasms. Nicolás Hart RN Disposition: Return in about 1 year (around 09/27/2018). Follow-up and Disposition History Recorded Questionnaire: AG GERD HEALTH RELATED QUALITY OF LIFE 1. How bad is the heartburn? -> 1 Noticeable/not bothersome 2. Heartburn when lying down? -> 1 Noticeable/not bothersome 3. Heartburn when standing up? -> 1 Noticeable/not bothersome 4. Heartburn after meals? -> 1 Noticeable/not bothersome 5. Does heartburn change your diet? -> 0 No Symptoms 6. Does heartburn wake you from sleep? -> 1 Noticeable/not bothersome 7. Do you have difficulty swallowing -> 1 Noticeable/not bothersome 8. Do you have pain with swallowing? -> 1 Noticeable/not bothersome 9. If you take medication, does this affect your daily life? -> 0 No Symptoms 10. How bad is the regurgitation? -> 3 Bothersome daily 11. Regurgitation when lying down? -> 4 Affect daily activity 12. Regurgitation when standing up? -> 3 Bothersome daily 13. Regurgitation after meals? -> 3 Bothersome daily 14. Does regurgitation change your diet? -> 4 Affect daily activity 15. Does regurgitation wake you from sleep? -> 3 Bothersome daily TOTAL - HEARTBURN 1-9 -> 7 TOTAL - REGURG 10-15 -> 20 Total -> 27 16. How satisfied are you with your present condition -> Neutral Letter Text Encounter Status:Closed by STAR VEGA, CHRISTOPHER Beckwith on 09/27/17 ANES POST Observed: 08/30/2017 Status: COMPLETED Source: [place] 10:20 AM [facility] REPOSITORY O ID: [id number] Author: Sukhdeep Robertson Service: Anesthesiology Author Type: Physician Type: Anesthesia PostOp Filed: 08/30/2017 11:36 AM Note Text: POST ANESTHESIA EVALUATION NOTE SERVICE DATE: 08/30/2017 SERVICE TIME: 11:36 AM : 1965 Vitals: 08/30/17827 Temp: 36.2 ?C (97.2 ?F) 08/30/17 0828 08/30/17 0830 08/30/17 0945 08/30/17 09 BP: 121/66 117/70 120/68 103/70 08/30/17 0828 08/30/17 0830 08/30/17 0945 08/30/17 09 Pulse: 74 72 98 84 08/30/17 0828 08/30/17 0830 08/30/17 0945 08/30/1752 Resp: 16 15 20 18 08/30/17 0828 08/30/17 0830 08/30/17 0945 08/30/17 09 SpO2: 100% 100% 98% 98% Validated Vital Signs: Yes POST ANES STATUS: No apparent anesthetic complications. The patient is appropriately hydrated with stable respiratory and cardiovascular status. Patient has safe and adequate airway control. The patient has appropriate pain relief and no significant post operative nausea or vomiting. The patient has achieved baseline mental status. Further assessment by Anesthesia Service: None Other Remarks: SIGNATURE: Sukhdeep Robertson MD PATIENT NAME: Annelise Page DATE: August 30, 2017 TIME: 11:36 AM PAGER/CONTACT #: [phone] PT ED Observed: 08/30/2017 Status: COMPLETED Source: [place] 10:00 AM [facility] REPOSITORY HNO ID: [id number] Author: Felice (Rn) CAMILA Valdez Service: Nursing Author Type: Registered Nurse Type: Patient Education Filed: 08/30/2017 10:01 AM Note Text: ONGOING PATIENT EDUCATION TOPIC Reinforced: EGD with Dickson plavement Patient Name: Annelise Page [place] Readiness To Learn Motivation To Learn: Interested Instruction Provided To: Patient and family member Learning Response Patient/Family Response: Verbalizes understanding of: POST-PROCEDURE INSTRUCTIONS-Correct actions to take to reduce post procedure complications Method of Instruction: Written instruction - handouts Follow-Up Plan: Patient instructed to call with any further issues Electronically signed by: Felice Valdez RN BRIEF OP NOT Observed: 08/30/2017 Status: COMPLETED Source: [place] 9:34 AM [facility] REPOSITORY HNO ID: [id number] Author: Christopher Rios Service: General Surgery Author Type: Physician Type: Brief Op Note Filed: 08/30/2017 9:36 AM Note Text: BRIEF OPERATIVE / PROCEDURE NOTE LOG ID: [id number] SURGERY/PROCEDURE DATE: 08/30/2017 INCISION/PROCEDURE START TIME: INCISION CLOSE/PROCEDURE END TIME: SURGEON(S)/PROCEDURALIST(S) AND INCLINOMETER TESTER(S): Surgeon(s) and Role: * Christopher Rios - Primary No Additional Staff PROCEDURE(S): EGD +/- Dilatation and Biopsy and Dickson ANESTHESIA: Monitored Anesthesia Care FINDINGS: Hill Grade 2 ESTIMATED BLOOD LOSS: None SPECIMENS: Antrum, GE junction COMPLICATIONS: None PRE-OP/PRE-PROCEDURE DIAGNOSIS: GERD, dysphagia POST-OP/POST-PROCEDURE DIAGNOSIS: Same SIGNATURE: Christopher Rios MD PATIENT NAME: Annelise Page DATE: August 30, 2017 TIME: 9:34 AM PAGER/CONTACT #: [phone] ED Observed: 08/30/2017 Status: COMPLETED Source: [place] 8:55 AM [facility] REPOSITORY HNO ID: [id number] Author: Odilia (Rn) CAMILA Kelly Service: Nursing Author Type: Registered Nurse Type: Patient Education Filed: 08/30/2017 8:55 AM Note Text: PRE OP LEARNING ASSESSMENT PROCEDURE/SURGERY: GI PROCEDURES: EGD READINESS TO LEARN COGNITIVE ABILITY: Alert and oriented MOTIVATION TO LEARN: Eager FAMILY SUPPORT: High - Very involved in pt care PATIENT LEARNS BEST BY: Verbal Instruction FACTORS AFFECTING LEARNING: None PHYSICAL LIMITATIONS AFFECTING LEARNING: None Electronically Signed By: Odilia Kelly RN In Department: [facility] NURSING PROG Observed: 08/30/2017 Status: COMPLETED Source: [place] 8:54 AM [facility] REPOSITORY HNO ID: [id number] Author: Odilia Vasques) CAMILA Kelly Service: Nursing Author Type: Registered Nurse Type: Nursing Progress Note Filed: 08/30/2017 8:55 AM Note Text: Dickson teaching completed with patient and spouse ANES PREOP Observed: 08/30/2017 Status: COMPLETED Source: [place] 8:50 AM [facility] REPOSITORY HNO ID: [id number] Author: Sukhdeep Robertson Service: Anesthesiology Author Type: Physician Type: Anesthesia PreOp Filed: 08/30/2017 8:51 AM Note Text: ANESTHESIOLOGY DAY OF SURGERY NOTE SERVICE DATE: 08/30/2017 SERVICE TIME: 8:50 AM : 1965 Procedure(s) (LRB): ESOPHAGEAL ACID REFLUX TEST W/MUCOSAL ATTACHED TELEMETRY PH ELECTRODE PLACEMENT RECORDING, ANALYSIS, AND INTERPRETATION (N/A) EGD (Left) Surgeon(s): Christopher Rios Estimated body mass index is 29.23 kg/(m2) as calculated from the following: Height as of 08/02/17: 160 cm (5' 3). Weight as of 08/02/17: 74.8 kg (165 lb). Most recent hematocrit and potassium results: Hematocrit 44.0 12/12/2015 ANES DOS/PREOP NOTE: Vitals: 08/30/17 0828 08/30/17 0830 BP: 121/66 117/70 Pulse: 74 72 Resp: 16 15 Temp: 36.2 ?C (97.2 ?F) TempSrc: Oral SpO2: 100% 100% ACTIVE PROBLEM LIST Hypothyroidism (Acquired) Hallux Valgus (Acquired) Migraine Without Aura and Without Status Migrainosus, Not Intractable Herpes Post Menopausal Syndrome Mitral Valve Prolapse Thyroid Goiter Encounter for Gynecological Examination Without Abnormal Finding Bilateral Fibrocystic Breast Disease (Fcbd) Allergic Rhinitis Family History of Colon Cancer Gastroesophageal Reflux Disease Without Esophagitis Epigastric Pain Encounter for Screening for Diabetes Mellitus Encounter for Screening for Cardiovascular Disorders Esophageal Dysmotility Hiatal Hernia Well Adult Exam Acute Left-Sided Low Back Pain With Left-Sided Sciatica Jorge (Generalized Anxiety Disorder) Screening for Colon Cancer Arthritis, Lumbar Spine (Hcc) Near Syncope Temporal Headache Shaking Dizziness Visual Disturbance Abnormal Eeg Esophageal Spasm Gastroesophageal Reflux Disease PAST MEDICAL HISTORY Diagnosis Date - Hallux valgus (acquired) 04/06/2009 - Herpes 08/05/2015 GETS OUTBREAKS ON NOSE - Hypothyroidism 04/02/2009 - Migraine without aura and without status migrainosus, not intractable 08/05/2015 - migraines Headaches - Mitral valve prolapse - Pain in Soft Tissues of Limb 04/06/2009 - Post menopausal syndrome 08/05/2015 PAST SURGICAL HISTORY Procedure Laterality Date - 2D ECHO (EXEP) 03/06/2017 EF=60%, mild TR and Pulm HTN - APPENDECTOMY - FECAL OCCULT BLOOD TEST 01/21/2017 negative - KNEE SCOPE,DIAGNOSTIC 2005 Arthroscopy, knee right - REMOVAL OF TONSILS,<12 Y/O Tonsillectomy - TOTAL ABDOM HYSTERECTOMY 2004 Hysterectomy, [facility] FAMILY HISTORY Problem Relation Age of Onset - dementia [OTHER] Mother - Stroke Father - Colon Cancer Maternal Grandfather - Alzheimer's Disease Maternal Grandfather - Stroke Paternal Grandmother Social History: Social History Substance Use Topics - Smoking status: Never Smoker - Smokeless tobacco: Never Used - Alcohol use No No current facility-administered medications on file prior to encounter. Current Outpatient Prescriptions on File Prior to Encounter: acyclovir (ZOVIRAX) 400 mg tablet Take 1 tablet by mouth three times daily. sertraline (ZOLOFT) 25 mg tablet Take 1/2 a tab by mouth for 14 days then go to one a day. levothyroxine (SYNTHROID) 100 mcg tablet Take 1 tablet by mouth once daily. estradiol (ESTRACE) 1 mg tablet Take 1 tablet by mouth once daily. rizatriptan (MAXALT) 10 mg tablet Take one tablet at onset of headache and may repeat every 2 hours as needed up to 3 tabs in 24 hours acyclovir (ZOVIRAX) 5 % crea Apply 1 application to affected area five times daily. Ranitidine HCl (ZANTAC) 300 mg tablet Take 1 tablet by mouth daily before lunch. Current Facility-Administered Medications: lactated ringers infusion 5-30 mL/hr INTRAVENOUS CONTINUOUS Christopher Sha Steencarina Last Rate: 30 mL/hr at 08/30/17899 30 mL/hr at 08/30/17899 Allergies: ALLERGIES Allergen Reactions - Latex Rash, Itching Latex band-aids - Sulfa [Sulfa (Sulfo* Hives - Topamax [Topiramate] Other: See Comments Made her extremely depressed. DOS EXAM: Adequate NPO status: Yes Anesthetic risks, benefits, alternatives, personnel and consent discussed: Yes Patient agrees to proceed: Yes Previous Anesthesia: No history of adverse event. Airway Assessment: MP 1; Neck ROM: Full ROM without neurologic symptoms; Airway Evaluation: No significant abnormalities Symptoms of Sleep Apnea: None Dentition: Teeth intact Additional Physical Exam: Lungs: Patient health status unchanged since recent history and physical. See history and physical for exam findings. Cardiac: normal S1 and S2; no rubs, no murmurs, and no gallops Additional Pertinent Findings: N/A Blood Products: Not anticipated for this procedure. Anesthetic Plan: MAC with Sedation Pain Management Plan: Parenteral or Oral ASA Class: 2 Other Medical Problems: None Chronic Beta Jf medication administered within 24 hours: N/A I have interviewed and examined the patient. I have reviewed the medical record and/or the pre-anesthesia evaluation, pertinent labs, and test results. Pre-op Zofran fro Significant changes in the patient's condition since the History and Physical, not otherwise documented in primary service progress notes: No This contains updated information obtained within 48 hours of Surgery/Procedure. SIGNATURE: Sukhdeep Robertson MD PATIENT NAME: Annelise Page DATE: August 30, 2017 TIME: 8:50 AM CSN: [id number] HISTORY PHYSICAL Observed: 08/30/2017 Status: COMPLETED Source: [place] 7:29 AM CLINIC OTHER CAMPUS REPOSITORY HNO ID: [id number] Author: Cristina Marin Service: General Surgery Author Type: Nurse Practitioner Type: HANDP Filed: 08/30/2017 8:31 AM Note Text: HISTORY AND PHYSICAL EXAMINATION SERVICE DATE: 08/30/2017 SERVICE TIME: 7:29 AM PRIMARY CARE PHYSICIAN: Samuel Epps MD REASON FOR VISIT: Annelise Page is a 51 year old female who is scheduled for Procedure(s): ESOPHAGEAL ACID REFLUX TEST W/MUCOSAL ATTACHED TELEMETRY PH ELECTRODE PLACEMENT RECORDING, ANALYSIS, AND INTERPRETATION (N/A) EGD (Left) at the request of Dr. Rios for routine HANDP. The patient has the following: ACTIVE PROBLEM LIST Hypothyroidism (Acquired) Hallux Valgus (Acquired) Migraine Without Aura and Without Status Migrainosus, Not Intractable Herpes Post Menopausal Syndrome Mitral Valve Prolapse Thyroid Goiter Encounter for Gynecological Examination Without Abnormal Finding Bilateral Fibrocystic Breast Disease (Fcbd) Allergic Rhinitis Family History of Colon Cancer Gastroesophageal Reflux Disease Without Esophagitis Epigastric Pain Encounter for Screening for Diabetes Mellitus Encounter for Screening for Cardiovascular Disorders Esophageal Dysmotility Hiatal Hernia Well Adult Exam Acute Left-Sided Low Back Pain With Left-Sided Sciatica Jorge (Generalized Anxiety Disorder) Screening for Colon Cancer Arthritis, Lumbar Spine (Hcc) Near Syncope Temporal Headache Shaking Dizziness Visual Disturbance Abnormal Eeg Esophageal Spasm Gastroesophageal Reflux Disease Subjective CHIEF COMPLAINT: GERD HPI: 51 y.o white female presents with c/o acid reflux. Saw Dr. Rios in May 2017 and reported some dysphagia. She is taking Omeprazole and Zantac . She states after starting the calcium channel jf symptoms have improved but still has to be careful about eating too soon to laying down or bending over. She occassionally will have regurgitation as well. Previously underwent upper GI scop and Manometry which showed dysmotility. Denies abdominal pain, Nausea, vomiting, constipation, diarrhea, hemtochezia at this time. +family hx of maternal grandmother with colon cancer. Patient agrees to proceed with procedure. PAST MEDICAL HISTORY Diagnosis Date - Hallux valgus (acquired) 04/06/2009 - Herpes 08/05/2015 GETS OUTBREAKS ON NOSE - Hypothyroidism 04/02/2009 - Migraine without aura and without status migrainosus, not intractable 08/05/2015 - migraines Headaches - Mitral valve prolapse - Pain in Soft Tissues of Limb 04/06/2009 - Post menopausal syndrome 08/05/2015 PAST SURGICAL HISTORY Procedure Laterality Date - 2D ECHO (EXEP) 03/06/2017 EF=60%, mild TR and Pulm HTN - APPENDECTOMY - FECAL OCCULT BLOOD TEST 01/21/2017 negative - KNEE SCOPE,DIAGNOSTIC 2006 Arthroscopy, knee right - REMOVAL OF TONSILS,<12 Y/O Tonsillectomy - TOTAL ABDOM HYSTERECTOMY 2004 Hysterectomy, [place] FAMILY HISTORY Problem Relation Age of Onset - dementia [OTHER] Mother - Stroke Father - Colon Cancer Maternal Grandfather - Alzheimer's Disease Maternal Grandfather - Stroke Paternal Grandmother SOCIAL HISTORY: Social History Marital status: Spouse name: Christopher Years of education: Number of children: 2 Social History Main Topics Smoking status: Never Smoker Smokeless status: Never Used Alcohol use: No Drug use: No Sexual activity: Yes Partners with: Male control/protection: Surgical Prior to Admission medications as of 08/30/17 0828 Medication Sig Last Dose Taking isosorbide mononitrate ER (IMDUR) 60 mg 24 hr tablet Take 1 tablet by mouth once daily. 08/29/2017 at Unknown time Yes acyclovir (ZOVIRAX) 400 mg tablet Take 1 tablet by mouth three times daily. 08/29/2017 at Unknown time Yes sertraline (ZOLOFT) 25 mg tablet Take 1/2 a tab by mouth for 14 days then go to one a day. 08/29/2017 at Unknown time Yes levothyroxine (SYNTHROID) 100 mcg tablet Take 1 tablet by mouth once daily. 08/29/2017 at Unknown time Yes estradiol (ESTRACE) 1 mg tablet Take 1 tablet by mouth once daily. 08/29/2017 at Unknown time Yes Omeprazole 40 mg capsule TAKE 1 CAPSULE TWICE DAILY Unknown at Unknown time rizatriptan (MAXALT) 10 mg tablet Take one tablet at onset of headache and may repeat every 2 hours as needed up to 3 tabs in 24 hours Unknown at Unknown time acyclovir (ZOVIRAX) 5 % crea Apply 1 application to affected area five times daily. Ranitidine HCl (ZANTAC) 300 mg tablet Take 1 tablet by mouth daily before lunch. Unknown at Unknown time No medication comments found. ALLERGIES Allergen Reactions - Latex Rash, Itching Latex band-aids - Sulfa [Sulfa (Sulfo* Hives - Topamax [Topiramate] Other: See Comments Made her extremely depressed. REVIEW OF SYSTEMS: PAIN ASSESSMENT: Pain Pain Score: 0/10 Pain Assessment (RN/CURRICULUM SUPERVISOR): Assessment Tool: Verbal (Numeric Rating or Visual Analog Scale) General: Denies fever, chills, and unexpected weight change. Neuro: Denies dizziness and headaches. Respiratory: Denies SOB. Cardiovascular: Denies CP and palpitations. GI: see HPI : Denies dysuria. FLIGHT INSPECTOR: Denies abnormal vaginal bleeding. Endocrine: No history of diabetes; + thyroid conditions. Hematology: Denies history of bleeding or clotting disorder. No known autoimmune disorders. Psych: Denies anxiety/depression. Musculoskeletal: Denies joint pain and swelling. Skin: Denies open sores and rashes. Objective PHYSICAL EXAM: VITALS: BP 121/66 Pulse 74 Temp (Src) 97.2 (Oral) Resp 16 SpO2 100% General: NAD. Cooperative. Skin: Skin is warm, no rashes, and no open sores. HEENT: Normocephalic. Cardiovascular: Normal S1 AND S2. RRR, No murmur. Lungs: CTA Bilaterally. No respiratory distress. Abdomen: Soft, nontender. Bowel sounds normal in all four quadrants. Extremities: No edema. Neurological: Alert and oriented to person, place, and time. Pulses: radial pulses +2 Diagnostic tests reviewed for today's visit: Lab Value Units Date High Low HB No results within date range. HCT No results within date range. WBC No results within date range. PLT No results within date range. NA No results within date range. K No results within date range. GLUC No results within date range. BUN No results within date range. CREAT No results within date range. PTSEC No results within date range. INR No results within date range. APTT No results within date range. ALT No results within date range. AST No results within date range. TBILI No results within date range. TSH No results within date range. Lab Value Units Date High Low HCGQT No results within date range. UHCG No results within date range. HCG, BODY* No results within date range. Lab Value Units Date High Low ABORHD No results within date range. ABSCREEN No results within date range. PENDING Assessment/Plan There is no known pertinent medical condition which may affect hira-operative course METS: Climb a flight of stairs or walk up a hill (5.50 METs) Patient denies any chest pain or undue shortness of breath with the above physical activity. ANESTHESIA FINDINGS: Intubation History: No history of difficult intubation Significant Anesthesia Considerations: Postop nausea/vomiting PLAN Diagnosis: Gastroesophageal reflux disease, esophagitis presence not specified [K21.9] Planned Procedure: Procedure(s): ESOPHAGEAL ACID REFLUX TEST W/MUCOSAL ATTACHED TELEMETRY PH ELECTRODE PLACEMENT RECORDING, ANALYSIS, AND INTERPRETATION (N/A) EGD (Left) The Following Tests/Procedures Have Been Initiated: insert IV, LR IVF Planned Anesthetic: MAC SIGNATURE: Cristina Marin APRN PATIENT NAME: Annelise Page DATE: August 30, 2017 TIME: 7:29 AM PAGER/CONTACT #: OPERATIVE NO Observed: 08/30/2017 Status: COMPLETED Source: [place] 12:00 AM [facility] OTHER CAMPUS REPOSITORY O ID: [id number] Author: Christopher Rios Service: General Surgery Author Type: Physician Type: Operative Report Filed: 08/30/2017 11:38 AM Note Text: [facility] - Operative Report SURGEON: Christopher Rios MD PATIENT NAME: ANNELISE PAGE CSN: [id number] DATE OF SURGERY: 08/30/2017 DATE OF : 1965 SEX/AGE: F/51 PATIENT TYPE: A GREATER [facility]: [facility] LOCATION: [facility] DATE OF SURGERY: 08/30/2017 SURGEON: Christopher Rios MD PREOPERATIVE DIAGNOSIS: Gastroesophageal reflux disease and dysphagia. POSTOPERATIVE DIAGNOSIS: Gastroesophageal reflux disease and dysphagia.. PROCEDURE: EGD with biopsy, placement of Dickson pH probe. ANESTHESIA: MAC. HISTORY OF PRESENT ILLNESS: The patient is a 51-year-old female who has reflux disease. She also has some dysphagia and with this we recommended proceeding with an EGD with Dickson. She has already had a manometry. Procedure was discussed with her in detail including risks, benefits and complications inherent to the procedure. These include, but not limited to, bleeding, infection, missing a lesion, and perforation requiring emergency surgery. She understood and was agreeable to proceed. DESCRIPTION OF PROCEDURE: The patient was brought to the endoscopy suite. Routine monitoring was performed. She was placed in left lateral decubitus position. After adequate MAC anesthesia was obtained, the scope was inserted and passed down the esophagus. Z-line was noted to be at about 36 cm. There was no esophagitis. The scope was inserted. Retroflexed view showed a Hill grade 2. No abnormalities were noted within the stomach. Duodenum was normal to the second portion. The scope was withdrawn. Biopsies were obtained of the antrum and of the GE junction. Air was aspirated out of the stomach. Dickson pH probe was deployed at 30 cm in the usual fashion. Post-deployment EGD showed it to be positioned appropriately. The scope was then withdrawn. The patient tolerated the procedure well and she was transferred to the recovery room in stable condition. Christopher Rios MD Surgery WCP:modmak /[id number] SURGICAL TISSUE EXAM Observed: 08/30/2017 Status: F Source: [facility] 12:00 AM HEALTH SYSTEM REPOSITORY Test performed at [place] [address] NAME: ANNELISE PAGE REQUESTING: CHRISTOPHER RIOS M.D. FINAL DIAGNOSIS: A) STOMACH, ANTRUM, BIOPSY - NO PATHOLOGIC ABNORMALITIES. IMMUNOHISTOCHEMICAL STAIN FOR HELICOBACTER PYLORI IS NEGATIVE FOR ORGANISMS. B) GASTROESOPHAGEAL JUNCTION, BIOPSY - CHRONIC INFLAMMATION WITH SPECIALIZED INTESTINAL (GOBLET CELL) METAPLASIA CONSISTENT WITH POLLACK'S ESOPHAGUS. NEGATIVE FOR DYSPLASIA. ALCIAN BLUE/PAS STAIN CONFIRMS THE PRESENCE OF INTESTINAL METAPLASIA. OPERATIVE PROCEDURE: EGD biopsy / Dickson CLINICAL INFORMATION: GERD GROSS DESCRIPTION: A) Antrum biopsy Received in formalin labeled antrum biopsy are multiple scott soft segments of tissue aggregating to 0.8 x 0.4 x 0.3 cm. The specimens are totally submitted in formalin in one cassette. Levels x 3 plus H. pylori. B) GE junction biopsy Received in formalin labeled GE junction biopsies are multiple scott soft segments of tissue aggregating to 1.1 x 0.7 x 0.3 cm. The specimens are totally submitted in formalin in one cassette. Levels x 3 plus AB/PAS. KVB:sonya PALMER M.D., PATHOLOGIST (Electronic signature on file) Signed out: 09/04/2017 14:25 PRINTED: 09/04/2017 Page 1 of 1 Performed By: #### SURG #### [place] [address] PROGRESS Observed: 08/14/2017 Status: COMPLETED Source: [place] 2:32 PM [facility] REPOSITORY HNO ID: [id number] Author: Silvino (Pt) Neftali Service: (none) Author Type: Physical Therapist Type: Progress Notes Filed: 08/14/2017 2:32 PM Note Text: [facility] PHYSICAL THERAPY DISCONTINUANCE OF CARE Plan of Care Period: No Data Recorded Last Visit Date: 02/02/2017 Therapy Program: The following is a summary of the interventions provided for this episode of care; Therapeutic exercise, Manual therapy, Self-assisted management and Patient/Family/Caregiver Education Assessment: Based on most recent visit, patient was progressing slower than expected toward functional goals based on pain levels. Unable to formally assess goal achievement due to non-compliance with therapy plan of care. Reason for Discontinuation of Care: Patient has not returned to therapy or scheduled additional follow-up appointments. Silvino Lindsay PT PROGRESS Observed: 08/02/2017 Status: COMPLETED Source: [place] 5:39 PM [facility] REPOSITORY HNO ID: [id number] Author: Samuel Epps Service: (none) Author Type: Physician Type: Progress Notes Filed: 08/02/2017 8:34 PM Note Text: Chief Complaint Patient presents with: Recheck: 2 months URI: cough, chest congestion, fever x 2 weeks HPI Annelise Page is a 51 year old female who presents here today for f/u on esophageal spasm, anxiety and URI symptoms. Patient has done much better with being on the imdur. Not having the reflux of chest pain like she was having. Still getting the chest pain daily but milder. Has had a cough for the past two weeks productive of green mucus. Has green nasal drainage. Headache on the the right. Teeth on the right hurt. Has post nasal drainage but no sore throat. Feels congested. No shortness of breath or wheezing. Some nausea but not vomiting or diarrhea. Has had a temp between 100-102. Doing very well with the zoloft. Has not had any more symptoms of syncope since being on it. Also sleeps better. Past medical history, appointments, medications, allergies reviewed. Previous Medical History PAST MEDICAL HISTORY Diagnosis Date - Hallux valgus (acquired) 04/06/2009 - Herpes 08/05/2015 GETS OUTBREAKS ON NOSE - Hypothyroidism 04/02/2009 - Migraine without aura and without status migrainosus, not intractable 08/05/2015 - migraines Headaches - Mitral valve prolapse - Pain in Soft Tissues of Limb 04/06/2009 - Post menopausal syndrome 08/05/2015 Previous Surgical History PAST SURGICAL HISTORY Procedure Laterality Date - 2D ECHO (EXEP) 03/06/2017 EF=60%, mild TR and Pulm HTN - APPENDECTOMY - FECAL OCCULT BLOOD TEST 01/21/2017 negative - KNEE SCOPE,DIAGNOSTIC 2005 Arthroscopy, knee right - REMOVAL OF TONSILS,<12 Y/O Tonsillectomy - TOTAL ABDOM HYSTERECTOMY 2003 Hysterectomy, [place] Family History FAMILY HISTORY Problem Relation Age of Onset - dementia [OTHER] Mother - Stroke Father - Colon Cancer Maternal Grandfather - Alzheimer's Disease Maternal Grandfather - Stroke Paternal Grandmother Patient Allergies ALLERGIES Allergen Reactions - Latex Rash, Itching Latex band-aids - Sulfa [Sulfa (Sulfo* Hives - Topamax [Topiramate] Other: See Comments Made her extremely depressed. Current Medications Current Outpatient Prescriptions on File Prior to Visit: Omeprazole 40 mg capsule TAKE 1 CAPSULE TWICE DAILY acyclovir (ZOVIRAX) 400 mg tablet Take 1 tablet by mouth three times daily. sertraline (ZOLOFT) 25 mg tablet Take 1/2 a tab by mouth for 14 days then go to one a day. isosorbide mononitrate ER (IMDUR) 30 mg 24 hr tablet Take 1 tablet by mouth once daily. rizatriptan (MAXALT) 10 mg tablet Take one tablet at onset of headache and may repeat every 2 hours as needed up to 3 tabs in 24 hours acyclovir (ZOVIRAX) 5 % crea Apply 1 application to affected area five times daily. levothyroxine (SYNTHROID) 100 mcg tablet Take 1 tablet by mouth once daily. estradiol (ESTRACE) 1 mg tablet Take 1 tablet by mouth once daily. Ranitidine HCl (ZANTAC) 300 mg tablet Take 1 tablet by mouth daily before lunch. No current facility-administered medications on file prior to visit. Social History Social History Marital status: Spouse name: Christopher Years of education: Number of children: 2 Social History Main Topics Smoking status: Never Smoker Smokeless status: Never Used Alcohol use: No Drug use: No Sexual activity: Yes Partners with: Male control/protection: Surgical Review of Symptoms REVIEW OF SYSTEMS See HPI EXAM: BP 122/80 (BP Site: Left Arm, BP Position: Sitting, BP Cuff Size: Large Adult) Pulse 74 Temp 36.8 ?C (98.3 ?F) (Tympanic) Resp 14 Ht 160 cm (5' 3) Wt 74.8 kg (165 lb) BMI 29.23 kg/m2 General Appearance: Well appearing, alert, in no acute distress, well-hydrated, well nourished.. Eyes: Anicteric sclera. Pupils are equally round and reactive to light. Extraocular movements are intact. . Ears: External ears normal, canals clear. Nose/Sinuses: Nares normal, septum midline, mucosa normal, no drainage. Has right maxillary sinus tenderness. Oropharynx: Lips, mucosa, and tongue normal, teeth and gums normal, oropharynx normal. Neck: Supple, no adenopathy; thyroid symmetric, normal size, no bruits. Lungs: Lungs clear to auscultation. No wheezing, rhonchi, rales. Heart: RRR without murmur, gallop, or rubs. No ectopy. Abdomen: Normal abdominal exam, Abdomen soft, non-tender. Bowel sounds normal. No masses, organomegaly. Health Maintenance List FECAL OCCULT BLOOD due on 01/20/2018 MAMMOGRAM due on 05/29/2018 DIABETES SCREEN due on 01/06/2020 LIPID SCREEN due on 01/05/2022 TETANUS due on 01/17/2027 INFLUENZA Completed Data reviewed A/P ASSESSMENT/PLAN: 1. Esophageal spasm - ICD9: 530.5, ICD10: K22.4 (primary diagnosis) - increase ISOSORBIDE MONONITRATE ER to 60 MG TABLET,EXTENDED RELEASE 24 HR once a day 2. Gastroesophageal reflux disease without esophagitis - ICD9: 530.81, ICD10: K21.9 - Cont f/u with Dr. Rios 3. Bacterial sinusitis - ICD9: 473.9, 041.9, ICD10: J32.9, B96.89 - Will begin treatment with - AMOXICILLIN 875 MG-POTASSIUM CLAVULANATE 125 MG TABLET Signed Prescriptions Disp Refills isosorbide mononitrate ER (IMDUR) 60 mg 24 hr tablet 30 tablet 5 Sig: Take 1 tablet by mouth once daily. amoxicillin-clavulanic acid (AUGMENTIN) 875-125 mg per tablet 20 tablet 0 Sig: Take 1 tablet by mouth twice daily for 10 days. fluconazole (DIFLUCAN) 150 mg tablet 3 tablet 1 Si tab by mouth every other day for 3 doses Return to work letter given. F/u in 2 months routine Samuel Epps MD [facility] Observed: 07/06/2017 Status: COMPLETED Source: [place] 12:00 AM CLINIC OTHER CAMPUS REPOSITORY Patient:Annelise Page MRN: <[id number]> Height:5' 3(1.6 m) Weight:165 lb (74.844 kg) Outpatient Medications as of 08/30/17: isosorbide mononitrate ER (IMDUR) 60 mg 24 hr tablet Omeprazole 40 mg capsule acyclovir (ZOVIRAX) 400 mg tablet sertraline (ZOLOFT) 25 mg tablet rizatriptan (MAXALT) 10 mg tablet acyclovir (ZOVIRAX) 5 % crea levothyroxine (SYNTHROID) 100 mcg tablet estradiol (ESTRACE) 1 mg tablet Ranitidine HCl (ZANTAC) 300 mg tablet Admission/Clinic Administered Medications as of 08/30/17: lactated ringers infusion ondansetron (PF) 4 mg injection (ZOFRAN) meperidine (PF) 12.5 mg injection (DEMEROL) Problem List: Hypothyroidism (acquired) [E03.9] Hallux valgus (acquired) [M20.10] Migraine without aura and without status migrainosus, not intractable [G43.009] Herpes [B00.9] Post menopausal syndrome [N95.1] Mitral valve prolapse [I34.1] Thyroid goiter [E04.9] Encounter for gynecological examination without abnormal finding [Z01.419] Bilateral fibrocystic breast disease (FCBD) [N60.12, N60.11] Allergic rhinitis [J30.9] Family history of colon cancer [Z80.0] Gastroesophageal reflux disease without esophagitis [K21.9] Epigastric pain [R10.13] Encounter for screening for diabetes mellitus [Z13.1] Encounter for screening for cardiovascular disorders [Z13.6] Esophageal dysmotility [K22.4] Hiatal hernia [K44.9] Well adult exam [Z00.00] Acute left-sided low back pain with left-sided sciatica [M54.42] JORGE (generalized anxiety disorder) [F41.1] Screening for colon cancer [Z12.11] Arthritis, lumbar spine (HCC) [M46.96] Near syncope [R55] Temporal headache [R51] Shaking [R25.1] Dizziness [R42] Visual disturbance [H53.9] Abnormal EEG [R94.01] Esophageal spasm [K22.4] Gastroesophageal reflux disease [K21.9] Allergies: Latex Sulfa [Sulfa (Sulfonamide Antibiotics)] Topamax [Topiramate] Date Verified: 08/30/17 Lab Values No results within the last 30 days for the following basenames: K,HCT Progress Notes ([facility]): Samuel Epps MD 08/02/2017 8:34 PM Signed Chief Complaint Patient presents with: Recheck: 2 months URI: cough, chest congestion, fever x 2 weeks HPI Annelise Page is a 51 year old female who presents here today for f/u on esophageal spasm, anxiety and URI symptoms. Patient has done much better with being on the imdur. Not having the reflux of chest pain like she was having. Still getting the chest pain daily but milder. Has had a cough for the past two weeks productive of green mucus. Has green nasal drainage. Headache on the the right. Teeth on the right hurt. Has post nasal drainage but no sore throat. Feels congested. No shortness of breath or wheezing. Some nausea but not vomiting or diarrhea. Has had a temp between 100-102. Doing very well with the zoloft. Has not had any more symptoms of syncope since being on it. Also sleeps better. Past medical history, appointments, medications, allergies reviewed. Previous Medical History PAST MEDICAL HISTORY Diagnosis Date - Hallux valgus (acquired) 04/06/2009 - Herpes 08/05/2015 GETS OUTBREAKS ON NOSE - Hypothyroidism 04/02/2009 - Migraine without aura and without status migrainosus, not intractable 08/05/2015 - migraines Headaches - Mitral valve prolapse - Pain in Soft Tissues of Limb 04/06/2009 - Post menopausal syndrome 08/05/2015 Previous Surgical History PAST SURGICAL HISTORY Procedure Laterality Date - 2D ECHO (EXEP) 03/06/2017 EF=60%, mild TR and Pulm HTN - APPENDECTOMY - FECAL OCCULT BLOOD TEST 01/21/2017 negative - KNEE SCOPE,DIAGNOSTIC 2005 Arthroscopy, knee right - REMOVAL OF TONSILS,<12 Y/O Tonsillectomy - TOTAL ABDOM HYSTERECTOMY 2004 Hysterectomy, [facility]RO Family History FAMILY HISTORY Problem Relation Age of Onset - dementia [OTHER] Mother - Stroke Father - Colon Cancer Maternal Grandfather - Alzheimer's Disease Maternal Grandfather - Stroke Paternal Grandmother Patient Allergies ALLERGIES Allergen Reactions - Latex Rash, Itching Latex band-aids - Sulfa [Sulfa (Sulfo* Hives - Topamax [Topiramate] Other: See Comments Made her extremely depressed. Current Medications Current Outpatient Prescriptions on File Prior to Visit: Omeprazole 40 mg capsule TAKE 1 CAPSULE TWICE DAILY acyclovir (ZOVIRAX) 400 mg tablet Take 1 tablet by mouth three times daily. sertraline (ZOLOFT) 25 mg tablet Take 1/2 a tab by mouth for 14 days then go to one a day. isosorbide mononitrate ER (IMDUR) 30 mg 24 hr tablet Take 1 tablet by mouth once daily. rizatriptan (MAXALT) 10 mg tablet Take one tablet at onset of headache and may repeat every 2 hours as needed up to 3 tabs in 24 hours acyclovir (ZOVIRAX) 5 % crea Apply 1 application to affected area five times daily. levothyroxine (SYNTHROID) 100 mcg tablet Take 1 tablet by mouth once daily. estradiol (ESTRACE) 1 mg tablet Take 1 tablet by mouth once daily. Ranitidine HCl (ZANTAC) 300 mg tablet Take 1 tablet by mouth daily before lunch. No current facility-administered medications on file prior to visit. Social History Social History Marital status: Spouse name: Christopher Years of education: Number of children: 2 Social History Main Topics Smoking status: Never Smoker Smokeless status: Never Used Alcohol use: No Drug use: No Sexual activity: Yes Partners with: Male control/protection: Surgical Review of Symptoms REVIEW OF SYSTEMS See HPI EXAM: BP 122/80 (BP Site: Left Arm, BP Position: Sitting, BP Cuff Size: Large Adult) Pulse 74 Temp 36.8 ?C (98.3 ?F) (Tympanic) Resp 14 Ht 160 cm (5' 3) Wt 74.8 kg (165 lb) BMI 29.23 kg/m2 General Appearance: Well appearing, alert, in no acute distress, well-hydrated, well nourished.. Eyes: Anicteric sclera. Pupils are equally round and reactive to light. Extraocular movements are intact. . Ears: External ears normal, canals clear. Nose/Sinuses: Nares normal, septum midline, mucosa normal, no drainage. Has right maxillary sinus tenderness. Oropharynx: Lips, mucosa, and tongue normal, teeth and gums normal, oropharynx normal. Neck: Supple, no adenopathy; thyroid symmetric, normal size, no bruits. Lungs: Lungs clear to auscultation. No wheezing, rhonchi, rales. Heart: RRR without murmur, gallop, or rubs. No ectopy. Abdomen: Normal abdominal exam, Abdomen soft, non-tender. Bowel sounds normal. No masses, organomegaly. Health Maintenance List FECAL OCCULT BLOOD due on 01/20/2018 MAMMOGRAM due on 05/29/2018 DIABETES SCREEN due on 01/06/2020 LIPID SCREEN due on 01/05/2022 TETANUS due on 01/17/2027 INFLUENZA Completed Data reviewed A/P ASSESSMENT/PLAN: 1. Esophageal spasm - ICD9: 530.5, ICD10: K22.4 (primary diagnosis) - increase ISOSORBIDE MONONITRATE ER to 60 MG TABLET,EXTENDED RELEASE 24 HR once a day 2. Gastroesophageal reflux disease without esophagitis - ICD9: 530.81, ICD10: K21.9 - Cont f/u with Dr. Rios 3. Bacterial sinusitis - ICD9: 473.9, 041.9, ICD10: J32.9, B96.89 - Will begin treatment with - AMOXICILLIN 875 MG-POTASSIUM CLAVULANATE 125 MG TABLET Signed Prescriptions Disp Refills isosorbide mononitrate ER (IMDUR) 60 mg 24 hr tablet 30 tablet 5 Sig: Take 1 tablet by mouth once daily. amoxicillin-clavulanic acid (AUGMENTIN) 875-125 mg per tablet 20 tablet 0 Sig: Take 1 tablet by mouth twice daily for 10 days. fluconazole (DIFLUCAN) 150 mg tablet 3 tablet 1 Si tab by mouth every other day for 3 doses Return to work letter given. F/u in 2 months routine Samuel Epps MD PROGRESS Observed: 06/27/2017 Status: COMPLETED Source: [place] 3:54 PM [facility] REPOSITORY HNO ID: [id number] Author: Aline Ely Service: (none) Author Type: Physician Type: Progress Notes Filed: 07/01/2017 4:11 PM Note Text: OTONEUROLOGY CONSULTATION Referral source: Samuel Epps MD Chief Complaint: Headache Dizziness: 4x over a few months ################################################################## ################################################################## Impressions: Issues of chronic headache more frequent and more one sided over the past 6-12 months Headache appears to be a combination of migraine and cervicogenic headache Episodes of dizziness since the summer. This could possibly related to drops in blood pressure. Patient has noted a rise in blood pressure over time Patient manifests an asymmetry of upper cervical spine biomechanics. This may be the consequence of a peripheral vestibular disorder, arthritis and or posture. This may provide a substrate for headache. Gait is somewhat unsteady and may be related to a peripheral vestibular syndrome Recommendations/Plan: Neck physical therapy: to consider Migraine: - Start magnesium oxide 400mg/day as a migraine supplement. - Handout regarding migraine and diet was given to the patient. - Abortive treatment of headache: OTC or maxalt Further testing: none at this time Consider tilt table testing Patient to maintain a log of dizzy symptoms Medications: Consider a medication such as topamax Follow-up: PRN ################################################################## ################################################################## ################################################################## History: Headache (see RUSS section). Dizziness: First started in 02/02 - Was in a restaurant buffet line. Not feeling well / presyncope. Sat down and felt better after about 30 min - The next day during a shower presyncope / closing in / sweating. Sat down / felt better after about 20 min - standing talking to someone. Started to feel dizzy. [place] better after a few hours. Went to the ER - head CT, blood work, positional testing (was not dizzy by this time). vertigo Few other episodes - when standing. Never started while sitting or laying None in about a month ################################################################## Vestibular: Dizziness: (see hpi) Imbalance: denies Veering: no Falls: no Hearing: Reduced on the right - sudden onset at age 18. No change. No evaluation Tinnitus: AD - Ringing - constant since age 18. 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 Sharp Throbbing N/v/p/p 2-3 days Once every couple of months Now: Right cheondoism / orbital Sharp Throbbing N/p/p 2-3 days At least 1/week maxalt helps sometimes Visual Features: see above Aggravators: Weather Changes, Stress (Menstrual periods) Alleviators: Sleep, OTC Meds (BC powders or mariano or advil) and Prescription meds (maxalt) Associated Vestibular Symptoms: None ################################################################## Review of Systems: General: Energy: tired a lot - old issue Sleep: crappy Insomnia - No Frequent awakenings - Yes - does not know why x yrs Weakness: normal Sensory: normal GI - Bowel dysfunction: normal - Bladder dysfunction: normal Visual dysfunction: normal Swallow problems: better w/ use of isosorbide Cardiac: Chest pain: no Orthstatic Intolerance: LOC - no Palp - none Pulmonary: Dyspnea on Exertion: none Sob - at times when anxious Skin: Rashes: None Psychiatry: Anxiety / Depression: Anxiety - old things. Better w/ recent rx of zoloft ################################################################## The diagnostic work-up for this problem thus far has included: Consultation Dx Date Location ER y vertigo PCP y ENT n Neuro n Ortho / Pain Y Low back pain / left thigh weakness - s/p SI injection - no benefit / upcoming lower lumbar injection. Did try oral steroids with no benefit (november) Cards GI ###################################### Testing Result Date Location Head CT MRI y MRA Cspine MRI U/S y EEG Y 05/05/17 intermittent left temporal slowing EKG y Echo y JOSEPH monitor y (results pending) Audio n VNG n ################################### Treatment for current illness: Medications: Gabapentin x couple of weeks - c/o headache (Rx for left hip pain) BC power / ibuprofen maxalt (sumatriptan yrs ago) zoloft < 1 month - tolerates this. Helps with anxiety (isosorbide - for esophageal spasm - w/ benefit. < 1 month) Procedures/Surgery: PT Other - left hip / low back / leg - no benefit Neck - no VR - no Chiropractic manipulation - no ################################################################## Past Medical History: Head / Neck trauma: No HTN: No DM: No Elevated cholesterol: No Thyroid disease: hypothyroidism GERD: Yes PAST SURGICAL HISTORY Procedure Laterality Date - 2D ECHO (EXEP) 03/06/2017 EF=60%, mild TR and Pulm HTN - APPENDECTOMY - FECAL OCCULT BLOOD TEST 01/21/2017 negative - KNEE SCOPE,DIAGNOSTIC 2005 Arthroscopy, knee right - REMOVAL OF TONSILS,<12 Y/O Tonsillectomy - TOTAL ABDOM HYSTERECTOMY 2004 Hysterectomy, [place]RO PAST MEDICAL HISTORY Diagnosis Date - Hallux valgus (acquired) 04/06/2009 - Herpes 08/05/2015 GETS OUTBREAKS ON NOSE - Hypothyroidism 04/02/2009 - Migraine without aura and without status migrainosus, not intractable 08/05/2015 - migraines Headaches - Mitral valve prolapse - Pain in Soft Tissues of Limb 04/06/2009 - Post menopausal syndrome 08/05/2015 Social History: 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 Well nourished. No acute distress. Pain Behaviors: no pain behaviors observed Carotid examination was normal. General cardiac examination was normal. Mental status examination: Alert and Oriented to time, place and person. Language: fluent speech (limited evaluation) Cranial Nerve exam: Ophthalmologic: Visual vergara were normal. Fundoscopic exam was normal. Pupils were symmetric and reactive to light. Eye movements: normal, smooth pursuits, no nystagmus. Symptoms associated w/ eye movements: none Otological examination: Cortez: lateralized to the left on the scalp Rinne: normal (AC>BC) Tympanic membranes: normal Finger rub: reduced on the right Response to 256 Hz tuning fork: reduced on the right Recruitment: No hyperacusis Facial Strength: symmetric Facial Sensation: Right Left V1 (scalp) Normal Normal V1 Normal Normal V2 Normal Normal V3 Normal Normal Ear (sup.) Normal Normal Left Right ROEL tender none none ParaC2 tender none none Post. Vertex Normal Normal Normal palatal elevation. Tongue midline. Right Left Oral sensation: Ant Tongue - - Post Tongue - - Post Pharynx Cervical spine examination: Position: neutral Flexion: normal and painless Lateral C1 process tenderness: none bilaterally Upper Cervical Rotation: Reduced right Sidebend: Reduced bilaterally, worse to Left Total Cervical Rotation: normal C1 malrotation: Left Neck Vibration Testing: Right Left Suboccipital - - Masseter - - SCM - - Motor Exam: Tone: Normal with no atrophy or fasciculations Tremor : None Pronator Drift: None Normal shoulder shrug. Strength (out of 5): Right Left Hand Intrins 5 5 5th digit abd 5 5 Wrist ext 5 5 Shoulder abd. 5 5 Hip flex 5 4+ / giveway (recent back injury - no change with left SI inj) Knee ext 5 5 Ankle Dorsifl 5 5 Shoulder Flex 5 5 DTR's (out of 4): Right Left BR 2+ 2+ BJ 1+ to 2+ bilat TJ 2+ Tr to 1+ KJ 2+ 2+ AJ 1+ 1+ Plantar resp. not tested not tested Sensory Exam: Gross UE to PP: normal Gross LE to PP: N/T Coordination examination: Zwmurg-jp-yqnb testing was normal bilaterally. Plnr-hh-ybcf testing was normal bilaterally. Postural stability: Romberg: normal Tandem-modified Romberg: Drift to either side Gait examination: Usual gait: normal Heel walk: normal Toe walk: normal Tandem (Forward): somewhat unsteady Tandem (Reverse): somewhat unsteady ################################################################## RUSS 0 Dizzy 0 ################################################################## The patient was personally seen and examined by myself. Aline Ely MD [facility] T33 cc: Samuel Epps MD (sent via [employer]) (Results of consultation to be transmitted via electronic medical record for those providers who practice within [facility] or with access to [employer] via MD Connect, or via letter) Total time of 60 minutes was spent with the patient regarding the above. SILVIA Observed: 06/27/2017 Status: COMPLETED Source: [place] 3:10 PM [facility] REPOSITORY Office Visit ([place]) ANNELISE PAGE ([id number]) 1965 F Date Time Provider Department 06/27/17 3:10 PM ALINE ELY During your visit today, we recorded the following information about you: Pulse Blood pressure Weight Height 73/minute 124/72 72.6 kg 1.613 m Aline Ely MD 07/01/2017 4:11 PM Signed OTONEUROLOGY CONSULTATION Referral source: Samuel Epps MD Chief Complaint: Headache Dizziness: 4x over a few months ################################################################## ################################################################## Impressions: Issues of chronic headache more frequent and more one sided over the past 6-12 months Headache appears to be a combination of migraine and cervicogenic headache Episodes of dizziness since the summer. This could possibly related to drops in blood pressure. Patient has noted a rise in blood pressure over time Patient manifests an asymmetry of upper cervical spine biomechanics. This may be the consequence of a peripheral vestibular disorder, arthritis and or posture. This may provide a substrate for headache. Gait is somewhat unsteady and may be related to a peripheral vestibular syndrome Recommendations/Plan: Neck physical therapy: to consider Migraine: - Start magnesium oxide 400mg/day as a migraine supplement. - Handout regarding migraine and diet was given to the patient. - Abortive treatment of headache: OTC or maxalt Further testing: none at this time Consider tilt table testing Patient to maintain a log of dizzy symptoms Medications: Consider a medication such as topamax Follow-up: PRN ################################################################## ################################################################## ################################################################## History: Headache (see RUSS section). Dizziness: First started in 8/17 - Was in a restaurant buffet line. Not feeling well / presyncope. Sat down and felt better after about 30 min - The next day during a shower presyncope / closing in / sweating. Sat down / felt better after about 20 min - standing talking to someone. Started to feel dizzy. [place] better after a few hours. Went to the ER - head CT, blood work, positional testing (was not dizzy by this time). ANDquot;vertigoANDquot; Few other episodes - when standing. Never started while sitting or laying None in about a month ################################################################## Vestibular: Dizziness: (see hpi) Imbalance: denies Veering: no Falls: no Hearing: Reduced on the right - sudden onset at age 18. No change. No evaluation Tinnitus: AD - Ringing - constant since age 18. 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 Sharp Throbbing N/v/p/p 2-3 days Once every couple of months Now: Right cheondoism / orbital Sharp Throbbing N/p/p 2-3 days At least 1/week maxalt helps sometimes Visual Features: see above Aggravators: Weather Changes, Stress (Menstrual periods) Alleviators: Sleep, OTC Meds (BC powders or mariano or advil) and Prescription meds (maxalt) Associated Vestibular Symptoms: None ################################################################## Review of Systems: General: Energy: tired a lot - old issue Sleep: ANDquot;crappyANDquot; Insomnia - No Frequent awakenings - Yes - does not know why x yrs Weakness: normal Sensory: normal GI - Bowel dysfunction: normal - Bladder dysfunction: normal Visual dysfunction: normal Swallow problems: better w/ use of isosorbide Cardiac: Chest pain: no Orthstatic Intolerance: LOC - no Palp - none Pulmonary: Dyspnea on Exertion: none Sob - at times when anxious Skin: Rashes: None Psychiatry: Anxiety / Depression: Anxiety - old things. Better w/ recent rx of zoloft ################################################################## The diagnostic work-up for this problem thus far has included: Consultation Dx Date Location ER y ANDquot;vertigoANDquot; PCP y ENT n Neuro n Ortho / Pain Y Low back pain / left thigh weakness - s/p SI injection - no benefit / upcoming lower lumbar injection. Did try oral steroids with no benefit (november) Cards GI ###################################### Testing Result Date Location Head CT MRI y MRA Cspine MRI U/S y EEG Y 05/05/17 intermittent left temporal slowing EKG y Echo y JOSEPH monitor y (results pending) Audio n VNG n ################################### Treatment for current illness: Medications: Gabapentin x couple of weeks - c/o headache (Rx for left hip pain) BC power / ibuprofen maxalt (sumatriptan yrs ago) zoloft ANDlt; 1 month - tolerates this. Helps with anxiety (isosorbide - for esophageal spasm - w/ benefit. ANDlt; 1 month) Procedures/Surgery: PT Other - left hip / low back / leg - no benefit Neck - no VR - no Chiropractic manipulation - no ################################################################## Past Medical History: Head / Neck trauma: No HTN: No DM: No Elevated cholesterol: No Thyroid disease: hypothyroidism GERD: Yes PAST SURGICAL HISTORY Procedure Laterality Date - 2D ECHO (EXEP) 03/06/2017 EF=60%, mild TR and Pulm HTN - APPENDECTOMY - FECAL OCCULT BLOOD TEST 01/21/2017 negative - KNEE SCOPE,DIAGNOSTIC 2006 Arthroscopy, knee right - REMOVAL OF TONSILS,ANDlt;12 Y/O Tonsillectomy - TOTAL ABDOM HYSTERECTOMY 2004 Hysterectomy, [place]RO PAST MEDICAL HISTORY Diagnosis Date - Hallux valgus (acquired) 04/06/2009 - Herpes 08/05/2015 GETS OUTBREAKS ON NOSE - Hypothyroidism 04/02/2009 - Migraine without aura and without status migrainosus, not intractable 08/05/2015 - migraines Headaches - Mitral valve prolapse - Pain in Soft Tissues of Limb 04/06/2009 - Post menopausal syndrome 08/05/2015 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 Well nourished. No acute distress. Pain Behaviors: no pain behaviors observed Carotid examination was normal. General cardiac examination was normal. Mental status examination: Alert and Oriented to time, place and person. Language: fluent speech (limited evaluation) Cranial Nerve exam: Ophthalmologic: Visual vergara were normal. Fundoscopic exam was normal. Pupils were symmetric and reactive to light. Eye movements: normal, smooth pursuits, no nystagmus. Symptoms associated w/ eye movements: none Otological examination: Cortez: lateralized to the left on the scalp Rinne: normal (ACANDgt;BC) Tympanic membranes: normal Finger rub: reduced on the right Response to 256 Hz tuning fork: reduced on the right Recruitment: No hyperacusis Facial Strength: symmetric Facial Sensation: Right Left V1 (scalp) Normal Normal V1 Normal Normal V2 Normal Normal V3 Normal Normal Ear (sup.) Normal Normal Left Right ROEL tender none none ParaC2 tender none none Post. Vertex Normal Normal Normal palatal elevation. Tongue midline. Right Left Oral sensation: Ant Tongue - - Post Tongue - - Post Pharynx Cervical spine examination: Position: neutral Flexion: normal and painless Lateral C1 process tenderness: none bilaterally Upper Cervical Rotation: Reduced right Sidebend: Reduced bilaterally, worse to Left Total Cervical Rotation: normal C1 malrotation: Left Neck Vibration Testing: Right Left Suboccipital - - Masseter - - SCM - - Motor Exam: Tone: Normal with no atrophy or fasciculations Tremor : None Pronator Drift: None Normal shoulder shrug. Strength (out of 5): Right Left Hand Intrins 5 5 5th digit abd 5 5 Wrist ext 5 5 Shoulder abd. 5 5 Hip flex 5 4+ / giveway (recent back injury - no change with left SI inj) Knee ext 5 5 Ankle Dorsifl 5 5 Shoulder Flex 5 5 DTR's (out of 4): Right Left BR 2+ 2+ BJ 1+ to 2+ bilat TJ 2+ Tr to 1+ KJ 2+ 2+ AJ 1+ 1+ Plantar resp. not tested not tested Sensory Exam: Gross UE to PP: normal Gross LE to PP: N/T Coordination examination: Eppnyf-so-rupe testing was normal bilaterally. Rrzt-ny-yscy testing was normal bilaterally. Postural stability: Romberg: normal Tandem-modified Romberg: Drift to either side Gait examination: Usual gait: normal Heel walk: normal Toe walk: normal Tandem (Forward): somewhat unsteady Tandem (Reverse): somewhat unsteady ################################################################## RUSS 0 Dizzy 0 ################################################################## The patient was personally seen and examined by myself. Aline Ely MD [facility] T33 cc: Samuel Epps MD (sent via [employer] - yes) (Results of consultation to be transmitted via electronic medical record for those providers who practice within [facility] or with access to [employer] via MD Connect, or via letter) Total time of 60 minutes was spent with the patient regarding the above. Referring Provider: SAMUEL EPPS [[id number]] Allergies As of Date: 06/27/2017 Noted Allergy Reaction LATEX 01/26/2012 2 - Rash 9 - Itching Comments: Latex band-aids SULFA (SULFA (SULFONAMIDE ANTIBIO*01/07/2009 4 - Hives TOPAMAX (TOPIRAMATE) 06/01/2017 14 - Other: See Comments Comments: Made her extremely depressed. 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] Imbalance [R26.89] Prescriptions as of 06/27/2017 Sig: SERTRALINE 25 MG TABLET Take 1/2 a tab by mouth for 1* ISOSORBIDE MONONITRATE ER 30 * Take 1 tablet by mouth once d* RIZATRIPTAN 10 MG TABLET Take one tablet at onset of h* ACYCLOVIR 5 % TOPICAL CREAM Apply 1 application to affect* X ACYCLOVIR 400 MG TABLET Take 1 tablet by mouth three * LEVOTHYROXINE 100 MCG TABLET Take 1 tablet by mouth once d* ESTRADIOL 1 MG TABLET Take 1 tablet by mouth once d* RANITIDINE 300 MG TABLET Take 1 tablet by mouth daily * OMEPRAZOLE 40 MG CAPSULE,URBAN* Take 1 capsule by mouth twice* Problem List As Of Date 06/27/2017 Noted Resolved Hypothyroidism (acquired) [E03.9] INVALID FOR* Priority: A Hallux valgus (acquired) [M20.10] INVALID FOR* Priority: D Migraine without aura and without status migrai*INVALID FOR* Priority: A Herpes [B00.9] INVALID FOR* Priority: E More... Post menopausal syndrome [N95.1] INVALID FOR* Priority: B Mitral valve prolapse [I34.1] Priority: B Thyroid goiter [E04.9] INVALID FOR* Priority: B More... Encounter for gynecological examination without*INVALID FOR* Priority: E More... Bilateral fibrocystic breast disease (FCBD) [N6*INVALID FOR* Priority: C Allergic rhinitis [J30.9] INVALID FOR* Priority: B More... Family history of colon cancer [Z80.0] INVALID FOR* Priority: F Gastroesophageal reflux disease without esophag*INVALID FOR* Priority: A Epigastric pain [R10.13] INVALID FOR* Encounter for screening for diabetes mellitus [*INVALID FOR* Encounter for screening for cardiovascular diso*INVALID FOR* Esophageal dysmotility [K22.4] INVALID FOR* Priority: B More... Hiatal hernia [K44.9] INVALID FOR* Priority: B More... Well adult exam [Z00.00] INVALID FOR* Priority: E More... 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 Near syncope [R55] INVALID FOR* Temporal headache [R51] INVALID FOR* Shaking [R25.1] INVALID FOR* Dizziness [R42] INVALID FOR* Visual disturbance [H53.9] INVALID FOR* Abnormal EEG [R94.01] INVALID FOR* Esophageal spasm [K22.4] INVALID FOR* Follow-up and Disposition History Recorded Encounter Status:Closed by ALINE ELY MD on 07/01/17 PROGRESS Observed: 06/07/2017 Status: COMPLETED Source: [place] 4:47 PM CLINIC OTHER CAMPUS REPOSITORY HNO ID: [id number] Author: Christopher Rios Service: (none) Author Type: Physician Type: Progress Notes Filed: 06/07/2017 4:50 PM Note Text: Annelise Page is a 51 year old White female who presents with complaints of reflux disease. She does report some dysphagia. She is taking Prilosec twice a day and Zantac at lunchtime. She is reporting significant symptoms through her medications. She also reports regurgitation. She had an upper GI revealed reflux disease. She had a manometry which showed some dysmotility. She did try a calcium channel jf however she states her symptoms she had dizzy and lightheaded and medication was discontinued. PAST MEDICAL HISTORY Diagnosis Date - Hallux valgus (acquired) 04/06/2009 - Herpes 08/05/2015 GETS OUTBREAKS ON NOSE - Hypothyroidism 04/02/2009 - Migraine without aura and without status migrainosus, not intractable 08/05/2015 - migraines Headaches - Mitral valve prolapse - Pain in Soft Tissues of Limb 04/06/2009 - Post menopausal syndrome 08/05/2015 PAST SURGICAL HISTORY Procedure Laterality Date - 2D ECHO (EXEP) 03/06/2017 EF=60%, mild TR and Pulm HTN - APPENDECTOMY - FECAL OCCULT BLOOD TEST 01/21/2017 negative - KNEE SCOPE,DIAGNOSTIC 2005 Arthroscopy, knee right - REMOVAL OF TONSILS,<12 Y/O Tonsillectomy - TOTAL ABDOM HYSTERECTOMY 2003 Hysterectomy, [place] Social History Substance Use Topics - Smoking status: Never Smoker - Smokeless tobacco: Never Used - Alcohol use No FAMILY HISTORY Problem Relation Age of Onset - dementia [OTHER] Mother - Stroke Father - Colon Cancer Maternal Grandfather - Alzheimer's Disease Maternal Grandfather - Stroke Paternal Grandmother ALLERGIES Allergen Reactions - Latex Rash, Itching Latex band-aids - Sulfa [Sulfa (Sulfo* Hives - Topamax [Topiramate] Other: See Comments Made her extremely depressed. Current Outpatient Prescriptions: rizatriptan (MAXALT) 10 mg tablet Take one tablet at onset of headache and may repeat every 2 hours as needed up to 3 tabs in 24 hours sertraline (ZOLOFT) 25 mg tablet Take 1/2 a tab by mouth for 14 days then go to one a day. acyclovir (ZOVIRAX) 5 % crea Apply 1 application to affected area five times daily. acyclovir (ZOVIRAX) 400 mg tablet Take 1 tablet by mouth three times daily. levothyroxine (SYNTHROID) 100 mcg tablet Take 1 tablet by mouth once daily. estradiol (ESTRACE) 1 mg tablet Take 1 tablet by mouth once daily. Ranitidine HCl (ZANTAC) 300 mg tablet Take 1 tablet by mouth daily before lunch. Omeprazole 40 mg capsule Take 1 capsule by mouth twice daily. No current facility-administered medications for this visit. REVIEW OF SYSTEMS PAIN ASSESSMENT: Negative for pain, history of chronic pain, or current treatment for a chronic pain condition. GENERAL: No weight loss, malaise or fevers NECK: Negative for lumps, goiter, pain and significant neck swelling RESPIRATORY: Negative for cough, hemoptysis, wheezing, COPD, dyspnea or shortness of breath CARDIOVASCULAR: Negative for chest pain, leg swelling, hypertension, CHF or palpitations GI: See HPI : No history of dysuria, frequency or incontinence MUSCULOSKELETAL: Negative for joint pain or swelling, back pain or muscle pain HEMATOLOGY/LYMPHOLOGY: Negative for prolonged bleeding, bruising easily or swollen nodes ENDOCRINE: Negative for cold or heat intolerance, polyuria, polydipsia and goiter PHYSICAL EXAM: BP 147/68 Pulse 88 Ht 5' 3 (1.60m) Wt 161 lb (73.0kg) BMI 28.53 kg/(m2). General Appearance: Well appearing, alert, in no acute distress, well-hydrated, well nourished.. Eyes: Normal sclera Skin: Skin texture and turgor normal, no suspicious rashes or lesions, Negative for jaundice or pallor. Neck: Supple, trachea midline Lungs: Lungs clear to auscultation. No wheezing, rhonchi, rales. Heart: RRR without murmur, gallop, or rubs. No ectopy. Abdomen: Normal abdominal exam, Abdomen soft, non-tender. Bowel sounds normal. No masses, organomegaly, Negative CVA tenderness. Musculoskeletal: Negative. Lymph Nodes: No cervical lymphadenopathy and No supraclavicular lymphadenopathy. Assessment: Gastroesophageal reflux disease, esophagitis presence not specified (primary encounter diagnosis) Plan: Given her workup, I did recommend proceeding with a EGD with dickson pH probe placement off of her medication. This will help us determine if it truly is acid reflux. There is some concern that it is not an mostly spasm secondary to medications not given her significant relief. The risks, benefits and complications were reviewed including but not limited to bleeding, infection, missing a lesion, effects of anesthesia and perforation possibly requiring an emergency surgery. She was agreeable to proceed. Christopher Rios M.D., CarlosALoveCNo CHURCHOV Observed: 06/07/2017 Status: COMPLETED Source: [place] 3:15 PM CLINIC OTHER CAMPUS REPOSITORY Office Visit ([facility]) ANNELISE PAGE ([id number]) 1965 F Date Time Provider Department 06/07/17 3:15 PM CHRISTOPHER RIOS [facility] During your visit today, we recorded the following information about you: Pulse Blood pressure Weight Height 88/minute 147/68 73 kg 1.6 m Katrina Flores 06/07/2017 2:47 PM Signed This is a 51 year old female here today for GERD. Nicolás Hart 06/07/2017 4:11 PM Signed Discussed and reviewed EGD with biopsy with patient and spouse; all questions answered. Discussed and reviewed Dickson with patient and spouse; all questions answered. CAMILA Jones MD 06/07/2017 4:50 PM Signed Annelise Griffin Camilo is a 51 year old White female who presents with complaints of reflux disease. She does report some dysphagia. She is taking Prilosec twice a day and Zantac at lunchtime. She is reporting significant symptoms through her medications. She also reports regurgitation. She had an upper GI revealed reflux disease. She had a manometry which showed some dysmotility. She did try a calcium channel jf however she states her symptoms she had dizzy and lightheaded and medication was discontinued. PAST MEDICAL HISTORY Diagnosis Date - Hallux valgus (acquired) 04/06/2009 - Herpes 08/05/2015 GETS OUTBREAKS ON NOSE - Hypothyroidism 04/02/2009 - Migraine without aura and without status migrainosus, not intractable 08/05/2015 - migraines Headaches - Mitral valve prolapse - Pain in Soft Tissues of Limb 04/06/2009 - Post menopausal syndrome 08/05/2015 PAST SURGICAL HISTORY Procedure Laterality Date - 2D ECHO (EXEP) 03/06/2017 EF=60%, mild TR and Pulm HTN - APPENDECTOMY - FECAL OCCULT BLOOD TEST 01/21/2017 negative - KNEE SCOPE,DIAGNOSTIC 2006 Arthroscopy, knee right - REMOVAL OF TONSILS,ANDlt;12 Y/O Tonsillectomy - TOTAL ABDOM HYSTERECTOMY 2004 Hysterectomy, [place] Social History Substance Use Topics - Smoking status: Never Smoker - Smokeless tobacco: Never Used - Alcohol use No FAMILY HISTORY Problem Relation Age of Onset - dementia [OTHER] Mother - Stroke Father - Colon Cancer Maternal Grandfather - Alzheimer's Disease Maternal Grandfather - Stroke Paternal Grandmother ALLERGIES Allergen Reactions - Latex Rash, Itching Latex band-aids - Sulfa [Sulfa (Sulfo* Hives - Topamax [Topiramate] Other: See Comments Made her extremely depressed. Current Outpatient Prescriptions: rizatriptan (MAXALT) 10 mg tablet Take one tablet at onset of headache and may repeat every 2 hours as needed up to 3 tabs in 24 hours sertraline (ZOLOFT) 25 mg tablet Take 1/2 a tab by mouth for 14 days then go to one a day. acyclovir (ZOVIRAX) 5 % crea Apply 1 application to affected area five times daily. acyclovir (ZOVIRAX) 400 mg tablet Take 1 tablet by mouth three times daily. levothyroxine (SYNTHROID) 100 mcg tablet Take 1 tablet by mouth once daily. estradiol (ESTRACE) 1 mg tablet Take 1 tablet by mouth once daily. Ranitidine HCl (ZANTAC) 300 mg tablet Take 1 tablet by mouth daily before lunch. Omeprazole 40 mg capsule Take 1 capsule by mouth twice daily. No current facility-administered medications for this visit. REVIEW OF SYSTEMS PAIN ASSESSMENT: Negative for pain, history of chronic pain, or current treatment for a chronic pain condition. GENERAL: No weight loss, malaise or fevers NECK: Negative for lumps, goiter, pain and significant neck swelling RESPIRATORY: Negative for cough, hemoptysis, wheezing, COPD, dyspnea or shortness of breath CARDIOVASCULAR: Negative for chest pain, leg swelling, hypertension, CHF or palpitations GI: See HPI : No history of dysuria, frequency or incontinence MUSCULOSKELETAL: Negative for joint pain or swelling, back pain or muscle pain HEMATOLOGY/LYMPHOLOGY: Negative for prolonged bleeding, bruising easily or swollen nodes ENDOCRINE: Negative for cold or heat intolerance, polyuria, polydipsia and goiter PHYSICAL EXAM: BP 147/68 Pulse 88 Ht 5' 3ANDquot; (1.60m) Wt 161 lb (73.0kg) BMI 28.53 kg/(m2). General Appearance: Well appearing, alert, in no acute distress, well-hydrated, well nourished.. Eyes: Normal sclera Skin: Skin texture and turgor normal, no suspicious rashes or lesions, Negative for jaundice or pallor. Neck: Supple, trachea midline Lungs: Lungs clear to auscultation. No wheezing, rhonchi, rales. Heart: RRR without murmur, gallop, or rubs. No ectopy. Abdomen: Normal abdominal exam, Abdomen soft, non-tender. Bowel sounds normal. No masses, organomegaly, Negative CVA tenderness. Musculoskeletal: Negative. Lymph Nodes: No cervical lymphadenopathy and No supraclavicular lymphadenopathy. Assessment: Gastroesophageal reflux disease, esophagitis presence not specified (primary encounter diagnosis) Plan: Given her workup, I did recommend proceeding with a EGD with dickson pH probe placement off of her medication. This will help us determine if it truly is acid reflux. There is some concern that it is not an mostly spasm secondary to medications not given her significant relief. The risks, benefits and complications were reviewed including but not limited to bleeding, infection, missing a lesion, effects of anesthesia and perforation possibly requiring an emergency surgery. She was agreeable to proceed. Christopher Rios M.D., F.A.C.S. Referring Provider: SAMUEL EPPS [[id number]] Allergies As of Date: 06/07/2017 Noted Allergy Reaction LATEX 01/26/2012 2 - Rash 9 - Itching Comments: Latex band-aids SULFA (SULFA (SULFONAMIDE ANTIBIO*01/07/2009 4 - Hives TOPAMAX (TOPIRAMATE) 06/01/2017 14 - Other: See Comments Comments: Made her extremely depressed. Date Reviewed: 06/07/2017 Reviewed by: Christopher Rios - Fully Assessed Reason for Visit: Heartburn [1303] Primary Visit Diagnosis:Gastroesophageal reflux disease, esophagitis presence not specified [K21.9] Prescriptions as of 06/07/2017 Sig: RIZATRIPTAN 10 MG TABLET Take one tablet at onset of h* SERTRALINE 25 MG TABLET Take 1/2 a tab by mouth for 1* ACYCLOVIR 5 % TOPICAL CREAM Apply 1 application to affect* ACYCLOVIR 400 MG TABLET Take 1 tablet by mouth three * LEVOTHYROXINE 100 MCG TABLET Take 1 tablet by mouth once d* ESTRADIOL 1 MG TABLET Take 1 tablet by mouth once d* RANITIDINE 300 MG TABLET Take 1 tablet by mouth daily * OMEPRAZOLE 40 MG CAPSULE,URBAN* Take 1 capsule by mouth twice* Problem List As Of Date 06/07/2017 Noted Resolved Hypothyroidism (acquired) [E03.9] INVALID FOR* Priority: A Hallux valgus (acquired) [M20.10] INVALID FOR* Priority: D Migraine without aura and without status migrai*INVALID FOR* Priority: A Herpes [B00.9] INVALID FOR* Priority: E More... Post menopausal syndrome [N95.1] INVALID FOR* Priority: B Mitral valve prolapse [I34.1] Priority: B Thyroid goiter [E04.9] INVALID FOR* Priority: B More... Encounter for gynecological examination without*INVALID FOR* Priority: E More... Bilateral fibrocystic breast disease (FCBD) [N6*INVALID FOR* Priority: C Allergic rhinitis [J30.9] INVALID FOR* Priority: B More... Family history of colon cancer [Z80.0] INVALID FOR* Priority: F Gastroesophageal reflux disease without esophag*INVALID FOR* Priority: A Epigastric pain [R10.13] INVALID FOR* Encounter for screening for diabetes mellitus [*INVALID FOR* Encounter for screening for cardiovascular diso*INVALID FOR* Esophageal dysmotility [K22.4] INVALID FOR* Priority: B More... Hiatal hernia [K44.9] INVALID FOR* Priority: B More... Well adult exam [Z00.00] INVALID FOR* Priority: E More... 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 Near syncope [R55] INVALID FOR* Temporal headache [R51] INVALID FOR* Shaking [R25.1] INVALID FOR* Dizziness [R42] INVALID FOR* Visual disturbance [H53.9] INVALID FOR* Abnormal EEG [R94.01] INVALID FOR* Visit Notes: >> Katrina Flores MonJun 07, 2017 2:47 PM Status: Signed This is a 51 year old female here today for GERD. >> Nicolás Hart MonJun 07, 2017 4:11 PM Status: Signed Discussed and reviewed EGD with biopsy with patient and spouse; all questions answered. Discussed and reviewed Dickson with patient and spouse; all questions answered. Nicolás Hart RN Medications Discontinued During This Encounter LORazepam (ATIVAN) 0.5 mg tab 2 ta* 0 02/15/2017 06/07/2017 Class: Print RX Sig: Take one tab 30-45 min prior to MRI Disc: Course of therapy completed Disposition: Return for After EGD, After testing. Follow-up and Disposition History Recorded Questionnaire: AG GERD HEALTH RELATED QUALITY OF LIFE Surgery/Baclofen dose -> On PPI'S 1. How bad is the heartburn? -> 4 Affect daily activity 2. Heartburn when lying down? -> 5 Incapacitating 3. Heartburn when standing up? -> 4 Affect daily activity 4. Heartburn after meals? -> 3 Bothersome daily 5. Does heartburn change your diet? -> 5 Incapacitating 6. Does heartburn wake you from sleep? -> 5 Incapacitating 7. Do you have difficulty swallowing -> 5 Incapacitating 8. Do you have pain with swallowing? -> 5 Incapacitating 9. If you take medication, does this affect your daily life? -> 0 No Symptoms 10. How bad is the regurgitation? -> 4 Affect daily activity 11. Regurgitation when lying down? -> 4 Affect daily activity 12. Regurgitation when standing up? -> 4 Affect daily activity 13. Regurgitation after meals? -> 3 Bothersome daily 14. Does regurgitation change your diet? -> 4 Affect daily activity 15. Does regurgitation wake you from sleep? -> 4 Afect daily activity TOTAL - HEARTBURN 1-9 -> 36 TOTAL - REGURG 10-15 -> 23 Total -> 59 16. How satisfied are you with your present condition -> Dissatisfied Other symptoms - check all that apply -> Belching/burping -> Regurgitating food/liquid -> Difficulty swallowing -> Pain when swallowing -> Food gets stuck in throat -> Cough -> Coughing at night/lying down -> Sleeping with head elevated -> Avoid food/drink after 8pm -> Stomach contents in throat/mouth -> Persistent heartburn w/meds -> Vomiting -> Chest pain -> Feeling full/less food Things that trigger symptoms - check all that apply -> Acidic fruit/juice-orange,grapefru- it -> Nieto -> Carbonated beverages -> Eating a large meal -> Eating late at night -> Lying down after eating -> Pepperoni,salami,sausage -> Peppers (green,yellow,red) -> Spicy foods -> Stress -> Tomato products Tests done: Date/provider/location (in comments) check all that apply -> EGD Cmt: 2017 -> Manometry Cmt: 2017-Dr. Monahan How long have you had heartburn symptoms -> 1 yr What is your most troublesome symptom? -> regurgitation, food getting stuck, burning What medications have you been treated with for heartburn/how long? -> Prilosec, Zantac Letter Text Encounter Status:Closed by STAR VEGA, CHRISTOPHER Beckwith on 06/07/17 CNTHERAPY Observed: 02/02/2017 Status: COMPLETED Source: [place] 5:15 PM [facility] REPOSITORY OT/PT/Speech Visit (PTWS) ANNELISE PAGE ([id number]) 1965 F Date Time Provider Department 8/17/17 5:15 PM SILVINO LINDSAY (PT) PTWS Date Time Provider Department Center 02/02/2017 5:15 PM [id number], SEAN (PT)PTWS [facility] Reason for Visit: Physical Therapy [503] PT Discharge [752] Reason For Visit History Recorded Primary Visit Diagnosis:Acute left-sided low back pain with left-sided sciatica [M54.42] Allergies As of Date: 02/02/2017 Noted Allergy Reaction LATEX 01/26/2012 2 - Rash 9 - Itching Comments: Latex band-aids SULFA (SULFA (SULFONAMIDE ANTIBIO*01/07/2009 4 - Hives Date Reviewed: 01/17/2017 Reviewed by: Samuel Epps - Fully Assessed Prescriptions as of 02/02/2017 Sig: ACYCLOVIR 5 % TOPICAL CREAM Apply 1 application to affect* X ACYCLOVIR 400 MG TABLET Take 1 tablet by mouth three * X NIFEDIPINE 10 MG CAPSULE Take 1 capsule by mouth twice* LEVOTHYROXINE 100 MCG TABLET Take 1 tablet by mouth once d* ESTRADIOL 1 MG TABLET Take 1 tablet by mouth once d* RANITIDINE 300 MG TABLET Take 1 tablet by mouth daily * X OMEPRAZOLE 40 MG CAPSULE,URBAN* Take 1 capsule by mouth twice* Progress Notes: Silvino Lindsay PT 02/03/2017 11:38 PM Signed [facility] PHYSICAL THERAPY TREATMENT NOTE GENERAL RECORD INFORMATION CURRENT VISIT NUMBER: ?3 of 9 visits per current plan of care ONSET:st:01/24/17Cert Date:NA THERAPISTS NAME: ?Hailey Moya PT transferring care to Silvino Lindsay PT INSURANCE TYPE: ?Payor: [employer] / Plan: BLUE CARD PPO / Product Type: PPO / REFERRING PROVIDER: ?Samuel Epps MD PLAN OF CARE: ?01/24/2017 Mechanism Of Injury: No Known GORDY Precautions/ Protocol: Anxiety Relevant information: Acute left-sided low back pain with left-sided sciatica Patient identified by name and date: Yes SUBJECTIVE: Patient states she thinks we pissed something off last session as she is in more pain today. Patient has visible tears in her eyes coming in. Pain/Symptom(s): See above OBJECTIVE MEASURES WITH LEVEL OF FUNCTION: Appearance/Palpation: Severe tenderness over L PSIS L extension resolves and centralizes pain TREATMENT: Therapeutic Exercise: L hip and knee passively flexed to 90 degrees patient isometrically extending left hip into therapists resistance, 5 sets of 5x5 sec holds ? Repeated L side bending in standing x10- helps to relieve pain; educated on performing once per waking hour, or more if it is continuing to relieve pain. ?? Skilled Intervention: ??Patient was educated in proper exercise technique and purpose for exercises. Reviewed and educated patient on additions/changes for home exercise program as above (*) Skilled judgment was provided in selection of appropriate interventions. Provided written?instruction for home exercise program to facilitate proper performance and compliance. Correct performance of therapeutic exercises was facilitated with verbal, visual and tactile?cuing. Patient education as noted. ? Manual therapy: TrP release and STM to glute min, med, piriformis- not performed due to tenderness noted today Lumbar traction x15 minutes- temporary change noted but pain immediately returns once traction is stopped, and increases if too much pressure is applied ?? Post Treatment Pain/Symptom(s): pain relieves with L hip extension as noted above today ASSESSMENT: Patient had no pain upon leaving and pain was resolved with L isometric hip extension at 90 degrees hip flexion. Patient may be having piriformis spasm that is causing this sharp pain. Will continue to assess patient and treat accordingly as this is an evolving and changing presentation each session. PLAN: Plan for next visit: see assessment Billing:[facility]: Therapeutic Exercise ([id number]): 1:1 time: 25 minutes (2 units: 23-37 mins) Manual Therapy ([id number]): 1:1 time: 15 minutes (1 unit: 8-22 mins) Total time: 40 minutes Silvino Lindsay, PT Silvino Lindsay, PT 08/14/2017 2:32 PM Signed [facility] PHYSICAL THERAPY DISCONTINUANCE OF CARE Plan of Care Period: No Data Recorded Last Visit Date: 02/02/2017 Therapy Program: The following is a summary of the interventions provided for this episode of care; Therapeutic exercise, Manual therapy, Self-assisted management and Patient/Family/Caregiver Education Assessment: Based on most recent visit, patient was progressing slower than expected toward functional goals based on pain levels. Unable to formally assess goal achievement due to non-compliance with therapy plan of care. Reason for Discontinuation of Care: Patient has not returned to therapy or scheduled additional follow-up appointments. Silvino Lindsay PT PROGRESS Observed: 02/02/2017 Status: COMPLETED Source: [place] 10:21 AM [facility] REPOSITORY O ID: [id number] Author: Silvino (Pt) Neftali Service: (none) Author Type: Physical Therapist Type: Progress Notes Filed: 02/03/2017 11:38 PM Note Text: [facility] PHYSICAL THERAPY TREATMENT NOTE GENERAL RECORD INFORMATION CURRENT VISIT NUMBER: ?3 of 9 visits per current plan of care ONSET:st:01/24/17Cert Date:NA THERAPISTS NAME: ?Hailey Moya PT transferring care to Silvino Lindsay PT INSURANCE TYPE: ?Payor: ANTHEM / Plan: BLUE CARD PPO / Product Type: PPO / REFERRING PROVIDER: ?Samuel Epps MD PLAN OF CARE: ?01/24/2017 Mechanism Of Injury: No Known GORDY Precautions/ Protocol: Anxiety Relevant information: Acute left-sided low back pain with left-sided sciatica Patient identified by name and date: Yes SUBJECTIVE: Patient states she thinks we pissed something off last session as she is in more pain today. Patient has visible tears in her eyes coming in. Pain/Symptom(s): See above OBJECTIVE MEASURES WITH LEVEL OF FUNCTION: Appearance/Palpation: Severe tenderness over L PSIS L extension resolves and centralizes pain TREATMENT: Therapeutic Exercise: L hip and knee passively flexed to 90 degrees patient isometrically extending left hip into therapists resistance, 5 sets of 5x5 sec holds ? Repeated L side bending in standing x10- helps to relieve pain; educated on performing once per waking hour, or more if it is continuing to relieve pain. ?? Skilled Intervention: ??Patient was educated in proper exercise technique and purpose for exercises. Reviewed and educated patient on additions/changes for home exercise program as above (*) Skilled judgment was provided in selection of appropriate interventions. Provided written?instruction for home exercise program to facilitate proper performance and compliance. Correct performance of therapeutic exercises was facilitated with verbal, visual and tactile?cuing. Patient education as noted. ? Manual therapy: TrP release and STM to glute min, med, piriformis- not performed due to tenderness noted today Lumbar traction x15 minutes- temporary change noted but pain immediately returns once traction is stopped, and increases if too much pressure is applied ?? Post Treatment Pain/Symptom(s): pain relieves with L hip extension as noted above today ASSESSMENT: Patient had no pain upon leaving and pain was resolved with L isometric hip extension at 90 degrees hip flexion. Patient may be having piriformis spasm that is causing this sharp pain. Will continue to assess patient and treat accordingly as this is an evolving and changing presentation each session. PLAN: Plan for next visit: see assessment Billing:[facility]: Therapeutic Exercise (82017): 1:1 time: 25 minutes (2 units: 23-37 mins) Manual Therapy (76513): 1:1 time: 15 minutes (1 unit: 8-22 mins) Total time: 40 minutes Silvino Lindsay PT ALLERGIES ALLERGIES DATE TYPE / NAME / CODE REACTION SEVERITY SOURCE CODE 05/14/2018 Drug Sulfa (Sulfonamide Hives Unknown [place] Allergy/41 Antibiotics)/P32233 Community 5287726(SN 0491(RXNORM) [facility]) Repository 05/14/2018 Drug scopolamine/C797631 blurred vision, Unknown [place] Allergy/41 458(RXNORM) nausea Community 4133337([facility]) Repository 05/14/2018 Drug latex/[id number](RX Rash Unknown [place] Allergy/41 NORM) Community 1998153([facility]) Repository 05/14/2018 Drug Iodinated Contrast- Angioedema SV [place] Allergy/41 Oral and IV Community 7394062(SN Dye/[id number](RXNO [facility]) ) Repository 05/14/2018 Drug hydrocodone/A161315 Other Unknown [place] Allergy/41 554(RXNORM) Community 5114223( [facility]) Repository 05/14/2018 Drug ciprofloxacin/F0060 Hives Unknown [place] Allergy/41 26810(RXNORM) Community 5189489( [facility]) Repository 05/14/2018 Drug topiramate/I5265147 Other Unknown [place] Allergy/41 53(RXNORM) Community 0517761( [facility]) Repository 11/30/2017 DRUG CIPROFLOXACIN HIVES High [facility] INGREDI/41 Other [place] 0567555(SN Repository OMED CT) 11/30/2017 DRUG HYDROCODONE HIVES High [facility] INGREDI/41 Other [place] 3519279(SN Repository OMED CT) 10/31/2017 DRUG IODINE SWELLING Med [facility] INGREDI/41 Other [place] 3809106(SN Repository OMED CT) 10/31/2017 DRUG IODINE SWELLING [facility] INGREDI/41 Main [place] 5639542(SN Repository OMED CT) 06/01/2017 DRUG TOPIRAMATE OTHER: SEE C Low [facility] INGREDI/41 Other [place] 4529108(SN Repository OMED CT) 06/01/2017 DRUG TOPIRAMATE OTHER: SEE C [facility] INGREDI/41 Other [place] 2218712(SN Repository OMED CT) 01/26/2012 DRUG LATEX RASH Med [facility] INGREDI/41 Other [place] 1776655(SN Repository OMED CT) 01/26/2012 DRUG LATEX RASH [facility] INGREDI/41 Other [place] 3792576(SN Repository OMED CT) 01/07/2009 Drug SULFA (SULFONAMIDE HIVES Med [facility] Class/4195 ANTIBIOTICS) Other [place] 73426(SNOM Repository ED CT) 01/07/2009 Drug SULFA (SULFONAMIDE HIVES [facility] Class/4195 ANTIBIOTICS) Other [place] [address]458(SNOM Repository ED CT) NG/8746800 CIPROFLOXACIN [facility] Repository NG/4756745 HYDROCODONE [facility] 06([facility]) Repository NG/3435139 IODINE [facility] 06([facility]) Repository NG/3149507 LATEX [facility] 06([facility]) Repository NG/3736408 SULFA (SULFONAMIDE [facility] 06(SNOMED ANTIBIOTICS) [facility]) Repository NG/4352143 TOPIRAMATE [facility]ository ENCOUNTERS ENCOUNTERS ADMIT/DISCHARGE ACCOUNT NUMBER ADMITTING ENCOUNTER LOCATION SOURCE CLASS 05/18/2018/05/18/[id number] ding:SDCRoom Repository : AC03 05/02/2018/05/02/20 [id number] [facility], Ambulatory [address] Repository 05/02/2018/05/02/20 [id number] [place], Inpatient [place] [address] MEDICAL Repository CENTERBuildi ng:ENDORoom: POOLBed: 05/01/2018/05/25/20 [id number] Ambulatory [address] Repository 04/26/2018/04/26/20 [id number] Ambulatory [address] Repository 04/10/2018/04/11/20 [id number] Ambulatory [address] Repository 03/09/2018 [id number] Ambulatory [facility] MEDICAL Repository CENTERBuildi ng:AGGENS3 03/02/2018/03/05/20 [id number] Ambulatory [address] [place] Repository 02/07/2018/02/09/20 [id number] Ambulatory [address] Repository 01/27/2018/01/28/20 [id number] Ambulatory [address] Repository 01/09/2018/01/11/20 [id number] Ambulatory [address] Repository 01/04/2018/01/05/20 [id number] Emergency BBuilding:[address] Repository 11/30/2017 [id number] Ambulatory [facility] [place] Repository 11/21/2017/11/22/19 [id number] Ambulatory [address] Repository 10/31/2017/11/03/19 [id number] Ambulatory [address] Repository 10/14/2017/10/16/19 [id number] [place], Ambulatory [address] ding:PCURoom Repository : PTU084Yzm: 1 10/14/2017 [id number] [place], Ambulatory BMSBuilding: James Vizcarra BMS.[facility] Repository 10/14/2017 [id number] [place], Ambulatory BMSBuilding: James Vizcarra BMS.[facility] Repository 10/12/2017/10/13/19 [id number] Emergency [address] ding:ED Repository 10/10/2017/10/13/19 [id number] Rajinder Corrigan Ambulatory [address] ding:LE1Mvrm Repository : GW064Zwp: 1 10/04/2017/10/06/19 [id number] Ambulatory [address] Repository 09/27/2017/09/28/19 [id number] Ambulatory [address] Repository 09/27/2017/09/28/19 [id number] Ambulatory [address] MEDICAL Repository CENTERBuildi ng:AGGHBC 08/30/2017/08/31/19 [id number] [facility], Ambulatory [address] Repository 08/30/2017/08/31/19 [id number] [facility], Inpatient [address] Repository CENTERBuildi ng:ENDORoom: POOLBed: 08/02/2017/08/02/19 [id number] Ambulatory [address] Repository 06/27/2017/07/03/19 [id number] Ambulatory [address] Repository 06/07/2017/06/09/20 [id number] Ambulatory [address] Repository 06/07/2017/06/09/20 [id number] Ambulatory [address] Repository CENTERBuildi ng:AGGHBC 02/02/2017/02/03/20 [id number] Ambulatory [address] Repository PAYERS PAYERS ENCOUNTER GUARANTOR PAYER SUBSCRIBER SOURCE 05/18/2018 ANNELISE Griffin Primary ANNELISE [id number] Insurance:Fifi [facility]APA[facility]: [id number] [id number] Repository [address]Bye: (330) Date:7622-17-51WY [phone] () [id number] [place] [address] 09034AW: 05/18/2018 Secondary NOT GIVENUNK [place] Insurance:SELF PAY [facility] Number: Effective Repository Date:2018-01-24 05/02/2018 ANNELISE J Primary Insurance:BLUE ANNELISE [facility] PPOPolicy Number: HARRISDOB: Health System [id number] Repository [address] LNAPT Date: [place], [place] [address]Olt: () 03/09/2018 ANNELISE J Primary Insurance:BLUE ANN[facility]ISE J [facility] PPOPolicy Number: HARRISDOB: Health System [id number] Repository [address] LNAPT Date: [place], [place] [address]Xdn: () 01/04/2018 ANNELISE Primary [facility]ISE [facility]: Insurance:[facility] [id number] Repository [address] Number: [address] [place], [place] [id number] [place], [place] [address]Buk: (330) Date:2018-01-04 90294Now: () [id number] [phone] Name:BPO EZEQUIEL ()Tel: [phone], [place] [phone] () 90319SM: 10/14/2017 ANNELISE J Primary ANNELISE J James [id number] Insurance:ANTHEMPolicy HARRISDOB: Community [address] LNAPT Number: [id number] [id number] Repository [address]Ocn: (330) Date:9400-15-70MB [phone] () [id number] [place] [address]ZY: 10/14/2017 Secondary NOT GIVENUNK [place] Insurance:SELF PAY [facility] Number: Effective Repository Date:2017-10-14 10/14/2017 ANNELISE J Primary ANNELISE J [place] [id number] Insurance:ANTHEMPolicy HARRISDOB: Community [address]NA[address] Number: [id number] [id number] Repository 25[address]Nkh: 330) Date:7702-18-96UB [phone] () [id number] [place] [address] 522[address]BK: 10/14/2017 Secondary NOT GIVENUNK James Insurance:SELF PAY [facility] Number: Effective Repository Date:2017-10-14 10/14/2017 ANNELISE J Primary ANNELISE J [place] [id number] Insurance:ANTHEMPolicy HARRISDOB: [facility] [address]NA[address] Number: [id number], [place] [id number] Repository [address]Xqn: (330) Date:3452-11-16PN [phone] () [id number], [place] [address]AY: 10/14/2017 Secondary NOT GIVENUNK James Insurance:SELF PAY [facility] Number: Effective Repository Date:2017-10-14 10/12/2017 ANNELISE J Primary ANNELISE J [place] [id number] Insurance:ANTHEMPolicy HARRISDOB: Community [address] Number: [id number], [place] [id number] Repository [address]Iiw: (330) Date:4029-70-61TT [phone] () [id number], [place] [address]BO: 10/12/2017 Secondary NOT GIVENUNK [place] Insurance:SELF PAY [facility] Number: Effective Repository Date:2017-10-12 10/10/2017 ANNELISE J Primary ANNELISE J [place] [id number] Insurance:ANTHEMPolicy HARRISDOB: [facility] MASSIEL LNAPT Number: [id number], [place] [id number] Repository [address]Hhb: (107) Date:6405-07-98VS [phone] (HP) [id number], [place] [address]ZU: 10/10/2017 Secondary NOT GIVENUNK [place] Insurance:SELF PAY [facility] Effective Repository Date:2017-10-10 09/27/2017 ANNELISE J Primary Insurance:BLUE ANNELISE J [facility] ROHINIB: CARD PPOPolicy Number: ROHINIB: [facility] [id number] Repository [address]NA[address] Date: [place], [place] [address]Kix: () 08/30/2017 ANNELISE J Primary Insurance:BLUE ANNELISE J [facility] ROHINIB: CARD PPOPolicy Number: ROHINIB: [facility] [id number] Repository [address] [place] [address]Kix: () 06/07/2017 ANNELISE J Primary Insurance:BLUE ANNELISE J [facility] ROHINIB: CARD PPOPolicy Number: ROHINIB: [facility] [id number] Repository MAS[address] LNAPT Date: [place] [address]Uyp: ()
== END 2018-05-18 10:15 | disposition home or self-care (01) ==
LOC: SDC 05:51 → AC 05:51
PROVIDERS: Family Provider Family Medicine; PCP Family Medicine; Referring Provider Podiatrist Foot & Ankle Surgery; Visit Provider Podiatrist Foot & Ankle Surgery
PROC: (CPT 28292; principal; 2018-05-18 07:15)
DX: M21.612 Bunion of left foot (principal); M21.611 Bunion of right foot; F41.1 Generalized anxiety disorder; E03.9 Hypothyroidism, unspecified; Z87.442 Personal history of urinary calculi; G43.909 Migraine, unspecified, not intractable, without status migrainosus; K21.9 Gastro-esophageal reflux disease without esophagitis; I34.1 Nonrheumatic mitral (valve) prolapse; Z79.899 Other long term (current) drug therapy
CPT/HCPCS: 28292; C1713; J7120; J2405

== ENCOUNTER 2018-10-20 08:41 | Emergency (ER) | payer BC, SELFPAY ==
[2018-05-18 06:34] VITALS: BMI 28.5
[2018-10-20 08:42] VITALS: BP 121/72; PULSE 83; RESP 22; TEMP 36.8; O2SAT 95; BMI 31.8
--- NOTE | 2018-10-20 08:50 | RAD_ITS ---
STUDY: X-RAY CHEST REASON FOR EXAM: Female, 52 years old. Pain TECHNIQUE: Single AP portable view of the chest. COMPARISON: October 14, 2017 chest x-ray FINDINGS: The lungs are clear and expanded. There is no demonstrated pleural abnormality. Normal size heart. Normal mediastinum and pamela. Normal visualized pulmonary arteries. Normal visualized aortic arch and descending thoracic aorta. There are diffuse degenerative changes of the visualized thoracic spine. Normal visualized ribs, clavicles, and shoulders. There is no demonstrated abnormality of the visualized soft tissue structures of the upper abdomen. RAD/Chest 1 View (Portable) IMPRESSION: Degenerative changes, as described above. No demonstrated acute cardiopulmonary process. Electronically Signed: Gia Owen MD at 9:29 EDT Tel , Service support ,
--- NOTE | 2018-10-20 08:50 | EKG12_ITS ---
Test Reason : CP Blood Pressure : / mmHG Vent. Rate : 074 BPM Atrial Rate : 074 BPM P-R Int : 122 ms QRS Dur : 086 ms QT Int : 406 ms P-R-T Axes : 054 011 056 degrees QTc Int : 450 ms Normal sinus rhythm Possible Left atrial enlargement Borderline ECG Confirmed by LIO VEGA, DEONNA ([id number]), scientific publications editor CARMELLA CHAPMAN ([id number]) on 10/23/2018 1:23:20 PM Referred By: CLINT Confirmed By:DEONNA VACA MD
--- NOTE | 2018-10-20 08:51 | VDLE_ITS ---
Reason For Study: pain RIGHT LEFT GSV is normal. CFV is compressible, spontaneous, phasic, CFV is compressible, spontaneous, phasic, competent, and demonstrates normal competent and demonstrates normal augmentation. augmentation. FV is compressible, spontaneous, phasic, competent and demonstrates normal augmentation. POP V is compressible, spontaneous, phasic, competent and demonstrates normal augmentation. T/P Trunk is compressible. PTV is compressible. RT PerV is compressible. Procedure Exam performed portable in ED. The exam was diagnostic. A preliminary report was called and/or faxed to ED staff. Interpretation Summary Deep veins of the right lower extremity are patent and compressible segmentally. There is no evidence of right lower extremity deep vein thrombosis. Valvular competence appears intact within the proximal deep venous system on the right . The right greater saphenous vein appears patent and compressible segmentally. Ordering Physician: Ismael Guardado Performed By: Tee Gilbert RVT
--- NOTE | 2018-10-20 08:52 | ED.DCSUM_ITS ---
- ER Visit Summary Date of Service: 10/20/18 Chief Complaint: Chest pain History of Present Illness: The patient is a 52 F who presents with chest pain. This pain started last night. She describes a stabbing and throbbing pain in the right side of her chest that radiates into her back and down near her right breast. Nothing makes this better or worse. She does have associated shortness of breath. She states that she feels winded very easily and has to sit down. She does not have any increase of pain when she ambulates. She also feels weak and tired. She feels that her right leg is swollen behind the right knee. She has high cholesterol but no other cardiac risk factors. She has no PE or DVT risk factors. Recently had a Holter monitor on 4 palpitations which are likely due to thyroid issues. Physical Examination: Vital signs reviewed. HEENT exam unremarkable. Heart is regular rate and rhythm without murmurs. Lungs are clear to auscultation. Abdomen is soft and nontender. Extremities reveal no edema. She does have some tenderness in the right popliteal area. Peripheral pulses are equal. Skin exam normal. Neurologic exam normal. Test Results: EKG is sinus rhythm with a rate of [address] changes. Chest x-ray reveals degenerative bony changes but no lung abnormalities. Laboratory studies show a troponin that is normal. D-dimer 0.73. Emergency Department Course and Treatment: The patient was medicated with aspirin. Her FAY score is 0. I do not feel that this is cardiac in nature. Duplex ultrasound of the right lower extremity reveals no evidence of DVT. The patient's d-dimer is only slightly elevated. She has anaphylaxis to IV contrast dye therefore CTA of the chest is not feasible. However, with a negative ultrasound I do not feel that this is a PE. VQ scan cannot be done over the weekend. The patient has been having issues with her thyroid and has been having testing done by her PCP. This could be related to this. With shared decision making with the patient, we will elect to discharge the patient home. I do not feel she requires any anticoagulation. She is going to call her doctor on Monday and will monitor her symptoms. Treatment Plan: [] Disposition: Discharge Impression: Chest pain This note was generated with [employer] dictation software. It may contain incorrect words, spelling, and punctuation that were not noted in review of the chart prior to signing ED Disposition - Plan for ED Patient: Referrals: Samuel Orourke MD [Primary Care Provider] -
[2018-10-20 09:01] VITALS: O2SAT 98
[2018-10-20] MEDS: Aspirin 81 MG TAB.CHEW 324 MG PO (09:06)
[2018-10-20 09:15] LABS: Absolute Neutrophil Count 3.6 X10^3/uL (2.0-7.7); Basophil# 0.02 X10^3/uL; Basophil% 0.4 % (0-1); Eosinophil# 0.18 X10^3/uL; Eosinophils% 3.4 % (0-5); Hematocrit 39.4 % (37-47); Hemoglobin 13.7 g/dl (12.0-15.0); Lymphocyte % 15.3 % (19-41); Mean Corp Hgb Conc 34.8 g/gl (32-36); Mean Corpuscular Hgb 30.2 pg (27.0-32.0); Mean Platelet Vol. 10.1 fl (6.2-12.0); Monocyte# 0.61 X10^3/uL; Monocyte% 11.7 % (0-10); Neutrophil # 3.61 X10^3/uL (2.7-7.7); POSITIVE COUNT NO; POSITIVE DIFFERENTIAL NO; POSITIVE MORPHOLOGY NO; Platelet Count 203 K/mm3 (150-450); RBC Distribution Width CV 12.2 % (11.6-14.6); RBC Distribution Width SD 38.1 fl (35.1-43.9); Red Blood Count 4.53 M/mm3 (4.2-5.4); White Blood Count 5.2 K/mm3 (4.4-11.0)
[2018-10-20 09:22] LABS: D-Dimer Quantitative (DVT/PE) 0.73 FEU/ug/m (0.27-0.49)
[2018-10-20 09:28] LABS: Anion Gap 3 (5-15); BUN 16 mg/dL (7-18); BUN/Creat Ratio 22.9 RATIO (10-20); Calcium,Total 8.9 mg/dL (8.5-10.1); Chloride 110 mmol/L (98-107); EST Glomerular Filtration Rate 93 mL/min (>60); Est Glom Filt Rate - Afr Amer 113 mL/min (>60); Estimated Creatinine Clearance 77.77 ml/min; Glucose 97 mg/dL (74-106); Potassium 3.9 mmol/L (3.5-5.1); Sodium Level 141 mmol/L (136-145)
--- NOTE | 2018-10-20 10:42 | ED.DEP ---
ED Disposition - Plan for ED Patient: Disposition: Home or Assisted Living Instructions: ED Chest Pain NonCardiac Referrals: Samuel Orourke MD [Primary Care Provider] -
[2018-10-20 10:49] VITALS: BP 113/70; PULSE 69; RESP 11; O2SAT 95
== END 2018-10-20 10:49 | disposition home or self-care (01) ==
PROVIDERS: Emergency Provider Emergency Medicine; Family Provider Family Medicine; PCP Family Medicine
DX: R07.9 Chest pain, unspecified (principal)
CPT/HCPCS: 71045; 80048; 84484; 85025; 85379; 93005; 93971; 99284; A4216

== ENCOUNTER 2019-01-07 13:06 | Emergency (ER) | payer BC, SELFPAY ==
[2019-01-07 13:07] VITALS: BP 138/73; PULSE 79; RESP 16; TEMP 36.7; O2SAT 98; BMI 31.5
--- NOTE | 2019-01-07 15:01 | ED.VISSUMM ---
- ER Visit Summary Date of Service: 01/07/19 Chief Complaint: Migraine History of Present Illness: The patient is a 53 F who presents with migraine. Symptoms started gradually over the past 4 days. She has a history of migraines. The pain is over her right head. Denies trauma or inciting event. Worse with light and noise. Associated with nausea. Denies any neurologic symptoms otherwise. She tried Imitrex and Benadryl with no improvement. Physical Examination: Afebrile and vital signs unremarkable. Head and neck atraumatic. Cranial nerves grossly intact. HEENT exam unremarkable. Patient sitting with sunglasses on in a dark room. Heart regular rate and rhythm. Lungs clear. Skin appears normal. Good strength and sensation. Test Results: None indicated Emergency Department Course and Treatment: Patient treated with Compazine, Benadryl, Toradol. Will reassess. On reevaluation, patient is feeling much better. Pain is down before. Patient requesting discharge. Follow-up with her outpatient physician. Return for any new or worsening issues. Treatment Plan: As above Disposition: Discharged Impression: 1. Migraine This note was generated with [employer] software. It may contain incorrect words, spelling, and punctuation that were not noted in review of the chart prior to signing ED Disposition - Plan for ED Patient: Referrals: Samuel Orourke MD [Primary Care Provider] -
[2019-01-07] MEDS: proCHLORPERazine 10 MG/2 ML Vial IM (15:11)
[2019-01-07] MEDS: DiphenhydrAMINE 50 MG/ML Syringe IM (15:11)
[2019-01-07] MEDS: Ketorolac 30 MG/ML Syringe IM (15:11)
[2019-01-07 16:07] VITALS: BP 99/78; PULSE 57; RESP 14; O2SAT 97
--- NOTE | 2019-01-07 16:08 | ED.DEP ---
ED Disposition - Plan for ED Patient: Instructions: ED, Migraine (Classical) Referrals: Samuel Orourke MD [Primary Care Provider] -
== END 2019-01-07 16:18 | disposition home or self-care (01) ==
LOC: ED 15:09
PROVIDERS: Emergency Provider Emergency Medicine; Family Provider Family Medicine; PCP Family Medicine
DX: G43.909 Migraine, unspecified, not intractable, without status migrainosus (principal)
CPT/HCPCS: 96372; 99283

== ENCOUNTER → 2019-10-21 15:38 | Outpatient (CLI) | payer BC, SELFPAY ==
--- NOTE | 2019-10-21 15:41 | RAD_ITS ---
STUDY: X-RAY - LUMBAR SPINE REASON FOR EXAM: Female, 53 years old. LOWER BACK PAIN WRAPS AROUND LEFT SIDE AND DOWN LEG X YEARS, PAIN HAS BEEN INCREASING TECHNIQUE: 5 view(s) of the lumbar spine were obtained. COMPARISON: None FINDINGS: Normal lumbar lordosis. There is no substantial scoliosis. There is a normal alignment of the vertebrae. No evidence for acute fracture or subluxation There is narrowing of the L3-4 disc space with endplate spurring. Postsurgical changes in the pelvis on the right RAD/L/S Spine Min 4 Views IMPRESSION: Mild spondylosis. No evidence for acute fracture or subluxation Electronically Signed: Samuel Jimenez MD at 17:10 EDT , Service support ,
== END ==
PROVIDERS: PCP Family Medicine; Referring Provider Anesthesiology Pain Medicine; Visit Provider Anesthesiology Pain Medicine
DX: M54.5 Low back pain (principal)
CPT/HCPCS: 72110

== ENCOUNTER → 2019-12-03 14:01 | Outpatient (CLI) | payer BC, SELFPAY ==
--- NOTE | 2019-12-03 14:10 | RAD_ITS ---
STUDY: X-RAY - PELVIS AND LEFT HIP REASON FOR EXAM: Female, 54 years old. Left hip pain for several years TECHNIQUE: 3 views of the pelvis and hip. COMPARISON: None. FINDINGS: There is a non-specific bowel gas pattern. There are multiple calcified phleboliths. Surgical clips are seen in the right lower quadrant. Normal bilateral iliac wings, sacroiliac joints and visualized sacrum. Normal bilateral superior and inferior pubic rami. There are degenerative changes of the pubic symphysis with articular narrowing and sclerosis. Normal bilateral ischial tuberosities. Normal visualized femoral head. Normal acetabulum. Normal hip joint. RAD/HIP, UNI W/ Pelvis 2-3 Views IMPRESSION: No acute abnormality is seen. Electronically Signed: Arnold Ibrahim, at 15:43 EDT , Service support ,
== END ==
PROVIDERS: PCP Family Medicine; Referring Provider Nurse Practitioner Family; Visit Provider Nurse Practitioner Family
DX: M25.552 Pain in left hip (principal)
CPT/HCPCS: 73502

== ENCOUNTER → 2020-01-10 17:43 | Outpatient (CLI) | payer BC, SELFPAY | PROVIDERS: PCP Family Medicine; Referring Provider Family Medicine; Visit Provider Family Medicine | DX: Z20.828 Contact with and (suspected) exposure to other viral communicable diseases (principal) | CPT/HCPCS: 87635; 94799; U0003 ==

== ENCOUNTER → 2020-01-31 15:24 | Outpatient (CLI) | payer BC, SELFPAY ==
[2020-01-31 14:19] VITALS: BMI 32.4
[2020-01-31 17:29] LABS: T4 Free Direct 0.88 ng/dL (0.76-1.46)
[2020-02-05 09:08] LABS: Thyroid Stim Immunoglob <0.10 IU/L (0.00-0.55)
[2020-02-05 13:00] LABS: Thyroid Peroxidase AB 11 IU/mL (0-34)
== END ==
PROVIDERS: PCP Family Medicine; Referring Provider Internal Medicine Endocrinology, Diabetes & Metabolism; Visit Provider Internal Medicine Endocrinology, Diabetes & Metabolism
DX: E06.3 Autoimmune thyroiditis (principal)
CPT/HCPCS: 36415; 84439; 84443; 84445; 86376

== ENCOUNTER → 2020-03-16 15:01 | Outpatient (CLI) | payer BC, SELFPAY ==
[2020-02-01 18:35] VITALS: BMI 31.5
[2020-03-16 17:25] LABS: Free T3 3.9 pg/mL (2.18-3.98); T4 Free Direct 2.12 ng/dL (0.76-1.46); Thyroid Stim Hormone (TSH) 0.01 uIU/mL (0.358-3.74)
== END ==
PROVIDERS: PCP Family Medicine; Visit Provider Internal Medicine Endocrinology, Diabetes & Metabolism
DX: E06.3 Autoimmune thyroiditis (principal)
CPT/HCPCS: 36415; 84439; 84443; 84481

== ENCOUNTER → 2020-03-17 13:53 | Outpatient (CLI) | payer BC, SELFPAY ==
[2020-02-01 18:35] VITALS: BMI 31.5
--- NOTE | 2020-03-17 13:54 | US_ITS ---
STUDY: THYROID ULTRASOUND REASON FOR EXAM: Female, 54 years old. GOITER, PT STATES THEY HAVE BEEN UNABLE TO REGULATE HER THYROID LEVELS TECHNIQUE: Ultrasound evaluation of the thyroid was performed with real-time and static costello-scale imaging. COMPARISON: None. FINDINGS: RIGHT LOBE: The right lobe of the thyroid gland measures 3.6 cm x 1 cm x 1.3 cm. There is a heterogeneous echotexture. There is a 3 mm x 4 mm x 2 mm hypoechoic nodule with posterior shadowing in the mid pole. LEFT LOBE: The left lobe of the thyroid gland measures 3.5 cm x 0.8 cm x 0.9 cm. There is a heterogeneous echotexture. There is a 3.7 mm x 2.1 mm nodule with anterior calcification and posterior shadowing in the midportion. ISTHMUS: The isthmus measures 3.0 mm. The regional lymph nodes are normal. US/Thyroid IMPRESSION: Heterogeneous echotexture of the right and left lobes of the thyroid. Subcentimeter nodules bilaterally. Electronically Signed: Arnold Ibrahim, at 14:24 EDT , Service support ,
== END ==
PROVIDERS: PCP Family Medicine; Referring Provider Internal Medicine Endocrinology, Diabetes & Metabolism; Visit Provider Internal Medicine Endocrinology, Diabetes & Metabolism
DX: E04.9 Nontoxic goiter, unspecified (principal)
CPT/HCPCS: 76536

== ENCOUNTER → 2020-04-08 07:48 | Outpatient (CLI) | payer BC, SELFPAY ==
[2020-02-01 18:35] VITALS: BMI 31.5
--- NOTE | 2020-04-08 07:49 | NM_ITS ---
CLINICAL: 54-year-old female with reported history of thyrotoxicosis. I-123 THYROID UPTAKE and SCAN COMPARISON: Thyroid ultrasound report 03/17/2020 FINDINGS: The patient was administered a 325 uCi I-123 capsule by mouth. The 4-hour I-123 radioactive iodine thyroidal uptake was calculated to be 0.5 % (normal 5 to 25 %). The 24-hour I-123 radioactive iodine thyroidal uptake was calculated to be 0.6 % (normal 5 to 40 %). The I-123 thyroid scan demonstrates nonvisualization of the thyroid colloid commensurate with the calculated IODINE uptake values. NM/Thyroid Uptake Single or Mult IMPRESSION: 1. ABNORMAL DECREASED 4- and 24-hour I-123 radioactive iodine thyroidal uptakes. 2. 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 (Sharla et al, Endocrinol Rev 1: 411, 1980). Electronically Signed: Patrick Gu DO at 22:22 EDT Tel , Service support ,
== END ==
PROVIDERS: PCP Family Medicine; Referring Provider Internal Medicine Endocrinology, Diabetes & Metabolism; Visit Provider Internal Medicine Endocrinology, Diabetes & Metabolism
DX: E04.1 Nontoxic single thyroid nodule (principal)
CPT/HCPCS: 78012; A9516

== ENCOUNTER → 2020-06-10 13:09 | Outpatient (CLI) | payer BC, SELFPAY ==
[2020-02-01 18:35] VITALS: BMI 31.5
[2020-06-10 16:43] LABS: Free T3 2.3 pg/mL (2.18-3.98); T4 Free Direct 1.25 ng/dL (0.76-1.46); Thyroid Stim Hormone (TSH) 4.28 uIU/mL (0.358-3.74)
== END ==
PROVIDERS: PCP Family Medicine; Referring Provider Internal Medicine Endocrinology, Diabetes & Metabolism; Visit Provider Internal Medicine Endocrinology, Diabetes & Metabolism
DX: E06.3 Autoimmune thyroiditis (principal)
CPT/HCPCS: 36415; 84439; 84443; 84481

== ENCOUNTER → 2020-07-31 13:33 | Outpatient (CLI) | payer BC, SELFPAY ==
[2020-07-31 13:08] VITALS: BMI 32.4
[2020-07-31 15:58] LABS: Free T3 2.2 pg/mL (2.18-3.98); T4 Free Direct 1.39 ng/dL (0.76-1.46); Thyroid Stim Hormone (TSH) 2.49 uIU/mL (0.358-3.74)
== END ==
PROVIDERS: PCP Family Medicine; Referring Provider Internal Medicine Endocrinology, Diabetes & Metabolism; Visit Provider Internal Medicine Endocrinology, Diabetes & Metabolism
DX: E03.9 Hypothyroidism, unspecified (principal)
CPT/HCPCS: 36415; 84439; 84443; 84481

== ENCOUNTER 2021-07-23 13:37 | Outpatient (CLI) | payer BC, SELFPAY ==
[2021-07-23 15:19] LABS: Vitamin D,25 Hydroxy 27.6 ng/mL
[2021-07-23 15:25] LABS: T4 Free Direct 1.16 ng/dL (0.76-1.46); Thyroid Stim Hormone (TSH) 4.73 uIU/mL (0.358-3.74)
== END 2021-07-23 23:59 | disposition short-term general hospital (02) ==
LOC: BIMLAB 13:37
PROVIDERS: PCP Family Medicine; Referring Provider Internal Medicine Endocrinology, Diabetes & Metabolism; Visit Provider Internal Medicine Endocrinology, Diabetes & Metabolism
DX: E03.8 Other specified hypothyroidism (principal); E06.3 Autoimmune thyroiditis; E55.9 Vitamin D deficiency, unspecified
CPT/HCPCS: 36415; 82306; 84439; 84443

== ENCOUNTER → 2021-10-25 | Outpatient (CLI) | payer BC, SELFPAY ==
[2021-10-25 16:49] LABS: Vitamin D,25 Hydroxy 42.2 ng/mL
[2021-10-25 16:56] LABS: T4 Free Direct 1.28 ng/dL (0.76-1.46); Thyroid Stim Hormone (TSH) 4.89 uIU/mL (0.358-3.74)
== END | disposition home or self-care (01) ==
LOC: BIMLAB 15:19
PROVIDERS: PCP Family Medicine; Visit Provider Internal Medicine Endocrinology, Diabetes & Metabolism
DX: E03.8 Other specified hypothyroidism (principal); E06.3 Autoimmune thyroiditis; E55.9 Vitamin D deficiency, unspecified
CPT/HCPCS: 36415; 82306; 84439; 84443

== ENCOUNTER → 2022-01-26 | Outpatient (CLI) | payer OTHER, SELFPAY ==
[2022-01-26 18:04] LABS: T4 Free Direct 1.22 ng/dL (0.76-1.46); Thyroid Stim Hormone (TSH) 1.89 uIU/mL (0.358-3.74)
== END | disposition home or self-care (01) ==
LOC: LAB 16:10
PROVIDERS: PCP Family Medicine; Referring Provider Internal Medicine Endocrinology, Diabetes & Metabolism; Visit Provider Internal Medicine Endocrinology, Diabetes & Metabolism
DX: E03.8 Other specified hypothyroidism (principal); E06.3 Autoimmune thyroiditis
CPT/HCPCS: 36415; 84439; 84443

== ENCOUNTER → 2023-07-21 | Outpatient (CLI) | payer OTHER, SELFPAY ==
[2023-07-21 16:02] LABS: T4 Free Direct 1.44 ng/dL (0.76-1.46); Thyroid Stim Hormone (TSH) 1.77 uIU/mL (0.358-3.74)
== END | disposition home or self-care (01) ==
LOC: BIMLAB 13:37
PROVIDERS: PCP Family Medicine; Referring Provider Internal Medicine Endocrinology, Diabetes & Metabolism; Visit Provider Internal Medicine Endocrinology, Diabetes & Metabolism
DX: E03.8 Other specified hypothyroidism (principal); E06.3 Autoimmune thyroiditis
CPT/HCPCS: 36415; 84439; 84443

== ENCOUNTER → 2024-01-04 | Outpatient (CLI) | payer OTHER, SELFPAY ==
[2024-01-04 08:27] LABS: T4 Free Direct 1.33 ng/dL (0.76-1.46); Thyroid Stim Hormone (TSH) 3.33 uIU/mL (0.358-3.74)
== END | disposition home or self-care (01) ==
LOC: LAB 07:39
PROVIDERS: PCP Family Medicine; Referring Provider Family Medicine; Visit Provider Family Medicine
DX: E03.9 Hypothyroidism, unspecified (principal); R00.2 Palpitations
CPT/HCPCS: 36415; 84439; 84443

== ENCOUNTER → 2024-07-11 | Outpatient (CLI) | payer OTHER, SELFPAY ==
[2024-07-11 17:36] LABS: Vitamin D,25 Hydroxy 61.2 ng/mL
[2024-07-11 17:49] LABS: ALB/GLOB Ratio 1.1 RATIO (0.9-2.4); AST(SGOT) 16 U/L (15-37); Alanine Aminotransfer ALT/SGPT 15 U/L (13-56); Albumin, Serum 3.9 g/dL (3.2-5.0); Alkaline Phosphatase 76 U/L (45-117); Anion Gap 5 (5-15); BUN 16 mg/dL (7-18); BUN/Creat Ratio 18.9 RATIO (10-20); Calcium,Total 9.5 mg/dL (8.5-10.1); Chloride 104 mmol/L (98-107); Creatinine, Serum 0.85 mg/dL (0.55-1.02); EST Glomerular Filtration Rate 73 mL/min (>60); Est Glom Filt Rate - Afr Amer 89 mL/min (>60); Globulin 3.5 g/dL (2.2-4.2); Glucose 80 mg/dL (74-106); Potassium 4.1 mmol/L (3.5-5.1); Protein, Total 7.4 g/dL (6.4-8.2); Sodium Level 139 mmol/L (136-145); T4 Free Direct 1.08 ng/dL (0.76-1.46)
== END | disposition home or self-care (01) ==
PROVIDERS: PCP Family Medicine; Referring Provider Internal Medicine Endocrinology, Diabetes & Metabolism; Visit Provider Internal Medicine Endocrinology, Diabetes & Metabolism
DX: E03.8 Other specified hypothyroidism (principal); E06.3 Autoimmune thyroiditis; E55.9 Vitamin D deficiency, unspecified
CPT/HCPCS: 36415; 80053; 82306; 84439; 84443

== ENCOUNTER → 2024-10-10 | Outpatient (CLI) | payer OTHER, SELFPAY | END | disposition home or self-care (01) | LOC: LAB 16:03 | PROVIDERS: PCP Family Medicine; Referring Provider Internal Medicine Endocrinology, Diabetes & Metabolism; Visit Provider Internal Medicine Endocrinology, Diabetes & Metabolism | DX: E03.8 Other specified hypothyroidism (principal); E06.3 Autoimmune thyroiditis | CPT/HCPCS: 36415; 84439; 84443 ==